=== PATIENT | male | born 1935 | race Caucasian/White ===

== ENCOUNTER → 2016-12-30 | Outpatient (CLI) | payer MEDICARE, BC ==
[2016-12-30 10:49] LABS: ALT 25 U/L (21-72); AST 27 U/L (17-59); Alkaline Phosphatase 59 U/L (38-126); Anion Gap 4 mmol/L; Blood Urea Nitrogen 14 mg/dL (9-20); Calcium 9.1 mg/dL (8.4-10.2); Carbon Dioxide 30 mmol/L (22-30); Chloride 106 mmol/L (98-107); Cholesterol 107 mg/dL (<200); Glucose 152 mg/dL (74-99); HDL Cholesterol 57 mg/dL (40-60); Non-African American GFR(MDRD) >60 (>60 ml/min/1.73 sqM); Sodium 140 mmol/L (137-145); Total Bilirubin 2.3 mg/dL (0.2-1.3); Total Protein 7.4 g/dL (6.3-8.2); Triglycerides 62 mg/dL (<150)
== END | disposition home or self-care (01) ==
LOC: LABWHC1 10:03
PROVIDERS: ATTEND Internal Medicine Interventional Cardiology
DX: E78.2 Mixed hyperlipidemia (principal)
CPT/HCPCS: 36415; 80053; 80061

== ENCOUNTER → 2017-06-15 | Outpatient (CLI) | payer MEDICARE, BC ==
[2017-06-15 10:55] LABS: ALT 35 U/L (21-72); AST 24 U/L (17-59); Cholesterol 112 mg/dL (<200); HDL Cholesterol 55 mg/dL (40-60)
== END | disposition home or self-care (01) ==
LOC: LABWHC1 09:24
PROVIDERS: ATTEND Internal Medicine Interventional Cardiology
DX: E78.2 Mixed hyperlipidemia (principal)
CPT/HCPCS: 36415; 80061; 84450; 84460

== ENCOUNTER 2018-02-12 17:31 | Inpatient (IN) | payer MEDICARE, BC ==
--- NOTE | 2018-02-12 18:09 | ED ---
General Adult HPI - General Chief complaint: Shortness of Breath Stated complaint: RIC, HX OPEN HEART Time Seen by Provider: 02/12/18 18:07 Source: patient, RN notes reviewed, old records reviewed Mode of arrival: ambulatory Limitations: no limitations - History of Present Illness Initial comments: This is a 83-year-old male the ER for evaluation. They presents for evaluation regarding short of breath, severe shortness of breath and weakness. Patient is significant history of heart disease. Patient states he has been was a for about a day and a half secondary difficulty breathing. Since having CABG coronary artery bypass. Difficulty breathing secondary to his lungs feeling with fluid, patient has multiple therapeutic thoracentesis at this time. Patient most recent illness Thursday, significant shortness of breath again starting 2 days ago. No chest pain no fevers no cough or congestion - Related Data Home Medications Medication Instructions Recorded Confirmed Cyanocobalamin [Vitamin B-12] 500 mcg PO HS 03/02/14 02/12/18 Docusate Sodium [Stool Softener] 100 mg PO HS 03/02/14 02/12/18 Metoprolol Tartrate [Lopressor] 50 mg PO BID 03/02/14 02/12/18 Ascorbic Acid [Vitamin C] 500 mg PO HS 02/12/18 02/12/18 Aspirin 81 mg PO HS 02/12/18 02/12/18 Atorvastatin [Lipitor] 20 mg PO HS 02/12/18 02/12/18 Calcium Carbonate/Vitamin D3 1 tab PO BID 02/12/18 02/12/18 [Calcium 500-Vit D3 200 Tablet] Dabigatran [Pradaxa] 150 mg PO BID 02/12/18 02/12/18 Folic Acid 1 mg PO HS 02/12/18 02/12/18 Furosemide [Lasix] 10 mg PO BID@0800,1500 02/12/18 02/12/18 Lisinopril [Zestril] 1.25 mg PO DAILY 02/12/18 02/12/18 Potassium Chloride [K-Tab ER] 5 meq PO DAILY 02/12/18 02/12/18 metFORMIN HCL [Glucophage] 500 mg PO BID 02/12/18 02/12/18 Allergies Allergy/AdvReac Type Severity Reaction Status Date / Time No Known Allergies Allergy Verified 02/12/18 18:12 Review of Systems ROS Statement: Those systems with pertinent positive or pertinent negative responses have been documented in the HPI. ROS Other: All systems not noted in ROS Statement are negative. Past Medical History Past Medical History: Diabetes Mellitus, Hypertension Additional Past Medical History / Comment(s): used to take medication for diabetes, lost 85#, no longer a problem per spouse History of Any Multi-Drug Resistant Organisms: None Reported Past Surgical History: Cholecystectomy, Coronary Bypass/CABG, Heart Catheterization Additional Past Surgical History / Comment(s): CABG (1 vessel) 11/2018 Past Anesthesia/Blood Transfusion Reactions: No Reported Reaction Type of Cardiac Device: Permanent Pacemaker Device Placement Date:: unknown Past Psychological History: No Psychological Hx Reported Smoking Status: Never smoker General Exam Limitations: no limitations General appearance: alert, in no apparent distress Head exam: Present: atraumatic, normocephalic, normal inspection Eye exam: Present: normal appearance, PERRL, EOMI. Absent: scleral icterus, conjunctival injection, periorbital swelling ENT exam: Present: normal exam, mucous membranes moist Neck exam: Present: normal inspection. Absent: tenderness, meningismus, lymphadenopathy Respiratory exam: Present: normal lung sounds bilaterally, decreased breath sounds (Left). Absent: respiratory distress, wheezes, rales, rhonchi, stridor Cardiovascular Exam: Present: regular rate, normal rhythm, normal heart sounds. Absent: systolic murmur, diastolic murmur, rubs, gallop, clicks GI/Abdominal exam: Present: soft, normal bowel sounds. Absent: distended, tenderness, guarding, rebound, rigid Extremities exam: Present: normal inspection, full ROM, normal capillary refill. Absent: tenderness, pedal edema, joint swelling, calf tenderness Back exam: Present: normal inspection Neurological exam: Present: alert, oriented X3, CN II-XII intact Psychiatric exam: Present: normal affect, normal mood Skin exam: Present: warm, dry, intact, normal color. Absent: rash Course Vital Signs 02/12/18 02/12/18 17:56 19:08 Temperature 97.7 F 97.6 F Pulse Rate 60 60 Respiratory 24 22 Rate Blood Pressure 196/90 195/103 O2 Sat by Pulse 96 97 Oximetry - Reevaluation(s) Reevaluation #1: 02/12/18 19:[address] Faustin this paged regarding thoracentesis Reevaluation #2: 02/12/18 19:51 Medical record is reviewed, patient had multiple thoracentesis status post cabg EKG Findings - EKG Comments: EKG Findings:: EKG shows wide rhythm rate of 60, QRS 180, QTC 494 Medical Decision Making - Medical Decision Making 81 female the ER for evaluation shortness of breath, recurrent left-sided significant pleural effusion 50%. Patient be admitted for IV Lasix, therapeutic thoracentesis - Lab Data Result diagrams: 02/12/18 18:10 02/12/18 18:10 Lab Results 02/12/18 02/12/18 02/12/18 Range/Units 18:10 18:10 18:10 WBC 8.7 (3.8-10.6) k/uL RBC 4.29 L (4.30-5.90) m/uL Hgb 12.6 L (13.0-17.5) gm/dL Hct 38.1 L (39.0-53.0) % MCV 88.8 (80.0-100.0) fL MCH 29.3 (25.0-35.0) pg MCHC 33.0 (31.0-37.0) g/dL RDW 14.4 (11.5-15.5) % Plt Count 209 (150-450) k/uL Neutrophils % 64 % Lymphocytes % 19 % Monocytes % 11 % Eosinophils % 3 % Basophils % 0 % Neutrophils # 5.6 (1.3-7.7) k/uL Lymphocytes # 1.6 (1.0-4.8) k/uL Monocytes # 0.9 (0-1.0) k/uL Eosinophils # 0.2 (0-0.7) k/uL Basophils # 0.0 (0-0.2) k/uL PT (9.0-12.0) sec INR (<1.2) APTT (22.0-30.0) sec Sodium 143 (137-145) mmol/L Potassium 4.1 (3.5-5.1) mmol/L Chloride 102 (98-107) mmol/L Carbon Dioxide 29 (22-30) mmol/L Anion Gap 12 mmol/L BUN 20 (9-20) mg/dL Creatinine 0.90 (0.66-1.25) mg/dL Est GFR (CKD-EPI)AfAm >90 (>60 ml/min/1.73 sqM) Est GFR (CKD-EPI)NonAf 79 (>60 ml/min/1.73 sqM) Glucose 234 H (74-99) mg/dL Calcium 9.3 (8.4-10.2) mg/dL Magnesium 1.3 L (1.6-2.3) mg/dL Total Bilirubin 1.1 (0.2-1.3) mg/dL AST 37 (17-59) U/L ALT 23 (21-72) U/L Alkaline Phosphatase 84 (38-126) U/L Total Creatine Kinase 41 L (55-170) U/L CK-MB (CK-2) 1.9 (0.0-2.4) ng/mL CK-MB (CK-2) Rel Index 4.6 Troponin I 0.029 (0.000-0.034) ng/mL NT-Pro-B Natriuret Pep pg/mL Total Protein 6.9 (6.3-8.2) g/dL Albumin 3.7 (3.5-5.0) g/dL 02/12/18 02/12/18 Range/Units 18:10 18:10 WBC (3.8-10.6) k/uL RBC (4.30-5.90) m/uL Hgb (13.0-17.5) gm/dL Hct (39.0-53.0) % MCV (80.0-100.0) fL MCH (25.0-35.0) pg MCHC (31.0-37.0) g/dL RDW (11.5-15.5) % Plt Count (150-450) k/uL Neutrophils % % Lymphocytes % % Monocytes % % Eosinophils % % Basophils % % Neutrophils # (1.3-7.7) k/uL Lymphocytes # (1.0-4.8) k/uL Monocytes # (0-1.0) k/uL Eosinophils # (0-0.7) k/uL Basophils # (0-0.2) k/uL PT 13.8 H (9.0-12.0) sec INR 1.5 H (<1.2) APTT 35.0 H (22.0-30.0) sec Sodium (137-145) mmol/L Potassium (3.5-5.1) mmol/L Chloride (98-107) mmol/L Carbon Dioxide (22-30) mmol/L Anion Gap mmol/L BUN (9-20) mg/dL Creatinine (0.66-1.25) mg/dL Est GFR (CKD-EPI)AfAm (>60 ml/min/1.73 sqM) Est GFR (CKD-EPI)NonAf (>60 ml/min/1.73 sqM) Glucose (74-99) mg/dL Calcium (8.4-10.2) mg/dL Magnesium (1.6-2.3) mg/dL Total Bilirubin (0.2-1.3) mg/dL AST (17-59) U/L ALT (21-72) U/L Alkaline Phosphatase (38-126) U/L Total Creatine Kinase (55-170) U/L CK-MB (CK-2) (0.0-2.4) ng/mL CK-MB (CK-2) Rel Index Troponin I (0.000-0.034) ng/mL NT-Pro-B Natriuret Pep 4950 pg/mL Total Protein (6.3-8.2) g/dL Albumin (3.5-5.0) g/dL - Radiology Data Radiology results: report reviewed (Patient does have significant left-sided pleural effusion), image reviewed Disposition Clinical Impression: Acute pulmonary edema, Recurrent left pleural effusion Disposition: ADMITTED IP TO THIS HOSP Condition: Fair Is patient prescribed a controlled substance at d/c from ED?: No Referrals: Mauro Souza MD [Primary Care Provider] - 1-2 days
[2018-02-12 18:25] LABS: Basophils % (A) 0 %; Eosinophils # (A) 0.2 k/uL (0-0.7); Eosinophils % (A) 3 %; HCT 38.1 % (39.0-53.0); HGB 12.6 gm/dL (13.0-17.5); Lymphocytes # (A) 1.6 k/uL (1.0-4.8); Lymphocytes % (A) 19 %; MCH 29.3 pg (25.0-35.0); MCV 88.8 fL (80.0-100.0); Mean Platelet Volume 6.9; Monocytes # (A) 0.9 k/uL (0-1.0); Monocytes % (A) 11 %; Neutrophils # (A) 5.6 k/uL (1.3-7.7); Neutrophils % (A) 64 %; Platelet Count 209 k/uL (150-450); RBC 4.29 m/uL (4.30-5.90); RDW 14.4 % (11.5-15.5); WBC 8.7 k/uL (3.8-10.6)
[2018-02-12 18:34] LABS: ALT 23 U/L (21-72); AST 37 U/L (17-59); Albumin 3.7 g/dL (3.5-5.0); Alkaline Phosphatase 84 U/L (38-126); Anion Gap 12 mmol/L; Blood Urea Nitrogen 20 mg/dL (9-20); Calcium 9.3 mg/dL (8.4-10.2); Carbon Dioxide 29 mmol/L (22-30); Chloride 102 mmol/L (98-107); Glucose 234 mg/dL (74-99); Magnesium 1.3 mg/dL (1.6-2.3); Potassium 4.1 mmol/L (3.5-5.1); Sodium 143 mmol/L (137-145); Total Bilirubin 1.1 mg/dL (0.2-1.3); Total Protein 6.9 g/dL (6.3-8.2)
[2018-02-12 18:38] LABS: INR 1.5 (<1.2); Prothrombin Time 13.8 sec (9.0-12.0)
[2018-02-12 18:52] LABS: Creatine Kinase MB 1.9 ng/mL (0.0-2.4); Troponin I 0.029 ng/mL (0.000-0.034)
--- NOTE | 2018-02-12 19:04 | XR ---
EXAMINATION TYPE: XR chest 2V DATE OF EXAM: 02/12/2018 COMPARISON: 02/13/2014 HISTORY: Short of breath TECHNIQUE: Frontal and lateral views of the chest are obtained. FINDINGS: Heart is enlarged. There is pulmonary vascular congestion. There is opacification of 50% l eft hemithorax. There is left axillary pacemaker with the lead tip in the right ventricle. There are chest leads. There are sternal wires. IMPRESSION: There is probably mild heart failure. This appears new compared to old exam. There is left pleural effusion and left lower lobe consolidation. This appears new compared to old e xam.
[2018-02-12] MEDS ORDERED: IPRATROPIUM-ALBUTEROL 3 ML NEB INHALATION PRN (20:22)
[2018-02-12] MEDS ORDERED: IPRATROPIUM-ALBUTEROL 3 ML NEB INHALATION STA (20:22)
[2018-02-12] MEDS: MAGNESIUM SULFATE-D5W PMX 1 GM in DEXTROSE/WATER 1 100ML.BAG IVPB SCH ×2 (20:23→21:58)
[2018-02-12] MEDS ORDERED: FUROSEMIDE 10 MG/ML 4 ML VIAL IV STA (20:23)
[2018-02-13 07:23] LABS: Glucose,Whole Blood 223 mg/dL (75-99)
[2018-02-13] MEDS ORDERED: HEPARIN SODIUM,PORCINE 5,000 UNIT/ML 1 ML VIAL IV PRN ×2 (09:43→16:31)
[2018-02-13] MEDS ORDERED: HEPARIN SODIUM,PORCINE 5,000 UNIT/ML 1 ML VIAL IV ONE (10:00)
[2018-02-13 10:21] LABS: Basophils % (A) 1 %; Eosinophils # (A) 0.2 k/uL (0-0.7); Eosinophils % (A) 3 %; HGB 11.5 gm/dL (13.0-17.5); Lymphocytes # (A) 0.9 k/uL (1.0-4.8); Lymphocytes % (A) 16 %; MCH 28.8 pg (25.0-35.0); MCHC 32.9 g/dL (31.0-37.0); MCV 87.6 fL (80.0-100.0); Mean Platelet Volume 7.2; Monocytes # (A) 0.6 k/uL (0-1.0); Monocytes % (A) 9 %; Neutrophils # (A) 4.2 k/uL (1.3-7.7); Neutrophils % (A) 69 %; Platelet Count 167 k/uL (150-450); RBC 3.99 m/uL (4.30-5.90); RDW 14.5 % (11.5-15.5); WBC 6.1 k/uL (3.8-10.6)
[2018-02-13 10:33] LABS: INR 1.4 (<1.2); Partial Thromboplastin Time 29.2 sec (22.0-30.0)
[2018-02-13] MEDS: FUROSEMIDE 10 MG/ML 4 ML VIAL IV SCH (11:04)
[2018-02-13] MEDS: HEPARIN SODIUM,PORCINE/D5W PMX 25,000 UNIT in DEXTROSE/WATER 1 500ML.BAG IV SCH (11:05)
[2018-02-13] MEDS: METOPROLOL TARTRATE 50 MG TAB PO SCH ×2 (11:07→22:48)
[2018-02-13] MEDS: LISINOPRIL 2.5 MG TAB PO SCH (11:07)
[2018-02-13] MEDS: POTASSIUM BICARBONATE/CIT AC 20 MEQ TABLET.EFF PO SCH (11:07)
--- NOTE | 2018-02-13 11:18 | P.GSCN ---
History of Present Illness Consult date: 02/13/18 Reason for Consult: Recurrent left-sided pleural effusion Requesting physician: Cheri Bergman History of present illness: This is an 83-year-old gentleman who follows on an outpatient basis with Dr. Mauro Souza. He has a previous medical history of recent one vessel coronary artery bypass grafting surgery in [place] on 12/11/2017, type 2 diabetes mellitus, hypertension, chronic atrial fibrillation, permanent pacemaker, and thoracentesis 4 since his open heart. Apparently after his open heart surgery he was in the hospital for 2 weeks followed by 3 weeks in subacute rehab. While there he had a left sided thoracentesis for pleural effusion 3 times the last being January 17, all 3 times with a proximally 1 L of fluid removal per the patient's . He was able to recover enough for them to come home. He continued to have shortness of breath, he saw Dr. Pimentel approximately a week ago, had a chest x-ray demonstrating left-sided pleural effusion per the , x-rays not available to us at this time. Again the patient had a thoracentesis which would be his fourth on ThursdayFebruary [address] Pimentel at [facility] with a proximally 500 mL fluid removal per the . He was feeling better until this past Thursday when the noticed he would basically get up, eat and go back to bed. He is experienced continued shortness of breath with any activity and can only walk as far as the bathroom before having to stop to take a break. He does not have shortness of breath as long as he is laying down on his left side. He saw his primary care doctor yesterday, who asked him to report to the emergency room for recurrent left-sided plural effusion. Doctor Francois from cardiothoracic surgery was consulted regarding treatment recommendations. Review of Systems 14 point review of systems was completed was negative except as noted. - Constitutional Reports fatigue, Reports weakness - Cardiovascular Reports decreased exercise tolerance, Reports dyspnea on exertion, Reports leg edema, Reports shortness of breath - Respiratory Reports dyspnea Past Medical History Past Medical History: Atrial Fibrillation, Coronary Artery Disease (CAD), Diabetes Mellitus, Hypertension, Myocardial Infarction ([place]) Additional Past Medical History / Comment(s): used to take medication for diabetes, lost 85#, no longer a problem per spouse, recurrent left-sided pleural effusion Last Myocardial Infarction Date:: History of Any Multi-Drug Resistant Organisms: None Reported Past Surgical History: Cholecystectomy, Coronary Bypass/CABG, Heart Catheterization With Stent, Hernia Repair, Pacemaker, Tonsillectomy Additional Past Surgical History / Comment(s): CABG (1 vessel) 11/2017 in [facility], past colonoscopy,rt inguinal hernia repair, rt knee arthroscopy, cardiac stent-LAD, left-sided thoracentesis 4 Past Anesthesia/Blood Transfusion Reactions: No Reported Reaction Date of Last Stent Placement:: 2013 Type of Cardiac Device: Permanent Pacemaker Device Placement Date:: 02/09/12 Smoking Status: Never smoker Past Alcohol Use History: None Reported Past Drug Use History: None Reported - Past Family History Father Family Medical History: No Reported History Additional Family Medical History / Comment(s): FROM OLD AGE AT 92 Mother Family Medical History: COPD Additional Family Medical History / Comment(s): EMPHYSEMA - AGE 87 Medications and Allergies Home Medications Medication Instructions Recorded Confirmed Type Cyanocobalamin [Vitamin B-12] 500 mcg PO HS 03/02/14 02/12/18 History Docusate Sodium [Stool Softener] 100 mg PO HS 03/02/14 02/12/18 History Metoprolol Tartrate [Lopressor] 50 mg PO BID 03/02/14 02/12/18 History Ascorbic Acid [Vitamin C] 500 mg PO HS 02/12/18 02/12/18 History Aspirin 81 mg PO HS 02/12/18 02/12/18 History Atorvastatin [Lipitor] 20 mg PO HS 02/12/18 02/12/18 History Calcium Carbonate/Vitamin D3 1 tab PO BID 02/12/18 02/12/18 History [Calcium 500-Vit D3 200 Tablet] Dabigatran [Pradaxa] 150 mg PO BID 02/12/18 02/12/18 History Folic Acid 1 mg PO HS 02/12/18 02/12/18 History Furosemide [Lasix] 10 mg PO BID@0800,1500 02/12/18 02/12/18 History Lisinopril [Zestril] 1.25 mg PO DAILY 02/12/18 02/12/18 History Potassium Chloride [K-Tab ER] 5 meq PO DAILY 02/12/18 02/12/18 History metFORMIN HCL [Glucophage] 500 mg PO BID 02/12/18 02/12/18 History Allergies Allergy/AdvReac Type Severity Reaction Status Date / Time No Known Allergies Allergy Verified 02/12/18 18:12 Surgical - Exam Vital Signs Temp Pulse Resp BP Pulse Ox 97.7 F 60 24 196/90 96 02/12/18 17:56 02/12/18 17:56 02/12/18 17:56 02/12/18 17:56 02/12/18 17:56 - General well developed, well nourished, no distress, no pain, obese - Eyes PERRL, normal ocular movement - ENT decreased hearing - Neck no masses, no bruits, trachea midline - Respiratory Lungs sounds clear bilaterally but very diminished on the left side. Respirations even, nonlabored. Currently on room air with oxygen saturation 96% . - Cardiovascular S1, S2 present. Irregular rate and rhythm, atrial fibrillation on EKG. Palpable peripheral pulses bilaterally. No edema present. No calf pain or tenderness noted. - Abdomen Abdomen: soft, non tender, bowel sounds - Genitourinary Deferred - Rectum Deferred - Integumentary Skin is warm and dry with evidence of good perfusion. Well-healed sternal incision present, mediastinal and left pleural chest tube incisions are well- healed. no rash, no growths, no abnormal pigmentation - Neurologic normal coordination, normal sensation - Psychiatric oriented to time, oriented to person, oriented to place, speech is normal, memory intact Results - Labs 02/13/18 10:08 02/12/18 18:10 Abnormal Lab Results - Last 24 Hours (Table) 02/12/18 02/12/18 02/12/18 Range/Units 18:10 18:10 18:10 RBC 4.29 L (4.30-5.90) m/uL Hgb 12.6 L (13.0-17.5) gm/dL Hct 38.1 L (39.0-53.0) % Lymphocytes # (1.0-4.8) k/uL PT (9.0-12.0) sec INR (<1.2) APTT (22.0-30.0) sec Glucose 234 H (74-99) mg/dL POC Glucose (mg/dL) (75-99) mg/dL Magnesium 1.3 L (1.6-2.3) mg/dL Total Creatine Kinase 41 L (55-170) U/L 02/12/18 02/13/18 02/13/18 Range/Units 18:10 07:20 10:08 RBC 3.99 L (4.30-5.90) m/uL Hgb 11.5 L (13.0-17.5) gm/dL Hct 35.0 L (39.0-53.0) % Lymphocytes # 0.9 L (1.0-4.8) k/uL PT 13.8 H (9.0-12.0) sec INR 1.5 H (<1.2) APTT 35.0 H (22.0-30.0) sec Glucose (74-99) mg/dL POC Glucose (mg/dL) 223 H (75-99) mg/dL Magnesium (1.6-2.3) mg/dL Total Creatine Kinase (55-170) U/L 02/13/18 Range/Units 10:08 RBC (4.30-5.90) m/uL Hgb (13.0-17.5) gm/dL Hct (39.0-53.0) % Lymphocytes # (1.0-4.8) k/uL PT 13.0 H (9.0-12.0) sec INR 1.4 H (<1.2) APTT (22.0-30.0) sec Glucose (74-99) mg/dL POC Glucose (mg/dL) (75-99) mg/dL Magnesium (1.6-2.3) mg/dL Total Creatine Kinase (55-170) U/L Diabetes panel 02/12/18 Range/Units 18:10 Sodium 143 (137-145) mmol/L Potassium 4.1 (3.5-5.1) mmol/L Chloride 102 (98-107) mmol/L Carbon Dioxide 29 (22-30) mmol/L BUN 20 (9-20) mg/dL Creatinine 0.90 (0.66-1.25) mg/dL Glucose 234 H (74-99) mg/dL Calcium 9.3 (8.4-10.2) mg/dL AST 37 (17-59) U/L ALT 23 (21-72) U/L Alkaline Phosphatase 84 (38-126) U/L Total Protein 6.9 (6.3-8.2) g/dL Albumin 3.7 (3.5-5.0) g/dL Calcium panel 02/12/18 Range/Units 18:10 Calcium 9.3 (8.4-10.2) mg/dL Albumin 3.7 (3.5-5.0) g/dL Pituitary panel 02/12/18 Range/Units 18:10 Sodium 143 (137-145) mmol/L Potassium 4.1 (3.5-5.1) mmol/L Chloride 102 (98-107) mmol/L Carbon Dioxide 29 (22-30) mmol/L BUN 20 (9-20) mg/dL Creatinine 0.90 (0.66-1.25) mg/dL Glucose 234 H (74-99) mg/dL Calcium 9.3 (8.4-10.2) mg/dL Adrenal panel 02/12/18 Range/Units 18:10 Sodium 143 (137-145) mmol/L Potassium 4.1 (3.5-5.1) mmol/L Chloride 102 (98-107) mmol/L Carbon Dioxide 29 (22-30) mmol/L BUN 20 (9-20) mg/dL Creatinine 0.90 (0.66-1.25) mg/dL Glucose 234 H (74-99) mg/dL Calcium 9.3 (8.4-10.2) mg/dL Total Bilirubin 1.1 (0.2-1.3) mg/dL AST 37 (17-59) U/L ALT 23 (21-72) U/L Alkaline Phosphatase 84 (38-126) U/L Total Protein 6.9 (6.3-8.2) g/dL Albumin 3.7 (3.5-5.0) g/dL - Imaging Chest x-ray: report reviewed, image reviewed EKG: image reviewed Assessment and Plan (1) History of coronary artery bypass graft x 1 Current Visit: Yes Status: Chronic Code(s): Z95.1 - PRESENCE OF AORTOCORONARY BYPASS GRAFT SNOMED Code(s): 058368927 (2) Chronic atrial fibrillation Current Visit: Yes Status: Chronic Code(s): I48.2 - CHRONIC ATRIAL FIBRILLATION SNOMED Code(s): 507320916 (3) Diabetes mellitus type 2 in obese Current Visit: Yes Status: Chronic Code(s): E11.69 - TYPE 2 DIABETES MELLITUS WITH OTHER SPECIFIED COMPLICATION; E66.9 - OBESITY, UNSPECIFIED SNOMED Code(s): 80711177 (4) Hypertension Current Visit: Yes Status: Chronic Code(s): I10 - ESSENTIAL (PRIMARY) HYPERTENSION SNOMED Code(s): 51216763 (5) History of permanent cardiac pacemaker placement Current Visit: Yes Status: Chronic Code(s): Z95.0 - PRESENCE OF CARDIAC PACEMAKER SNOMED Code(s): 765528455 (6) History of thoracentesis Current Visit: Yes Status: Chronic Code(s): Z98.890 - OTHER SPECIFIED POSTPROCEDURAL STATES SNOMED Code(s): 942936168 (7) Recurrent left pleural effusion Current Visit: Yes Status: Acute Code(s): J90 - PLEURAL EFFUSION, NOT ELSEWHERE CLASSIFIED SNOMED Code(s): 59750192 Plan: The patient was seen and examined at the bedside. Chart/diagnostics were reviewed. Patient currently getting echocardiogram. The case was discussed in detail with Dr. Francois. At this time we will hold off making surgical recommendations until we have been able to review his previous x-rays including his post thoracentesis x-ray. The patient is in no significant acute distress. We do recommend continuing IV Lasix as well as his other post open heart medications. Cardiac recommendations per Dr. Fatima. Pulmonology per Dr. Kathi Dominguez. Will order incentive spirometry, recommend use 10 times every hour while awake. More recommendations to follow. Thank you Dr. Bergman for this consult. We look forward to working with you in the care of your patient. Time with Patient: Greater than 30
[2018-02-13 11:31] LABS: Glucose,Whole Blood 295 mg/dL (75-99)
--- NOTE | 2018-02-13 11:39 | P.HPIM ---
History of Present Illness H&P Date: 02/13/18 Chief Complaint: Shortness of breath This is an 83-year-old male patient of Dr. Mauro Souza with past medical history of atrial fibrillation, diabetes mellitus type 2, hypertension, coronary artery disease status post previous stent placement as well as CABG done 12/13/2017 in [place]. Patient gives history of having for thoracentesis done on the left side since his CABG. His last one was done by Dr. Pimentel at [facility]. He states he has had increasing shortness of breath for the past 1-1/2 days as well as generalized weakness. He states the shortness of breath was very significant. He denies having previous diagnosis of heart failure. He states he has occasional chest pain but none during this episode. He denies any fever or chills. He denies any lower extremity edema but he did have significant amount while in [place]. Patient has been started on IV Lasix and consult with pulmonary medicine as well as cardiothoracic surgery. His Pradaxa, aspirin have been placed on hold and patient started on IV heparin due to his underlying atrial fibrillation. Patient may undergo thoracentesis for tomorrow. Echocardiogram has been ordered and repeat chest x- ray for tomorrow. Review of Systems All systems: negative Constitutional: Reports fatigue, Denies chills, Denies fever Eyes: denies blurred vision, denies pain Ears, nose, mouth and throat: Denies headache, Denies sore throat Cardiovascular: Reports decreased exercise tolerance, Reports dyspnea on exertion, Reports shortness of breath, Denies chest pain, Denies edema, Denies leg edema, Denies lightheadedness, Denies syncope Respiratory: Reports dyspnea, Denies cough, Denies cough with sputum, Denies excessive sputum, Denies hemoptysis, Denies home oxygen, Denies wheezing Gastrointestinal: Denies abdominal pain, Denies diarrhea, Denies nausea, Denies vomiting Musculoskeletal: Denies myalgias Integumentary: Denies pruritus, Denies rash Neurological: Denies numbness, Denies weakness Psychiatric: Denies anxiety, Denies depression Endocrine: Denies fatigue, Denies weight change Past Medical History Past Medical History: Atrial Fibrillation, Coronary Artery Disease (CAD), Diabetes Mellitus, Hypertension, Myocardial Infarction ([place]) Additional Past Medical History / Comment(s): used to take medication for diabetes, lost 85#, no longer a problem per spouse Last Myocardial Infarction Date:: History of Any Multi-Drug Resistant Organisms: None Reported Past Surgical History: Cholecystectomy, Coronary Bypass/CABG, Heart Catheterization With Stent, Hernia Repair, Pacemaker, Tonsillectomy Additional Past Surgical History / Comment(s): CABG (1 vessel) 11/2017 in [facility], past colonoscopy,rt inguinal hernia repair, rt knee arthroscopy, cardiac stent-LAD Past Anesthesia/Blood Transfusion Reactions: No Reported Reaction Date of Last Stent Placement:: 2013 Type of Cardiac Device: Permanent Pacemaker Device Placement Date:: 02/09/12 Smoking Status: Never smoker Additional Past Alcohol Use History / Comment(s): Patient is a lifelong nonsmoker. No alcohol abuse or street drug use. - Past Family History Father Family Medical History: No Reported History Additional Family Medical History / Comment(s): FROM OLD AGE AT 92 Mother Family Medical History: COPD Additional Family Medical History / Comment(s): EMPHYSEMA - AGE 87 Sister(s) Additional Family Medical History / Comment(s): Patient has 2 sisters with no major medical problems. Medications and Allergies Home Medications Medication Instructions Recorded Confirmed Type Cyanocobalamin [Vitamin B-12] 500 mcg PO HS 03/02/14 02/12/18 History Docusate Sodium [Stool Softener] 100 mg PO HS 03/02/14 02/12/18 History Metoprolol Tartrate [Lopressor] 50 mg PO BID 03/02/14 02/12/18 History Ascorbic Acid [Vitamin C] 500 mg PO HS 02/12/18 02/12/18 History Aspirin 81 mg PO HS 02/12/18 02/12/18 History Atorvastatin [Lipitor] 20 mg PO HS 02/12/18 02/12/18 History Calcium Carbonate/Vitamin D3 1 tab PO BID 02/12/18 02/12/18 History [Calcium 500-Vit D3 200 Tablet] Dabigatran [Pradaxa] 150 mg PO BID 02/12/18 02/12/18 History Folic Acid 1 mg PO HS 02/12/18 02/12/18 History Furosemide [Lasix] 10 mg PO BID@0800,1500 02/12/18 02/12/18 History Lisinopril [Zestril] 1.25 mg PO DAILY 02/12/18 02/12/18 History Potassium Chloride [K-Tab ER] 5 meq PO DAILY 02/12/18 02/12/18 History metFORMIN HCL [Glucophage] 500 mg PO BID 02/12/18 02/12/18 History Allergies Allergy/AdvReac Type Severity Reaction Status Date / Time No Known Allergies Allergy Verified 02/12/18 18:12 Physical Exam Vitals: Vital Signs Temp Pulse Pulse Resp BP BP Pulse Ox 02/13/18 05:39 97.9 F 64 16 139/63 96 02/13/18 00:00 16 02/12/18 23:00 97.0 F L 61 16 143/78 93 L 02/12/18 20:33 60 16 02/12/18 20:31 60 20 173/87 97 02/12/18 20:25 61 20 178/88 100 02/12/18 19:08 97.6 F 60 22 195/103 97 02/12/18 17:56 97.7 F 60 24 196/90 96 Intake and Output 02/12/18 02/13/18 02/13/18 22:59 06:59 14:59 Intake Total 830 440 Balance 830 440 Intake: Intake, IV Titration 200 Amount Magnesium Sulfate-D5w Pmx 200 1 gm In Dextrose/Water 1 100ml.bag @ 100 mls/hr IVPB Q1H [facility] Rx#: [id number] Oral 830 240 Other: # Voids 2 2 Weight 101.605 kg Gen: This is a 83-year-old male patient he is sitting on the edge of the bed and appears to be comfortable. No acute respiratory distress is noted. HEENT: Head is atraumatic, normocephalic. Pupils equal, round. Sclerae is anicteric. NECK: Supple. No JVD. No lymphadenopathy. No thyromegaly. LUNGS: Clear to auscultation with very diminished on the left side. No intercostal retractions. HEART: Irregular rate and rhythm. No murmur. ABDOMEN: Soft. Bowel sounds are present. No masses. No tenderness. EXTREMITIES: No pedal edema. No calf tenderness. NEUROLOGICAL: Patient is awake, alert and oriented x3. Cranial nerves 2 through 12 are grossly intact. Results CBC & Chem 7: 02/13/18 10:08 02/12/18 18:10 Labs: Abnormal Lab Results - Last 24 Hours (Table) 02/12/18 02/12/18 02/12/18 Range/Units 18:10 18:10 18:10 RBC 4.29 L (4.30-5.90) m/uL Hgb 12.6 L (13.0-17.5) gm/dL Hct 38.1 L (39.0-53.0) % PT (9.0-12.0) sec INR (<1.2) APTT (22.0-30.0) sec Glucose 234 H (74-99) mg/dL POC Glucose (mg/dL) (75-99) mg/dL Magnesium 1.3 L (1.6-2.3) mg/dL Total Creatine Kinase 41 L (55-170) U/L 02/12/18 02/13/18 Range/Units 18:10 07:20 RBC (4.30-5.90) m/uL Hgb (13.0-17.5) gm/dL Hct (39.0-53.0) % PT 13.8 H (9.0-12.0) sec INR 1.5 H (<1.2) APTT 35.0 H (22.0-30.0) sec Glucose (74-99) mg/dL POC Glucose (mg/dL) 223 H (75-99) mg/dL Magnesium (1.6-2.3) mg/dL Total Creatine Kinase (55-170) U/L Thrombosis Risk Factor Assmnt - DVT/VTE Prophylaxis DVT/VTE Prophylaxis: Pharmacologic Prophylaxis ordered - Choose All That Apply Any of the Below Risk Factors Present?: Yes Each Factor Represents 1 point: Obesity (BMI >25) Other Risk Factors: Yes Each Risk Factor Represents 3 Points: Age 75 years or older Thrombosis Risk Factor Assessment Total Risk Factor Score: 4 Thrombosis Risk Factor Assessment Level: Moderate Risk Assessment and Plan Plan: 1. Recurrent left-sided pleural effusion. Depending on results of echocardiogram, patient may have paracentesis tomorrow or may require VATS procedure. Pulmonary medicine and cardiothoracic surgery on consult. Continue Lasix 40 mg IV daily, echocardiogram. Repeat chest x-ray in the morning 2. Ccoronary artery disease status post CABG December 13 in [place], stable. He denies any chest pain. Continue Lipitor, Lopressor. Aspirin is on hold. 3. Chronic atrial fibrillation. Pradaxa on hold and patient started on heparin drip. 4. Diabetes mellitus type 2. Metformin placed on hold. Continue NovoLog scale before meals and at bedtime. 5. Hypertension. Continue lisinopril 1.25 g daily and Lopressor 50 mg twice daily. 6. DVT prophylaxis. Heparin. 7. GI prophylaxis Pepcid. Patient will be admitted to the hospital for a minimum of 3 night stay. Discharge plan: return home Impression and plan of care have been directed as dictated by the signing physician. Abigail Zaman nurse practitioner acting as scribe for signing physician.
[2018-02-13] MEDS: INSULIN ASPART 100 UNIT/ML 1 ML 10 ML VIAL SQ SCH ×3 (12:17→22:48)
--- NOTE | 2018-02-13 12:17 | CONS ---
CONSULTATION Keegan Tobias is an 83-year-old male who presented to the ER with increasing shortness of breath. He had been seen by Dr. Pimentel approximately a week ago. At that time, underwent left-sided thoracentesis for a recurrent pleural effusion. The patient subsequently came into the ED and had recurrence off his left pleural effusion and subsequently was admitted to the hospital for further evaluation. He recently had a coronary artery bypass about 6 weeks ago and apparently has had 4 thoracenteses within the last 6 weeks. He denies any fever, chills or rigors. PAST MEDICAL HISTORY: Positive for diabetes, hypertension, coronary artery disease, status post coronary artery bypass, which was a 1 vessel bypass, history of permanent pacemaker. No clear previous history of COPD or asthma. 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 MEDICATIONS: Prior to admission were metformin, potassium chloride, Lopressor, Zestril, Lasix, folic acid, stool softener, Pradaxa, vitamin B12, calcium carbonate, atorvastatin, aspirin, ascorbic acid. REVIEW OF SYSTEMS: Is noncontributory other than for what is described in history of present illness and past medical history. PHYSICAL EXAMINATION: VITAL SIGNS: Respiratory rate is 16, pulse rate of 64, temperature 97.9, blood pressure 139/63, O2 saturation on 2 L by nasal cannula is 96%. HEENT reveals pupils are equal. No jugular venous distention. CHEST reveals decreased breath sounds in the left bases CARDIOVASCULAR SYSTEM: Reveals an S1, S2. No S3, no S4. Short systolic murmur is heard. ABDOMEN: Soft. EXTREMITIES: There is no pedal edema. Chest x-ray shows left-sided opacification up to about 50% consistent with a pleural effusion, possible paresis of the left hemidiaphragm. LABS: A white count of 6.1, hemoglobin of 11.6. PT/INR 1.4, glucose of 295, NT proBNP of 4950. IMPRESSION: At this time: 1. Recurrent left-sided pleural effusion in part due to congestive heart failure. In summary, has recently had coronary artery bypass surgery. 2. 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 3. Coronary artery disease. 4. Diabetes mellitus. At this point in time, would recommend incentive spirometry. Check a decubitus film. Consider sniff test and would hold Pradaxa at this time. If he does not improve with diuresis, may consider thoracentesis. Depending on how he does, we should make further changes to his care. MMODL / IJN: [id number] /
--- NOTE | 2018-02-13 13:13 | ECHOF ---
Referral Reason:LVF MEASUREMENTS -------- HEIGHT: 182.9 cm WEIGHT: 101.6 kg BP: IVSd: 1.4 cm (0.6 - 1.1) LVIDd: 4.8 cm (3.9 - 5.3) LVPWd: 1.4 cm (0.6 - 1.1) IVSs: 1.5 cm LVIDs: 4.0 cm LVPWs: 1.6 cm LA Diam: 5.3 cm (2.7 - 3.8) RVIDd: 3.3 cm (< 3.3) LAESV Index (A-L): 56.56 ml/m Ao Diam: 3.2 cm (2.0 - 3.7) LA Diam: 5.3 cm (2.7 - 3.8) AV Cusp: 1.6 cm (1.5 - 2.6) EPSS: 1.8 cm MV E Rafi: 0.85 m/s MV DecT: 154 ms MV A Rafi: 0.39 m/s MV E/A Ratio: 2.19 RAP: 5.00 mmHg RVSP: 42.41 mmHg MV EF SLOPE: 77.99 mm/s (70 - 150) MV EXCURSION: 17.57 mm (> 18.000) FINDINGS -------- Paced rhythm. This was a techncally difficult study with suboptimal views, , Lumason utilized for enhancement of im ages. The left ventricular size is normal. There is mild concentric left ventricular hypertrophy. Overa ll left ventricular systolic function is moderate-severely impaired with, an EF between 30 - 35 %. Anterseptal Hypokinesis Inferior Hypokinesis Septal Hypokinesis The right ventricle is normal in size. The left atrium is markedly dilated. LA is severely dilated >40 ml/m2 The right atrial size is normal. 5.0mg OF Lumason UTLIZED: 2 OR MORE WALL SEGMENTS NOT VISUALIZED. The aortic valve is trileaflet, and appears structurally normal. No aortic stenosis or regurgitation. Mild mitral annular calcification present. Mild mitral regurgitation is present. Mild tricuspid regurgitation present. There is mild pulmonary hypertension. The right ventricular systolic pressure, as measured by Doppler, is 42.41mmHg. Trace/mild (physiologic) pulmonic regurgitation. The aortic root size is normal. There is no pericardial effusion. CONCLUSIONS -------- 1. Paced rhythm. 2. This was a techncally difficult study with suboptimal views, , Lumason utilized for enhancement of images. 3. The left ventricular size is normal. 4. There is mild concentric left ventricular hypertrophy. 5. Overall left ventricular systolic function is moderate-severely impaired with, an EF between 30 - 35 %. 6. Anterseptal Hypokinesis 7. Inferior Hypokinesis 8. Septal Hypokinesis 9. The right ventricle is normal in size. 10. The left atrium is markedly dilated. 11. LA is severely dilated >40 ml/m2 12. The right atrial size is normal. 13. 5.0mg OF Lumason UTLIZED: 2 OR MORE WALL SEGMENTS NOT VISUALIZED. 14. The aortic valve is trileaflet, and appears structurally normal. No aortic stenosis or regurgitat ion. 15. Mild mitral annular calcification present. 16. Mild mitral regurgitation is present. 17. Mild tricuspid regurgitation present. 18. There is mild pulmonary hypertension. 19. The right ventricular systolic pressure, as measured by Doppler, is 42.41mmHg. 20. Trace/mild (physiologic) pulmonic regurgitation. 21. The aortic root size is normal. 22. There is no pericardial effusion. CROWNING HAMMER OPERATOR: Mary Ortiz RDCS
[2018-02-13 17:17] LABS: Glucose,Whole Blood 161 mg/dL (75-99)
[2018-02-13 19:18] LABS: Hemoglobin A1C 7.5 % (4.0-6.0)
[2018-02-13 20:16] LABS: Glucose,Whole Blood 238 mg/dL (75-99)
[2018-02-13] MEDS: CALCIUM CARB-VIT D 500MG-200UN 1 EACH TAB PO SCH (22:47)
[2018-02-13] MEDS: CYANOCOBALAMIN 500 MCG TAB PO SCH (22:47)
[2018-02-13] MEDS: FOLIC ACID 1 MG TAB PO SCH (22:48)
[2018-02-13] MEDS: ASCORBIC ACID 500 MG TAB PO SCH (22:48)
[2018-02-13] MEDS: DOCUSATE 100 MG CAP PO SCH (22:48)
[2018-02-13] MEDS: ATORVASTATIN 20 MG TAB PO SCH (22:48)
[2018-02-14 07:04] LABS: Glucose,Whole Blood 239 mg/dL (75-99)
[2018-02-14] MEDS: INSULIN ASPART 100 UNIT/ML 1 ML 10 ML VIAL SQ SCH ×4 (07:29→22:00)
[2018-02-14] MEDS: CALCIUM CARB-VIT D 500MG-200UN 1 EACH TAB PO SCH ×2 (07:30→21:59)
[2018-02-14] MEDS: FAMOTIDINE 20 MG TAB PO SCH (07:31)
[2018-02-14] MEDS: METOPROLOL TARTRATE 50 MG TAB PO SCH ×2 (07:31→21:59)
[2018-02-14] MEDS: LISINOPRIL 2.5 MG TAB PO SCH (07:31)
[2018-02-14] MEDS: FUROSEMIDE 10 MG/ML 4 ML VIAL IV SCH ×2 (07:31→22:00)
[2018-02-14] MEDS: POTASSIUM BICARBONATE/CIT AC 20 MEQ TABLET.EFF PO SCH (07:32)
[2018-02-14 08:11] LABS: Basophils % (A) 1 %; Eosinophils # (A) 0.3 k/uL (0-0.7); Eosinophils % (A) 3 %; HCT 39.3 % (39.0-53.0); HGB 12.9 gm/dL (13.0-17.5); Lymphocytes # (A) 1.9 k/uL (1.0-4.8); Lymphocytes % (A) 24 %; MCH 29.6 pg (25.0-35.0); MCHC 32.9 g/dL (31.0-37.0); MCV 89.9 fL (80.0-100.0); Mean Platelet Volume 6.6; Monocytes # (A) 0.6 k/uL (0-1.0); Monocytes % (A) 8 %; Neutrophils # (A) 4.9 k/uL (1.3-7.7); Neutrophils % (A) 62 %; Platelet Count 196 k/uL (150-450); RBC 4.37 m/uL (4.30-5.90); RDW 14.9 % (11.5-15.5)
--- NOTE | 2018-02-14 09:00 | XR ---
EXAMINATION TYPE: XR chest w decubitus 4 views DATE OF EXAM: 02/14/2018 COMPARISON: 02/12/2018 TECHNIQUE: PA and lateral and bilateral decubitus views are submitted views submitted. HISTORY: Shortness of breath FINDINGS: There is a central interstitial pattern with small right effusion and moderate to large left effusion with basilar consolidation. Cardiomegaly, postoperative change and cardiac device noted. Arthropathy of the shoulders. On the decubitus view appears to be free-flowing pleural effusion. Hypertrophic ch ez of the spine noted. IMPRESSION: 1. Stable x-ray demonstrating mild central venous congestion with bilateral pleural effusions greater on the left which appears free-flowing on decubitus view.
--- NOTE | 2018-02-14 09:56 | P.PN ---
Subjective Progress Note Date: 02/14/18 Principal diagnosis: Recurrent left-sided pleural effusion. Previous medical history of recent one vessel coronary artery bypass grafting surgery on 12/11/2017, type 2 diabetes mellitus, hypertension, chronic atrial fibrillation on Pradaxa, permanent pacemaker, and thoracentesis 4 since his open heart surgery. Patient is currently lying in bed in no acute distress. States his breathing is better since admission. Able to get up and walk to the bathroom with less shortness of breath. Denies chest pain. No new complaints. Objective - Vital Signs Vital signs: Vital Signs Temp 96.5 F L 02/14/18 05:14 Pulse 60 02/14/18 05:14 Resp 18 02/14/18 05:14 BP 128/62 02/14/18 05:14 Pulse Ox 93 L 02/14/18 05:14 Intake & Output 02/13/18 02/14/18 02/14/18 18:59 06:59 18:59 Intake Total 889.667 400 356.117 Balance 889.667 400 356.117 Weight 101.605 kg Intake: Intake, IV Titration 209.667 356.117 Amount Heparin Sodium,Porcine/ 209.667 356.117 D5w Pmx 25,000 unit In Dextrose/Water 1 500ml. bag @ 9.843 UNITS/KG/HR 20 mls/hr IV .Q24H [facility] Rx #:[id number] Oral 680 400 Other: Voiding Method Toilet Toilet Toilet # Voids 6 1 - Constitutional General appearance: Present: cooperative, no acute distress, obese - Respiratory Details: Lungs sounds diminished bilaterally, left greater than right. Respirations even , nonlabored. Currently on room air with oxygen saturation 93%. Able to achieve 500-750 mL on his incentive spirometry. - Cardiovascular Details: S1, S2 present. Irregular rate and rhythm. Sternum stable. Palpable peripheral pulses bilaterally. No edema present. No calf pain or tenderness noted. - Gastrointestinal Gastrointestinal Comment(s): Abdomen soft, nontender, nondistended. Active bowel sounds 4 quadrants. Tolerating diet. - Genitourinary Genitourinary Comment(s): Continues to void clear, yellow urine. Excellent diuresis with Lasix. - Integumentary Integumentary Comment(s): Skin is warm and dry with evidence of good perfusion. Anterior chest sternal incision well healed. - Neurologic Neurologic: Present: CNII-XII intact - Musculoskeletal Musculoskeletal: Present: gait normal, strength equal bilaterally - Psychiatric Psychiatric: Present: A&O x's 3, appropriate affect, intact judgment & insight - Allied health notes Allied health notes reviewed: nursing - Labs CBC & Chem 7: 02/14/18 06:36 18 18:10 Labs: Abnormal Lab Results - Last 24 Hours (Table) 02/13/18 02/13/18 02/13/18 Range/Units 10:08 10:08 10:08 RBC 3.99 L (4.30-5.90) m/uL Hgb 11.5 L (13.0-17.5) gm/dL Hct 35.0 L (39.0-53.0) % Lymphocytes # 0.9 L (1.0-4.8) k/uL PT 13.0 H (9.0-12.0) sec INR 1.4 H (<1.2) APTT (22.0-30.0) sec POC Glucose (mg/dL) (75-99) mg/dL C-Reactive Protein 31.4 H (<10.0) mg/L 02/13/18 02/13/18 02/13/18 Range/Units 11:19 17:15 20:13 RBC (4.30-5.90) m/uL Hgb (13.0-17.5) gm/dL Hct (39.0-53.0) % Lymphocytes # (1.0-4.8) k/uL PT (9.0-12.0) sec INR (<1.2) APTT (22.0-30.0) sec POC Glucose (mg/dL) 295 H 161 H 238 H (75-99) mg/dL C-Reactive Protein (<10.0) mg/L 02/13/18 02/14/18 02/14/18 Range/Units 22:26 06:36 06:36 RBC (4.30-5.90) m/uL Hgb 12.9 L (13.0-17.5) gm/dL Hct (39.0-53.0) % Lymphocytes # (1.0-4.8) k/uL PT (9.0-12.0) sec INR (<1.2) APTT 64.4 H 56.4 H (22.0-30.0) sec POC Glucose (mg/dL) (75-99) mg/dL C-Reactive Protein (<10.0) mg/L 02/14/18 Range/Units 07:02 RBC (4.30-5.90) m/uL Hgb (13.0-17.5) gm/dL Hct (39.0-53.0) % Lymphocytes # (1.0-4.8) k/uL PT (9.0-12.0) sec INR (<1.2) APTT (22.0-30.0) sec POC Glucose (mg/dL) 239 H (75-99) mg/dL C-Reactive Protein (<10.0) mg/L - Imaging and Cardiology Chest x-ray: report reviewed, image reviewed Assessment and Plan (1) History of coronary artery bypass graft x 1 Current Visit: Yes Status: Chronic Code(s): Z95.1 - PRESENCE OF AORTOCORONARY BYPASS GRAFT SNOMED Code(s): 567422673 (2) Chronic atrial fibrillation Current Visit: Yes Status: Chronic Code(s): I48.2 - CHRONIC ATRIAL FIBRILLATION SNOMED Code(s): 288580475 (3) Diabetes mellitus type 2 in obese Current Visit: Yes Status: Chronic Code(s): E11.69 - TYPE 2 DIABETES MELLITUS WITH OTHER SPECIFIED COMPLICATION; E66.9 - OBESITY, UNSPECIFIED SNOMED Code(s): 95125719 (4) Hypertension Current Visit: Yes Status: Chronic Code(s): I10 - ESSENTIAL (PRIMARY) HYPERTENSION SNOMED Code(s): 80568457 (5) History of permanent cardiac pacemaker placement Current Visit: Yes Status: Chronic Code(s): Z95.0 - PRESENCE OF CARDIAC PACEMAKER SNOMED Code(s): 232104949 (6) History of thoracentesis Current Visit: Yes Status: Chronic Code(s): Z98.890 - OTHER SPECIFIED POSTPROCEDURAL STATES SNOMED Code(s): 008577196 (7) Recurrent left pleural effusion Current Visit: Yes Status: Acute Code(s): J90 - PLEURAL EFFUSION, NOT ELSEWHERE CLASSIFIED SNOMED Code(s): 84751310 Plan: 1. Continue Lipitor, Merrill, beta rah, Lasix IV, heparin drip. Will add in baby aspirin. 2. Bronchodilators per pulmonology. 3. Encourage incentive spirometry use 10 times every hour while awake. 4. Increase activity, ambulate as tolerated. 5. Continue to hold Pradaxa at this time for possible pleural effusion intervention, thoracentesis versus surgical. 6. Will send for CD of chest x-rays completed after previous thoracentesis to review and compare with current x-rays. 7. Medical management per primary care service. 8. More recommendations to follow. Time with Patient: Greater than 30
[2018-02-14] MEDS: HEPARIN SODIUM,PORCINE/D5W PMX 25,000 UNIT in DEXTROSE/WATER 1 500ML.BAG IV SCH (10:14)
[2018-02-14 10:43] LABS: Anion Gap 12 mmol/L; Blood Urea Nitrogen 20 mg/dL (9-20); Carbon Dioxide 27 mmol/L (22-30); Chloride 101 mmol/L (98-107); Glucose 233 mg/dL (74-99); Potassium 3.4 mmol/L (3.5-5.1); Sodium 140 mmol/L (137-145)
[2018-02-14 10:50] LABS: INR 1.4 (<1.2); Prothrombin Time 12.8 sec (9.0-12.0)
[2018-02-14 11:29] LABS: Glucose,Whole Blood 198 mg/dL (75-99)
--- NOTE | 2018-02-14 11:53 | P.PN ---
Subjective Progress Note Date: 02/14/18 This is an 83-year-old male patient of Dr. Mauro Souza with past medical history of atrial fibrillation, diabetes mellitus type 2, hypertension, coronary artery disease status post previous stent placement as well as CABG done 12/13/2017 in [place]. Patient gives history of having for thoracentesis done on the left side since his CABG. His last one was done by Dr. Pimentel at [facility]. He states he has had increasing shortness of breath for the past 1-1/2 days as well as generalized weakness. He states the shortness of breath was very significant. He denies having previous diagnosis of heart failure. He states he has occasional chest pain but none during this episode. He denies any fever or chills. He denies any lower extremity edema but he did have significant amount while in [place]. Patient has been started on IV Lasix and consult with pulmonary medicine as well as cardiothoracic surgery. His Pradaxa, aspirin have been placed on hold and patient started on IV heparin due to his underlying atrial fibrillation. Patient may undergo thoracentesis for tomorrow. Echocardiogram has been ordered and repeat chest x- ray for tomorrow. 02/14: Patient is followed by primary medicine and cardiothoracic surgery. Echocardiogram reveals mild concentric left ventricle hypertrophy, EF 30-35%, LA severely dilated greater than 40, mild mitral regurgitation, mild tricuspid regurgitation, mild pulmonary hypertension. Repeat x-ray shows stable x-ray demonstrating mild central venous congestion with bilateral pleural effusions greater on the left which appears free-flowing on the decubitus view. Pulse ox is 93% on 2 L. Patient has been afebrile. Capillary blood glucose running between 161 and 239. Lasix is at 40 mg IV daily and will be increased to twice daily. Discussed patient's condition with his daughter, Valerie Torres ([phone]) and she relates that patient does have a known ejection fraction of 30-35 % and a paralyzed diaphragm on the left side. Patient relates he did not sleep well during the night. Repeat chest x-ray is ordered for the morning. Objective - Vital Signs Vital signs: Vital Signs Temp 96.5 F L 02/14/18 05:14 Pulse 60 02/14/18 05:14 Resp 18 02/14/18 05:14 BP 128/62 02/14/18 05:14 Pulse Ox 93 L 02/14/18 05:14 Intake & Output 02/13/18 02/14/18 02/14/18 18:59 06:59 18:59 Intake Total 889.667 400 356.117 Balance 889.667 400 356.117 Weight 101.605 kg Intake: Intake, IV Titration 209.667 356.117 Amount Heparin Sodium,Porcine/ 209.667 356.117 D5w Pmx 25,000 unit In Dextrose/Water 1 500ml. bag @ 9.843 UNITS/KG/HR 20 mls/hr IV .Q24H [facility] Rx #:[id number] Oral 680 400 Other: Voiding Method Toilet Toilet Toilet # Voids 6 1 - Exam Gen: This is a 83-year-old male patient he is sitting on the edge of the bed and appears to be comfortable. No acute respiratory distress is noted. HEENT: Head is atraumatic, normocephalic. Pupils equal, round. Sclerae is anicteric. NECK: Supple. No JVD. No lymphadenopathy. No thyromegaly. LUNGS: Clear to auscultation with very diminished on the left side. No intercostal retractions. HEART: Irregular rate and rhythm. No murmur. ABDOMEN: Soft. Bowel sounds are present. No masses. No tenderness. EXTREMITIES: No pedal edema. No calf tenderness. NEUROLOGICAL: Patient is awake, alert and oriented x3. Cranial nerves 2 through 12 are grossly intact. - Labs CBC & Chem 7: 02/14/18 06:36 02/14/18 06:36 Labs: Abnormal Lab Results - Last 24 Hours (Table) 02/13/18 02/13/18 02/13/18 Range/Units 10:08 10:08 10:08 RBC 3.99 L (4.30-5.90) m/uL Hgb 11.5 L (13.0-17.5) gm/dL Hct 35.0 L (39.0-53.0) % Lymphocytes # 0.9 L (1.0-4.8) k/uL PT 13.0 H (9.0-12.0) sec INR 1.4 H (<1.2) APTT (22.0-30.0) sec POC Glucose (mg/dL) (75-99) mg/dL C-Reactive Protein 31.4 H (<10.0) mg/L 02/13/18 02/13/18 02/13/18 Range/Units 11:19 17:15 20:13 RBC (4.30-5.90) m/uL Hgb (13.0-17.5) gm/dL Hct (39.0-53.0) % Lymphocytes # (1.0-4.8) k/uL PT (9.0-12.0) sec INR (<1.2) APTT (22.0-30.0) sec POC Glucose (mg/dL) 295 H 161 H 238 H (75-99) mg/dL C-Reactive Protein (<10.0) mg/L 02/13/18 02/14/18 02/14/18 Range/Units 22:26 06:36 06:36 RBC (4.30-5.90) m/uL Hgb 12.9 L (13.0-17.5) gm/dL Hct (39.0-53.0) % Lymphocytes # (1.0-4.8) k/uL PT (9.0-12.0) sec INR (<1.2) APTT 64.4 H 56.4 H (22.0-30.0) sec POC Glucose (mg/dL) (75-99) mg/dL C-Reactive Protein (<10.0) mg/L 02/14/18 Range/Units 07:02 RBC (4.30-5.90) m/uL Hgb (13.0-17.5) gm/dL Hct (39.0-53.0) % Lymphocytes # (1.0-4.8) k/uL PT (9.0-12.0) sec INR (<1.2) APTT (22.0-30.0) sec POC Glucose (mg/dL) 239 H (75-99) mg/dL C-Reactive Protein (<10.0) mg/L Assessment and Plan Plan: 1. Recurrent left-sided pleural effusion with known left diaphragm paralysis with acute on chronic systolic heart failure. Echocardiogram as above, patient may have thoracentesis tomorrow or may require VATS procedure. Pulmonary medicine and cardiothoracic surgery on consult. Continue Lasix 40 mg IV increased frequency to twice daily. Repeat chest x-ray in the morning 2. Ccoronary artery disease status post CABG December 13 in [place], stable. He denies any chest pain. Continue Lipitor, Lopressor. Aspirin is on hold. 3. Chronic atrial fibrillation. Pradaxa on hold and patient started on heparin drip. 4. Diabetes mellitus type 2. Metformin placed on hold. Continue NovoLog scale before meals and at bedtime. 5. Hypertension. Continue lisinopril 1.25 g daily and Lopressor 50 mg twice daily. 6. DVT prophylaxis. Heparin. 7. GI prophylaxis Pepcid. Discharge plan: return home Impression and plan of care have been directed as dictated by the signing physician. Abigail Zaman nurse practitioner acting as scribe for signing physician.
[2018-02-14 15:40] VITALS: RESP 16
[2018-02-14 17:19] LABS: Glucose,Whole Blood 234 mg/dL (75-99)
--- NOTE | 2018-02-14 18:06 | PN ---
PROGRESS NOTE DATE OF SERVICE: 02/14/18 He was seen again on January2017. He has been hemodynamically stable. His echocardiogram was done which showed evidence of ejection fraction of only 30%. Bilateral chest x-ray with decubitus views shows both effusions on the left than the right. The x-rays were personally reviewed, does not show complete aeration off the left lung in the right lower decubitus. The sniff test is pending. On physical examination: Vital signs stable. He is afebrile. His chest reveals decreased breath sounds on the left base. Cardiovascular system is S1, S2. Abdomen is soft. There is no edema. Labs and medications were reviewed. IMPRESSION: At this time is: 1. Congestive heart failure and ischemic cardiomyopathy as the reason for his shortness of breath. 2. Left pleural effusion, more than the right, possible left diaphragmatic paresis. 3. Atrial fibrillation. At this point in time, continue to hold his Pradaxa. Check a sniff test and further decide if he is a candidate for a thoracentesis preferentially treatment of his congestive heart failure may help him more than recurrent thoracentesis. He was counseled regarding his condition and this approach and has a fair understanding of our recommendations. MMODL / IJN: [id number] /
[2018-02-14 19:59] LABS: Glucose,Whole Blood 206 mg/dL (75-99)
[2018-02-14] MEDS: ATORVASTATIN 20 MG TAB PO SCH (21:59)
[2018-02-14] MEDS: CYANOCOBALAMIN 500 MCG TAB PO SCH (21:59)
[2018-02-14] MEDS: ASCORBIC ACID 500 MG TAB PO SCH (21:59)
[2018-02-14] MEDS: FOLIC ACID 1 MG TAB PO SCH (21:59)
[2018-02-14] MEDS: DOCUSATE 100 MG CAP PO SCH (21:59)
[2018-02-14] MEDS: ASPIRIN 81 MG PO SCH (22:00)
[2018-02-15 07:12] LABS: Glucose,Whole Blood 250 mg/dL (75-99)
[2018-02-15] MEDS: INSULIN ASPART 100 UNIT/ML 1 ML 10 ML VIAL SQ SCH ×4 (07:40→22:22)
[2018-02-15] MEDS: CALCIUM CARB-VIT D 500MG-200UN 1 EACH TAB PO SCH ×2 (07:42→20:17)
[2018-02-15] MEDS: METOPROLOL TARTRATE 50 MG TAB PO SCH ×2 (07:43→20:17)
[2018-02-15] MEDS: FUROSEMIDE 10 MG/ML 4 ML VIAL IV SCH ×2 (07:43→20:18)
[2018-02-15] MEDS: FAMOTIDINE 20 MG TAB PO SCH (07:44)
[2018-02-15] MEDS: LISINOPRIL 2.5 MG TAB PO SCH (07:44)
[2018-02-15] MEDS: POTASSIUM BICARBONATE/CIT AC 20 MEQ TABLET.EFF PO SCH (07:45)
[2018-02-15 07:50] LABS: Basophils % (A) 1 %; Eosinophils # (A) 0.3 k/uL (0-0.7); Eosinophils % (A) 5 %; HCT 36.7 % (39.0-53.0); HGB 12.1 gm/dL (13.0-17.5); Lymphocytes # (A) 1.8 k/uL (1.0-4.8); Lymphocytes % (A) 27 %; MCHC 33.1 g/dL (31.0-37.0); MCV 87.7 fL (80.0-100.0); Mean Platelet Volume 7.1; Monocytes # (A) 0.6 k/uL (0-1.0); Monocytes % (A) 9 %; Neutrophils # (A) 3.8 k/uL (1.3-7.7); Neutrophils % (A) 56 %; Platelet Count 204 k/uL (150-450); RBC 4.19 m/uL (4.30-5.90); RDW 14.6 % (11.5-15.5); WBC 6.8 k/uL (3.8-10.6)
[2018-02-15 08:04] LABS: INR 1.3 (<1.2); Partial Thromboplastin Time 52.6 sec (22.0-30.0); Prothrombin Time 12.3 sec (9.0-12.0)
[2018-02-15 08:13] LABS: Anion Gap 10 mmol/L; Blood Urea Nitrogen 18 mg/dL (9-20); Calcium 8.8 mg/dL (8.4-10.2); Carbon Dioxide 32 mmol/L (22-30); Chloride 97 mmol/L (98-107); Glucose 231 mg/dL (74-99); Potassium 3.5 mmol/L (3.5-5.1); Sodium 139 mmol/L (137-145)
--- NOTE | 2018-02-15 08:34 | FL ---
EXAMINATION TYPE: FL sniff test without CXR DATE OF EXAM: 02/15/2018 COMPARISON: Chest x-ray from earlier today and older x-rays back through 2011 HISTORY: Recurrent left-sided effusion. TECHNIQUE: Fluoroscopic assisted sniff test. Approximately 45 seconds of fluoroscopic time was utiliz ed during procedure. 94 spot images are saved. FINDINGS: Fluoroscopic sniff test was performed. Sternal wires and pacemaker as well as cholecystect bethanie clips are noted. During real-time observation there is satisfactory movement of right hemidiaphra gm. Left hemidiaphragm is obscured by effusion but there is absent of movement of stomach bubble sugg esting paralysis during real-time visualization. IMPRESSION: Left hemidiaphragm paralysis is felt present.
--- NOTE | 2018-02-15 08:49 | XR ---
EXAMINATION TYPE: XR chest 2V DATE OF EXAM: 02/15/2018 COMPARISON: 02/14/2018 TECHNIQUE: PA and lateral views submitted. HISTORY: Left pleural effusion FINDINGS: Stable appearing moderate to large sized left pleural effusion. Tiny right effusion suggested. Heart size stable. Postoperative change and cardiac device seen. No sizable pneumothorax. IMPRESSION: 1. Stable left-sided pleural effusion.
[2018-02-15] MEDS: HEPARIN SODIUM,PORCINE/D5W PMX 25,000 UNIT in DEXTROSE/WATER 1 500ML.BAG IV SCH (10:15)
--- NOTE | 2018-02-15 10:16 | P.PN ---
<Radha Kendall E - Last Filed: 02/15/18 15:02> Subjective Progress Note Date: 02/15/18 HPI: This is an 83-year-old male who presented to the ER with increasing shortness of breath. He had been seen by Dr. Pimentel approximately 1 week ago. At that time, he underwent a left-sided thoracentesis for recurrent pleural effusion. The patient subsequently came into the ED and had reoccurrence of his left pleural effusion and subsequently was admitted to the hospital for further evaluation. He recently had a coronary artery bypass about 6 weeks ago and approximately have had 4 thoracentesis procedures within the last 6 weeks. He denies any fevers, chills or rigors. Interval History: 02/14/18- please see DR. CONSTANTINO Moore note 02/15/18- patient is being seen examined and evaluated today on rounds. He did undergo a echocardiogram which did show 30% ejection fraction. Chest x-ray from this morning does show that his left-sided pleural effusion is stable. He did undergo a sniff test which did show left hemidiaphragm paralysis. Patient is also being seen by cardiothoracic surgery. Patient continues on a heparin drip. He is on room air. Pulling volumes of approximately 750 arousals on his incentive spirometer He is afebrile, no further complaints. at bedside and updated on plan of care. Objective - Vital Signs Vital signs: Vital Signs Temp 97.9 F 02/15/18 05:57 Pulse 60 02/15/18 05:57 Resp 16 02/15/18 07:52 BP 113/55 02/15/18 05:57 Pulse Ox 93 L 02/15/18 05:57 Intake & Output 02/14/18 02/15/18 02/15/18 18:59 06:59 18:59 Intake Total 4560.163 6327 Balance 2149.864 5317 Weight 101.605 kg 101.605 kg Intake: Intake, IV Titration 390.333 Amount Heparin Sodium,Porcine/ 390.333 D5w Pmx 25,000 unit In Dextrose/Water 1 500ml. bag @ 9.843 UNITS/KG/HR 20 mls/hr IV .Q24H [facility] Rx #:[id number] Oral 950 1400 Other: Voiding Method Toilet Toilet Toilet Urinal Urinal Urinal # Voids 6 1 - Exam GENERAL EXAM: Alert, active, comfortable in no apparent distress. HEAD: Normocephalic. EYES: Normal reaction of pupils, equal size. NOSE: Clear with pink turbinates. THROAT: No erythema or exudates. NECK: No masses, no JVD. CHEST: No chest wall deformity. LUNGS: Decreased breath sounds on the left-sided base. CVS: S1 and S2 normal with no audible mumurs, irregular rhythm. ABDOMEN: No hepatosplenomegaly, normal bowel sounds, no guarding or rigidity. EXTREMITIES: No edema noted, pedal pulses palpable. CENTRAL NERVOUS SYSTEM: No focal deficits, tone is normal in all 4 extremities. - Labs CBC & Chem 7: 02/15/18 07:26 02/15/18 07:26 Labs: Abnormal Lab Results - Last 24 Hours (Table) 02/13/18 02/14/18 02/14/18 Range/Units 10:08 06:36 06:36 RBC (4.30-5.90) m/uL Hgb (13.0-17.5) gm/dL Hct (39.0-53.0) % PT 12.8 H (9.0-12.0) sec INR 1.4 H (<1.2) APTT (22.0-30.0) sec Potassium 3.4 L (3.5-5.1) mmol/L Chloride (98-107) mmol/L Carbon Dioxide (22-30) mmol/L Glucose 233 H (74-99) mg/dL POC Glucose (mg/dL) (75-99) mg/dL Hemoglobin A1c 7.5 H (4.0-6.0) % 02/14/18 02/14/18 02/14/18 Range/Units 11:28 17:17 19:57 RBC (4.30-5.90) m/uL Hgb (13.0-17.5) gm/dL Hct (39.0-53.0) % PT (9.0-12.0) sec INR (<1.2) APTT (22.0-30.0) sec Potassium (3.5-5.1) mmol/L Chloride (98-107) mmol/L Carbon Dioxide (22-30) mmol/L Glucose (74-99) mg/dL POC Glucose (mg/dL) 198 H 234 H 206 H (75-99) mg/dL Hemoglobin A1c (4.0-6.0) % 02/15/18 02/15/18 02/15/18 Range/Units 07:11 07:26 07:26 RBC 4.19 L (4.30-5.90) m/uL Hgb 12.1 L (13.0-17.5) gm/dL Hct 36.7 L (39.0-53.0) % PT 12.3 H (9.0-12.0) sec INR 1.3 H (<1.2) APTT 52.6 H (22.0-30.0) sec Potassium (3.5-5.1) mmol/L Chloride (98-107) mmol/L Carbon Dioxide (22-30) mmol/L Glucose (74-99) mg/dL POC Glucose (mg/dL) 250 H (75-99) mg/dL Hemoglobin A1c (4.0-6.0) % 02/15/18 Range/Units 07:26 RBC (4.30-5.90) m/uL Hgb (13.0-17.5) gm/dL Hct (39.0-53.0) % PT (9.0-12.0) sec INR (<1.2) APTT (22.0-30.0) sec Potassium (3.5-5.1) mmol/L Chloride 97 L (98-107) mmol/L Carbon Dioxide 32 H (22-30) mmol/L Glucose 231 H (74-99) mg/dL POC Glucose (mg/dL) (75-99) mg/dL Hemoglobin A1c (4.0-6.0) % Assessment and Plan Assessment: Assessment CHF and ischemic cardiomyopathy Recurrent Left-sided pleural effusion Left-sided hemidiaphragm paralysis Recent CABG on 12/11/2017 Chronic Atrial fibrillation CAD Diabetes mellitus type II Hypertension Plan Medications have been reviewed and will be continued as ordered. Cardiothoracic surgery on consult CT of chest today Heparin drip continues, and Pradaxa on hold Continue with pulmonary hygiene, coughing and deep breathing exercises, and supportive care. Supplemental oxygen to maintain oxygen saturations of 92% or better. Continue nebulizer treatments. Encourage incentive spirometer, increase activity as tolerated Possible thoracentesis versus VATS procedure GI and DVT prophylaxis. We will continue to monitor labs/results and adjust treatment as necessary. Further recommendations pending. I performed an examination of the patient and discussed their management with the nurse practitioner. I have reviewed the nurse practitioner's note and agree with the documented findings and plan of care. <Aislinn Pimentel A - Last Filed: 02/15/18 15:31> Objective - Vital Signs Vital signs: Vital Signs Temp 97.9 F 02/15/18 05:57 Pulse 60 02/15/18 05:57 Resp 16 02/15/18 07:52 BP 113/55 02/15/18 05:57 Pulse Ox 93 L 02/15/18 05:57 Intake & Output 02/14/18 02/15/18 02/15/18 18:59 06:59 18:59 Intake Total 9041.005 2077 684 Balance 8744.061 4942 684 Weight 101.605 kg 101.605 kg Intake: IV 184 Heparin Sodium,Porcine/ 184 D5w Pmx 25,000 unit In Dextrose/Water 1 500ml. bag @ 9.843 UNITS/KG/HR 20 mls/hr IV .Q24H [facility] Rx #:[id number] Intake, IV Titration 390.333 500 Amount Heparin Sodium,Porcine/ 390.333 500 D5w Pmx 25,000 unit In Dextrose/Water 1 500ml. bag @ 9.843 UNITS/KG/HR 20 mls/hr IV .Q24H [facility] Rx #:[id number] Oral 950 1400 Other: Voiding Method Toilet Toilet Toilet Urinal Urinal Urinal # Voids 6 1 - Labs CBC & Chem 7: 02/15/18 07:26 02/15/18 07:26 Labs: Abnormal Lab Results - Last 24 Hours (Table) 02/13/18 02/14/18 02/14/18 Range/Units 10:08 17:17 19:57 RBC (4.30-5.90) m/uL Hgb (13.0-17.5) gm/dL Hct (39.0-53.0) % PT (9.0-12.0) sec INR (<1.2) APTT (22.0-30.0) sec Chloride (98-107) mmol/L Carbon Dioxide (22-30) mmol/L Glucose (74-99) mg/dL POC Glucose (mg/dL) 234 H 206 H (75-99) mg/dL Hemoglobin A1c 7.5 H (4.0-6.0) % 02/15/18 02/15/18 02/15/18 Range/Units 07:11 07:26 07:26 RBC 4.19 L (4.30-5.90) m/uL Hgb 12.1 L (13.0-17.5) gm/dL Hct 36.7 L (39.0-53.0) % PT 12.3 H (9.0-12.0) sec INR 1.3 H (<1.2) APTT 52.6 H (22.0-30.0) sec Chloride (98-107) mmol/L Carbon Dioxide (22-30) mmol/L Glucose (74-99) mg/dL POC Glucose (mg/dL) 250 H (75-99) mg/dL Hemoglobin A1c (4.0-6.0) % 02/15/18 02/15/18 Range/Units 07:26 11:36 RBC (4.30-5.90) m/uL Hgb (13.0-17.5) gm/dL Hct (39.0-53.0) % PT (9.0-12.0) sec INR (<1.2) APTT (22.0-30.0) sec Chloride 97 L (98-107) mmol/L Carbon Dioxide 32 H (22-30) mmol/L Glucose 231 H (74-99) mg/dL POC Glucose (mg/dL) 202 H (75-99) mg/dL Hemoglobin A1c (4.0-6.0) % Assessment and Plan Assessment: Patient seen and examined. Patient to undergo CT chest per CVTS, further recommendations pending. Patient has had 4 thoracenteses in the past 2 months. He also has an elevated left hemidiaphragm. He states "I just want to be able to breathe." The patient is currently on RA. Possible VATS procedure pending CT results. ~Aislinn Pimentel DO
[2018-02-15 11:38] LABS: Glucose,Whole Blood 202 mg/dL (75-99)
--- NOTE | 2018-02-15 12:21 | P.PN ---
Subjective Progress Note Date: 02/15/18 This is an 83-year-old male patient of Dr. Mauro Souza with past medical history of atrial fibrillation, diabetes mellitus type 2, hypertension, coronary artery disease status post previous stent placement as well as CABG done 12/13/2017 in [place]. Patient gives history of having for thoracentesis done on the left side since his CABG. His last one was done by Dr. Pimentel at [facility]. He states he has had increasing shortness of breath for the past 1-1/2 days as well as generalized weakness. He states the shortness of breath was very significant. He denies having previous diagnosis of heart failure. He states he has occasional chest pain but none during this episode. He denies any fever or chills. He denies any lower extremity edema but he did have significant amount while in [place]. Patient has been started on IV Lasix and consult with pulmonary medicine as well as cardiothoracic surgery. His Pradaxa, aspirin have been placed on hold and patient started on IV heparin due to his underlying atrial fibrillation. Patient may undergo thoracentesis for tomorrow. Echocardiogram has been ordered and repeat chest x- ray for tomorrow. 02/14: Patient is followed by primary medicine and cardiothoracic surgery. Echocardiogram reveals mild concentric left ventricle hypertrophy, EF 30-35%, LA severely dilated greater than 40, mild mitral regurgitation, mild tricuspid regurgitation, mild pulmonary hypertension. Repeat x-ray shows stable x-ray demonstrating mild central venous congestion with bilateral pleural effusions greater on the left which appears free-flowing on the decubitus view. Pulse ox is 93% on 2 L. Patient has been afebrile. Capillary blood glucose running between 161 and 239. Lasix is at 40 mg IV daily and will be increased to twice daily. 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 Patient relates he did not sleep well during the night. Repeat chest x-ray is ordered for the morning. 02/15: Repeat chest x-ray shows stable left pleural effusion and moderate to large, tiny on the right side. Patient was positive for staph test with a left hemidiaphragm paralysis which was known. Patient is sitting up in a chair at the bedside and his is present. Respiratory status seems to be stable. Pulse ox is 93% on room air. Patient may require thoracentesis versus VATS. Objective - Vital Signs Vital signs: Vital Signs Temp 97.9 F 02/15/18 05:57 Pulse 60 02/15/18 05:57 Resp 16 02/15/18 07:52 BP 113/55 02/15/18 05:57 Pulse Ox 93 L 02/15/18 05:57 Intake & Output 02/14/18 02/15/18 02/15/18 18:59 06:59 18:59 Intake Total 1930.253 4765 Balance 8684.106 4297 Weight 101.605 kg 101.605 kg Intake: Intake, IV Titration 390.333 Amount Heparin Sodium,Porcine/ 390.333 D5w Pmx 25,000 unit In Dextrose/Water 1 500ml. bag @ 9.843 UNITS/KG/HR 20 mls/hr IV .Q24H [facility] Rx #:[id number] Oral 950 1400 Other: Voiding Method Toilet Toilet Toilet Urinal Urinal Urinal # Voids 6 1 - Exam Gen: This is a 83-year-old male patient he is sitting on the edge of the bed and appears to be comfortable. No acute respiratory distress is noted. HEENT: Head is atraumatic, normocephalic. Pupils equal, round. Sclerae is anicteric. NECK: Supple. No JVD. No lymphadenopathy. No thyromegaly. LUNGS: Clear to auscultation with very diminished on the left side. No intercostal retractions. HEART: Irregular rate and rhythm. No murmur. ABDOMEN: Soft. Bowel sounds are present. No masses. No tenderness. EXTREMITIES: No pedal edema. No calf tenderness. NEUROLOGICAL: Patient is awake, alert and oriented x3. Cranial nerves 2 through 12 are grossly intact. - Labs CBC & Chem 7: 02/15/18 07:26 02/15/18 07:26 Labs: Abnormal Lab Results - Last 24 Hours (Table) 02/13/18 02/14/18 02/14/18 Range/Units 10:08 06:36 06:36 RBC (4.30-5.90) m/uL Hgb (13.0-17.5) gm/dL Hct (39.0-53.0) % PT 12.8 H (9.0-12.0) sec INR 1.4 H (<1.2) APTT (22.0-30.0) sec Potassium 3.4 L (3.5-5.1) mmol/L Chloride (98-107) mmol/L Carbon Dioxide (22-30) mmol/L Glucose 233 H (74-99) mg/dL POC Glucose (mg/dL) (75-99) mg/dL Hemoglobin A1c 7.5 H (4.0-6.0) % 02/14/18 02/14/18 02/14/18 Range/Units 11:28 17:17 19:57 RBC (4.30-5.90) m/uL Hgb (13.0-17.5) gm/dL Hct (39.0-53.0) % PT (9.0-12.0) sec INR (<1.2) APTT (22.0-30.0) sec Potassium (3.5-5.1) mmol/L Chloride (98-107) mmol/L Carbon Dioxide (22-30) mmol/L Glucose (74-99) mg/dL POC Glucose (mg/dL) 198 H 234 H 206 H (75-99) mg/dL Hemoglobin A1c (4.0-6.0) % 02/15/18 02/15/18 02/15/18 Range/Units 07:11 07:26 07:26 RBC 4.19 L (4.30-5.90) m/uL Hgb 12.1 L (13.0-17.5) gm/dL Hct 36.7 L (39.0-53.0) % PT 12.3 H (9.0-12.0) sec INR 1.3 H (<1.2) APTT 52.6 H (22.0-30.0) sec Potassium (3.5-5.1) mmol/L Chloride (98-107) mmol/L Carbon Dioxide (22-30) mmol/L Glucose (74-99) mg/dL POC Glucose (mg/dL) 250 H (75-99) mg/dL Hemoglobin A1c (4.0-6.0) % 02/15/18 Range/Units 07:26 RBC (4.30-5.90) m/uL Hgb (13.0-17.5) gm/dL Hct (39.0-53.0) % PT (9.0-12.0) sec INR (<1.2) APTT (22.0-30.0) sec Potassium (3.5-5.1) mmol/L Chloride 97 L (98-107) mmol/L Carbon Dioxide 32 H (22-30) mmol/L Glucose 231 H (74-99) mg/dL POC Glucose (mg/dL) (75-99) mg/dL Hemoglobin A1c (4.0-6.0) % Assessment and Plan Plan: 1. Recurrent left-sided pleural effusion with known left diaphragm paralysis with acute on chronic systolic heart failure. Echocardiogram as above, patient may have thoracentesis or VATS procedure. Pulmonary medicine and cardiothoracic surgery on consult. Continue Lasix 40 mg IV twice daily. Repeat chest x-ray in the morning 2. Ccoronary artery disease status post CABG December 13 in [place], stable. He denies any chest pain. Continue Lipitor, Lopressor. Aspirin is on hold. 3. Chronic atrial fibrillation. Pradaxa on hold and patient started on heparin drip. 4. Diabetes mellitus type 2. Metformin placed on hold. Continue NovoLog scale before meals and at bedtime. 5. Hypertension. Continue lisinopril 1.25 g daily and Lopressor 50 mg twice daily. 6. DVT prophylaxis. Heparin. 7. GI prophylaxis Pepcid. Discharge plan: return home Impression and plan of care have been directed as dictated by the signing physician. Abigail Zaman nurse practitioner acting as scribe for signing physician.
[2018-02-15] MEDS ORDERED: RX INFO: IV CONTRAST WAS GIVEN 1 EACH MISC MISCELLANE PRN (14:10)
--- NOTE | 2018-02-15 14:38 | P.PN ---
<Silvia Scott - Last Filed: 02/15/18 14:37> Subjective Progress Note Date: 02/15/18 Principal diagnosis: Recurrent left-sided pleural effusion. Previous medical history of recent one vessel coronary artery bypass grafting surgery on 12/11/2017, type 2 diabetes mellitus, hypertension, chronic atrial fibrillation on Pradaxa, permanent pacemaker, and thoracentesis 4 since his open heart surgery. Patient is currently sitting up in a chair in no acute distress. States his breathing is better since admission. Able to get up and walk to the bathroom with less shortness of breath. Denies chest pain. No new complaints. Objective - Vital Signs Vital signs: Vital Signs Temp 97.9 F 02/15/18 05:57 Pulse 60 02/15/18 05:57 Resp 16 02/15/18 07:52 BP 113/55 02/15/18 05:57 Pulse Ox 93 L 02/15/18 05:57 Intake & Output 02/14/18 02/15/18 02/15/18 18:59 06:59 18:59 Intake Total 6456.608 1688 Balance 3369.717 3982 Weight 101.605 kg 101.605 kg Intake: Intake, IV Titration 390.333 Amount Heparin Sodium,Porcine/ 390.333 D5w Pmx 25,000 unit In Dextrose/Water 1 500ml. bag @ 9.843 UNITS/KG/HR 20 mls/hr IV .Q24H [facility] Rx #:[id number] Oral 950 1400 Other: Voiding Method Toilet Toilet Toilet Urinal Urinal Urinal # Voids 6 1 - Constitutional General appearance: Present: cooperative, no acute distress, obese - Respiratory Details: Lungs sounds diminished bilaterally, left greater than right. Respirations even , nonlabored. Currently on room air with oxygen saturation 93%. Able to achieve 750 mL on his incentive spirometry. - Cardiovascular Details: S1, S2 present. Irregular rate and rhythm. Sternum stable. Palpable peripheral pulses bilaterally. No edema present. No calf pain or tenderness noted. - Gastrointestinal Gastrointestinal Comment(s): Abdomen soft, nontender, nondistended. Active bowel sounds 4 quadrants. Tolerating diet. - Genitourinary Genitourinary Comment(s): Continues to void clear, yellow urine. Excellent diuresis with Lasix. - Integumentary Integumentary Comment(s): Skin is warm and dry with evidence of good perfusion. Anterior chest sternal incision well healed. - Neurologic Neurologic: Present: CNII-XII intact - Musculoskeletal Musculoskeletal: Present: gait normal, strength equal bilaterally - Psychiatric Psychiatric: Present: A&O x's 3, appropriate affect, intact judgment & insight - Allied health notes Allied health notes reviewed: nursing - Labs CBC & Chem 7: 02/15/18 07:26 02/15/18 07:26 Labs: Abnormal Lab Results - Last 24 Hours (Table) 02/13/18 02/14/18 02/14/18 Range/Units 10:08 06:36 06:36 RBC (4.30-5.90) m/uL Hgb (13.0-17.5) gm/dL Hct (39.0-53.0) % PT 12.8 H (9.0-12.0) sec INR 1.4 H (<1.2) APTT (22.0-30.0) sec Potassium 3.4 L (3.5-5.1) mmol/L Chloride (98-107) mmol/L Carbon Dioxide (22-30) mmol/L Glucose 233 H (74-99) mg/dL POC Glucose (mg/dL) (75-99) mg/dL Hemoglobin A1c 7.5 H (4.0-6.0) % 02/14/18 02/14/18 02/14/18 Range/Units 11:28 17:17 19:57 RBC (4.30-5.90) m/uL Hgb (13.0-17.5) gm/dL Hct (39.0-53.0) % PT (9.0-12.0) sec INR (<1.2) APTT (22.0-30.0) sec Potassium (3.5-5.1) mmol/L Chloride (98-107) mmol/L Carbon Dioxide (22-30) mmol/L Glucose (74-99) mg/dL POC Glucose (mg/dL) 198 H 234 H 206 H (75-99) mg/dL Hemoglobin A1c (4.0-6.0) % 02/15/18 02/15/18 02/15/18 Range/Units 07:11 07:26 07:26 RBC 4.19 L (4.30-5.90) m/uL Hgb 12.1 L (13.0-17.5) gm/dL Hct 36.7 L (39.0-53.0) % PT 12.3 H (9.0-12.0) sec INR 1.3 H (<1.2) APTT 52.6 H (22.0-30.0) sec Potassium (3.5-5.1) mmol/L Chloride (98-107) mmol/L Carbon Dioxide (22-30) mmol/L Glucose (74-99) mg/dL POC Glucose (mg/dL) 250 H (75-99) mg/dL Hemoglobin A1c (4.0-6.0) % 02/15/18 Range/Units 07:26 RBC (4.30-5.90) m/uL Hgb (13.0-17.5) gm/dL Hct (39.0-53.0) % PT (9.0-12.0) sec INR (<1.2) APTT (22.0-30.0) sec Potassium (3.5-5.1) mmol/L Chloride 97 L (98-107) mmol/L Carbon Dioxide 32 H (22-30) mmol/L Glucose 231 H (74-99) mg/dL POC Glucose (mg/dL) (75-99) mg/dL Hemoglobin A1c (4.0-6.0) % - Imaging and Cardiology Chest x-ray: report reviewed, image reviewed CXR from [facility] reviewed and compared to current x ray Assessment and Plan (1) History of coronary artery bypass graft x 1 Current Visit: Yes Status: Chronic Code(s): Z95.1 - PRESENCE OF AORTOCORONARY BYPASS GRAFT SNOMED Code(s): 333390753 (2) Chronic atrial fibrillation Current Visit: Yes Status: Chronic Code(s): I48.2 - CHRONIC ATRIAL FIBRILLATION SNOMED Code(s): 779719639 (3) Diabetes mellitus type 2 in obese Current Visit: Yes Status: Chronic Code(s): E11.69 - TYPE 2 DIABETES MELLITUS WITH OTHER SPECIFIED COMPLICATION; E66.9 - OBESITY, UNSPECIFIED SNOMED Code(s): 25435425 (4) Hypertension Current Visit: Yes Status: Chronic Code(s): I10 - ESSENTIAL (PRIMARY) HYPERTENSION SNOMED Code(s): 05804527 (5) History of permanent cardiac pacemaker placement Current Visit: Yes Status: Chronic Code(s): Z95.0 - PRESENCE OF CARDIAC PACEMAKER SNOMED Code(s): 000429146 (6) History of thoracentesis Current Visit: Yes Status: Chronic Code(s): Z98.890 - OTHER SPECIFIED POSTPROCEDURAL STATES SNOMED Code(s): 510855295 (7) Recurrent left pleural effusion Current Visit: Yes Status: Acute Code(s): J90 - PLEURAL EFFUSION, NOT ELSEWHERE CLASSIFIED SNOMED Code(s): 79231208 Plan: 1. Continue low dose ASA, Lipitor, Merrill, beta rah, Lasix IV, heparin drip. 2. Bronchodilators per pulmonology. 3. Encourage incentive spirometry use 10 times every hour while awake. 4. Increase activity, ambulate as tolerated. 5. Continue to hold Pradaxa at this time. 6. CXR from [facility] reviewed and compared to current xray. Will obtain chest CT to determine level of effusion, if loculation is present. 7. Medical management per primary care service. 8. More recommendations to follow Time with Patient: Greater than 30 <Anastacio Farooq - Last Filed: 02/15/18 14:51> Objective - Vital Signs Vital signs: Vital Signs Temp 97.9 F 02/15/18 05:57 Pulse 60 02/15/18 05:57 Resp 16 02/15/18 07:52 BP 113/55 02/15/18 05:57 Pulse Ox 93 L 02/15/18 05:57 Intake & Output 02/14/18 02/15/18 02/15/18 18:59 06:59 18:59 Intake Total 4709.386 9905 684 Balance 4632.437 2627 684 Weight 101.605 kg 101.605 kg Intake: IV 184 Heparin Sodium,Porcine/ 184 D5w Pmx 25,000 unit In Dextrose/Water 1 500ml. bag @ 9.843 UNITS/KG/HR 20 mls/hr IV .Q24H [facility] Rx #:[id number] Intake, IV Titration 390.333 500 Amount Heparin Sodium,Porcine/ 390.333 500 D5w Pmx 25,000 unit In Dextrose/Water 1 500ml. bag @ 9.843 UNITS/KG/HR 20 mls/hr IV .Q24H [facility] Rx #:[id number] Oral 950 1400 Other: Voiding Method Toilet Toilet Toilet Urinal Urinal Urinal # Voids 6 1 - Labs CBC & Chem 7: 02/15/18 07:26 02/15/18 07:26 Labs: Abnormal Lab Results - Last 24 Hours (Table) 02/13/18 02/14/18 02/14/18 Range/Units 10:08 17:17 19:57 RBC (4.30-5.90) m/uL Hgb (13.0-17.5) gm/dL Hct (39.0-53.0) % PT (9.0-12.0) sec INR (<1.2) APTT (22.0-30.0) sec Chloride (98-107) mmol/L Carbon Dioxide (22-30) mmol/L Glucose (74-99) mg/dL POC Glucose (mg/dL) 234 H 206 H (75-99) mg/dL Hemoglobin A1c 7.5 H (4.0-6.0) % 02/15/18 02/15/18 02/15/18 Range/Units 07:11 07:26 07:26 RBC 4.19 L (4.30-5.90) m/uL Hgb 12.1 L (13.0-17.5) gm/dL Hct 36.7 L (39.0-53.0) % PT 12.3 H (9.0-12.0) sec INR 1.3 H (<1.2) APTT 52.6 H (22.0-30.0) sec Chloride (98-107) mmol/L Carbon Dioxide (22-30) mmol/L Glucose (74-99) mg/dL POC Glucose (mg/dL) 250 H (75-99) mg/dL Hemoglobin A1c (4.0-6.0) % 02/15/18 02/15/18 Range/Units 07:26 11:36 RBC (4.30-5.90) m/uL Hgb (13.0-17.5) gm/dL Hct (39.0-53.0) % PT (9.0-12.0) sec INR (<1.2) APTT (22.0-30.0) sec Chloride 97 L (98-107) mmol/L Carbon Dioxide 32 H (22-30) mmol/L Glucose 231 H (74-99) mg/dL POC Glucose (mg/dL) 202 H (75-99) mg/dL Hemoglobin A1c (4.0-6.0) % Assessment and Plan Plan: The patient was seen and examined. The history and physical findings were verified. I agree with the above assessment and plan. The patient was admitted to the hospital with shortness of breath following coronary artery bypass surgery performed in [place] approximately 2 months ago. He has undergone multiple left-sided thoracenteses and has a known diagnosis of left hemidiaphragm paralysis. When comparing his x-ray following the most recent thoracentesis and today's imaging study, it appears that he has persistent fluid in his left chest. It is hard to tell whether the opacity is from loculated effusion versus paralyzed hemidiaphragm versus disease in the lung parenchyma. For this reason I am recommending a computed tomography scan of the chest to better visualize this area. Further recommendations will follow based on this study. From a clinical standpoint the patient states he is breathing better following diuresis. He is currently on room air.
--- NOTE | 2018-02-15 15:54 | CT ---
EXAMINATION TYPE: CT chest w con DATE OF EXAM: 02/15/2018 COMPARISON: Chest x-ray from earlier today. HISTORY: Difficulty breathing. CT DLP: 593 mGycm Automated exposure control for dose reduction was used. CONTRAST: CT scan of the chest is performed with IV Contrast, patient injected with 100ml mL of Isovue M300. FINDINGS: LUNGS: There is elevated left hemidiaphragm with small to moderate-sized left pleural fluid collectio n that does not completely layer dependently. There is associated compressive atelectasis. There are scattered areas of linear scarring and/or atelectasis throughout the left lung. There is slightly mor e suspicious slightly more hyperdense nodular density centrally left suprahilar region axial image 25 still favor pleural-based location along fissure, , cannot exclude parenchymal mass at this level, m easuring roughly 4.6 x 2.3 cm. There is minimal linear scarring and/or atelectasis in the right lung base otherwise right lung is clear. MEDIASTINUM: There are no greater than 1 cm hilar or mediastinal lymph nodes. There are slightly prom inent but subcentimeter prevascular as well as subcarinal lymph nodes. No pericardial effusion is s een. Cardiomegaly is identified. Post CABG changes with mediastinal clips and sternal wires is seen. There is single lead pacemaker/ICD terminating in right ventricle. OTHER: Cholecystectomy clips are noted. Moderate multilevel spurring in thoracic spine is present. IMPRESSION: 1. Elevated left hemidiaphragm with small to moderate-sized left pleural fluid collection that does n ot completely layer dependently. Cannot exclude central left suprahilar mass or neoplasm. Consider ul trasound-guided thoracentesis for diagnostic purposes. Consider PET/CT follow-up.
[2018-02-15 17:24] LABS: Glucose,Whole Blood 254 mg/dL (75-99)
[2018-02-15 20:13] LABS: Glucose,Whole Blood 245 mg/dL (75-99)
[2018-02-15] MEDS: CYANOCOBALAMIN 500 MCG TAB PO SCH (20:17)
[2018-02-15] MEDS: DOCUSATE 100 MG CAP PO SCH (20:17)
[2018-02-15] MEDS: ASPIRIN 81 MG PO SCH (20:17)
[2018-02-15] MEDS: FOLIC ACID 1 MG TAB PO SCH (20:17)
[2018-02-15] MEDS: ATORVASTATIN 20 MG TAB PO SCH (20:17)
[2018-02-15] MEDS: ASCORBIC ACID 500 MG TAB PO SCH (20:17)
[2018-02-16 06:37] LABS: Glucose,Whole Blood 218 mg/dL (75-99)
[2018-02-16] MEDS: INSULIN ASPART 100 UNIT/ML 1 ML 10 ML VIAL SQ SCH ×4 (08:12→21:19)
[2018-02-16] MEDS: LISINOPRIL 2.5 MG TAB PO SCH (08:14)
[2018-02-16] MEDS: METOPROLOL TARTRATE 50 MG TAB PO SCH ×2 (08:15→21:18)
[2018-02-16] MEDS: FUROSEMIDE 10 MG/ML 4 ML VIAL IV SCH ×2 (08:15→21:19)
[2018-02-16] MEDS: FAMOTIDINE 20 MG TAB PO SCH (08:21)
[2018-02-16] MEDS: CALCIUM CARB-VIT D 500MG-200UN 1 EACH TAB PO SCH ×2 (08:21→21:18)
[2018-02-16] MEDS: POTASSIUM BICARBONATE/CIT AC 20 MEQ TABLET.EFF PO SCH (08:22)
[2018-02-16] MEDS: HEPARIN SODIUM,PORCINE/D5W PMX 25,000 UNIT in DEXTROSE/WATER 1 500ML.BAG IV SCH (08:26)
[2018-02-16 08:31] LABS: Basophils % (A) 1 %; Eosinophils # (A) 0.2 k/uL (0-0.7); Eosinophils % (A) 4 %; HCT 35.1 % (39.0-53.0); HGB 11.7 gm/dL (13.0-17.5); Lymphocytes % (A) 17 %; MCH 29.1 pg (25.0-35.0); MCHC 33.4 g/dL (31.0-37.0); Mean Platelet Volume 6.8; Monocytes # (A) 0.5 k/uL (0-1.0); Monocytes % (A) 8 %; Neutrophils # (A) 3.7 k/uL (1.3-7.7); Neutrophils % (A) 67 %; Platelet Count 178 k/uL (150-450); RBC 4.03 m/uL (4.30-5.90); RDW 14.5 % (11.5-15.5); WBC 5.5 k/uL (3.8-10.6)
[2018-02-16 08:33] LABS: INR 1.3 (<1.2); Partial Thromboplastin Time 49.1 sec (22.0-30.0)
[2018-02-16 10:54] LABS: Glucose,Whole Blood 227 mg/dL (75-99)
--- NOTE | 2018-02-16 11:16 | P.PN ---
Subjective Progress Note Date: 02/16/18 HPI: This is an 83-year-old male who presented to the ER with increasing shortness of breath. He had been seen by Dr. Pimentel approximately 1 week ago. At that time, he underwent a left-sided thoracentesis for recurrent pleural effusion. The patient subsequently came into the ED and had reoccurrence of his left pleural effusion and subsequently was admitted to the hospital for further evaluation. He recently had a coronary artery bypass about 6 weeks ago and approximately have had 4 thoracentesis procedures within the last 6 weeks. He denies any fevers, chills or rigors. Interval History: 02/14/18- please see DR. CONSTANTINO Moore note 02/15/18- patient is being seen examined and evaluated today on rounds. He did undergo a echocardiogram which did show 30% ejection fraction. Chest x-ray from this morning does show that his left-sided pleural effusion is stable. He did undergo a sniff test which did show left hemidiaphragm paralysis. Patient is also being seen by cardiothoracic surgery. Patient continues on a heparin drip. He is on room air. Pulling volumes of approximately 750 arousals on his incentive spirometer He is afebrile, no further complaints. at bedside and updated on plan of care. 02/16/18- patient is being seen examined and evaluated today on rounds. Patient is resting up in bedside chair. He is doing his incentive spirometer pulling volumes of approximately [address] of the chest was personally reviewed with radiology and does show an elevated left hemidiaphragm small-moderate pleural fluid which appears to be loculated. Highly doubtful left suprahilar mass or neoplasm. No plans for thoracentesis at this time. Appreciate recommendations from cardiothoracic surgery. Discussed at length the benefits for pulmonary rehab with the patient, with inspiratory strengthening related to his diaphragm. This will be set up in the outpatient setting. Of note, the patient's last thoracentesis preformed at [facility] was negative on cytology with some reactive lymphocytes, cultures were negative. Objective - Vital Signs Vital signs: Vital Signs Temp 97.7 F 02/16/18 05:00 Pulse 60 02/16/18 05:00 Resp 16 02/16/18 05:00 BP 118/63 02/16/18 05:00 Pulse Ox 95 02/16/18 05:00 Intake & Output 02/15/18 02/16/18 02/16/18 18:59 06:59 18:59 Intake Total 684 1172 531.023 Balance 684 1172 531.023 Weight 101.605 kg Intake: IV 184 92 Heparin Sodium,Porcine/ 184 92 D5w Pmx 25,000 unit In Dextrose/Water 1 500ml. bag @ 9.843 UNITS/KG/HR 20 mls/hr IV .Q24H [facility] Rx #:[id number] Intake, IV Titration 500 531.023 Amount Heparin Sodium,Porcine/ 500 531.023 D5w Pmx 25,000 unit In Dextrose/Water 1 500ml. bag @ 9.843 UNITS/KG/HR 20 mls/hr IV .Q24H [facility] Rx #:[id number] Oral 1080 Other: Voiding Method Toilet Toilet Toilet Urinal Urinal Urinal # Voids 2 - Exam GENERAL EXAM: Alert, active, comfortable in no apparent distress. HEAD: Normocephalic. EYES: Normal reaction of pupils, equal size. NOSE: Clear with pink turbinates. THROAT: No erythema or exudates. NECK: No masses, no JVD. CHEST: No chest wall deformity. LUNGS: Decreased breath sounds on the left-sided base. CVS: S1 and S2 normal with no audible mumurs, irregular rhythm. ABDOMEN: No hepatosplenomegaly, normal bowel sounds, no guarding or rigidity. EXTREMITIES: No edema noted, pedal pulses palpable. CENTRAL NERVOUS SYSTEM: No focal deficits, tone is normal in all 4 extremities. - Labs CBC & Chem 7: 02/16/18 08:07 02/15/18 07:26 Labs: Abnormal Lab Results - Last 24 Hours (Table) 02/15/18 02/15/18 02/15/18 Range/Units 11:36 17:20 20:06 RBC (4.30-5.90) m/uL Hgb (13.0-17.5) gm/dL Hct (39.0-53.0) % INR (<1.2) APTT (22.0-30.0) sec POC Glucose (mg/dL) 202 H 254 H 245 H (75-99) mg/dL 02/16/18 02/16/18 02/16/18 Range/Units 06:35 08:07 08:07 RBC 4.03 L (4.30-5.90) m/uL Hgb 11.7 L (13.0-17.5) gm/dL Hct 35.1 L (39.0-53.0) % INR 1.3 H (<1.2) APTT 49.1 H (22.0-30.0) sec POC Glucose (mg/dL) 218 H (75-99) mg/dL 02/16/18 Range/Units 10:54 RBC (4.30-5.90) m/uL Hgb (13.0-17.5) gm/dL Hct (39.0-53.0) % INR (<1.2) APTT (22.0-30.0) sec POC Glucose (mg/dL) 227 H (75-99) mg/dL Assessment and Plan Assessment: Assessment CHF and ischemic cardiomyopathy Recurrent Left-sided pleural effusion Left-sided hemidiaphragm paralysis Recent CABG on 12/11/2017 Chronic Atrial fibrillation CAD Diabetes mellitus type II Hypertension Plan No plans for repeat of a 5th thoracentesis at this time, discussed with family Thoracentesis that was performed at [facility] was negative for cytology with some reactive lymphocytes, cultures were negative CT of the chest personally reviewed by Dr. CONSTANTINO Dominguez and radiology felt doubtful of suprahilar mass or neoplasm Medications have been reviewed and will be continued as ordered. Cardiothoracic surgery on consult CT of chest today Heparin drip continues, and Pradaxa on hold Continue with pulmonary hygiene, coughing and deep breathing exercises, and supportive care. Supplemental oxygen to maintain oxygen saturations of 92% or better. Continue nebulizer treatments. Encourage incentive spirometer, increase activity as tolerated Possible thoracentesis versus VATS procedure GI and DVT prophylaxis. We will continue to monitor labs/results and adjust treatment as necessary. Further recommendations pending. I performed an examination of the patient and discussed their management with the nurse practitioner. I have reviewed the nurse practitioner's note and agree with the documented findings and plan of care.
--- NOTE | 2018-02-16 12:41 | P.PN ---
Subjective Progress Note Date: 02/16/18 This is an 83-year-old male patient of Dr. Mauro Souza with past medical history of atrial fibrillation, diabetes mellitus type 2, hypertension, coronary artery disease status post previous stent placement as well as CABG done 12/13/2017 in [place]. Patient gives history of having for thoracentesis done on the left side since his CABG. His last one was done by Dr. Pimentel at [facility]. He states he has had increasing shortness of breath for the past 1-1/2 days as well as generalized weakness. He states the shortness of breath was very significant. He denies having previous diagnosis of heart failure. He states he has occasional chest pain but none during this episode. He denies any fever or chills. He denies any lower extremity edema but he did have significant amount while in [place]. Patient has been started on IV Lasix and consult with pulmonary medicine as well as cardiothoracic surgery. His Pradaxa, aspirin have been placed on hold and patient started on IV heparin due to his underlying atrial fibrillation. Patient may undergo thoracentesis for tomorrow. Echocardiogram has been ordered and repeat chest x- ray for tomorrow. 02/14: Patient is followed by primary medicine and cardiothoracic surgery. Echocardiogram reveals mild concentric left ventricle hypertrophy, EF 30-35%, LA severely dilated greater than 40, mild mitral regurgitation, mild tricuspid regurgitation, mild pulmonary hypertension. Repeat x-ray shows stable x-ray demonstrating mild central venous congestion with bilateral pleural effusions greater on the left which appears free-flowing on the decubitus view. Pulse ox is 93% on 2 L. Patient has been afebrile. Capillary blood glucose running between 161 and 239. Lasix is at 40 mg IV daily and will be increased to twice daily. Discussed patient's condition with his daughter, Valerie Torres ) and she relates that patient does have a known ejection fraction of 30-35 % and a paralyzed diaphragm on the left side. Patient relates he did not sleep well during the night. Repeat chest x-ray is ordered for the morning. 02/15: Repeat chest x-ray shows stable left pleural effusion and moderate to large, tiny on the right side. Patient was positive for staph test with a left hemidiaphragm paralysis which was known. Patient is sitting up in a chair at the bedside and his is present. Respiratory status seems to be stable. Pulse ox is 93% on room air. Patient may require thoracentesis versus VATS. 02/16: Patient underwent CT of the chest with contrast revealed elevated left diaphragm was small to moderate-sized left pleural effusion fluid collection that does not completely layered dependently. Cannot exclude central left suprahilar mass or neoplasm. Consider ultrasound-guided thoracentesis for diagnostic purposes. Consider PET scan follow-up. Blood sugars are running in the 200s and on Levemir 8 units will be ordered for nighttime and patient can go back on metformin. Pulse ox is 95% on room air. Shortness of breath is improved. He denies any chest pain. Objective - Vital Signs Vital signs: Vital Signs Temp 97.7 F 02/16/18 05:00 Pulse 60 02/16/18 05:00 Resp 16 02/16/18 05:00 BP 118/63 02/16/18 05:00 Pulse Ox 95 02/16/18 05:00 Intake & Output 02/15/18 02/16/18 02/16/18 18:59 06:59 18:59 Intake Total 684 1172 500 Balance 684 1172 500 Weight 101.605 kg Intake: IV 184 92 Heparin Sodium,Porcine/ 184 92 D5w Pmx 25,000 unit In Dextrose/Water 1 500ml. bag @ 9.843 UNITS/KG/HR 20 mls/hr IV .Q24H [facility] Rx #:[id number] Intake, IV Titration 500 500 Amount Heparin Sodium,Porcine/ 500 500 D5w Pmx 25,000 unit In Dextrose/Water 1 500ml. bag @ 9.843 UNITS/KG/HR 20 mls/hr IV .Q24H [facility] Rx #:[id number] Oral 1080 Other: Voiding Method Toilet Toilet Urinal Urinal # Voids 2 - Exam Gen: This is a 83-year-old male patient he is sitting on the edge of the bed and appears to be comfortable. No acute respiratory distress is noted. HEENT: Head is atraumatic, normocephalic. Pupils equal, round. Sclerae is anicteric. NECK: Supple. No JVD. No lymphadenopathy. No thyromegaly. LUNGS: Clear to auscultation with very diminished on the left side. No intercostal retractions. HEART: Irregular rate and rhythm. No murmur. ABDOMEN: Soft. Bowel sounds are present. No masses. No tenderness. EXTREMITIES: No pedal edema. No calf tenderness. NEUROLOGICAL: Patient is awake, alert and oriented x3. Cranial nerves 2 through 12 are grossly intact. - Labs CBC & Chem 7: 02/16/18 08:07 02/15/18 07:26 Labs: Abnormal Lab Results - Last 24 Hours (Table) 02/15/18 02/15/18 02/15/18 Range/Units 11:36 17:20 20:06 RBC (4.30-5.90) m/uL Hgb (13.0-17.5) gm/dL Hct (39.0-53.0) % INR (<1.2) APTT (22.0-30.0) sec POC Glucose (mg/dL) 202 H 254 H 245 H (75-99) mg/dL 02/16/18 02/16/18 02/16/18 Range/Units 06:35 08:07 08:07 RBC 4.03 L (4.30-5.90) m/uL Hgb 11.7 L (13.0-17.5) gm/dL Hct 35.1 L (39.0-53.0) % INR 1.3 H (<1.2) APTT 49.1 H (22.0-30.0) sec POC Glucose (mg/dL) 218 H (75-99) mg/dL Assessment and Plan Plan: 1. Recurrent left-sided pleural effusion with known left diaphragm paralysis with acute on chronic systolic heart failure. Echocardiogram as above, patient may have thoracentesis or VATS procedure. Pulmonary medicine and cardiothoracic surgery on consult. Continue Lasix 40 mg IV twice daily. CT of the chest with contrast as above. 2. Ccoronary artery disease status post CABG December 13 in [place], stable. He denies any chest pain. Continue Lipitor, Lopressor. Aspirin is on hold. 3. Chronic atrial fibrillation. Pradaxa on hold and patient started on heparin drip. 4. Diabetes mellitus type 2. Metformin placed on hold. Continue NovoLog scale before meals and at bedtime. 5. Hypertension. Continue lisinopril 1.25 g daily and Lopressor 50 mg twice daily. 6. DVT prophylaxis. Heparin. 7. GI prophylaxis Pepcid. Discharge plan: return home Impression and plan of care have been directed as dictated by the signing physician. Abigail Zaman nurse practitioner acting as scribe for signing physician.
--- NOTE | 2018-02-16 13:16 | P.PN ---
Subjective Progress Note Date: 02/16/18 Principal diagnosis: Recurrent left-sided pleural effusion. Previous medical history of recent one vessel coronary artery bypass grafting surgery on 12/11/2017, type 2 diabetes mellitus, hypertension, chronic atrial fibrillation on Pradaxa, permanent pacemaker, and thoracentesis 4 since his open heart surgery. Patient is currently sitting up in a chair in no acute distress. States his breathing is better since admission. Denies chest pain. No new complaints. CT of the thorax done yesterday. Objective - Vital Signs Vital signs: Vital Signs Temp 97.7 F 02/16/18 05:00 Pulse 60 02/16/18 05:00 Resp 16 02/16/18 05:00 BP 118/63 02/16/18 05:00 Pulse Ox 95 02/16/18 05:00 Intake & Output 02/15/18 02/16/18 02/16/18 18:59 06:59 18:59 Intake Total 684 1172 531.023 Balance 684 1172 531.023 Weight 101.605 kg Intake: IV 184 92 Heparin Sodium,Porcine/ 184 92 D5w Pmx 25,000 unit In Dextrose/Water 1 500ml. bag @ 9.843 UNITS/KG/HR 20 mls/hr IV .Q24H [facility] Rx #:[id number] Intake, IV Titration 500 531.023 Amount Heparin Sodium,Porcine/ 500 531.023 D5w Pmx 25,000 unit In Dextrose/Water 1 500ml. bag @ 9.843 UNITS/KG/HR 20 mls/hr IV .Q24H [facility] Rx #:[id number] Oral 1080 Other: Voiding Method Toilet Toilet Urinal Urinal # Voids 2 - Constitutional General appearance: Present: cooperative, no acute distress, obese - Respiratory Details: Lungs sounds diminished bilaterally, left greater than right. Respirations even , nonlabored. Currently on room air with oxygen saturation 95%. Able to achieve 750 mL on his incentive spirometry. - Cardiovascular Details: S1, S2 present. Irregular rate and rhythm. Sternum stable. Palpable peripheral pulses bilaterally. No edema present. No calf pain or tenderness noted. - Gastrointestinal Gastrointestinal Comment(s): Abdomen soft, nontender, nondistended. Active bowel sounds 4 quadrants. Tolerating diet. - Genitourinary Genitourinary Comment(s): Continues to void clear, yellow urine. Excellent diuresis with Lasix. - Integumentary Integumentary Comment(s): Skin is warm and dry with evidence of good perfusion. Anterior chest sternal incision well healed. - Neurologic Neurologic: Present: CNII-XII intact - Musculoskeletal Musculoskeletal: Present: gait normal, strength equal bilaterally - Psychiatric Psychiatric: Present: A&O x's 3, appropriate affect, intact judgment & insight - Allied health notes Allied health notes reviewed: nursing - Labs CBC & Chem 7: 02/16/18 08:07 02/15/18 07:26 Labs: Abnormal Lab Results - Last 24 Hours (Table) 02/15/18 02/15/18 02/15/18 Range/Units 11:36 17:20 20:06 RBC (4.30-5.90) m/uL Hgb (13.0-17.5) gm/dL Hct (39.0-53.0) % INR (<1.2) APTT (22.0-30.0) sec POC Glucose (mg/dL) 202 H 254 H 245 H (75-99) mg/dL 02/16/18 02/16/18 02/16/18 Range/Units 06:35 08:07 08:07 RBC 4.03 L (4.30-5.90) m/uL Hgb 11.7 L (13.0-17.5) gm/dL Hct 35.1 L (39.0-53.0) % INR 1.3 H (<1.2) APTT 49.1 H (22.0-30.0) sec POC Glucose (mg/dL) 218 H (75-99) mg/dL - Imaging and Cardiology CT scan - chest: report reviewed, image reviewed Assessment and Plan (1) History of coronary artery bypass graft x 1 Current Visit: Yes Status: Chronic Code(s): Z95.1 - PRESENCE OF AORTOCORONARY BYPASS GRAFT SNOMED Code(s): 730450760 (2) Chronic atrial fibrillation Current Visit: Yes Status: Chronic Code(s): I48.2 - CHRONIC ATRIAL FIBRILLATION SNOMED Code(s): 900341969 (3) Diabetes mellitus type 2 in obese Current Visit: Yes Status: Chronic Code(s): E11.69 - TYPE 2 DIABETES MELLITUS WITH OTHER SPECIFIED COMPLICATION; E66.9 - OBESITY, UNSPECIFIED SNOMED Code(s): 23535917 (4) Hypertension Current Visit: Yes Status: Chronic Code(s): I10 - ESSENTIAL (PRIMARY) HYPERTENSION SNOMED Code(s): 91738344 (5) History of permanent cardiac pacemaker placement Current Visit: Yes Status: Chronic Code(s): Z95.0 - PRESENCE OF CARDIAC PACEMAKER SNOMED Code(s): 966365033 (6) History of thoracentesis Current Visit: Yes Status: Chronic Code(s): Z98.890 - OTHER SPECIFIED POSTPROCEDURAL STATES SNOMED Code(s): 951431262 (7) Recurrent left pleural effusion Current Visit: Yes Status: Acute Code(s): J90 - PLEURAL EFFUSION, NOT ELSEWHERE CLASSIFIED SNOMED Code(s): 15681786 Plan: 1. Continue low dose ASA, Lipitor, Merrill, beta rah, Lasix IV, heparin drip. 2. Bronchodilators per pulmonology. 3. Encourage incentive spirometry use 10 times every hour while awake. 4. Increase activity, ambulate as tolerated. 5. Continue to hold Pradaxa at this time. 6. CXR from [facility] reviewed and compared to current xray. CT of chest reviewed. Cytology from recent thoracentesis was negative for malignancy, culture was negative per pulmonology. 7. Heart failure management. Recommend cardiology consult. 8. Medical management per primary care service. At this point, patient is certainly not candidate for PleurX catheter. He's also not candidate for potential formal decortication as his diaphragm is dysfunctional which would limit tremendously his benefit from a morbid procedure at this stage. Recommend pulmonary rehab, CHF management and palliative thoracentesis if indicated in the future. RYAN GODWIN MD Time with Patient: Greater than 30
[2018-02-16 17:20] LABS: Glucose,Whole Blood 141 mg/dL (75-99)
[2018-02-16 19:57] LABS: Glucose,Whole Blood 250 mg/dL (75-99)
[2018-02-16] MEDS ORDERED: INSULIN DETEMIR 100 UNIT/ML 10 ML VIAL SQ SCH (21:00)
[2018-02-16] MEDS: CYANOCOBALAMIN 500 MCG TAB PO SCH (21:18)
[2018-02-16] MEDS: ASPIRIN 81 MG PO SCH (21:18)
[2018-02-16] MEDS: FOLIC ACID 1 MG TAB PO SCH (21:18)
[2018-02-16] MEDS: ATORVASTATIN 20 MG TAB PO SCH (21:18)
[2018-02-16] MEDS: DOCUSATE 100 MG CAP PO SCH (21:18)
[2018-02-16] MEDS: ASCORBIC ACID 500 MG TAB PO SCH (22:09)
[2018-02-17 03:40] LABS: Glucose,Whole Blood 234 mg/dL (75-99)
[2018-02-17 05:29] VITALS: BP 137/69; PULSE 62; TEMP 97.4
[2018-02-17 07:08] LABS: Glucose,Whole Blood 224 mg/dL (75-99)
[2018-02-17] MEDS: LISINOPRIL 2.5 MG TAB PO SCH (09:13)
[2018-02-17] MEDS: CALCIUM CARB-VIT D 500MG-200UN 1 EACH TAB PO SCH (09:13)
[2018-02-17] MEDS: INSULIN ASPART 100 UNIT/ML 1 ML 10 ML VIAL SQ SCH ×2 (09:14→12:41)
[2018-02-17] MEDS: METOPROLOL TARTRATE 50 MG TAB PO SCH (09:14)
[2018-02-17] MEDS: FUROSEMIDE 10 MG/ML 4 ML VIAL IV SCH (09:14)
[2018-02-17] MEDS: FAMOTIDINE 20 MG TAB PO SCH (09:14)
[2018-02-17 09:16] LABS: Basophils % (A) 0 %; Eosinophils # (A) 0.3 k/uL (0-0.7); Eosinophils % (A) 3 %; HCT 39.6 % (39.0-53.0); HGB 12.6 gm/dL (13.0-17.5); Hypochromasia Slight; Lymphocytes # (A) 1.8 k/uL (1.0-4.8); Lymphocytes % (A) 25 %; MCH 28.3 pg (25.0-35.0); MCHC 31.8 g/dL (31.0-37.0); MCV 88.9 fL (80.0-100.0); Monocytes # (A) 0.7 k/uL (0-1.0); Monocytes % (A) 10 %; Neutrophils # (A) 4.2 k/uL (1.3-7.7); Neutrophils % (A) 57 %; Platelet Count 220 k/uL (150-450); RBC 4.45 m/uL (4.30-5.90); RDW 14.6 % (11.5-15.5); WBC 7.4 k/uL (3.8-10.6)
[2018-02-17] MEDS: HEPARIN SODIUM,PORCINE/D5W PMX 25,000 UNIT in DEXTROSE/WATER 1 500ML.BAG IV SCH (09:18)
[2018-02-17] MEDS ORDERED: DABIGATRAN 150 MG CAP PO SCH (10:00)
--- NOTE | 2018-02-17 10:33 | P.PN ---
Subjective Progress Note Date: 02/17/18 HPI: This is an 83-year-old male who presented to the ER with increasing shortness of breath. He had been seen by Dr. Pimentel approximately 1 week ago. At that time, he underwent a left-sided thoracentesis for recurrent pleural effusion. The patient subsequently came into the ED and had reoccurrence of his left pleural effusion and subsequently was admitted to the hospital for further evaluation. He recently had a coronary artery bypass about 6 weeks ago and approximately have had 4 thoracentesis procedures within the last 6 weeks. He denies any fevers, chills or rigors. Interval History: 02/14/18- please see DR. CONSTANTNIO Moore note 02/15/18- patient is being seen examined and evaluated today on rounds. He did undergo a echocardiogram which did show 30% ejection fraction. Chest x-ray from this morning does show that his left-sided pleural effusion is stable. He did undergo a sniff test which did show left hemidiaphragm paralysis. Patient is also being seen by cardiothoracic surgery. Patient continues on a heparin drip. He is on room air. Pulling volumes of approximately 750 arousals on his incentive spirometer He is afebrile, no further complaints. at bedside and updated on plan of care. 02/16/18- patient is being seen examined and evaluated today on rounds. Patient is resting up in bedside chair. He is doing his incentive spirometer pulling volumes of approximately [address] of the chest was personally reviewed with radiology and does show an elevated left hemidiaphragm small-moderate pleural fluid which appears to be loculated. Highly doubtful left suprahilar mass or neoplasm. No plans for thoracentesis at this time. Appreciate recommendations from cardiothoracic surgery. Discussed at length the benefits for pulmonary rehab with the patient, with inspiratory strengthening related to his diaphragm. This will be set up in the outpatient setting. Of note, the patient's last thoracentesis preformed at [facility] was negative on cytology with some reactive lymphocytes, cultures were negative. 02/17/18- patient is being seen examined and evaluated today on rounds. He is resting up in bedside chair on room air. Continues to do his incentive spirometer. Feels that shortness of breath is okay today. He states it comes and goes depending on his activity. Cardiothoracic surgery states the patient is not a candidate for decortication or a PleurX catheter. Labs and reports reviewed. He has been cleared for discharge. We will continue to follow this patient in the outpatient setting with serial chest x-rays and do a palliative thoracentesis if needed. Objective - Vital Signs Vital signs: Vital Signs Temp 97.4 F L 02/17/18 05:28 Pulse 62 02/17/18 05:28 Resp 16 02/17/18 05:28 BP 137/69 02/17/18 05:28 Pulse Ox 90 L 02/17/18 05:28 Intake & Output 02/16/18 02/17/18 02/17/18 18:59 06:59 18:59 Intake Total 715.023 468.977 Balance 715.023 468.977 Intake: IV 184 Heparin Sodium,Porcine/ 184 D5w Pmx 25,000 unit In Dextrose/Water 1 500ml. bag @ 9.843 UNITS/KG/HR 20 mls/hr IV .Q24H [facility] Rx #:[id number] Intake, IV Titration 531.023 468.977 Amount Heparin Sodium,Porcine/ 531.023 468.977 D5w Pmx 25,000 unit In Dextrose/Water 1 500ml. bag @ 9.843 UNITS/KG/HR 20 mls/hr IV .Q24H [facility] Rx #:[id number] Other: Voiding Method Toilet Toilet Urinal Urinal # Voids 2 - Exam GENERAL EXAM: Alert, active, comfortable in no apparent distress. HEAD: Normocephalic. EYES: Normal reaction of pupils, equal size. NOSE: Clear with pink turbinates. THROAT: No erythema or exudates. NECK: No masses, no JVD. CHEST: No chest wall deformity. LUNGS: Decreased breath sounds on the left-sided base. CVS: S1 and S2 normal with no audible mumurs, irregular rhythm. ABDOMEN: No hepatosplenomegaly, normal bowel sounds, no guarding or rigidity. EXTREMITIES: No edema noted, pedal pulses palpable. CENTRAL NERVOUS SYSTEM: No focal deficits, tone is normal in all 4 extremities. - Labs CBC & Chem 7: 02/17/18 08:08 02/15/18 07:26 Labs: Abnormal Lab Results - Last 24 Hours (Table) 02/16/18 02/16/18 02/16/18 Range/Units 10:54 17:19 19:55 Hgb (13.0-17.5) gm/dL APTT (22.0-30.0) sec POC Glucose (mg/dL) 227 H 141 H 250 H (75-99) mg/dL 02/17/18 02/17/18 02/17/18 Range/Units 03:38 07:06 08:08 Hgb 12.6 L (13.0-17.5) gm/dL APTT (22.0-30.0) sec POC Glucose (mg/dL) 234 H 224 H (75-99) mg/dL 02/17/18 Range/Units 08:08 Hgb (13.0-17.5) gm/dL APTT 46.2 H (22.0-30.0) sec POC Glucose (mg/dL) (75-99) mg/dL Assessment and Plan Assessment: Assessment CHF and ischemic cardiomyopathy Recurrent Left-sided pleural effusion Left-sided hemidiaphragm paralysis Recent CABG on 12/11/2017 Chronic Atrial fibrillation CAD Diabetes mellitus type II Hypertension Plan Cleared for discharge from pulmonary standpoint We'll continue to follow in the outpatient setting with serial chest xrays. Possible palliative thoracocentesis in the future depending on clinical status Thoracentesis that was performed at [facility] was negative for cytology with some reactive lymphocytes, cultures were negative CT of the chest personally reviewed by Dr. CONSTANTINO Dominguez and radiology felt doubtful of suprahilar mass or neoplasm Medications have been reviewed and will be continued as ordered. Cardiothoracic surgery on consult, no plan for interventions at this time Continue with pulmonary hygiene, coughing and deep breathing exercises, and supportive care. Supplemental oxygen to maintain oxygen saturations of 92% or better. Continue nebulizer treatments. Encourage incentive spirometer, increase activity as tolerated GI and DVT prophylaxis. We will continue to monitor labs/results and adjust treatment as necessary. I performed an examination of the patient and discussed their management with the nurse practitioner. I have reviewed the nurse practitioner's note and agree with the documented findings and plan of care.
[2018-02-17 11:40] LABS: Glucose,Whole Blood 301 mg/dL (75-99)
[2018-02-17] MEDS: POTASSIUM BICARBONATE/CIT AC 20 MEQ TABLET.EFF PO SCH (12:15)
--- NOTE | 2018-02-17 12:17 | P.DS ---
Providers Date of admission: 02/12/18 20:22 Expected date of discharge: 02/17/18 Attending physician: Cheri Bergman Consults: 02/12/18 20:22 Consult Physician Routine Consulting Provider: Edward Dominguez Consult Reason/Comments: known Do you want consulting provider notified?: Yes 02/13/18 09:37 Consult Physician Routine Consulting Provider: Bunny Francois Consult Reason/Comments: recurrent left pleural eff Do you want consulting provider notified?: Yes Primary care physician: Mauro Souza [facility] Course: This is an 83-year-old male patient of Dr. Mauro Souza with past medical history of atrial fibrillation, diabetes mellitus type 2, hypertension, coronary artery disease status post previous stent placement as well as CABG done 12/13/2017 in [place]. Patient gives history of having for thoracentesis done on the left side since his CABG. His last one was done by Dr. Pimentel at [facility]. He states he has had increasing shortness of breath for the past 1-1/2 days as well as generalized weakness. He states the shortness of breath was very significant. He denies having previous diagnosis of heart failure. He states he has occasional chest pain but none during this episode. He denies any fever or chills. He denies any lower extremity edema but he did have significant amount while in [place]. Patient has been started on IV Lasix and consult with pulmonary medicine as well as cardiothoracic surgery. His Pradaxa, aspirin have been placed on hold and patient started on IV heparin due to his underlying atrial fibrillation. Patient may undergo thoracentesis for tomorrow. Echocardiogram has been ordered and repeat chest x- ray for tomorrow. 02/14: Patient is followed by primary medicine and cardiothoracic surgery. Echocardiogram reveals mild concentric left ventricle hypertrophy, EF 30-35%, LA severely dilated greater than 40, mild mitral regurgitation, mild tricuspid regurgitation, mild pulmonary hypertension. Repeat x-ray shows stable x-ray demonstrating mild central venous congestion with bilateral pleural effusions greater on the left which appears free-flowing on the decubitus view. Pulse ox is 93% on 2 L. Patient has been afebrile. Capillary blood glucose running between 161 and 239. Lasix is at 40 mg IV daily and will be increased to twice daily. Discussed patient's condition with his daughter, Valerie Torres ) and she relates that patient does have a known ejection fraction of 30-35 % and a paralyzed diaphragm on the left side. Patient relates he did not sleep well during the night. Repeat chest x-ray is ordered for the morning. 02/15: Repeat chest x-ray shows stable left pleural effusion and moderate to large, tiny on the right side. Patient was positive for staph test with a left hemidiaphragm paralysis which was known. Patient is sitting up in a chair at the bedside and his is present. Respiratory status seems to be stable. Pulse ox is 93% on room air. Patient may require thoracentesis versus VATS. 02/16: Patient underwent CT of the chest with contrast revealed elevated left diaphragm was small to moderate-sized left pleural effusion fluid collection that does not completely layered dependently. Cannot exclude central left suprahilar mass or neoplasm. Consider ultrasound-guided thoracentesis for diagnostic purposes. Consider PET scan follow-up. Blood sugars are running in the 200s and on Levemir 8 units will be ordered for nighttime and patient can go back on metformin. Pulse ox is 95% on room air. Shortness of breath is improved. He denies any chest pain. 02/17: Cardiothoracic surgery team does not plan to do Pleurx nor pleurodesis. No plan for thoracentesis on this admission. Patient has been cleared for discharge will be discharged home today in stable condition with close follow- up with his PCP, Dr. Pimentel and Dr. Fatima. Heparin drip will be discontinued and patient resumed back on Pradaxa prior to discharge. Discharge Diagnoses: 1. Recurrent left-sided pleural effusion with known left diaphragm paralysis with acute on chronic systolic heart failure. 2. Ccoronary artery disease status post CABG December 13 in [place], stable. 3. Chronic atrial fibrillation. 4. Diabetes mellitus type 2. 5. Hypertension. Discharge plan: return home Impression and plan of care have been directed as dictated by the signing physician. Abigail Zaman nurse practitioner acting as scribe for signing physician. Patient Condition at Discharge: Fair Plan - Discharge Summary Discharge Rx Participant: Yes New Discharge Prescriptions: New Furosemide [Lasix] 20 mg PO BID@0800,1500 #60 tab Continue Metoprolol Tartrate [Lopressor] 50 mg PO BID Docusate Sodium [Stool Softener] 100 mg PO HS Cyanocobalamin [Vitamin B-12] 500 mcg PO HS Folic Acid 1 mg PO HS Ascorbic Acid [Vitamin C] 500 mg PO HS Lisinopril [Zestril] 1.25 mg PO DAILY Calcium Carbonate/Vitamin D3 [Calcium 500-Vit D3 200 Tablet] 1 tab PO BID Potassium Chloride [K-Tab ER] 5 meq PO DAILY Dabigatran [Pradaxa] 150 mg PO BID Atorvastatin [Lipitor] 20 mg PO HS Aspirin 81 mg PO HS metFORMIN HCL [Glucophage] 500 mg PO BID #0 Discontinued Furosemide [Lasix] 10 mg PO BID@0800,1500 Discharge Medication List Cyanocobalamin [Vitamin B-12] 500 mcg PO HS 03/02/14 [History] Docusate Sodium [Stool Softener] 100 mg PO HS 03/02/14 [History] Metoprolol Tartrate [Lopressor] 50 mg PO BID 03/02/14 [History] Ascorbic Acid [Vitamin C] 500 mg PO HS 02/12/18 [History] Aspirin 81 mg PO HS 02/12/18 [History] Atorvastatin [Lipitor] 20 mg PO HS 02/12/18 [History] Calcium Carbonate/Vitamin D3 [Calcium 500-Vit D3 200 Tablet] 1 tab PO BID [History] Dabigatran [Pradaxa] 150 mg PO BID 02/12/18 [History] Folic Acid 1 mg PO HS 02/12/18 [History] Lisinopril [Zestril] 1.25 mg PO DAILY 02/12/18 [History] Potassium Chloride [K-Tab ER] 5 meq PO DAILY 02/12/18 [History] Furosemide [Lasix] 20 mg PO BID@0800,1500 #60 tab 02/17/18 [Rx] metFORMIN HCL [Glucophage] 500 mg PO BID #0 02/17/18 [Rx] Follow up Appointment(s)/Referral(s): Sulaiman Fatima MD [STAFF PHYSICIAN] - 02/25/18 1:30 pm (February 25 Stress Test, Dr. Fatima on ThursdayFebruary 24 at 9:45.) Aislinn Pimentel DO [Doctor of Osteopathic Medicine] - 02/25/18 10:30 am Mauro Souza MD [Primary Care Provider] - 1-2 days (Patient to call Dr. Souza's office ThursdayFebruary 20 to schedule follow up appointment. The office is closed at time of discharge. ) Patient Instructions/Handouts: Furosemide (By mouth), A-fib (Atrial Fibrillation) (DC), Pulmonary Edema (DC), Pleural Effusion (DC)
[2018-02-17] MEDS ORDERED: FUROSEMIDE 20 MG TAB PO SCH (15:00)
[2018-02-18] MEDS ORDERED: metFORMIN 500 MG TAB PO SCH (09:00)
== END 2018-02-17 12:55 | disposition home or self-care (01) | DRG 292 ==
LOC: EC 17:31 → 5MS5E 20:22
PROVIDERS: ADMIT Internal Medicine; ATTEND Internal Medicine
DX: I50.23 Acute on chronic systolic (congestive) heart failure (principal); J90 Pleural effusion, not elsewhere classified; E66.9 Obesity, unspecified; E11.69 Type 2 diabetes mellitus with other specified complication; I48.2 Chronic atrial fibrillation; I25.5 Ischemic cardiomyopathy; Z77.090 Contact with and (suspected) exposure to asbestos; J98.6 Disorders of diaphragm; I11.0 Hypertensive heart disease with heart failure; I25.10 Atherosclerotic heart disease of native coronary artery without angina pectoris; Z68.30 Body mass index [BMI] 30.0-30.9, adult; Z95.5 Presence of coronary angioplasty implant and graft; Z95.1 Presence of aortocoronary bypass graft; Z79.01 Long term (current) use of anticoagulants; Z79.4 Long term (current) use of insulin; Z79.82 Long term (current) use of aspirin; Z79.899 Other long term (current) drug therapy; Z82.5 Family history of asthma and other chronic lower respiratory diseases; Z95.0 Presence of cardiac pacemaker; I25.2 Old myocardial infarction
CPT/HCPCS: 36415; 71046; 71048; 71260; 76000; 80048; 80053; 82550; 82553; 83036; 83735; 83880; 84484; 85025; 85610; 85730; 86140; 93005; 93306; 94640; 96365; 96375; 99285

== ENCOUNTER → 2018-03-06 | Outpatient (CLI) | payer MEDICARE, BC | END | disposition home or self-care (01) | LOC: RADPETMAIN 13:28 | PROVIDERS: ATTEND Internal Medicine | DX: Z53.9 Procedure and treatment not carried out, unspecified reason (principal) ==

== ENCOUNTER → 2018-03-13 | Outpatient (CLI) | payer MEDICARE, BC ==
--- NOTE | 2018-03-13 16:57 | PE ---
EXAMINATION TYPE: PET CT fusion skull to thigh DATE OF EXAM: 03/13/2018 COMPARISON: CT chest February 15, 2018 HISTORY: Abnormal CT, pulmonary nodule. TECHNIQUE: Following the intravenous administration of 14.27 mCi of F-18 FDG, whole body images are performed from the skull base to the midthigh. Images are reviewed on the computer in the coronal, a xial, and sagittal planes. Reconstructed rotating images are created on independent workstation and reviewed on the computer. A noncontrast CT is performed in conjunction with the PET scan. SCAN: Initial Scan FINDINGS: SKULL BASE AND NECK: No areas of suspicious hypermetabolic uptake are seen. CHEST, MEDIASTINUM, AND HILAR REGION: There is persistent small to moderate-sized left pleural effusi on or fluid collection with associated compressive atelectasis. There is redemonstration of nondepend ent component anteriorly in the lower lung axial image 97 for reference. Mild diffuse groundglass [place] is felt to reflect mild alveolar edema bilaterally. There is mild increased hypermetabolic uptake along the sternotomy could be related to recent procedu re versus infection, correlate clinically. There is additional areas of abnormal hypermetabolic uptak e involving multiple right anterior lateral ribs and posterior lateral right fifth rib axial image 92 correlating with areas of acute fracture new from recent chest CT. No suspicious areas of hypermetabolic uptake are seen in either lung or hilar region. Suspicious area left suprahilar region of slightly more hyperdense nodularity near axial image 82 does not show susp icious hypermetabolic uptake. ABDOMEN AND PELVIS: No areas of suspicious hypermetabolic uptake are present. No suspicious adrenal m asses are noted. OSSEOUS STRUCTURES: As above. OTHER CT: Visualized brain parenchyma shows age-related atrophy. There is mild calcified plaque carotid bulb level, left greater than right. There is cardiomegaly with single lead pacemaker. There are enlarged pulmonary arteries, CT findings consistent with underlying pulmonary artery hypertension. Cholecystectomy clips are present. There is moderate fat replaced atrophy of pancreas. There is curvilinear density likely reflecting metastases from prior ventral wall hernia repair surge ry on the right midabdomen axial image 163. There is moderate to large sized fat-containing left inguinal hernia. There is moderate calcified plaque of aorta extending into branch vessels. There is facet arthropathy lower lumbar levels. There is cortical thinning in both kidneys with scattered small cysts, findings are consistent with p roduct of chronic medical renal disease. IMPRESSION: No areas of abnormal hypermetabolic uptake are seen to suggest malignancy. Still slightly suspicious due to asymmetric left-sided effusion or fluid collection which does not completely layer dependently and left hemidiaphragm paralysis. Would consider imaging guided thoracentesis for diagno stic purposes. Correlate clinically for recent trauma with new posterior lateral and more numerous an terolateral right-sided rib fractures. Attention to sternotomy assess for infection or acute mediasti nitis advised.
== END | disposition home or self-care (01) ==
LOC: RADPETMAIN 11:18
PROVIDERS: ATTEND Internal Medicine
DX: R91.1 Solitary pulmonary nodule (principal)
CPT/HCPCS: 78815; A9552

== ENCOUNTER 2018-05-28 13:46 | Inpatient (IN) | payer MEDICARE, BC ==
[2018-05-28] MEDS ORDERED: Acetaminophen-Codeine 300-30mg TAB PO STA (14:40)
--- NOTE | 2018-05-28 16:12 | XR ---
EXAMINATION TYPE: XR Hip LT and AP Pelvis DATE OF EXAM: 05/28/2018 COMPARISON: NONE HISTORY: Trauma and pain TECHNIQUE: Frontal view of the pelvis submitted on 2 images, 2 views of the left hip. There is a left femoral neck fracture with impaction. No dislocation. Degenerative disc changes are n oted incidentally within the lumbar spine. Bone mineralization is reduced. There are vascular calcifi cations within the pelvis. IMPRESSION: Impacted left femoral neck fracture
--- NOTE | 2018-05-28 16:14 | XR ---
Left humerus HISTORY: Trauma and pain 2 views of left humerus submitted on 3 images There is an impacted proximal left humerus head fracture. There is slight angulation. No dislocation. Pacemaker generator noted incidentally in the left pectoral region. IMPRESSION: Proximal humerus fracture.
--- NOTE | 2018-05-28 16:15 | XR ---
EXAMINATION TYPE: XR shoulder complete LT DATE OF EXAM: 05/28/2018 CLINICAL HISTORY: pain TECHNIQUE: Frontal and lateral images of the left humerus are obtained. COMPARISON: None. FINDINGS: There is impacted and minimally displaced humeral neck fracture. Displacement of 5 mm. No e vidence for dislocation. AC joint appears to be intact. IMPRESSION: There is impacted and minimally displaced humeral neck fracture. ICD 10 closed FRACTURE, INITIAL EVALUATION
[2018-05-28] MEDS ORDERED: SODIUM CHLORIDE 0.9% 1,000 ML IV STA (16:20)
[2018-05-28] MEDS ORDERED: MORPHINE SULFATE 4 MG/ML SYRINGE IVP STA (16:20)
[2018-05-28] MEDS ORDERED: MORPHINE SULFATE 4 MG/ML SYRINGE IV PRN (17:17)
[2018-05-28] MEDS ORDERED: ACETAMINOPHEN TAB 325 MG TAB PO PRN (17:17)
[2018-05-28] MEDS ORDERED: NALOXONE 0.4 MG/ML 1 ML VIAL IV PRN (17:17)
[2018-05-28] MEDS ORDERED: traMADol 50 MG TAB PO PRN (17:17)
[2018-05-28 17:19] LABS: Basophils % (A) 0 %; Eosinophils # (A) 0.1 k/uL (0-0.7); Eosinophils % (A) 0 %; HCT 40.8 % (39.0-53.0); Hypochromasia Slight; Lymphocytes % (A) 7 %; MCH 29.4 pg (25.0-35.0); MCHC 31.8 g/dL (31.0-37.0); MCV 92.3 fL (80.0-100.0); Mean Platelet Volume 6.7; Monocytes # (A) 0.7 k/uL (0-1.0); Monocytes % (A) 5 %; Neutrophils # (A) 12.5 k/uL (1.3-7.7); Neutrophils % (A) 87 %; Platelet Count 188 k/uL (150-450); RBC 4.42 m/uL (4.30-5.90); RDW 14.2 % (11.5-15.5); WBC 14.3 k/uL (3.8-10.6)
[2018-05-28 17:27] LABS: INR 1.4 (<1.2); Prothrombin Time 13.3 sec (9.0-12.0)
--- NOTE | 2018-05-28 17:29 | ED ---
General Adult HPI <Ted Fontana - Last Filed: 05/28/18 17:31> - General Source: patient, RN notes reviewed Mode of arrival: wheelchair Limitations: no limitations <Scar Fry - Last Filed: 05/28/18 23:59> - General Chief complaint: Fall Stated complaint: Fall, shoulder pain Time Seen by Provider: 05/28/18 14:13 - History of Present Illness Initial comments: 83-year-old male presents to the emergency department for a chief complaint of fall occurring about one hour ago. Patient has a history of A. fib on Pradaxa, diabetes myelitis currently controlled without medication, hypertension, MT. Patient had a CABG in November 2017. Patient currently has a pacemaker. Patient states he stepped up a 3 inch step and reached for the doorknob when he missed the door knob and fell on his left side. Patient denies hitting his head or injuring his neck or back. Patient states he has pain in both his left groin as well as his left shoulder. Patient states it is painful to move the shoulder. Patient states he is not able to ambulate on the left hip. Patient has no other complaints at this time including shortness of breath, chest pain, abdominal pain, nausea or vomiting, headache, or visual changes. (Scar Fry) - Related Data Home Medications Medication Instructions Recorded Confirmed Cyanocobalamin [Vitamin B-12] 500 mcg PO HS 03/02/14 05/28/18 Docusate Sodium [Stool Softener] 100 mg PO HS 03/02/14 05/28/18 Ascorbic Acid [Vitamin C] 500 mg PO HS 02/12/18 05/28/18 Atorvastatin [Lipitor] 20 mg PO HS 02/12/18 05/28/18 Calcium Carbonate/Vitamin D3 1 tab PO BID 02/12/18 05/28/18 [Calcium 500-Vit D3 200 Tablet] Dabigatran [Pradaxa] 150 mg PO BID 02/12/18 05/28/18 Folic Acid 1 mg PO HS 02/12/18 05/28/18 Aspirin EC [Ecotrin Low Dose] 81 mg PO DAILY 05/28/18 05/28/18 Ferrous Sulfate [Feosol] 325 mg PO HS 05/28/18 05/28/18 Furosemide [Lasix] 40 mg PO BID 05/28/18 05/28/18 Glimepiride [Amaryl] 2 mg PO AC-BRKFST 05/28/18 05/28/18 Lisinopril [Zestril] 2.5 mg PO DAILY 05/28/18 05/28/18 Metoprolol Succinate [Toprol Xl] 50 mg PO DAILY 05/28/18 05/28/18 Potassium Chloride [Klor-Con 20] 10 meq PO DAILY 05/28/18 05/28/18 Previous Rx's Medication Instructions Recorded metFORMIN HCL [Glucophage] 500 mg PO BID #0 02/17/18 Allergies Allergy/AdvReac Type Severity Reaction Status Date / Time No Known Allergies Allergy Verified 05/28/18 14:17 Review of Systems ROS Other: All systems not noted in ROS Statement are negative. <Ted Fontana - Last Filed: 05/28/18 17:31> ROS Other: All systems not noted in ROS Statement are negative. <Scar Fry - Last Filed: 05/28/18 23:59> ROS Statement: Those systems with pertinent positive or pertinent negative responses have been documented in the HPI. Past Medical History Past Medical History: Atrial Fibrillation, Coronary Artery Disease (CAD), Diabetes Mellitus, Hypertension, Myocardial Infarction ([place]) Additional Past Medical History / Comment(s): used to take medication for diabetes, lost 85#, no longer a problem per spouse Last Myocardial Infarction Date:: History of Any Multi-Drug Resistant Organisms: None Reported Past Surgical History: Cholecystectomy, Coronary Bypass/CABG, Heart Catheterization With Stent, Hernia Repair, Pacemaker, Tonsillectomy Additional Past Surgical History / Comment(s): CABG (1 vessel) 11/2017 in [facility], past colonoscopy,rt inguinal hernia repair, rt knee arthroscopy, cardiac stent-LAD Past Anesthesia/Blood Transfusion Reactions: No Reported Reaction Date of Last Stent Placement:: 2013 Type of Cardiac Device: Permanent Pacemaker Device Placement Date:: 02/09/12 Past Psychological History: No Psychological Hx Reported Smoking Status: Never smoker Past Alcohol Use History: None Reported Past Drug Use History: None Reported - Past Family History Father Family Medical History: No Reported History Additional Family Medical History / Comment(s): FROM OLD AGE AT 92 Mother Family Medical History: COPD Additional Family Medical History / Comment(s): EMPHYSEMA - AGE 87 Sister(s) Additional Family Medical History / Comment(s): Patient has 2 sisters with no major medical problems. <Scar Fry - Last Filed: 05/28/18 23:59> General Exam <Ted Fontana - Last Filed: 05/28/18 17:31> Limitations: no limitations General appearance: alert, in no apparent distress Head exam: Present: atraumatic (Patient denies hitting his head and denies headache. No signs of trauma or ecchymosis or hematoma noted on the head), normocephalic, normal inspection Eye exam: Present: normal appearance, PERRL, EOMI. Absent: scleral icterus, conjunctival injection, periorbital swelling ENT exam: Present: normal exam, normal oropharynx, mucous membranes moist, normal external ear exam Neck exam: Present: normal inspection, full ROM. Absent: tenderness, meningismus, lymphadenopathy Respiratory exam: Present: normal lung sounds bilaterally. Absent: respiratory distress, wheezes, rales, rhonchi, stridor Cardiovascular Exam: Present: regular rate, normal rhythm, normal heart sounds. Absent: systolic murmur, diastolic murmur, rubs, gallop, clicks GI/Abdominal exam: Present: soft, normal bowel sounds. Absent: distended, tenderness, guarding, rebound, rigid Neurological exam: Present: alert, oriented X3, CN II-XII intact Psychiatric exam: Present: normal affect, normal mood <Scar Fry - Last Filed: 05/28/18 23:59> - General Exam Comments Initial Comments: Left upper extremity: Patient unable to move left shoulder. Patient is able to move the elbow and hand but does have pain in the shoulder when doing so. Radial pulse 2+ and capillary refill less than 2 seconds. Sensation intact. Patient has tenderness to the left shoulder area generalized. Left lower extremity: Capillary refill less than 2 seconds and PD pulse 2+. Patient unable to ambulate on the left lower extremity. Any movement of the left hip causes pain. Patient has tenderness of the left hip. No breaks in the skin. (Scar Fry) Course <Ted Fontana - Last Filed: 05/28/18 17:31> <Scar Fry - Last Filed: 05/28/18 23:59> Vital Signs 05/28/18 05/28/18 05/28/18 14:09 17:05 17:51 Temperature 98.7 F 97.2 F L Pulse Rate 58 L 70 72 Respiratory 18 18 18 Rate Blood Pressure 132/79 144/73 156/72 O2 Sat by Pulse 94 L 96 95 Oximetry - Reevaluation(s) Reevaluation #1: 05/28/18 17:35 Patient was earlier reevaluated by myself, Dr. Fontana. Patient did have some mild left hip tenderness daily increase with movement. Patient also has discomfort left shoulder. Patient denies any head injury or loss of consciousness. Patient did fall while trying to open a door. Patient and family were updated on results and plan. Case was discussed in detail with marline , practitioner with orthopedics who will admit for Dr. Tadeo. He does request medical consult. (Ted Fontana) Reevaluation #2: 05/28/18 23:55 Patient initially refused morphine at first encounter. (Scar Fry) EKG Findings - EKG Comments: EKG Findings:: A. fib, ventricular rate 81, QRS 154, no evidence of ST elevation or depression <Scar Fry - Last Filed: 05/28/18 23:59> Medical Decision Making - Lab Data Result diagrams: 05/28/18 16:41 <Ted Fontana - Last Filed: 05/28/18 17:31> - Lab Data Result diagrams: 05/28/18 16:41 05/28/18 16:41 <Scar Fry - Last Filed: 05/28/18 23:59> - Medical Decision Making 83-year-old male presents to the emergency department for a chief complaint of fall occurring about one hour ago. Patient has a history of A. fib on Pradaxa, diabetes myelitis currently controlled without medication, hypertension, MT. Patient had a CABG in November 2017. Patient currently has a pacemaker. Patient denies hitting his head. He denies any loss of consciousness. Patient denies any neck or back injury. Neurovascular intact in left upper and lower extremities. Any movement of the left hip elicits pain. Any movement of the left shoulder or left arm elicits pain. X-ray of the left shoulder shows impacted and minimally displaced humeral neck fracture. X-ray of the left hip shows impacted left femoral neck fracture. Dr. Fontana spoke with Dr. Tadeo who will admit. Patient will be kept nothing by mouth after midnight tonight. Patient was given 4 mg of morphine and oxygen did desaturate on room air. On reevaluation after this patient is alert and responsive without any confusion or depressed mental status. Therefore Tylenol and 2 mg of morphine every 6 hours was ordered for patient. Pradaxa was held. (Scar Fry) - Lab Data Lab Results 05/28/18 05/28/18 05/28/18 Range/Units 16:41 16:41 16:41 WBC 14.3 H (3.8-10.6) k/uL RBC 4.42 (4.30-5.90) m/uL Hgb 13.0 (13.0-17.5) gm/dL Hct 40.8 (39.0-53.0) % MCV 92.3 (80.0-100.0) fL MCH 29.4 (25.0-35.0) pg MCHC 31.8 (31.0-37.0) g/dL RDW 14.2 (11.5-15.5) % Plt Count 188 (150-450) k/uL Neutrophils % 87 % Lymphocytes % 7 % Monocytes % 5 % Eosinophils % 0 % Basophils % 0 % Neutrophils # 12.5 H (1.3-7.7) k/uL Lymphocytes # 1.0 (1.0-4.8) k/uL Monocytes # 0.7 (0-1.0) k/uL Eosinophils # 0.1 (0-0.7) k/uL Basophils # 0.0 (0-0.2) k/uL Hypochromasia Slight PT 13.3 H (9.0-12.0) sec INR 1.4 H (<1.2) APTT 21.5 L (22.0-30.0) sec Sodium 140 (137-145) mmol/L Potassium 4.1 (3.5-5.1) mmol/L Chloride 103 (98-107) mmol/L Carbon Dioxide 29 (22-30) mmol/L Anion Gap 8 mmol/L BUN 16 (9-20) mg/dL Creatinine 0.81 (0.66-1.25) mg/dL Est GFR (CKD-EPI)AfAm >90 (>60 ml/min/1.73 sqM) Est GFR (CKD-EPI)NonAf 83 (>60 ml/min/1.73 sqM) Glucose 161 H (74-99) mg/dL Calcium 9.4 (8.4-10.2) mg/dL Total Bilirubin 2.1 H (0.2-1.3) mg/dL AST 28 (17-59) U/L ALT 26 (21-72) U/L Alkaline Phosphatase 80 (38-126) U/L Total Protein 7.6 (6.3-8.2) g/dL Albumin 3.9 (3.5-5.0) g/dL Blood Type Blood Type Recheck Antibody Screen Spec Expiration Date 05/28/18 Range/Units 16:41 WBC (3.8-10.6) k/uL RBC (4.30-5.90) m/uL Hgb (13.0-17.5) gm/dL Hct (39.0-53.0) % MCV (80.0-100.0) fL MCH (25.0-35.0) pg MCHC (31.0-37.0) g/dL RDW (11.5-15.5) % Plt Count (150-450) k/uL Neutrophils % % Lymphocytes % % Monocytes % % Eosinophils % % Basophils % % Neutrophils # (1.3-7.7) k/uL Lymphocytes # (1.0-4.8) k/uL Monocytes # (0-1.0) k/uL Eosinophils # (0-0.7) k/uL Basophils # (0-0.2) k/uL Hypochromasia PT (9.0-12.0) sec INR (<1.2) APTT (22.0-30.0) sec Sodium (137-145) mmol/L Potassium (3.5-5.1) mmol/L Chloride (98-107) mmol/L Carbon Dioxide (22-30) mmol/L Anion Gap mmol/L BUN (9-20) mg/dL Creatinine (0.66-1.25) mg/dL Est GFR (CKD-EPI)AfAm (>60 ml/min/1.73 sqM) Est GFR (CKD-EPI)NonAf (>60 ml/min/1.73 sqM) Glucose (74-99) mg/dL Calcium (8.4-10.2) mg/dL Total Bilirubin (0.2-1.3) mg/dL AST (17-59) U/L ALT (21-72) U/L Alkaline Phosphatase (38-126) U/L Total Protein (6.3-8.2) g/dL Albumin (3.5-5.0) g/dL Blood Type A Positive Blood Type Recheck CABO Indicated Antibody Screen NEGATIVE Spec Expiration Date 05/31/2018 - 234 Disposition <Ted Fontana - Last Filed: 05/28/18 17:31> Time of Disposition: 23:57 <Scar Fry - Last Filed: 05/28/18 23:59> Clinical Impression: Fracture of neck of humerus, Fracture neck of femur Disposition: ADMITTED IP TO THIS HOSP Condition: Good
[2018-05-28 17:34] LABS: ALT 26 U/L (21-72); AST 28 U/L (17-59); Albumin 3.9 g/dL (3.5-5.0); Alkaline Phosphatase 80 U/L (38-126); Anion Gap 8 mmol/L; Blood Urea Nitrogen 16 mg/dL (9-20); Calcium 9.4 mg/dL (8.4-10.2); Carbon Dioxide 29 mmol/L (22-30); Chloride 103 mmol/L (98-107); Glucose 161 mg/dL (74-99); Potassium 4.1 mmol/L (3.5-5.1); Sodium 140 mmol/L (137-145); Total Bilirubin 2.1 mg/dL (0.2-1.3); Total Protein 7.6 g/dL (6.3-8.2)
--- NOTE | 2018-05-28 17:35 | XR ---
EXAMINATION TYPE: XR chest 1V portable DATE OF EXAM: 05/28/2018 COMPARISON: 02/15/2018 HISTORY: Fall. Chest pain TECHNIQUE: Single frontal view of the chest is obtained. FINDINGS: Heart is enlarged. There is patchy consolidation and pleural fluid at the left lung base. There is left axillary pacemaker with the lead tip in the right ventricle. There is coarse right-side d lung markings. There is no definite heart failure. There is nondisplaced fracture right lateral fif th rib. This could be an acute fracture compared to old exam. IMPRESSION: There is chronic left side left lower lobe consolidation and pleural fluid that is simil ar to last exam. Right rib fracture could be acute.
[2018-05-28] MEDS ORDERED: OFIRMEV PER PHARMACY MISCELLANE PRN (17:37)
[2018-05-28] MEDS: ONDANSETRON 4 MG/2 ML VIAL IVP SCH (17:37)
[2018-05-28 17:39] LABS: Partial Thromboplastin Time 21.5 sec (22.0-30.0)
[2018-05-28] MEDS ORDERED: ACETAMINOPHEN IV (For NPO) 1,000 MG in EMPTY BAG 1 BAG IVPB PRN (17:50)
[2018-05-28] MEDS ORDERED: HYDROmorphone 1 MG/ML 1 ML SYRINGE IVP PRN (19:04)
--- NOTE | 2018-05-28 19:22 | P.HPOR ---
History of Present Illness H&P Date: 05/28/18 Chief Complaint: Left hip pain left shoulder pain status post fall Patient's 83-year-old gentleman who was admitted to the hospital in regards to have an acute new eft hip fracture and left shoulder fracture due to a fall at home. Patient has multiple medical history including hernia artery disease with recent history of coronary artery bypass grafting done in [place] in December of this year. He also has history of hypertension and diabetes. He has history of atrial fibrillation and is on Peridex. He has history of cardiac pacemaker. He is admitted to orthopedic surgery service We are managing him in regards to his fractures at his left shoulder and left hip. The patient complains of pain in his left shoulder and left hip. He did not have any and prior to his fall. He said he tried to step up about 3 inches and tripped and fell. He denies any loss of consciousness he denies hitting his head. He denies any prior pain in his shoulders or hips. He normally is ambulator without any assistance though he did use a walker for some period after his recent heart surgery a few months ago. He says he has not been driving since his heart surgery in December. He says he lives at home with his . Review of Systems He denies chest pain or shortness breath. He denies any loss conscious. He received some pain medication and feels somewhat confused but is answering questions appropriately. He denies problems with his shoulder and hip in the past. He says prior to his heart surgery he was ambulatory and was able to drive. He has been able to ambulate without assistance but occasionally uses a walker Past Medical History Past Medical History: Atrial Fibrillation, Coronary Artery Disease (CAD), Diabetes Mellitus, Hypertension, Myocardial Infarction ([place]) Additional Past Medical History / Comment(s): used to take medication for diabetes, lost 85#, no longer a problem per spouse,. Is on Peridex for his atrial fibrillation and recent coronary artery bypass grafting done in December 2017 in [place]. Also has history of hypertension Last Myocardial Infarction Date:: History of Any Multi-Drug Resistant Organisms: None Reported Past Surgical History: Cholecystectomy, Coronary Bypass/CABG, Heart Catheterization With Stent, Hernia Repair, Pacemaker, Tonsillectomy Additional Past Surgical History / Comment(s): CABG (1 vessel) 11/2017 in [facility], past colonoscopy,rt inguinal hernia repair, rt knee arthroscopy, cardiac stent-LAD Past Anesthesia/Blood Transfusion Reactions: No Reported Reaction Date of Last Stent Placement:: 2013 Type of Cardiac Device: Permanent Pacemaker Device Placement Date:: 02/09/12 Past Psychological History: No Psychological Hx Reported Smoking Status: Never smoker Past Alcohol Use History: None Reported Past Drug Use History: None Reported - Past Family History Father Family Medical History: No Reported History Additional Family Medical History / Comment(s): FROM OLD AGE AT 92 Mother Family Medical History: COPD Additional Family Medical History / Comment(s): EMPHYSEMA - AGE 87 Sister(s) Additional Family Medical History / Comment(s): Patient has 2 sisters with no major medical problems. Medications and Allergies Home Medications Medication Instructions Recorded Confirmed Type Cyanocobalamin [Vitamin B-12] 500 mcg PO HS 03/02/14 05/28/18 History Docusate Sodium [Stool Softener] 100 mg PO HS 03/02/14 05/28/18 History Ascorbic Acid [Vitamin C] 500 mg PO HS 02/12/18 05/28/18 History Atorvastatin [Lipitor] 20 mg PO HS 02/12/18 05/28/18 History Calcium Carbonate/Vitamin D3 1 tab PO BID 02/12/18 05/28/18 History [Calcium 500-Vit D3 200 Tablet] Dabigatran [Pradaxa] 150 mg PO BID 02/12/18 05/28/18 History Folic Acid 1 mg PO HS 02/12/18 05/28/18 History metFORMIN HCL [Glucophage] 500 mg PO BID #0 02/17/18 05/28/18 Rx Aspirin EC [Ecotrin Low Dose] 81 mg PO DAILY 05/28/18 05/28/18 History Ferrous Sulfate [Feosol] 325 mg PO HS 05/28/18 05/28/18 History Furosemide [Lasix] 40 mg PO BID 05/28/18 05/28/18 History Glimepiride [Amaryl] 2 mg PO AC-BRKFST 05/28/18 05/28/18 History Lisinopril [Zestril] 2.5 mg PO DAILY 05/28/18 05/28/18 History Metoprolol Succinate [Toprol Xl] 50 mg PO DAILY 05/28/18 05/28/18 History Potassium Chloride [Klor-Con 20] 10 meq PO DAILY 05/28/18 05/28/18 History Allergies Allergy/AdvReac Type Severity Reaction Status Date / Time No Known Allergies Allergy Verified 05/28/18 14:17 Physical Examination Osteopathic Statement: *. No significant issues noted on an osteopathic structural exam other than those noted in the History and Physical/Consult. - Fracture left hip Location of fracture: He has a new fracture of his left shoulder and his left hip. Appearance: swelling, other (At his left shoulder he has pain with palpation and range of motion. He has no pain with palpation of his elbow forearm wrist or hand on the left. He has good active passive range motion of the right upper extremity. His neck is nontender to palpation. He is good range motion in his neck. HEENT is normocephalic. His chest has well-healing incision site at his sternum. His different liters palpable. His abdomen soft nontender. His hips at his left hip he has pain with any palpation or range of motion. His thigh and calf soft nontender. His compartments are soft. He has good motion in his ankle foot and toes bilateral. His right lower extremity has no pain with active and passive range of motion. Back nontender. His compartments of his upper extremities are soft and nontender.) Results - Labs Labs: Abnormal Lab Results - Last 24 Hours (Table) 05/28/18 05/28/18 05/28/18 Range/Units 16:41 16:41 16:41 WBC 14.3 H (3.8-10.6) k/uL Neutrophils # 12.5 H (1.3-7.7) k/uL PT 13.3 H (9.0-12.0) sec INR 1.4 H (<1.2) APTT 21.5 L (22.0-30.0) sec Glucose 161 H (74-99) mg/dL Total Bilirubin 2.1 H (0.2-1.3) mg/dL H & H 05/28/18 Range/Units 16:41 Hgb 13.0 (13.0-17.5) gm/dL Hct 40.8 (39.0-53.0) % Coagulation 05/28/18 Range/Units 16:41 INR 1.4 H (<1.2) Result Diagrams: 05/28/18 16:41 05/28/18 16:41 - Diagnostic results Shoulder x-ray: report reviewed, image reviewed (X-rays of his humerus and left shoulder show a 2-3 part proximal humerus fracture at middle displacement there is some impaction. There is no dislocation.) Hip x-ray: report reviewed, image reviewed (At his pelvis and left hip x-rays show a transverse fracture at the femoral neck there is some impaction and some displacement.) Assessment and Plan Assessment: 89-year-old male status post fall at home Acute left hip femoral neck fracture transverse and displaced with some impaction, due to fall with osteoporosis Acute left shoulder proximal humerus fracture with mild displacement, due to fall with osteoporosis Coronary artery disease 4 months status post coronary artery bypass grafting done in [place] Atrial fibrillation on Pradaxa History diabetes Plan: Assessment 89-year-old male status post fall at home Acute left hip femoral neck fracture transverse and displaced with some impaction, due to fall with osteoporosis Acute left shoulder proximal humerus fracture with mild displacement, due to fall with osteoporosis Coronary artery disease 4 months status post coronary artery bypass grafting done in [place] Atrial fibrillation on Pradaxa History diabetes Plan Regards patient's orthopedic issues he'll need further intervention. At his left hip he has a displaced femoral neck fracture with some impaction due to his fall. We discussed different treatment options ranging from conservative to surgical. I think the best treatment option for him would be to pursue left hip hemiarthroplasty. This will allow him to start to mobilize and give him stability so that he can weight-bear on his left lower extremity. This created him the best chance of starting to improve his mobility and work towards or [place]. This will be quite difficult for him as he does have a ipsilateral left shoulder fracture and that will significantly impact his rehabilitation potential as he will not be able to bear weight on his left upper extremity during his rehabilitation process to allow his left shoulder to heal. He will likely need detention or rehab postoperatively in order to improve his mobilization before returning home after surgery. The patient is on blood thinners currently and we will hold them and switch him over to a short-term anticoagulant with heparin. We'll have medicine and cardiology see him for clearance. We would not be able to perform his surgery due to his taking his blood thinners at least until Thursday. It is okay for him to have a regular diet from orthopedic standpoint tomorrow but we will make him nothing by mouth after midnight on Thursday for possible surgery on Thursday In regards to his left shoulder, we'll likely treat this nonoperatively. He is in a left upper extremity sling which is appropriate for him. We will keep him nonweightbearing in terms of his left upper extremity as well. This was significant hamper his rehabilitation potential for his left hip and I discussed that with him. In regards to his currently aren't disease atrophic ablation, diabetes and other medical issues, we will medical service and cardiology service will be seeing him for management of these. He may need further cardiac workup for appropriate clearance for his hip surgery and that has been ordered. We will hold his Pradaxa and start him on short-term heparin twice a day if it is okay with cardiology. We plan to stop the heparin prior to his surgery on Thursday if he is cleared. I discussed the procedure with him answers questions best my ability G understand and he is agreeable to proceed with surgical intervention of left hip hemiarthroplasty when he is able. Time with Patient: Greater than 30
[2018-05-28 20:27] LABS: Glucose,Whole Blood 196 mg/dL (75-99)
[2018-05-28] MEDS ORDERED: HEPARIN SODIUM,PORCINE 5,000 UNIT/ML 1 ML VIAL SQ SCH (21:00)
[2018-05-28] MEDS ORDERED: DABIGATRAN 150 MG CAP PO ONE (21:00)
[2018-05-28] MEDS: MORPHINE SULFATE 4 MG/ML SYRINGE IVP SCH (21:29)
[2018-05-28] MEDS: SODIUM CHLORIDE 0.9% 1,000 ML IV SCH (21:31)
[2018-05-28] MEDS: FERROUS SULFATE 325 MG TAB PO SCH (21:33)
[2018-05-28] MEDS: FOLIC ACID 1 MG TAB PO SCH (21:33)
[2018-05-28] MEDS: ATORVASTATIN 20 MG TAB PO SCH (21:33)
[2018-05-28] MEDS: metFORMIN 500 MG TAB PO SCH (21:33)
[2018-05-28] MEDS: DOCUSATE 100 MG CAP PO SCH (21:33)
[2018-05-28] MEDS: INSULIN ASPART 100 UNIT/ML 1 ML 10 ML VIAL SQ SCH (21:34)
[2018-05-29 00:43] LABS: Appearance,Urine Clear (Clear); Bilirubin,Urine Negative (Negative); Blood,Urine Negative (Negative); Color,Urine Yellow; Glucose,Urine (UA) Negative (Negative); Ketones,Urine 1+ (Negative); Leukocyte Esterase,Urine Negative (Negative); Nitrite,Urine Negative (Negative); PH, Urine 5.5 (5.0-8.0); Protein,Urine Trace (Negative); Specific Gravity,Urine 1.019 (1.001-1.035); Urobilinogen,Urine <2.0 mg/dL (<2.0)
[2018-05-29] MEDS: MORPHINE SULFATE 4 MG/ML SYRINGE IVP SCH ×4 (00:53→17:16)
[2018-05-29] MEDS: ONDANSETRON 4 MG/2 ML VIAL IVP SCH ×3 (02:40→17:16)
[2018-05-29] MEDS: HYDROcodone/APAP 5-325MG 1 EACH TAB PO PRN ×4 (05:17→21:22)
[2018-05-29 06:49] LABS: Glucose,Whole Blood 185 mg/dL (75-99)
[2018-05-29 07:36] LABS: Basophils % (A) 0 %; Eosinophils # (A) 0.3 k/uL (0-0.7); Eosinophils % (A) 3 %; HCT 36.4 % (39.0-53.0); HGB 11.2 gm/dL (13.0-17.5); Hypochromasia Slight; Lymphocytes # (A) 0.9 k/uL (1.0-4.8); Lymphocytes % (A) 7 %; MCH 29.1 pg (25.0-35.0); MCHC 30.8 g/dL (31.0-37.0); MCV 94.4 fL (80.0-100.0); Mean Platelet Volume 6.8; Monocytes # (A) 0.8 k/uL (0-1.0); Monocytes % (A) 7 %; Neutrophils # (A) 9.5 k/uL (1.3-7.7); Neutrophils % (A) 82 %; Platelet Count 173 k/uL (150-450); RBC 3.86 m/uL (4.30-5.90); RDW 14.4 % (11.5-15.5); WBC 11.6 k/uL (3.8-10.6)
[2018-05-29 07:52] LABS: Albumin 3.2 g/dL (3.5-5.0); Calcium 8.8 mg/dL (8.4-10.2); Potassium 4.2 mmol/L (3.5-5.1); Total Bilirubin 2.9 mg/dL (0.2-1.3); Total Protein 6.5 g/dL (6.3-8.2)
[2018-05-29] MEDS: LISINOPRIL 2.5 MG TAB PO SCH (08:18)
[2018-05-29] MEDS: METOPROLOL SUCCINATE (ER) 50 MG TAB.ER.24H PO SCH (08:18)
[2018-05-29] MEDS: FUROSEMIDE 40 MG TAB PO SCH ×2 (08:18→15:16)
[2018-05-29] MEDS: INSULIN ASPART 100 UNIT/ML 1 ML 10 ML VIAL SQ SCH ×4 (08:18→20:15)
[2018-05-29] MEDS: metFORMIN 500 MG TAB PO SCH (08:18)
[2018-05-29] MEDS: POTASSIUM CHLORIDE ER 10 MEQ TAB.ER.PRT PO SCH (08:18)
[2018-05-29] MEDS: SODIUM CHLORIDE 0.9% 1,000 ML IV SCH (08:23)
--- NOTE | 2018-05-29 10:39 | CONS ---
CONSULTATION CHIEF COMPLAINT: Preop cardiac evaluation. Keegan is an 83-year-old gentleman with history of known coronary artery disease, status post single-vessel CABG, diabetes, hypertension, came to hospital having had a fall with left hip fracture. Cardiology had been consulted for preop cardiac evaluation. Postoperatively, patient has had recurrent bouts of left-sided pleural effusion and required thoracentesis. Patient did not have any syncope, he simply fell backward and has hip fracture, also injured his shoulder. Patient has history of atrial fibrillation and is currently on Pradaxa. EKG shows that he is in atrial fibrillation with right bundle branch block. I am going to obtain a 2D echo on him to evaluate the LV function. Last echocardiogram that he had showed moderate to severe LV systolic dysfunction. At the moment, patient is not in heart failure, does not have chest pain, is not short of breath and does not have leg edema. PAST MEDICAL HISTORY: Significant for coronary artery disease, status post CABG, ischemic cardiomyopathy, hypertension, dyslipidemia, [id number] diabetes. There are no known drug allergies. MEDICATIONS: At home include Glucophage 500 b.i.d., K-Dur 10 q. daily, Toprol-XL 50 q. daily, Zestril 2.5 q. daily, Amaryl, Lasix folic acid, iron, Pradaxa, Lipitor, aspirin and ascorbic acid. I am going to stop the Pradaxa at this time. REVIEW OF SYSTEMS: HEENT is unremarkable. Cardiac as described above. Respiratory as described above. GI: Negative. GENITOURINARY: Negative. MUSCULOSKELETAL: Significant for fall and fracture. PSYCHOSOCIAL: Negative. ENDOCRINE: Significant for diabetes. RENAL: Negative. The rest of the system review is not relevant. PHYSICAL EXAM: Comfortable at rest. VITAL SIGNS: Stable. chest exam reveals diminished air entry at the base. Heart exam reveals first and second heart sounds. No gallop. Irregular rhythm, a systolic murmur at the left lower sternal border. Abdomen is soft. Exam of extremities did not reveal edema. Peripheral pulses are felt. LABS: Show that the hemoglobin is 11.2, potassium is 4.2, creatinine is 0.9. ASSESSMENT: 1. Preoperative cardiac evaluation. 2. Coronary artery disease, status post coronary artery bypass grafting. 3. Ischemic cardiomyopathy. PLAN: I will repeat an echo on him today. I am going to hold the Pradaxa. Patient is at increased risk for perioperative cardiac events given the underlying ischemic cardiomyopathy, but there are no contraindications. He is not in heart failure. Does not have angina. He has chronic atrial fibrillation, but heart rate is well controlled. Patient will hold the Pradaxa prior to surgery and resume it perioperatively as it is feasible from surgical standpoint. MMODL / IJN: [id number] /
--- NOTE | 2018-05-29 10:47 | P.CONS ---
History of Present Illness - Reason for Consult Consult date: 05/29/18 - History of Present Illness This is an 83-year-old male patient of Dr. Mauro Souza with past medical history of chronic atrial fibrillation on pradaxa, diabetes mellitus type 2, hypertension, coronary artery disease status post previous stent placement as well as CABG done 12/13/2017 in [place]. Patient gives history of having for thoracentesis done on the left side since his CABG. last echocardiogram suggested mild concentric left ventricular hypertrophy, ejection fraction 30-35%, left atrium severely dilated, mild mitral regurgitation and mild tightness Regurgitation moderate pulmonary hypertension. Patient was admitted for acute on chronic systolic heart failure in January 2018 with concerns for bilateral pleural effusion, left gregg-diaphragm paralysis and moderate sided left pleural effusion with pulmonary nodule was seen in the CAT scan in January for which a follow-up PET scan was done with no active tumor. Patient was found to have multiple rib fracture on the right in the PET scan from the previous fall. Patient follows Dr. Pimentel as outpatient and Dr. Fatima from cardiology. Patient comes in to the ER after a fall yesterday with pain in his left groin and left shoulder. He is not able to ambulate on her left hip. X-ray of the hip suggested transverse fracture of the femoral neck with some impaction and displacement. Shoulder x-ray suggest 2-3 part proximal humerus fracture of the middle displacement with no impaction. Orthopedic computer consultant will be managing the shoulder conservatively with a sling and plan to do hemiarthroplasty for the left hip. Patient examined bedside today. He denies any chest pain, shortness of breath, palpitation, nausea, vomiting, dizziness, B dark stools. He suggested was a mechanical fall when he was trying to step up about 3 inches and tripped and fell. Patient does not use any walker at baseline. Is functionally active and can climb up stairs without getting short of breath. He does have cardiac risk factors including hypertension, and recent coronary artery bypass, CHF, diabetes and age that puts him at significant cardiac risk. EKG done yesterday suggest atrial fibrillation with a broken conduction and nonspecific T-wave changes. Echocardiogram gram ordered by cardiology Review of Systems Constitutional: Denies chills, Denies fever, Denies lethargy, Denies malaise, Denies poor appetite, Denies weakness, Denies weight loss Eyes: denies decreased vision, denies diplopia, denies discharge, denies pain Ears: deny: decreased hearing Ears, nose, mouth and throat: Denies dental pain, Denies headache, Denies nasal discharge, Denies nose pain Cardiovascular: Denies chest pain, Denies decreased exercise tolerance, Denies edema, Denies high blood pressure, Denies irregular heart beat, Denies palpitations, Denies paroxysmal nocturnal dyspnea, Denies rapid heart beat, Denies shortness of breath Respiratory: Denies congestion, Denies cough, Denies cough with sputum, Denies dyspnea, Denies home oxygen, Denies wheezing Gastrointestinal: Denies abdominal pain, Denies change in bowel habits, Denies coffee ground emesis, Denies early satiety, Denies excessive gas, Denies heartburn, Denies hematemesis, Denies hematochezia, Denies loss of appetite, Denies nausea, Denies vomiting Genitourinary: Denies dysuria, Denies flank pain, Denies kidney stones, Denies menorrhagia, Denies urgency, Denies urinary frequency Musculoskeletal: Endorses gait dysfunction, endorses limitation of motion, Denies morning stiffness, Denies muscle cramps Integumentary: Denies rash, Denies wounds, Denies brittle nails, Denies change in hair/nails, Denies darkening of skin Neurological: Denies balance difficulties, Denies change in speech, Denies double vision, Denies gait dysfunction, Denies loss of vision, Denies motor disturbance, Denies numbness, Denies paralysis, Denies paresthesias, Denies seizures Psychiatric: Denies anxiety, Denies depression Endocrine: Denies excessive sweating, Denies excessive thirst, Denies high blood sugars, Denies palpitations Hematologic/Lymphatic: Denies easy bruising, Denies lymphadenopathy Past Medical History Past Medical History: Atrial Fibrillation, Coronary Artery Disease (CAD), Diabetes Mellitus, Hypertension, Myocardial Infarction (AR) Additional Past Medical History / Comment(s): used to take medication for diabetes, lost 85#, no longer a problem per spouse Last Myocardial Infarction Date:: History of Any Multi-Drug Resistant Organisms: None Reported Past Surgical History: Cholecystectomy, Coronary Bypass/CABG, Heart Catheterization With Stent, Hernia Repair, Pacemaker, Tonsillectomy Additional Past Surgical History / Comment(s): CABG (1 vessel) 11/2017 in [place], past colonoscopy,rt inguinal hernia repair, rt knee arthroscopy, cardiac stent-LAD Past Anesthesia/Blood Transfusion Reactions: No Reported Reaction Date of Last Stent Placement:: 2013 Type of Cardiac Device: Permanent Pacemaker Device Placement Date:: 02/09/12 Past Psychological History: No Psychological Hx Reported Smoking Status: Never smoker Past Alcohol Use History: None Reported Past Drug Use History: None Reported - Past Family History Father Family Medical History: No Reported History Additional Family Medical History / Comment(s): FROM OLD AGE AT 92 Mother Family Medical History: COPD Additional Family Medical History / Comment(s): EMPHYSEMA - AGE 87 Sister(s) Additional Family Medical History / Comment(s): Patient has 2 sisters with no major medical problems. Medications and Allergies Home Medications Medication Instructions Recorded Confirmed Type Cyanocobalamin [Vitamin B-12] 500 mcg PO HS 03/02/14 05/28/18 History Docusate Sodium [Stool Softener] 100 mg PO HS 03/02/14 05/28/18 History Ascorbic Acid [Vitamin C] 500 mg PO HS 02/12/18 05/28/18 History Atorvastatin [Lipitor] 20 mg PO HS 02/12/18 05/28/18 History Calcium Carbonate/Vitamin D3 1 tab PO BID 02/12/18 05/28/18 History [Calcium 500-Vit D3 200 Tablet] Dabigatran [Pradaxa] 150 mg PO BID 02/12/18 05/28/18 History Folic Acid 1 mg PO HS 02/12/18 05/28/18 History metFORMIN HCL [Glucophage] 500 mg PO BID #0 02/17/18 05/28/18 Rx Aspirin EC [Ecotrin Low Dose] 81 mg PO DAILY 05/28/18 05/28/18 History Ferrous Sulfate [Feosol] 325 mg PO HS 05/28/18 05/28/18 History Furosemide [Lasix] 40 mg PO BID 05/28/18 05/28/18 History Glimepiride [Amaryl] 2 mg PO AC-BRKFST 05/28/18 05/28/18 History Lisinopril [Zestril] 2.5 mg PO DAILY 05/28/18 05/28/18 History Metoprolol Succinate [Toprol Xl] 50 mg PO DAILY 05/28/18 05/28/18 History Potassium Chloride [Klor-Con 20] 10 meq PO DAILY 05/28/18 05/28/18 History Allergies Allergy/AdvReac Type Severity Reaction Status Date / Time No Known Allergies Allergy Verified 05/28/18 14:17 Physical Exam Vitals: Vital Signs Temp Pulse Pulse Resp BP BP Pulse Ox 05/29/18 08:00 69 16 05/29/18 07:00 97.6 F 69 16 126/76 91 L 05/29/18 03:44 76 18 05/29/18 00:05 76 18 05/28/18 23:00 98.1 F 76 18 120/73 96 05/28/18 20:00 76 18 05/28/18 19:00 99.4 F 76 18 134/63 94 L 05/28/18 18:53 95 05/28/18 18:22 97.5 F L 73 16 144/71 95 05/28/18 17:51 72 18 156/72 95 05/28/18 17:05 97.2 F L 70 18 144/73 96 05/28/18 14:09 98.7 F 58 L 18 132/79 94 L Intake and Output 05/28/18 05/29/18 05/29/18 22:59 06:59 14:59 Intake Total 225 240 Output Total 250 Balance 225 -250 240 Intake: Intake, IV Titration 225 Amount Sodium Chloride 0.9% 1, 225 000 ml @ 75 mls/hr IV . [id number] [facility] Rx#:[id number] Oral 240 Output: Urine 250 Straight 250 Other: Voiding Method Urinal Urinal Urinal - Constitutional General appearance: cooperative, mild acute distress, obese - EENT Eyes: anicteric sclerae, PERRLA, normal appearance ENT: hearing grossly normal - Neck Neck: no lymphadenopathy, normal ROM, no other, no rigidity, no stridor, no thyromegaly - Respiratory Respiratory: bilateral: Decreased air entry on the left, no wheezing no rhonchi - Cardiovascular Rhythm: Irregularly irregular Heart sounds: normal: S1, S2 Abnormal Heart Sounds: no systolic murmur, no diastolic murmur, no rub, no S3 Gallop, no S4 Gallop - Gastrointestinal General gastrointestinal: normal bowel sounds, soft - Integumentary Integumentary: no rash - Neurologic Neurologic: CNII-XII intact - Musculoskeletal Musculoskeletal: gait normal, strength equal bilaterally - Psychiatric Psychiatric: A&O x's 3, appropriate affect Results CBC & Chem 7: 05/29/18 06:30 05/29/18 06:30 Labs: Abnormal Lab Results - Last 24 Hours (Table) 05/28/18 05/28/18 05/28/18 Range/Units 00:30 16:41 16:41 WBC 14.3 H (3.8-10.6) k/uL RBC (4.30-5.90) m/uL Hgb (13.0-17.5) gm/dL Hct (39.0-53.0) % MCHC (31.0-37.0) g/dL Neutrophils # 12.5 H (1.3-7.7) k/uL Lymphocytes # (1.0-4.8) k/uL PT (9.0-12.0) sec INR (<1.2) APTT (22.0-30.0) sec BUN (9-20) mg/dL Glucose 161 H (74-99) mg/dL POC Glucose (mg/dL) (75-99) mg/dL Total Bilirubin 2.1 H (0.2-1.3) mg/dL Albumin (3.5-5.0) g/dL Urine Protein Trace H (Negative) Urine Ketones 1+ H (Negative) 05/28/18 05/28/18 05/29/18 Range/Units 16:41 20:22 06:30 WBC 11.6 H (3.8-10.6) k/uL RBC 3.86 L (4.30-5.90) m/uL Hgb 11.2 L (13.0-17.5) gm/dL Hct 36.4 L (39.0-53.0) % MCHC 30.8 L (31.0-37.0) g/dL Neutrophils # 9.5 H (1.3-7.7) k/uL Lymphocytes # 0.9 L (1.0-4.8) k/uL PT 13.3 H (9.0-12.0) sec INR 1.4 H (<1.2) APTT 21.5 L (22.0-30.0) sec BUN (9-20) mg/dL Glucose (74-99) mg/dL POC Glucose (mg/dL) 196 H (75-99) mg/dL Total Bilirubin (0.2-1.3) mg/dL Albumin (3.5-5.0) g/dL Urine Protein (Negative) Urine Ketones (Negative) 05/29/18 05/29/18 Range/Units 06:30 06:46 WBC (3.8-10.6) k/uL RBC (4.30-5.90) m/uL Hgb (13.0-17.5) gm/dL Hct (39.0-53.0) % MCHC (31.0-37.0) g/dL Neutrophils # (1.3-7.7) k/uL Lymphocytes # (1.0-4.8) k/uL PT (9.0-12.0) sec INR (<1.2) APTT (22.0-30.0) sec BUN 25 H (9-20) mg/dL Glucose 181 H (74-99) mg/dL POC Glucose (mg/dL) 185 H (75-99) mg/dL Total Bilirubin 2.9 H (0.2-1.3) mg/dL Albumin 3.2 L (3.5-5.0) g/dL Urine Protein (Negative) Urine Ketones (Negative) Assessment and Plan Plan: #1 mechanical fall with acute left hip femoral neck fracture transverse and displaced with some impaction likely secondary to underlying osteoporosis. Encourage mobilization. Pain control with IV Tylenol, Dilaudid and [place]'s. Avoid narcotic due to increased mental status changes in elderly. Incentive spirometry for primary prophylaxis. Pepcid 20 mg for GI prophylaxis. Patient does have some abnormal T-wave changes on the EKG and did have coronary artery bypass done 5 months ago. He is functionally active with MET > 4. Patient has multiple independent cardiac risk factors including ischemic heart disease, congestive heart failure with recent admission in January for pulmonary edema and pleural effusions, hypertension and diabetes. Checks x-ray does suggest some chronic left-sided pleural effusion for which a PET scan was done in February with no concern for malignancy. Cardiology consult for clearance patient does have an approximately 5.4% risk of surya-operative complication of cardiac , nonfatal AR or not nonfatal cardiac arrest. Pulmonary clearance for the persistent pulmonary effusion and left gregg-diaphragm paralysis. Once patient is cleared by cardiology and pulmonary, patient would be medically cleared for surgery #2 left humeral fracture -treat conservatively with a sling. PTOT consult #3 chronic left-sided lower lobe consolidation and pleural effusion with left gregg-diaphragm paralysis. Follows Dr. Pimentel as outpatient. Pulmonary consult placed. Repeat chest x-ray 2 view with possible #4 coronary artery disease status post coronary artery bypass 1 vessel in November in [place]. Continue Lipitor and Lopressor. Hold aspirin. Continue Lopressor prior to surgery #5 chronic atrial fibrillation on Peridex L continue heparin subcu twice a day #6 history of pacemaker, stable #7 history of systolic heart failure with last ejection fraction 30-35%. Continue Lipitor, Lopressor, daily I and O's, daily weights, no sign of congestion or acute systolic heart failure on exam. #8 history of hypertension continue Lopressor, goal systolic blood pressure less than 130 #9 type 2 diabetes continue insulin before meals at bedtime. Hold metformin #10 acute blood loss anemia secondary to fracture and dilation present on admission. Monitor CBC #11 acute leukocytosis no source of infection.Induced by stress repeat CBC tomorrow #12 GI prophylaxis with Pepcid 20 mg by mouth daily #13 DVT prophylaxis with heparin subcu every 12 CODE STATUS full code thank you for the consult. I'll be happy to assist in patient's medical needs while she is in the hospital
--- NOTE | 2018-05-29 10:57 | P.PN ---
Subjective Progress Note Date: 05/29/18 Principal diagnosis: Left humerus fracture, Left hip fracture Patient is seen at bedside this morning. He was admitted through the ED yesterday after a fall at home where he suffered a left proximal humerus fracture and left Femoral neck fracture. He was seen by Dr. Jaiden Tadeo yesterday and is scheduled for surgery Thursday. He is pending clearance from IM and Cardiology. He has pain at fracture sites as expected. he has no new complaints. ROS is negative for fever, chills, chest pain, shortnes of breath, numbness, tingling or other. Objective - Vital Signs Vital signs: Vital Signs Temp 97.6 F 05/29/18 07:00 Pulse 69 05/29/18 08:00 Resp 16 05/29/18 08:00 BP 126/76 05/29/18 07:00 Pulse Ox 91 L 05/29/18 07:00 Intake & Output 05/28/18 05/29/18 05/29/18 18:59 06:59 18:59 Intake Total 225 240 Output Total 250 Balance -25 240 Weight 100.698 kg Intake: Intake, IV Titration 225 Amount Sodium Chloride 0.9% 1, 225 000 ml @ 75 mls/hr IV . [id number] [facility] Rx#:[id number] Oral 240 Output: Urine 250 Straight 250 Other: Voiding Method Urinal Urinal - Exam Left upper extremity is in sling. No erythema or echymosis. ROM of shoulder not tested. Neurovascular status is intact with motor and sensation throughout left upper extremity. 2+ radial pulse and less than 2 sec cap refill present. Left Lower extremity: ROM of hip not tested. Neurovascular status is intact with motor and sensation throughout left lower extremity. 2+ DP pulse and less than 2 sec cap refill present. Calf soft and nontender - Constitutional General appearance: Present: no acute distress - Labs CBC & Chem 7: 05/29/18 06:30 05/29/18 06:30 Labs: Abnormal Lab Results - Last 24 Hours (Table) 05/28/18 05/28/18 05/28/18 Range/Units 00:30 16:41 16:41 WBC 14.3 H (3.8-10.6) k/uL RBC (4.30-5.90) m/uL Hgb (13.0-17.5) gm/dL Hct (39.0-53.0) % MCHC (31.0-37.0) g/dL Neutrophils # 12.5 H (1.3-7.7) k/uL Lymphocytes # (1.0-4.8) k/uL PT (9.0-12.0) sec INR (<1.2) APTT (22.0-30.0) sec BUN (9-20) mg/dL Glucose 161 H (74-99) mg/dL POC Glucose (mg/dL) (75-99) mg/dL Total Bilirubin 2.1 H (0.2-1.3) mg/dL Albumin (3.5-5.0) g/dL Urine Protein Trace H (Negative) Urine Ketones 1+ H (Negative) 05/28/18 05/28/18 05/29/18 Range/Units 16:41 20:22 06:30 WBC 11.6 H (3.8-10.6) k/uL RBC 3.86 L (4.30-5.90) m/uL Hgb 11.2 L (13.0-17.5) gm/dL Hct 36.4 L (39.0-53.0) % MCHC 30.8 L (31.0-37.0) g/dL Neutrophils # 9.5 H (1.3-7.7) k/uL Lymphocytes # 0.9 L (1.0-4.8) k/uL PT 13.3 H (9.0-12.0) sec INR 1.4 H (<1.2) APTT 21.5 L (22.0-30.0) sec BUN (9-20) mg/dL Glucose (74-99) mg/dL POC Glucose (mg/dL) 196 H (75-99) mg/dL Total Bilirubin (0.2-1.3) mg/dL Albumin (3.5-5.0) g/dL Urine Protein (Negative) Urine Ketones (Negative) 05/29/18 05/29/18 Range/Units 06:30 06:46 WBC (3.8-10.6) k/uL RBC (4.30-5.90) m/uL Hgb (13.0-17.5) gm/dL Hct (39.0-53.0) % MCHC (31.0-37.0) g/dL Neutrophils # (1.3-7.7) k/uL Lymphocytes # (1.0-4.8) k/uL PT (9.0-12.0) sec INR (<1.2) APTT (22.0-30.0) sec BUN 25 H (9-20) mg/dL Glucose 181 H (74-99) mg/dL POC Glucose (mg/dL) 185 H (75-99) mg/dL Total Bilirubin 2.9 H (0.2-1.3) mg/dL Albumin 3.2 L (3.5-5.0) g/dL Urine Protein (Negative) Urine Ketones (Negative) Assessment and Plan (1) Fracture neck of femur Narrative/Plan: Continue conservative management with left shoulder in sling. Continue pain management, DVT prophylaxis and medical management. He is NPO after midnight. Pending clearance he will proceed with left hip hemiarthroplasty tomorrow morning. He will nee placement post operatively. Current Visit: Yes Status: Acute Priority: Medium Code(s): S72.009A - FRACTURE OF UNSP PART OF NECK OF UNSP FEMUR, INIT SNOMED Code(s): 6822020 (2) Fracture of neck of humerus Current Visit: Yes Status: Acute Priority: Medium Code(s): S42.213A - UNSP DISP FX OF SURGICAL NECK OF UNSP HUMERUS, INIT SNOMED Code(s): 060145603 (3) Acute pulmonary edema Current Visit: No Status: Acute Code(s): J81.0 - ACUTE PULMONARY EDEMA SNOMED Code(s): 44542722 (4) Recurrent left pleural effusion Current Visit: No Status: Acute Code(s): J90 - PLEURAL EFFUSION, NOT ELSEWHERE CLASSIFIED SNOMED Code(s): 16467059 (5) Chronic atrial fibrillation Current Visit: No Status: Chronic Code(s): I48.2 - CHRONIC ATRIAL FIBRILLATION SNOMED Code(s): 152970437 (6) Diabetes mellitus type 2 in obese Current Visit: No Status: Chronic Code(s): E11.69 - TYPE 2 DIABETES MELLITUS WITH OTHER SPECIFIED COMPLICATION; E66.9 - OBESITY, UNSPECIFIED SNOMED Code(s): 88886494 (7) History of coronary artery bypass graft x 1 Current Visit: No Status: Chronic Code(s): Z95.1 - PRESENCE OF AORTOCORONARY BYPASS GRAFT SNOMED Code(s): 273918090 (8) History of permanent cardiac pacemaker placement Current Visit: No Status: Chronic Code(s): Z95.0 - PRESENCE OF CARDIAC PACEMAKER SNOMED Code(s): 382340154
[2018-05-29] MEDS ORDERED: FUROSEMIDE 10 MG/ML 10 ML VIAL IV STA (11:53)
--- NOTE | 2018-05-29 12:05 | XR ---
EXAMINATION TYPE: XR chest 1V portable DATE OF EXAM: 05/29/2018 HISTORY: pre op clearance. REFERENCE: Previous study dated 05/28/2018. FINDINGS: There has been a midline sternotomy. There is a unipolar pacemaker place on the left. The heart is enlarged. There is left basilar airspace disease. There is a left-sided effusion. The ov erall appearance of the chest has not changed significantly. IMPRESSION: NO SIGNIFICANT INTERVAL CHANGE IN THE APPEARANCE OF THE CHEST.
[2018-05-29 12:20] LABS: Glucose,Whole Blood 213 mg/dL (75-99)
[2018-05-29] MEDS: FAMOTIDINE 20 MG TAB PO SCH (12:26)
--- NOTE | 2018-05-29 12:31 | ECHOF ---
Referral Reason:pre op MEASUREMENTS -------- HEIGHT: 182.9 cm WEIGHT: 100.7 kg BP: 126/6 RVIDd: 3.1 cm (< 3.3) IVSd: 1.5 cm (0.6 - 1.1) LVIDd: 4.6 cm (3.9 - 5.3) LVPWd: 1.4 cm (0.6 - 1.1) IVSs: 1.9 cm LVIDs: 3.4 cm LVPWs: 1.9 cm LA Diam: 4.0 cm (2.7 - 3.8) LAESV Index (A-L): 35.26 ml/m Ao Diam: 3.6 cm (2.0 - 3.7) AV Cusp: 2.0 cm (1.5 - 2.6) MV EXCURSION: 17.896 mm (> 18.000) MV EF SLOPE: 83 mm/s (70 - 150) EPSS: 1.5 cm MV E Rafi: 0.93 m/s MV DecT: 209 ms MV A Rafi: 0.31 m/s MV E/A Ratio: 3.01 RAP: 5.00 mmHg RVSP: 47.15 mmHg FINDINGS -------- This was a technically difficult study with suboptimal apical views. The left ventricular size is normal. There is moderate concentric left ventricular hypertrophy. O verall left ventricular systolic function is mild-moderately impaired with, an EF between 40 - 45 %. The right ventricle is normal in size. LA is moderately dilated 34-39 ml/m2 The right atrium is normal in size. 3 ml of Lumason was utilized for enhancement of images. There is mild aortic valve sclerosis. Mild mitral annular calcification present. Mild tricuspid regurgitation present. There is mild to moderate pulmonary hypertension. The right ventricular systolic pressure, as measured by Doppler, is 47.15mmHg. Trace/mild (physiologic) pulmonic regurgitation. The aortic root size is normal. IVC Not well visulized. There is no pericardial effusion. CONCLUSIONS -------- 1. This was a technically difficult study with suboptimal apical views. 2. The left ventricular size is normal. 3. There is moderate concentric left ventricular hypertrophy. 4. Overall left ventricular systolic function is mild-moderately impaired with, an EF between 40 - 45 %. 5. The right ventricle is normal in size. 6. LA is moderately dilated 34-39 ml/m2 7. The right atrium is normal in size. 8. 3 ml of Lumason was utilized for enhancement of images. 9. There is mild aortic valve sclerosis. 10. Mild mitral annular calcification present. 11. Mild tricuspid regurgitation present. 12. There is mild to moderate pulmonary hypertension. 13. The right ventricular systolic pressure, as measured by Doppler, is 47.15mmHg. 14. Trace/mild (physiologic) pulmonic regurgitation. 15. The aortic root size is normal. 16. IVC Not well visulized. 17. There is no pericardial effusion. R[employer] MILL TENDER: Brooklynn Ceron RDCS
--- NOTE | 2018-05-29 13:16 | CONS ---
CONSULTATION Keegan Tobias is an 83-year-old male who presented to the ED at [facility] when he fell down. He had pain in his left hip area and the left side. He did not pass out at the time. He subsequently was seen in the ER and was found to have a left impacted femoral neck fracture and a left humerus fracture. He is scheduled for surgery tomorrow morning for hip fracture, open reduction, internal fixation. He has some mild shortness of breath, especially when he lays down at this time, and recently had initially his Lasix does decreased and subsequently increased as he became more short of breath. He denies any wheezing or cough at this time and had been going through pulmonary rehab. . 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 FAMILY HISTORY: Positive for emphysema in his mother. SOCIAL HISTORY: Patient is a never smoker. Does not drink alcohol excessively. MEDICATIONS PRIOR TO ADMISSION: Metformin, potassium chloride, metoprolol, Zestril, Amaryl, Lasix, Feosol, stool softener, Pradaxa, vitamin B12, calcium carbonate, atorvastatin, aspirin, and ascorbic acid. REVIEW OF SYSTEMS: Noncontributory other than for what is described in his present illness and past medical history. PHYSICAL EXAMINATION: Blood pressure is 126/76, respiratory rate is 16, pulse is 70, temperature 97.6, O2 saturation on 2 L by nasal cannula is 91%. HEENT: Reveals pupils that are equal, mild prominence of the jugular veins. CHEST: Reveals decreased breath sounds in the left base, no clear crackles. CARDIOVASCULAR SYSTEM:: Reveals an S1, S2. No S3, no S4. Short systolic murmur. Abdomen is soft. There is no pedal edema. There is shortening of the left lower extremity. PT/INR is 1.4. White count 11.6, hemoglobin of 11.2. Sodium 138, potassium 4.2, chloride 104, bicarb 26, BUN 25, creatinine 0.98. Albumin is 3.2. Echocardiogram has been done. Chest x-ray shows cardiomegaly with elevation of the left hemidiaphragm with a small left pleural effusion. Echocardiogram with Doppler was done which showed ejection fraction between 40% and 45%. IMPRESSION: 1. Left hip fracture. 2. Left humerus fracture. 3. Congestive heart failure due to systolic dysfunction. 4. Ischemic cardiomyopathy. 5. Left pleural effusion and left hemidiaphragm paralysis. At this point in time from a pulmonary standpoint, would continue him on his current medications which were reviewed. Would give him an extra dose of Lasix 60 mg. He is at high risk from a cardiac as well as a pulmonary standpoint for proposed surgery, but it is not contraindicated and medically he is fairly stable to undergo the surgery. He and his were counseled regarding his condition and this approach. MMODL / IJN: [id number] /
[2018-05-29 16:54] LABS: Glucose,Whole Blood 211 mg/dL (75-99)
[2018-05-29 19:57] LABS: Glucose,Whole Blood 222 mg/dL (75-99)
[2018-05-29] MEDS: FERROUS SULFATE 325 MG TAB PO SCH (20:15)
[2018-05-29] MEDS: FOLIC ACID 1 MG TAB PO SCH (20:16)
[2018-05-29] MEDS: ATORVASTATIN 20 MG TAB PO SCH (20:16)
[2018-05-29] MEDS: DOCUSATE 100 MG CAP PO SCH (20:16)
[2018-05-30] MEDS: MORPHINE SULFATE 4 MG/ML SYRINGE IVP SCH ×4 (01:52→16:36)
[2018-05-30] MEDS: ONDANSETRON 4 MG/2 ML VIAL IVP SCH ×3 (01:52→16:36)
[2018-05-30] MEDS: HYDROcodone/APAP 5-325MG 1 EACH TAB PO PRN ×2 (04:39→15:22)
[2018-05-30 06:55] LABS: Glucose,Whole Blood 167 mg/dL (75-99)
--- NOTE | 2018-05-30 08:31 | P.PN ---
Progress Note - Text Progress Note Date: 05/30/18 Patient is seen and examined today in the preoperative holding area. He is scheduled to have a left hip hemiarthroplasty today. He has been seen by cardiology and is known have significant risk factors in regards to his cardiac status. On further discussion today with anesthesia a number of perioperative issues came to light. After his procedure with his open-heart surgery he was intubated for several days postoperatively as he seems to have some paralysis of the hemidiaphragm. He does have some fluid at his lungs and decrease elevation is hemidiaphragm to indicate this as well. He has been taking Pradaxz and has been off for the past 2 days. However with the L2-L3 recent Pradaxa would like to wait at least 72 hours before having the option for spinal anesthetic. Therefore we're somewhat limited in being able to use a spinal anesthetic for him if we're to proceed today. He has increased risk of being under general anesthesia and intubation with his recent history and with his potential hemidiaphragm paralysis and some fluid in his lungs. He might be at some increased risk of a long intubation postoperatively. We discussed this at length with the family, the patient, the anesthesiologist as well. We feel that we can improve the patient's safety and limited somewhat variable by having the possibility of using spinal anesthetic for him. This would be much more reasonable after waiting a full 72 hours from his last dose of Pradaxa. Though this does push us out to tomorrow, I think this is a good idea in terms of his safety given his history of prolonged intubation postoperatively and the small amount of fluid in his lungs with hemidiaphragm. We will postpone the surgery and will not proceed today. We will plan to proceed with surgery tomorrow afternoon for left hip hemiarthroplasty and hopefully be able to do the procedure with spinal anesthetic. I discussed this at length with the family and the patient and they're agreeable.
[2018-05-30] MEDS: INSULIN ASPART 100 UNIT/ML 1 ML 10 ML VIAL SQ SCH ×4 (08:58→21:28)
[2018-05-30] MEDS ORDERED: HEPARIN SODIUM,PORCINE 5,000 UNIT/ML 1 ML VIAL SQ ONE (09:00)
[2018-05-30] MEDS: FAMOTIDINE 20 MG TAB PO SCH (09:13)
[2018-05-30] MEDS: POTASSIUM CHLORIDE ER 10 MEQ TAB.ER.PRT PO SCH (09:13)
[2018-05-30] MEDS: METOPROLOL SUCCINATE (ER) 50 MG TAB.ER.24H PO SCH (09:13)
[2018-05-30] MEDS: LISINOPRIL 2.5 MG TAB PO SCH (09:13)
[2018-05-30] MEDS: FUROSEMIDE 40 MG TAB PO SCH ×2 (09:13→15:26)
[2018-05-30 11:58] LABS: Glucose,Whole Blood 226 mg/dL (75-99)
--- NOTE | 2018-05-30 12:23 | PN ---
PROGRESS NOTE Keegan is an 83-year-old gentleman with history of coronary artery disease, status post CABG, ischemic cardiomyopathy with mild to moderate LV dysfunction and atrial fibrillation, who was admitted to hospital with a fall and left hip fracture and is to undergo surgery. The patient is stable cardiac-keen not in heart failure and there are no episodes of angina. The patient had an echocardiogram yesterday that revealed an ejection fraction of 40-45 percent. The patient will undergo surgery tomorrow. On exam, heart rate is 87 beats per minute. Blood pressure is 111/53, respirations 17. There is no jugular venous distention. Chest exam reveals good air entry bilaterally. Heart exam reveals first and second heart sounds and a systolic murmur at the apex. Abdomen is soft. Exam of extremities did not reveal any edema. Peripheral pulses are felt. ASSESSMENT: 1. Coronary artery disease, status post coronary artery bypass grafting. 2. Ischemic cardiomyopathy. 3. Paroxysmal atrial fib. 4. Chronic atrial fibrillation. PLAN: Patient is an acceptable risk candidate for surgery for left hip replacement. He will continue with current medications. The Pradaxa will be resumed postoperatively as is feasible from surgical standpoint. MMODL / IJN: [id number] /
--- NOTE | 2018-05-30 13:08 | P.PN ---
Subjective This is an 83-year-old male patient of Dr. Mauro Souza with past medical history of chronic atrial fibrillation on pradaxa, diabetes mellitus type 2, hypertension, coronary artery disease status post previous stent placement as well as CABG done 12/13/2017 in [place]. Patient gives history of having for thoracentesis done on the left side since his CABG. last echocardiogram suggested mild concentric left ventricular hypertrophy, ejection fraction 30-35%, left atrium severely dilated, mild mitral regurgitation and mild tightness Regurgitation moderate pulmonary hypertension. Patient was admitted for acute on chronic systolic heart failure in January 2018 with concerns for bilateral pleural effusion, left gregg-diaphragm paralysis and moderate sided left pleural effusion with pulmonary nodule was seen in the CAT scan in January for which a follow-up PET scan was done with no active tumor. Patient was found to have multiple rib fracture on the right in the PET scan from the previous fall. Patient follows Dr. Pimentel as outpatient and Dr. Fatima from cardiology. Patient comes in to the ER after a fall yesterday with pain in his left groin and left shoulder. He is not able to ambulate on her left hip. X-ray of the hip suggested transverse fracture of the femoral neck with some impaction and displacement. Shoulder x-ray suggest 2-3 part proximal humerus fracture of the middle displacement with no impaction. Orthopedic medical record consultant will be managing the shoulder conservatively with a sling and plan to do hemiarthroplasty for the left hip. Patient examined bedside today. He denies any chest pain, shortness of breath, palpitation, nausea, vomiting, dizziness, B dark stools. He suggested was a mechanical fall when he was trying to step up about 3 inches and tripped and fell. Patient does not use any walker at baseline. Is functionally active and can climb up stairs without getting short of breath. He does have cardiac risk factors including hypertension, and recent coronary artery bypass, CHF, diabetes and age that puts him at significant cardiac risk. EKG done yesterday suggest atrial fibrillation with a broken conduction and nonspecific T-wave changes. Echocardiogram gram ordered by cardiology 05/30: Patient did not have surgery today related to Pradaxa. Anesthesiologist wanted to wait 1 more additional day to allow for a spinal anesthetic over a general anesthetic for procedure. Patient continues to have pain in left shoulder and left leg. Left shoulder is immobilized with a sling. Due to pain patient has limited motion to the affected extremities. Patient denies any chest pain, shortness of breath, palpitations, nausea, vomiting, dizziness, and dark stools. Patient was seen by both cardiology and pulmonology and from their standpoint he is okay for surgery. WBC 11.6, BUN 25, albumin 3.2. Objective - Vital Signs Vital signs: Vital Signs Temp 98.1 F 05/30/18 00:30 Pulse 82 05/30/18 07:09 Resp 18 05/30/18 07:09 BP 111/53 05/30/18 07:00 Pulse Ox 95 05/30/18 07:00 Intake & Output 05/29/18 05/30/18 05/30/18 18:59 06:59 18:59 Intake Total 280 240 Output Total 300 Balance -20 240 Weight 100.698 kg Intake: Intake, IV Titration 40 Amount Sodium Chloride 0.9% 1, 40 000 ml @ 75 mls/hr IV . [id number] [facility] Rx#:[id number] Oral 240 240 Output: Urine 300 Other: Voiding Method Urinal Diaper Urinal # Voids 2 - Constitutional General appearance: Present: cooperative, mild distress, obese - EENT Eyes: Present: anicteric sclerae, PERRLA, normal appearance ENT: Present: hearing grossly normal - Neck Neck: Present: normal ROM. Absent: lymphadenopathy, other, rigidity, stridor, thyromegaly - Respiratory Details: Decreased air entry on left Respiratory: negative: rhonchi, wheezing - Cardiovascular Rhythm: irregularly irregular Heart sounds: normal: S1, S2 Abnormal Heart Sounds: Absent: systolic murmur, diastolic murmur, rub, S3 Gallop , S4 Gallop, click, other - Gastrointestinal General gastrointestinal: Present: normal bowel sounds, soft. Absent: tenderness - Integumentary Integumentary: Absent: rash - Neurologic Neurologic: Present: CNII-XII intact - Musculoskeletal Musculoskeletal Comment(s): Weakness and decreased range of motion until left extremities due to trauma - Psychiatric Psychiatric: Present: A&O x's 3, appropriate affect - Labs CBC & Chem 7: 05/29/18 06:30 05/29/18 06:30 Labs: Abnormal Lab Results - Last 24 Hours (Table) 05/29/18 05/29/18 05/30/18 Range/Units 16:52 19:55 06:53 POC Glucose (mg/dL) 211 H 222 H 167 H (75-99) mg/dL 05/30/18 Range/Units 11:56 POC Glucose (mg/dL) 226 H (75-99) mg/dL Assessment and Plan Plan: #1 mechanical fall with acute left hip femoral neck fracture transverse and displaced with some impaction likely secondary to underlying osteoporosis. Encourage mobilization. Pain control with IV Tylenol, Dilaudid and [place]'s. Avoid narcotic due to increased mental status changes in elderly. Incentive spirometry for primary prophylaxis. Pepcid 20 mg for GI prophylaxis. Patient does have some abnormal T-wave changes on the EKG and did have coronary artery bypass done 5 months ago. He is functionally active with MET > 4. Patient has multiple independent cardiac risk factors including ischemic heart disease, congestive heart failure with recent admission in January for pulmonary edema and pleural effusions, hypertension and diabetes. Checks x-ray does suggest some chronic left-sided pleural effusion for which a PET scan was done in February with no concern for malignancy. Cardiology consult for clearance patient does have an approximately 5.4% risk of surya-operative complication of cardiac , nonfatal MT or not nonfatal cardiac arrest. Pulmonary clearance for the persistent pulmonary effusion and left gregg-diaphragm paralysis. Patient has been cleared by cardiology and pulmonary, patient is medically okay for surgery. #2 left humeral fracture -treat conservatively with a sling. PTOT consult #3 chronic left-sided lower lobe consolidation and pleural effusion with left gregg-diaphragm paralysis. Follows Dr. Pimentel as outpatient. Pulmonary consult completed. Chest x-ray showed no significant interval change in the appearance of the chest. #4 coronary artery disease status post coronary artery bypass 1 vessel in November in [place]. Continue Lipitor and Lopressor. Hold aspirin. Continue Lopressor prior to surgery #5 chronic atrial fibrillation on Pradaxa is on hold at this time, continue heparin subcu twice a day #6 history of pacemaker, stable #7 history of systolic heart failure with last ejection fraction 30-35%. Continue Lipitor, Lopressor, daily I and O's, daily weights, no sign of congestion or acute systolic heart failure on exam. #8 history of hypertension continue Lopressor, goal systolic blood pressure less than 130 #9 type 2 diabetes continue insulin before meals at bedtime. Hold metformin #10 acute blood loss anemia secondary to fracture and dilation present on admission. Monitor CBC #11 acute leukocytosis no source of infection, WBCs 11.6 today, monitor CBC. #12 GI prophylaxis with Pepcid 20 mg by mouth daily #13 DVT prophylaxis with heparin subcu every 12 CODE STATUS full code Impression and plan of care have been directed as dictated by the signing physician. Sudha Torres nurse practitioner acting as scribe for signing physician.
[2018-05-30 16:31] LABS: Glucose,Whole Blood 270 mg/dL (75-99)
[2018-05-30 20:16] LABS: Glucose,Whole Blood 227 mg/dL (75-99)
--- NOTE | 2018-05-30 20:26 | PN ---
PROGRESS NOTE He was seen 05/30/2018. He is less short of breath and is able to lie relatively flat in bed. On physical examination, blood pressure is 120/59, respiratory rate 16, pulse rate of 88, temperature 98.8, O2 saturation on room air is 95 percent. HEENT reveals pupils that are equal. No jugular venous distention. Chest revealed decreased breath sounds in the left base. Cardiovascular system reveals an S1, S2. Abdomen is soft. There is no edema. Labs were reviewed. IMPRESSION: At this time: 1. Left hip and left humerus fracture, which he is being prepped for surgery for tomorrow. 2. Congestive heart failure. 3. Left diaphragmatic paralysis. At this point in time, status seems to be relatively optimal. He continues to remain high risk for surgically, but it is not contraindicated. He was counseled regarding his condition and this approach. MMODL / IJN: [id number] /
[2018-05-30] MEDS: FOLIC ACID 1 MG TAB PO SCH (21:29)
[2018-05-30] MEDS: DOCUSATE 100 MG CAP PO SCH (21:29)
[2018-05-30] MEDS: FERROUS SULFATE 325 MG TAB PO SCH (21:29)
[2018-05-30] MEDS: ATORVASTATIN 20 MG TAB PO SCH (21:29)
[2018-05-31] MEDS: MORPHINE SULFATE 4 MG/ML SYRINGE IVP SCH ×5 (05:03→23:30)
[2018-05-31] MEDS: ONDANSETRON 4 MG/2 ML VIAL IVP SCH ×3 (05:03→12:22)
[2018-05-31 07:02] LABS: Glucose,Whole Blood 219 mg/dL (75-99)
[2018-05-31 07:48] LABS: Basophils % (A) 0 %; Eosinophils # (A) 0.5 k/uL (0-0.7); Eosinophils % (A) 6 %; HGB 11.3 gm/dL (13.0-17.5); Hypochromasia Slight; Lymphocytes # (A) 0.9 k/uL (1.0-4.8); Lymphocytes % (A) 10 %; MCH 30.5 pg (25.0-35.0); MCHC 33.1 g/dL (31.0-37.0); MCV 92.1 fL (80.0-100.0); Monocytes # (A) 0.7 k/uL (0-1.0); Monocytes % (A) 8 %; Neutrophils # (A) 6.4 k/uL (1.3-7.7); Neutrophils % (A) 74 %; Platelet Count 145 k/uL (150-450); RBC 3.69 m/uL (4.30-5.90); RDW 14.4 % (11.5-15.5); WBC 8.7 k/uL (3.8-10.6)
--- NOTE | 2018-05-31 08:34 | PN ---
PROGRESS NOTE Mr. Tobias is an 83-year-old male who presented with a fall and fracture of his hip. He is scheduled to undergo surgical intervention today. He is doing well today. His breathing is stable. He is denying any chest pain. He denies any dizziness. He has a history of coronary artery disease, status post coronary artery bypass grafting as well as a history of atrial fibrillation. He is lying supine without any associated symptoms. He continues to be at this time on Lipitor 20 mg daily, furosemide 40 mg twice a day, lisinopril 2.5 mg daily, metoprolol succinate 50 mg daily. PHYSICAL EXAMINATION: Blood pressure 127/70 with a heart in the 70s. LUNGS: Clear. HEART: Irregular regular, S1, S2. No S3. No rub. ABDOMEN: Soft, nontender. EXTREMITIES: No significant edema. IMPRESSION: 1. Status post fall and fracture of the hip, scheduled for surgical intervention. 2. Atrial fibrillation, has been anticoagulated. 3. History off coronary artery disease, status post coronary artery bypass grafting. RECOMMENDATION: From the cardiac standpoint, will continue present therapy. Patient will need to be re- initiated on anticoagulation as soon as possible. Depending on his progress, further recommendation will be made. MMODL / IJN: [id number] /
[2018-05-31] MEDS: FUROSEMIDE 40 MG TAB PO SCH ×2 (09:06→17:29)
[2018-05-31] MEDS: POTASSIUM CHLORIDE ER 10 MEQ TAB.ER.PRT PO SCH (09:06)
--- NOTE | 2018-05-31 09:08 | P.PN ---
Progress Note - Text Progress Note Date: 05/31/18 Patient is a pleasant 83-year-old male who is seen and examined at bedside for follow-up evaluation for his known acute left hip femoral neck fracture and acute left shoulder proximal humerus fracture. Patient is scheduled to undergo left hip hemiarthroplasty today, 05/31/2018, at approximately 12:30 PM. Patient continues to have pain at the left hip. He is on bed rest and nonweightbearing on the left lower extremity. He does have urinary incontinence and has been awaiting the bed. He does not have a Stark catheter intact. Yesterday he was provided with a sling for his left proximal humerus fracture. Nursing states this sling became saturated with urine throughout the night. Patient states he is ready to proceed for surgical intervention. He is somewhat confused today and states he is in [place]. His surgical intervention was postponed yesterday after further discussion. He is on a Ibrahima which has been held over the past 3 days with a heparin bridge. Heparin is currently being held this morning. Physical exam: Patient is and alert but is somewhat confused; patient is able to state he is in the hospital in his name but thinks he is in [place] Vital signs stable Good chest excursion with deep inspiration and expiration Abdomen soft nontender Left lower extremity is shortened and externally rotated Pain with palpation of the left hip Significant pain with internal and external rotation of the left hip No pain with internal and external rotation of the right hip Neurovascularly intact bilateral lower extremities Dorsiflexion, plantarflexion, and extensor hallucis longus positive sustained bilaterally Calves are soft and supple; No signs or symptoms of DVT; No calf pain Significant pain with palpation over the left proximal humerus Pain with movement of the left elbow Adequate full range of motion of the left wrist and all fingers of left hand without difficulty Assessment: Status post fall at home Acute left hip femoral neck fracture transverse and displaced with some impaction, due to fall with osteoporosis Acute left shoulder proximal humerus fracture with mild displacement, due to fall with osteoporosis Coronary artery disease 4 months status post coronary artery bypass grafting done in [place] Atrial fibrillation on Pradaxa History diabetes Left hip pain Ability to ambulate Left shoulder pain Plan: 1. In regards to the patient's acute left hip femoral neck fracture, we'll plan to proceed for surgical intervention today. The planned surgical intervention is a left hip hemiarthroplasty. Patient is currently nothing by mouth status. Patient is on bedrest. Heparin has been held in anticipation for surgical intervention. 2. We will plan to obtain a new sling for the left upper extremity for his proximal humerus fracture after his sling was saturated with urine. We will continue with conservative treatment for his left shoulder. He should keep the sling intact at all times. He should be nonweightbearing with the left upper extremity. 3. Medicine will continue to follow patient closely; medicine to manage his IV fluids 4. We'll continue to follow patient closely
[2018-05-31] MEDS: INSULIN ASPART 100 UNIT/ML 1 ML 10 ML VIAL SQ SCH ×6 (09:09→17:37)
[2018-05-31] MEDS: FAMOTIDINE 20 MG TAB PO SCH (09:10)
[2018-05-31] MEDS: METOPROLOL SUCCINATE (ER) 50 MG TAB.ER.24H PO SCH (09:10)
[2018-05-31] MEDS: LISINOPRIL 2.5 MG TAB PO SCH (09:10)
[2018-05-31] MEDS: SODIUM CHLORIDE 0.9% 1,000 ML IV SCH (10:28)
--- NOTE | 2018-05-31 11:55 | P.PN ---
Subjective Progress Note Date: 05/31/18 HPI: Keegan Tobias is an 83-year-old male who presented to the ED at [facility] when he fell down. He had pain in his left hip area and the left side. He did not pass out at that time. Subsequently he was seen in the ER and was found to have a left impacted femoral neck fracture and a left humerus fracture. He is scheduled for surgery for his hip fracture, open reduction, internal fixation. He has had some mild shortness of breath, especially when he lays down at this time. And most recently had initially had Lasix dose decreased and subsequently he became more short of breath. He denies any wheezing or cough at this time and had been going through pulmonary rehab which she states is helping him quite a bit. Interval history: 05/30/[address] CONSTANTINO Moore notes 05/31/18- patient is being seen examined and evaluated today on rounds. He is being prepared for surgery this afternoon. He is resting up in bed on 2 L of supplemental oxygen via nasal cannula. Patient states he was not on home oxygen prior to coming in. The patient states he's been going to pulmonary rehab basically approximately 2 times per week and states that this has been helping his breathing tremendously. His echocardiogram was reviewed and did show an EF of 40-45%, and RVSP of 47.15 mmHg. His and son are at bedside and updated on plan of care. Objective - Vital Signs Vital signs: Vital Signs Temp 98.2 F 05/31/18 10:33 Pulse 76 05/31/18 10:33 Resp 20 05/31/18 10:33 BP 159/81 05/31/18 10:33 Pulse Ox 98 05/31/18 10:33 Intake & Output 05/30/18 05/31/18 05/31/18 18:59 06:59 18:59 Other: Voiding Method Urinal Diaper Diaper # Voids 3 1 - Exam GENERAL EXAM: Alert, active, comfortable in no apparent distress. HEAD: Normocephalic. EYES: Normal reaction of pupils, equal size. NOSE: Clear with pink turbinates. THROAT: No erythema or exudates. NECK: No masses, no JVD. CHEST: No chest wall deformity. LUNGS: Equal air entry with no crackles, wheeze, rhonchi or dullness. Bases diminished CVS: S1 and S2 normal with no audible mumurs, regular rhythm. ABDOMEN: No hepatosplenomegaly, normal bowel sounds, no guarding or rigidity. EXTREMITIES: No edema noted, pedal pulses palpable. Decreased range of motion to left upper and lower extremities due to trauma CENTRAL NERVOUS SYSTEM: No focal deficits, tone is normal in all 4 extremities. - Labs CBC & Chem 7: 05/31/18 07:15 05/29/18 06:30 Labs: Abnormal Lab Results - Last 24 Hours (Table) 05/30/18 05/30/18 05/30/18 Range/Units 11:56 16:29 20:14 RBC (4.30-5.90) m/uL Hgb (13.0-17.5) gm/dL Hct (39.0-53.0) % Plt Count (150-450) k/uL Lymphocytes # (1.0-4.8) k/uL POC Glucose (mg/dL) 226 H 270 H 227 H (75-99) mg/dL 05/31/18 05/31/18 Range/Units 07:00 07:15 RBC 3.69 L (4.30-5.90) m/uL Hgb 11.3 L (13.0-17.5) gm/dL Hct 34.0 L (39.0-53.0) % Plt Count 145 L (150-450) k/uL Lymphocytes # 0.9 L (1.0-4.8) k/uL POC Glucose (mg/dL) 219 H (75-99) mg/dL Assessment and Plan Assessment: Assessment Left hip femoral neck fracture transverse and displaced with some impaction Left humeral fracture Acute hypoxic respiratory failure requiring supplemental oxygen Osteoporosis Chronic A. fib Hypertension Congestive heart failure, systolic dysfunction Ischemic cardiomyopathy Chronic Left pleural effusion and left hemidiaphragm paralysis Plan Patient is considered high risk from a cardiac and pulmonary standpoint for surgery however is not completely contraindicated and currently he is medically fairly stable to undergo this procedure Medications have been reviewed and will be continued as ordered. Continue with pulmonary hygiene, coughing and deep breathing exercises, and supportive care. Supplemental oxygen to maintain oxygen saturations of 92% or better. Continue nebulizer treatments as needed . Activity as tolerated weightbearing per ortho recommendations GI and DVT prophylaxis. We will continue to monitor labs/results and adjust treatment as necessary. Further recommendations pending. I performed an examination of the patient and discussed their management with the nurse practitioner. I have reviewed the nurse practitioner's note and agree with the documented findings and plan of care.
[2018-05-31] MEDS ORDERED: IV FLUID CONTINUATION 1,000 ML IV ONE (12:06)
[2018-05-31 12:31] LABS: Glucose,Whole Blood 200 mg/dL (75-99)
[2018-05-31] MEDS ORDERED: ceFAZolin 1,000 MG/50 ML BAG (PMX) IVPB ONE (13:20)
[2018-05-31] MEDS ORDERED: ceFAZolin 3,000 MG in SODIUM CHLORIDE 0.9% IRRIGATIO 3,000 ML IRRIGATION ONE (13:51)
[2018-05-31] MEDS ORDERED: AMIODARONE 150 MG Bolus IV ONE ×2 (14:00)
[2018-05-31] MEDS ORDERED: MAGNESIUM HYDROXIDE 2,400 MG/10 ML CUP PO PRN (14:47)
[2018-05-31] MEDS ORDERED: NALOXONE 0.4 MG/ML 1 ML VIAL IV PRN (14:47)
--- NOTE | 2018-05-31 14:58 | P.OP ---
Date of Procedure: 05/31/18 Preoperative Diagnosis: Left hip femoral neck fracture, acute displaced due to fall Left proximal humerus fracture Coronary artery disease status post coronary artery bypass grafting Dementia Postoperative Diagnosis: Same Anesthesia: spinal Pathology: other (Femoral head to pathology) Condition: stable Disposition: PACU Description of Procedure: Preoperative diagnosis: Femoral neck fracture, acute displaced due to fall Left proximal humerus fracture acute, due to fall Coronary artery disease with history of coronary artery bypass grafting Dementia Postoperative diagnosis: Same Procedure: Hip hemiarthroplasty Surgeon: Dr. Tadeo Asst.: Guzman Bang who is present that the entire the case persistence during positioning dissection exposure placement of hardware and closure Anesthesia: Spinal per Dr. Estevez Estimated blood loss: Approximately 200 mL Components implanted: [employer] unipolar hip fracture stem with +4 neck and size 6 stem and 48 head Disposition: To recovery room in good stable condition Operative indications The patient sustained a injury and suffered a femoral neck fracture which was displaced and angulated. This is acute due to his fall. He also sustained a left proximal humerus fracture at the same time. We felt that its best to treat the proximal femur fracture conservatively while treating the femoral neck fracture operatively. We were involved in the case in regard to his hip fracture and proximal humerus fracture. After evaluation it was determined that they would be a candidate for hip hemiarthroplasty via surgical intervention. This would give them the best chance of mobilization and ambulation. We discussed with him and his family the fact that he would have increased difficulty with his rehabilitation due to the fact that he has a proximal humerus fracture on the left side which would significantly limit his ability to use his left upper extremity and he will have to remain nonweightbearing on his left upper extremity during his rehabilitation and healing of left arm while at the same time rehabilitating his left hip. We discussed the range of treatment options from conservative to surgical. They elected proceed with surgical intervention. We answered their questions to the best of our ability healing which they can understand. They signed an informed consent. Operative summary After obtaining informed consent evaluation by anesthesia, preoperative evaluation and clearance for medical service, the patient was identified and prepped [place] area and the surgical site was marked. There brought to the operating room where the given appropriate anesthesia by the anesthesia department in standard fashion without any complications. Once the anesthesia was established we were able to position the patient. There placed in a lateral decubitus position with the operative side up being careful to pad any bony prominences and pressure points and place a excellent roll appropriately. The airway and C-spine was monitored continuously. Once patient was well positioned lower extremity was prepped and draped in normal standard sterile fashion. An appropriate keystone protocol and timeout was completed and were able to proceed with surgery. A curvilinear incision was established over the greater trochanter on the left. Dissection was taken down to the tensor fascia maryse which was split in line with its fibers and extended proximally into the gluteal fibers. A Charnley retractor was established. The trochanteric bursa was inflamed and removed. I was able to then dissect down off the posterior aspect of the greater trochanter taking the piriformis tendon and the posterior capsule in one full-thickness flap and tacking it with suture. This expose the fracture at the femoral neck which was easily identified. A guide was used to establish the appropriate femoral neck cut and a bone- cutting saw was used to establish the femoral neck cut and good alignment and good position. All the bony fragments were removed. I was then able to use a corkscrew device to remove the femoral head from the acetabulum. Any loose fragments in the acetabulum were removed. The femoral head was measured for the appropriate size implant and then passed off for pathology. Appropriate retractors were placed and I established a lateral box cut chisel. I then used a starting reamer to establish the femoral canal area I then sequentially reamed with sequential reamers until we had good bony chatter distally. With this we then started to broach with sequential broaches to the appropriate sized to we had good fit and fill. There is no evidence any fracture in the possible femur. With the appropriate size broach well seated and stable I placed the trial neck and head. A gentle reduction was performed to get good reduction. The hip was taken through a good range of motion and found to be stable in the position of sleep and through a range of motion. It had a good shuck test. We were able to then dislocate the trial prosthesis. The broach was found to remain stable. It was then removed. The wound was copiously irrigated and suctioned dry with pulsatile lavage. The appropriate size with a size 6 stem and a +4 neck and a 48 mm head femoral stem was chosen and positioned and placed in good alignment and good position with excellent fit and fill seated appropriately over the calcar. It was checked and found to be stable. The trunnion was cleaned and dried the femoral head was then positioned over the femoral neck malleted in position checked and found to be stable. The hip prosthesis was then gently reduced back into the acetabulum and found to have excellent position and excellent stability and excellent range of motion with stability. There is no evidence of dislocation or fracture. The wound was copiously irrigated and suctioned dry. We are able to proceed with closure. The piriformis and posterior capsule were reapproximated to the posterior aspect of the greater trochanter with transosseous stitches. The wound was irrigated and suctioned dry. The fascia was closed with #2 Quill for watertight closure. Subcutaneous tissue was irrigated and suctioned dry. Subcu tissues closed with 2-0 Vicryl subcuticular tissue was closed with 30 Quill. Wound is clean and dried and dressed with Dermabond Adaptic 4 x 4's ABDs and tape. Drapes were broken down, the hip was held in stable position, and an abduction pillow was placed. The patient was then transferred back to their hospital bed being careful to maintain the hip and C-spine alignment and airway. Once stable to patient was transferred back to the postanesthesia care unit to be readmitted for pain control and DVT prophylaxis medical management and monitoring and mobilization we will continue follow patient closely throughout their postoperative course.
[2018-05-31] MEDS ORDERED: METOPROLOL SUCCINATE (ER) 50 MG TAB.ER.24H PO STA (15:07)
--- NOTE | 2018-05-31 15:15 | XR ---
EXAMINATION TYPE: XR Hip Limited LT DATE OF EXAM: 05/31/2018 COMPARISON: NONE HISTORY: Postop TECHNIQUE: One view submitted. FINDINGS: There is a prosthetic hip in near anatomic alignment. There is soft tissue edema and emphysema. IMPRESSION: 1. Postoperative change. Appears in near-anatomic alignment.
[2018-05-31 15:34] LABS: Glucose,Whole Blood 212 mg/dL (75-99)
[2018-05-31 16:18] LABS: Basophils % (A) 0 %; Eosinophils # (A) 0.4 k/uL (0-0.7); Eosinophils % (A) 5 %; HCT 33.6 % (39.0-53.0); HGB 10.5 gm/dL (13.0-17.5); Hypochromasia Slight; Lymphocytes # (A) 0.7 k/uL (1.0-4.8); Lymphocytes % (A) 8 %; MCH 29.5 pg (25.0-35.0); MCHC 31.3 g/dL (31.0-37.0); MCV 94.3 fL (80.0-100.0); Mean Platelet Volume 7.1; Monocytes # (A) 0.7 k/uL (0-1.0); Monocytes % (A) 8 %; Neutrophils # (A) 7.1 k/uL (1.3-7.7); Neutrophils % (A) 78 %; Platelet Count 161 k/uL (150-450); RBC 3.56 m/uL (4.30-5.90); RDW 14.4 % (11.5-15.5); WBC 9.2 k/uL (3.8-10.6)
[2018-05-31 16:23] LABS: Magnesium 1.7 mg/dL (1.6-2.3); Potassium 4.2 mmol/L (3.5-5.1)
--- NOTE | 2018-05-31 16:45 | P.PN ---
Subjective Progress Note Date: 05/31/18 This is an 83-year-old male patient of Dr. Mauro Souza with past medical history of chronic atrial fibrillation on pradaxa, diabetes mellitus type 2, hypertension, coronary artery disease status post previous stent placement as well as CABG done 12/13/2017 in [place]. Patient gives history of having for thoracentesis done on the left side since his CABG. last echocardiogram suggested mild concentric left ventricular hypertrophy, ejection fraction 30-35%, left atrium severely dilated, mild mitral regurgitation and mild tightness Regurgitation moderate pulmonary hypertension. Patient was admitted for acute on chronic systolic heart failure in January 2018 with concerns for bilateral pleural effusion, left gregg-diaphragm paralysis and moderate sided left pleural effusion with pulmonary nodule was seen in the CAT scan in January for which a follow-up PET scan was done with no active tumor. Patient was found to have multiple rib fracture on the right in the PET scan from the previous fall. Patient follows Dr. Pimentel as outpatient and Dr. Fatima from cardiology. Patient comes in to the ER after a fall yesterday with pain in his left groin and left shoulder. He is not able to ambulate on her left hip. X-ray of the hip suggested transverse fracture of the femoral neck with some impaction and displacement. Shoulder x-ray suggest 2-3 part proximal humerus fracture of the middle displacement with no impaction. Orthopedic managed security sales consultant will be managing the shoulder conservatively with a sling and plan to do hemiarthroplasty for the left hip. Patient examined bedside today. He denies any chest pain, shortness of breath, palpitation, nausea, vomiting, dizziness, B dark stools. He suggested was a mechanical fall when he was trying to step up about 3 inches and tripped and fell. Patient does not use any walker at baseline. Is functionally active and can climb up stairs without getting short of breath. He does have cardiac risk factors including hypertension, and recent coronary artery bypass, CHF, diabetes and age that puts him at significant cardiac risk. EKG done yesterday suggest atrial fibrillation with a broken conduction and nonspecific T-wave changes. Echocardiogram gram ordered by cardiology 05/30: Patient did not have surgery today related to Pradaxa. Anesthesiologist wanted to wait 1 more additional day to allow for a spinal anesthetic over a general anesthetic for procedure. Patient continues to have pain in left shoulder and left leg. Left shoulder is immobilized with a sling. Due to pain patient has limited motion to the affected extremities. Patient denies any chest pain, shortness of breath, palpitations, nausea, vomiting, dizziness, and dark stools. Patient was seen by both cardiology and pulmonology and from their standpoint he is okay for surgery. WBC 11.6, BUN 25, albumin 3.2. 05/31: Patient seen prior to going to surgery. He has had some confusion during the night and possibly related to sundowner's. Patient is oriented to person and he knows he is in the hospital. He has OR scheduled at 10:[address] Tadeo. Pradaxa has been on hold which can be resumed following surgery. Patient is followed by pulmonary medicine and cardiology. Hemoglobin is stable at 11.3. Objective - Vital Signs Vital signs: Vital Signs Temp 97.8 F 05/31/18 07:40 Pulse 87 05/31/18 07:40 Resp 16 05/31/18 07:40 BP 160/82 05/31/18 07:40 Pulse Ox 95 05/31/18 07:40 Intake & Output 05/30/18 05/31/18 05/31/18 18:59 06:59 18:59 Other: Voiding Method Urinal Diaper Diaper # Voids 3 1 - Exam General appearance: Present: cooperative, mild distress, obese - EENT Eyes: Present: anicteric sclerae, PERRLA, normal appearance ENT: Present: hearing grossly normal - Neck Neck: Present: normal ROM. Absent: lymphadenopathy, other, rigidity, stridor, thyromegaly - Respiratory Details: Decreased air entry on left Respiratory: negative: rhonchi, wheezing - Cardiovascular Rhythm: irregularly irregular Heart sounds: normal: S1, S2 Abnormal Heart Sounds: Absent: systolic murmur, diastolic murmur, rub, S3 Gallop , S4 Gallop, click, other - Gastrointestinal General gastrointestinal: Present: normal bowel sounds, soft. Absent: tenderness - Integumentary Integumentary: Absent: rash - Neurologic Neurologic: Present: CNII-XII intact - Musculoskeletal Musculoskeletal Comment(s): Weakness and decreased range of motion until left extremities due to trauma - Psychiatric Psychiatric: Present: A&O x's 1-2, appropriate affect - Labs CBC & Chem 7: 05/31/18 15:40 05/31/18 15:40 Labs: Abnormal Lab Results - Last 24 Hours (Table) 05/30/18 05/30/18 05/30/18 Range/Units 11:56 16:29 20:14 RBC (4.30-5.90) m/uL Hgb (13.0-17.5) gm/dL Hct (39.0-53.0) % Plt Count (150-450) k/uL Lymphocytes # (1.0-4.8) k/uL POC Glucose (mg/dL) 226 H 270 H 227 H (75-99) mg/dL 05/31/18 05/31/18 Range/Units 07:00 07:15 RBC 3.69 L (4.30-5.90) m/uL Hgb 11.3 L (13.0-17.5) gm/dL Hct 34.0 L (39.0-53.0) % Plt Count 145 L (150-450) k/uL Lymphocytes # 0.9 L (1.0-4.8) k/uL POC Glucose (mg/dL) 219 H (75-99) mg/dL Assessment and Plan Plan: #1 mechanical fall with acute left hip femoral neck fracture transverse and displaced with some impaction likely secondary to underlying osteoporosis. Encourage mobilization. Pain control with IV Tylenol, Dilaudid and [place]'s. Avoid narcotic due to increased mental status changes in elderly. Incentive spirometry for primary prophylaxis. Pepcid 20 mg for GI prophylaxis. Patient does have some abnormal T-wave changes on the EKG and did have coronary artery bypass done 5 months ago. He is functionally active with MET > 4. Patient has multiple independent cardiac risk factors including ischemic heart disease, congestive heart failure with recent admission in January for pulmonary edema and pleural effusions, hypertension and diabetes. Checks x-ray does suggest some chronic left-sided pleural effusion for which a PET scan was done in February with no concern for malignancy. Cardiology consult for clearance patient does have an approximately 5.4% risk of surya-operative complication of cardiac , nonfatal MS or not nonfatal cardiac arrest. Pulmonary clearance for the persistent pulmonary effusion and left gregg-diaphragm paralysis. Patient has been cleared by cardiology and pulmonary, patient is medically okay for surgery. #2 left humeral fracture -treat conservatively with a sling. PTOT consult #3 chronic left-sided lower lobe consolidation and pleural effusion with left gregg-diaphragm paralysis. Follows Dr. Pimentel as outpatient. Pulmonary consult completed. Chest x-ray showed no significant interval change in the appearance of the chest. #4 coronary artery disease status post coronary artery bypass 1 vessel in November in [place]. Continue Lipitor and Lopressor. Hold aspirin. Continue Lopressor prior to surgery #5 chronic atrial fibrillation on Pradaxa is on hold at this time, continue heparin subcu twice a day #6 history of pacemaker, stable #7 history of systolic heart failure with last ejection fraction 30-35%. Continue Lipitor, Lopressor, daily I and O's, daily weights, no sign of congestion or acute systolic heart failure on exam. #8 history of hypertension continue Lopressor, goal systolic blood pressure less than 130 #9 type 2 diabetes continue insulin before meals at bedtime. Hold metformin #10 acute blood loss anemia secondary to fracture and dilation present on admission. Monitor CBC #11 acute leukocytosis no source of infection, WBCs 11.6 today, monitor CBC. #12 GI prophylaxis with Pepcid 20 mg by mouth daily #13 DVT prophylaxis with heparin subcu every 12 CODE STATUS full code Discharge plan: [facility] or [facility] Impression and plan of care have been directed as dictated by the signing physician. Abigail Zaman nurse practitioner acting as scribe for signing physician.
[2018-05-31 17:00] LABS: Glucose,Whole Blood 215 mg/dL (75-99)
[2018-05-31] MEDS: CALCIUM CARB-VIT D 500MG-200UN 1 EACH TAB PO SCH (20:35)
[2018-05-31] MEDS: CYANOCOBALAMIN 500 MCG TAB PO SCH (20:35)
[2018-05-31] MEDS: ATORVASTATIN 20 MG TAB PO SCH (20:35)
[2018-05-31] MEDS: SENNOSIDES-DOCUSATE SODIUM 1 EACH TAB PO SCH (20:35)
[2018-05-31] MEDS: ceFAZolin IN SWFI 2 GM/20 ML SYRINGE IVP SCH (20:35)
[2018-05-31] MEDS: DOCUSATE 100 MG CAP PO SCH (20:35)
[2018-05-31] MEDS: FERROUS SULFATE 325 MG TAB PO SCH (20:35)
[2018-05-31] MEDS: ASCORBIC ACID 500 MG TAB PO SCH (20:35)
[2018-05-31] MEDS: FOLIC ACID 1 MG TAB PO SCH (20:35)
[2018-05-31 21:34] LABS: Glucose,Whole Blood 275 mg/dL (75-99)
[2018-06-01] MEDS: ONDANSETRON 4 MG/2 ML VIAL IVP SCH ×4 (01:54→23:09)
[2018-06-01] MEDS: ceFAZolin IN SWFI 2 GM/20 ML SYRINGE IVP SCH (05:07)
[2018-06-01] MEDS: MORPHINE SULFATE 4 MG/ML SYRINGE IVP SCH (05:07)
[2018-06-01] MEDS: SODIUM CHLORIDE 0.9% 1,000 ML IV SCH ×2 (06:17→23:09)
[2018-06-01 06:19] LABS: Glucose,Whole Blood 291 mg/dL (75-99)
[2018-06-01] MEDS: INSULIN ASPART 100 UNIT/ML 1 ML 10 ML VIAL SQ SCH ×7 (07:00→21:45)
[2018-06-01] MEDS ORDERED: GLIMEPIRIDE 2 MG TAB PO SCH (07:30)
[2018-06-01] MEDS: MAGNESIUM SULFATE-D5W PMX 1 GM in DEXTROSE/WATER 1 100ML.BAG IVPB SCH ×2 (09:04→12:15)
[2018-06-01] MEDS ORDERED: METOPROLOL SUCCINATE (ER) 25 MG TAB.ER.24H PO STA (10:05)
[2018-06-01] MEDS ORDERED: INSULIN DETEMIR 100 UNIT/ML 10 ML VIAL SQ SCH (10:15)
[2018-06-01] MEDS: CALCIUM CARB-VIT D 500MG-200UN 1 EACH TAB PO SCH ×2 (10:33→21:45)
[2018-06-01] MEDS: FAMOTIDINE 20 MG TAB PO SCH (10:39)
[2018-06-01] MEDS ORDERED: HYDROcodone/APAP 5-325MG 1 EACH TAB PO PRN (11:08)
--- NOTE | 2018-06-01 11:09 | P.PN ---
Subjective Progress Note Date: 06/01/18 Keegan Tobias is an 83-year-old male who presented to the ED at [facility] when he fell down. He had pain in his left hip area and the left side. He did not pass out at that time. Subsequently he was seen in the ER and was found to have a left impacted femoral neck fracture and a left humerus fracture. He is scheduled for surgery for his hip fracture, open reduction, internal fixation. He has had some mild shortness of breath, especially when he lays down at this time. And most recently had initially had Lasix dose decreased and subsequently he became more short of breath. He denies any wheezing or cough at this time and had been going through pulmonary rehab which she states is helping him quite a bit. Interval history: 05/30/[address] CONSTANTINO Moore notes 05/31/18- patient is being seen examined and evaluated today on rounds. He is being prepared for surgery this afternoon. He is resting up in bed on 2 L of supplemental oxygen via nasal cannula. Patient states he was not on home oxygen prior to coming in. The patient states he's been going to pulmonary rehab basically approximately 2 times per week and states that this has been helping his breathing tremendously. His echocardiogram was reviewed and did show an EF of 40-45%, and RVSP of 47.15 mmHg. His and son are at bedside and updated on plan of care. 06/01/2018: Patient seen and examined with family at bedside. The patient underwent surgery yesterday for left femoral neck fracture and left humeral fracture. The patient is currently sleeping. He is somewhat somnolent and difficult to arouse. The family is concerned that he has gotten too much pain medication. After his heart surgery he did have issues with pain medication and being very sensitive to them. The patient is currently 93% on 2 L nasal cannula. Objective - Vital Signs Vital signs: Vital Signs Temp 97.6 F 06/01/18 08:00 Pulse 95 06/01/18 08:00 Resp 18 06/01/18 08:00 BP 146/77 06/01/18 08:00 Pulse Ox 93 L 06/01/18 08:00 Intake & Output 05/31/18 06/01/18 06/01/18 18:59 06:59 18:59 Intake Total 651 120 Output Total 400 600 Balance 251 -600 120 Weight 106.5 kg Intake: IV 651 Oral 120 Output: Urine 200 600 Estimated Blood Loss 200 Other: Voiding Method Diaper Diaper Diaper Indwelling Catheter Indwelling Catheter - Exam GENERAL EXAM: Somnolent HEAD: Normocephalic. EYES: Normal reaction of pupils, equal size. NOSE: Clear with pink turbinates. THROAT: No erythema or exudates. NECK: No masses, no JVD. CHEST: No chest wall deformity. LUNGS: Equal air entry with no crackles, wheeze, rhonchi or dullness. Bases diminished CVS: S1 and S2 normal with no audible mumurs, regular rhythm. ABDOMEN: No hepatosplenomegaly, normal bowel sounds, no guarding or rigidity. EXTREMITIES: No edema noted, pedal pulses palpable. Decreased range of motion to left upper and lower extremities due to trauma CENTRAL NERVOUS SYSTEM: No focal deficits, tone is normal in all 4 extremities. - Labs CBC & Chem 7: 05/31/18 15:40 05/31/18 15:40 Labs: Abnormal Lab Results - Last 24 Hours (Table) 05/31/18 05/31/18 05/31/18 Range/Units 12:18 15:31 15:40 RBC 3.56 L (4.30-5.90) m/uL Hgb 10.5 L (13.0-17.5) gm/dL Hct 33.6 L (39.0-53.0) % Lymphocytes # 0.7 L (1.0-4.8) k/uL POC Glucose (mg/dL) 200 H 212 H (75-99) mg/dL 05/31/18 05/31/18 06/01/18 Range/Units 16:52 21:26 06:08 RBC (4.30-5.90) m/uL Hgb (13.0-17.5) gm/dL Hct (39.0-53.0) % Lymphocytes # (1.0-4.8) k/uL POC Glucose (mg/dL) 215 H 275 H 291 H (75-99) mg/dL Assessment and Plan Assessment: Left hip femoral neck fracture transverse and displaced with some impaction Left humeral fracture Acute hypoxic respiratory failure requiring supplemental oxygen Osteoporosis Chronic A. 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 Continue with pulmonary hygiene, coughing and deep breathing exercises, and supportive care. Supplemental oxygen to maintain oxygen saturations of 92% or better. Continue nebulizer treatments as needed . Activity as tolerated weightbearing per ortho recommendations GI and DVT prophylaxis. We will continue to monitor labs/results and adjust treatment as necessary. Further recommendations pending. Discontinue Dilaudid, Decrease morphine dose and change to PRN to be used for breakthrough pain, [place] Q6 hours
[2018-06-01] MEDS ORDERED: MORPHINE SULFATE 4 MG/ML SYRINGE IVP PRN (11:10)
[2018-06-01 11:19] LABS: Glucose,Whole Blood 272 mg/dL (75-99)
[2018-06-01] MEDS ORDERED: KETOROLAC 30 MG/ML 1 ML VIAL IVP PRN (11:45)
[2018-06-01 12:01] LABS: ALT 18 U/L (21-72); AST 25 U/L (17-59); Albumin 2.8 g/dL (3.5-5.0); Alkaline Phosphatase 60 U/L (38-126); Anion Gap 6 mmol/L; Blood Urea Nitrogen 26 mg/dL (9-20); Calcium 8.8 mg/dL (8.4-10.2); Carbon Dioxide 27 mmol/L (22-30); Chloride 106 mmol/L (98-107); Glucose 245 mg/dL (74-99); Magnesium 2.1 mg/dL (1.6-2.3); Potassium 4.2 mmol/L (3.5-5.1); Sodium 139 mmol/L (137-145); Total Bilirubin 2.2 mg/dL (0.2-1.3)
[2018-06-01] MEDS: FUROSEMIDE 40 MG TAB PO SCH ×2 (12:32→17:15)
[2018-06-01] MEDS: LISINOPRIL 2.5 MG TAB PO SCH (12:32)
[2018-06-01] MEDS: ASPIRIN 81 MG PO SCH (12:32)
[2018-06-01] MEDS: POTASSIUM CHLORIDE ER 10 MEQ TAB.ER.PRT PO SCH (12:32)
[2018-06-01] MEDS: DABIGATRAN 150 MG CAP PO SCH ×2 (12:33→21:45)
--- NOTE | 2018-06-01 12:46 | P.PN ---
Subjective Progress Note Date: 06/01/18 This is an 83-year-old male patient of Dr. Mauro Souza with past medical history of chronic atrial fibrillation on pradaxa, diabetes mellitus type 2, hypertension, coronary artery disease status post previous stent placement as well as CABG done 12/13/2017 in [place]. Patient gives history of having for thoracentesis done on the left side since his CABG. last echocardiogram suggested mild concentric left ventricular hypertrophy, ejection fraction 30-35%, left atrium severely dilated, mild mitral regurgitation and mild tightness Regurgitation moderate pulmonary hypertension. Patient was admitted for acute on chronic systolic heart failure in January 2018 with concerns for bilateral pleural effusion, left gregg-diaphragm paralysis and moderate sided left pleural effusion with pulmonary nodule was seen in the CAT scan in January for which a follow-up PET scan was done with no active tumor. Patient was found to have multiple rib fracture on the right in the PET scan from the previous fall. Patient follows Dr. Pimentel as outpatient and Dr. Fatima from cardiology. Patient comes in to the ER after a fall yesterday with pain in his left groin and left shoulder. He is not able to ambulate on her left hip. X-ray of the hip suggested transverse fracture of the femoral neck with some impaction and displacement. Shoulder x-ray suggest 2-3 part proximal humerus fracture of the middle displacement with no impaction. Orthopedic webmethods consultant will be managing the shoulder conservatively with a sling and plan to do hemiarthroplasty for the left hip. Patient examined bedside today. He denies any chest pain, shortness of breath, palpitation, nausea, vomiting, dizziness, B dark stools. He suggested was a mechanical fall when he was trying to step up about 3 inches and tripped and fell. Patient does not use any walker at baseline. Is functionally active and can climb up stairs without getting short of breath. He does have cardiac risk factors including hypertension, and recent coronary artery bypass, CHF, diabetes and age that puts him at significant cardiac risk. EKG done yesterday suggest atrial fibrillation with a broken conduction and nonspecific T-wave changes. Echocardiogram gram ordered by cardiology 05/30: Patient did not have surgery today related to Pradaxa. Anesthesiologist wanted to wait 1 more additional day to allow for a spinal anesthetic over a general anesthetic for procedure. Patient continues to have pain in left shoulder and left leg. Left shoulder is immobilized with a sling. Due to pain patient has limited motion to the affected extremities. Patient denies any chest pain, shortness of breath, palpitations, nausea, vomiting, dizziness, and dark stools. Patient was seen by both cardiology and pulmonology and from their standpoint he is okay for surgery. WBC 11.6, BUN 25, albumin 3.2. 05/31: Patient seen prior to going to surgery. He has had some confusion during the night and possibly related to owner's. Patient is oriented to person and he knows he is in the hospital. He has OR scheduled at 10:[address] Tadeo. Pradaxa has been on hold which can be resumed following surgery. Patient is followed by pulmonary medicine and cardiology. Hemoglobin is stable at 11.3. 06/01: Yesterday, patient underwent left hip hemiarthroplasty with Dr. Tadeo. In [facility] patient had SVT and was then transferred to the selective care unit. He apparently did not have any further episodes during the night. Patient is somewhat lethargic and sleepy this morning. Morphine will be discontinued and patient started on Tylenol 1000 mg scheduled every 6 hours along with tramadol and Toradol as needed. Blood sugars are elevated for which Levemir 5 units daily will be added and scheduled NovoLog increased to 6 units with meals. Anticipate discharge to rehab in the next 24-48 hours depending on patient's progress. Objective - Vital Signs Vital signs: Vital Signs Temp 97.6 F 06/01/18 08:00 Pulse 95 06/01/18 08:00 Resp 18 06/01/18 08:00 BP 146/77 06/01/18 08:00 Pulse Ox 93 L 06/01/18 08:00 Intake & Output 05/31/18 06/01/18 06/01/18 18:59 06:59 18:59 Intake Total 651 120 Output Total 400 600 Balance 251 -600 120 Weight 106.5 kg Intake: IV 651 Oral 120 Output: Urine 200 600 Estimated Blood Loss 200 Other: Voiding Method Diaper Diaper Indwelling Catheter - Exam General appearance: Present: cooperative, mild distress, obese - EENT Eyes: Present: anicteric sclerae, PERRLA, normal appearance ENT: Present: hearing grossly normal - Neck Neck: Present: normal ROM. Absent: lymphadenopathy, other, rigidity, stridor, thyromegaly - Respiratory Details: Decreased air entry on left Respiratory: negative: rhonchi, wheezing - Cardiovascular Rhythm: irregularly irregular Heart sounds: normal: S1, S2 Abnormal Heart Sounds: Absent: systolic murmur, diastolic murmur, rub, S3 Gallop , S4 Gallop, click, other - Gastrointestinal General gastrointestinal: Present: normal bowel sounds, soft. Absent: tenderness - Integumentary Integumentary: Absent: rash - Neurologic Neurologic: Present: CNII-XII intact - Musculoskeletal Musculoskeletal Comment(s): Weakness and decreased range of motion until left extremities due to trauma - Psychiatric Psychiatric: Present: A&O x's 1-2, no focal neural deficits. - Labs CBC & Chem 7: 05/31/18 15:40 06/01/18 11:12 Labs: Abnormal Lab Results - Last 24 Hours (Table) 05/31/18 05/31/18 05/31/18 Range/Units 12:18 15:31 15:40 RBC 3.56 L (4.30-5.90) m/uL Hgb 10.5 L (13.0-17.5) gm/dL Hct 33.6 L (39.0-53.0) % Lymphocytes # 0.7 L (1.0-4.8) k/uL POC Glucose (mg/dL) 200 H 212 H (75-99) mg/dL 05/31/18 05/31/18 06/01/18 Range/Units 16:52 21:26 06:08 RBC (4.30-5.90) m/uL Hgb (13.0-17.5) gm/dL Hct (39.0-53.0) % Lymphocytes # (1.0-4.8) k/uL POC Glucose (mg/dL) 215 H 275 H 291 H (75-99) mg/dL Assessment and Plan Plan: #1 mechanical fall with acute left hip femoral neck fracture transverse and displaced with some impaction likely secondary to underlying osteoporosis status post hemiarthroplasty. Avoid narcotic due to increased mental status changes in elderly. Incentive spirometry for pulmonary prophylaxis. Pepcid 20 mg for GI prophylaxis. #2 left humeral fracture -treat conservatively with a sling. PTOT consult #3 chronic left-sided lower lobe consolidation and pleural effusion with left gregg-diaphragm paralysis. Follows Dr. Pimentel as outpatient. Pulmonary consult completed. Chest x-ray showed no significant interval change in the appearance of the chest. #4 coronary artery disease status post coronary artery bypass 1 vessel in November in [place]. Continue Lipitor and Lopressor. Hold aspirin. Continue Lopressor prior to surgery #5 chronic atrial fibrillation on Pradaxa which has been resumed. Continue Toprol-XL. #6 history of pacemaker, stable #7 chronic systolic heart failure. Continue Lipitor, Lopressor, daily I and O's , daily weights, no sign of congestion or acute systolic heart failure on exam. #8 history of hypertension continue Lopressor, goal systolic blood pressure less than 130 #9 type 2 diabetes, uncontrolled secondary to hyperglycemia. Levemir 5 units added daily and NovoLog increased to 6 units with meals and continue NovoLog scale. Glimepiride discontinued. continue insulin before meals at bedtime. Hold metformin #10 acute blood loss anemia secondary to fracture and dilation present on admission. Monitor CBC #11 acute leukocytosis no source of infection, WBCs 11.6 today, monitor CBC. #12 GI prophylaxis with Pepcid 20 mg by mouth daily #13 DVT prophylaxis Pradaxa CODE STATUS full code Discharge plan: [facility] or [facility] Impression and plan of care have been directed as dictated by the signing physician. Abigail Zaman nurse practitioner acting as scribe for signing physician.
--- NOTE | 2018-06-01 12:53 | P.PN ---
Progress Note - Text Progress Note Date: 06/01/18 Patient is a very pleasant 83-year-old male who is seen and examined at bedside with his family present. Patient not currently complaining of any pain at his left hip. He is status post left hip hemiarthroplasty postop day #1. Patient is also known to have a left proximal humerus fracture with sling intact. Patient is significantly lethargic. He is arousable with conversation but does not answer questions and falls asleep quickly. Nursing states patient has been lethargic with morphine. Medicine has discontinue morphine and added oral [place] for pain control. His abductor pillow continues to be intact. Nursing states he has had no difficulty from a cardiac standpoint postoperatively. He may be planned to be transferred out of [facility] care today. Physical Exam Hip Hemiarthroplasty: Status post surgical day number 1 Patient is examined in bed Patient is significantly lethargic and difficult to arouse Vital signs stable Good chest excursion with deep inspiration and expiration No signs or symptoms of DVT; no calf pain Lower extremity cuffs in place bilaterally Abductor pillow intact Dressing of the left hip is clean, dry, and intact; no erythema, purulence, or signs of infection Capillary refill less than 2 seconds bilateral lower extremities Assessment: Status post fall at home Postoperative day #1 for left hip hemiarthroplasty for acute left hip femoral neck fracture transverse and displaced with some impaction, due to fall with osteoporosis Acute left shoulder proximal humerus fracture with mild displacement, due to fall with osteoporosis Coronary artery disease 4 months status post coronary artery bypass grafting done in [place] Atrial fibrillation on Pradaxa History diabetes Left hip pain Ability to ambulate Left shoulder pain Plan: 1. Patient may continue to weight-bear as tolerated on the lower extremity; patient may work with physical therapy to increase mobility and ambulation 2. Continue pain control; this and has discontinue morphine and has added oral [place] to try to help control the patient's pain while making him more alert and reducing his lethargic state 3. Abductor pillow to remain in place at all times except while working with therapy 4. Medicine to continue following the patient for their other medical issues 5. Continue with with anticoagulation therapy to be managed by medicine or cardiology 5. We'll continue to follow the patient 6. Patient will most likely remain in the hospital over the next day or 2 with plans to discharge to a rehabilitation facility once cleared by medicine and cardiology 7. Patient can follow-up with Guzman Dean PA-C or Dr. Jaiden Tadeo at [facility] in 2-3 weeks following discharge
[2018-06-01] MEDS: ACETAMINOPHEN TAB 500 MG TAB PO PRN ×2 (12:55→23:49)
[2018-06-01] MEDS: METOPROLOL SUCCINATE (ER) 50 MG TAB.ER.24H PO SCH (12:59)
--- NOTE | 2018-06-01 13:39 | P.PN ---
Subjective Progress Note Date: 06/01/18 This is an 83-year-old gentleman who has history of chronic atrial fibrillation , diabetes, hypertension, coronary artery disease with prior PCI and bypass surgery, prior known cardiomyopathy with documented ejection fraction of 30-35% . He presented to the hospital on this occasion after experiencing a fall with pain in his left groin and left shoulder. X-ray of the hip suggested transverse fracture of the femoral neck with some impaction and displacement. Shoulder x-ray suggested proximal humerus fracture. Patient underwent surgery, yesterday while in the recovery room it was noted on the monitor that he had a run of nonsustained ventricular tachycardia, and for this reason cardiology was asked to see him again down in the recovery room. He was quite groggy at that time, hemodynamically stable. Potassium 4.2, magnesium 1.7. Objective - Vital Signs Vital signs: Vital Signs Temp 97.6 F 06/01/18 08:00 Pulse 95 06/01/18 08:00 Resp 18 06/01/18 08:00 BP 146/77 06/01/18 08:00 Pulse Ox 93 L 06/01/18 08:00 Intake & Output 05/31/18 06/01/18 06/01/18 18:59 06:59 18:59 Intake Total 651 120 Output Total 400 600 Balance 251 -600 120 Weight 106.5 kg Intake: IV 651 Oral 120 Output: Urine 200 600 Estimated Blood Loss 200 Other: Voiding Method Diaper Diaper Diaper Indwelling Catheter Indwelling Catheter # Voids 0 - Exam PHYSICAL EXAMINATION: GENERAL: 83-year-old gentleman in no acute distress at the time of my examination HEENT: Head is atraumatic, normocephalic. Pupils equal, round. Sclera anicteric. Conjunctiva are clear. Mucous membranes of the mouth are moist. Neck is supple. There is no elevated jugular venous pressure. No carotid bruit is heard. HEART EXAMINATION: Heart S1 and S2 irregularly irregular CHEST EXAMINATION: Lungs are clear to auscultation and precussion. No chest wall tenderness is noted on palpation or with deep breathing. ABDOMEN: Soft, nontender. Bowel sounds are heard. No organomegaly noted. EXTREMITIES: 2+ peripheral pulses with no evidence of peripheral edema and no calf tenderness noted. NEUROLOGIC [patient is awake, groggy - Labs CBC & Chem 7: 05/31/18 15:40 06/01/18 11:12 Labs: Abnormal Lab Results - Last 24 Hours (Table) 05/31/18 05/31/18 05/31/18 Range/Units 15:31 15:40 16:52 RBC 3.56 L (4.30-5.90) m/uL Hgb 10.5 L (13.0-17.5) gm/dL Hct 33.6 L (39.0-53.0) % Lymphocytes # 0.7 L (1.0-4.8) k/uL BUN (9-20) mg/dL Glucose (74-99) mg/dL POC Glucose (mg/dL) 212 H 215 H (75-99) mg/dL Total Bilirubin (0.2-1.3) mg/dL ALT (21-72) U/L Total Protein (6.3-8.2) g/dL Albumin (3.5-5.0) g/dL 05/31/18 06/01/18 06/01/18 Range/Units 21:26 06:08 11:12 RBC (4.30-5.90) m/uL Hgb (13.0-17.5) gm/dL Hct (39.0-53.0) % Lymphocytes # (1.0-4.8) k/uL BUN 26 H (9-20) mg/dL Glucose 245 H (74-99) mg/dL POC Glucose (mg/dL) 275 H 291 H (75-99) mg/dL Total Bilirubin 2.2 H (0.2-1.3) mg/dL ALT 18 L (21-72) U/L Total Protein 6.0 L (6.3-8.2) g/dL Albumin 2.8 L (3.5-5.0) g/dL 06/01/18 Range/Units 11:18 RBC (4.30-5.90) m/uL Hgb (13.0-17.5) gm/dL Hct (39.0-53.0) % Lymphocytes # (1.0-4.8) k/uL BUN (9-20) mg/dL Glucose (74-99) mg/dL POC Glucose (mg/dL) 272 H (75-99) mg/dL Total Bilirubin (0.2-1.3) mg/dL ALT (21-72) U/L Total Protein (6.3-8.2) g/dL Albumin (3.5-5.0) g/dL Assessment and Plan Plan: #1 mechanical fall with acute left hip femoral neck fracture transverse and displaced with some impaction likely secondary to underlying osteoporosis. Status post hip hemiarthroplasty #2 left humeral fracture -treat conservatively with a sling. PTOT consult #3 chronic left-sided lower lobe consolidation and pleural effusion with left gregg-diaphragm paralysis. #4 coronary artery disease status post coronary artery bypass 1 vessel in November in [place]. History of prior PCI #5 chronic atrial fibrillation #6 history of pacemaker #7 history of systolic heart failure with last ejection fraction 30-35%. #8 history of hypertension #9 type 2 diabetes #10 acute blood loss anemia secondary to fracture #11 nonsustained ventricular tachycardia Plan Patient was observed on the telemetry unit overnight, magnesium was replaced, dose of beta rah increased to 75 mg daily. From cardiology's perspective, patient may be transferred back to the orthopedic unit today. DNP note has been reviewed, I agree with a documented findings and plan of care. Patient was seen and examined.
[2018-06-01] MEDS: IPRATROPIUM-ALBUTEROL 3 ML NEB INHALATION PRN (16:34)
--- NOTE | 2018-06-01 16:37 | XR ---
Left shoulder HISTORY: Proximal humerus fracture 3 views of the left shoulder Correlation to left shoulder dated 05/28/2018 The proximal left humeral fracture is again noted and shows a stable appearance, angulation. No dislo cation. There may be left lower lobe atelectasis and associated effusion. Generator is in the left pe ctoral region. IMPRESSION: Stable impacted proximal humeral fracture
[2018-06-01 16:57] LABS: Glucose,Whole Blood 252 mg/dL (75-99)
[2018-06-01 20:09] LABS: Glucose,Whole Blood 268 mg/dL (75-99)
[2018-06-01] MEDS: ATORVASTATIN 20 MG TAB PO SCH (21:45)
[2018-06-01] MEDS: CYANOCOBALAMIN 500 MCG TAB PO SCH (21:45)
[2018-06-01] MEDS: MIRTAZAPINE 15 MG TAB PO SCH (21:45)
[2018-06-01] MEDS: FOLIC ACID 1 MG TAB PO SCH (21:45)
[2018-06-01] MEDS: DOCUSATE 100 MG CAP PO SCH (21:45)
[2018-06-01] MEDS: FERROUS SULFATE 325 MG TAB PO SCH (21:45)
[2018-06-01] MEDS: ASCORBIC ACID 500 MG TAB PO SCH (21:45)
[2018-06-01] MEDS: SENNOSIDES-DOCUSATE SODIUM 1 EACH TAB PO SCH (22:03)
[2018-06-01] MEDS: INSULIN DETEMIR 100 UNIT/ML 10 ML VIAL SQ SCH (23:08)
[2018-06-02 05:18] VITALS: RESP 18
[2018-06-02 06:49] LABS: Glucose,Whole Blood 228 mg/dL (75-99)
[2018-06-02] MEDS: INSULIN ASPART 100 UNIT/ML 1 ML 10 ML VIAL SQ SCH ×7 (08:02→21:00)
[2018-06-02] MEDS: CALCIUM CARB-VIT D 500MG-200UN 1 EACH TAB PO SCH ×2 (08:04→20:53)
[2018-06-02] MEDS: FUROSEMIDE 40 MG TAB PO SCH ×2 (08:04→17:20)
[2018-06-02] MEDS: POTASSIUM CHLORIDE ER 10 MEQ TAB.ER.PRT PO SCH (08:04)
[2018-06-02] MEDS: LISINOPRIL 2.5 MG TAB PO SCH (08:04)
[2018-06-02] MEDS: METOPROLOL SUCCINATE (ER) 25 MG TAB.ER.24H PO SCH (08:05)
[2018-06-02] MEDS: DABIGATRAN 150 MG CAP PO SCH ×2 (08:05→20:53)
[2018-06-02] MEDS: FAMOTIDINE 20 MG TAB PO SCH (08:05)
[2018-06-02] MEDS: ASPIRIN 81 MG PO SCH (08:11)
[2018-06-02] MEDS: ONDANSETRON 4 MG/2 ML VIAL IVP SCH ×2 (08:38→17:31)
--- NOTE | 2018-06-02 10:19 | P.PN ---
Subjective Progress Note Date: 06/02/18 Keegan Tobias is an 83-year-old male who presented to the ED at [facility] when he fell down. He had pain in his left hip area and the left side. He did not pass out at that time. Subsequently he was seen in the ER and was found to have a left impacted femoral neck fracture and a left humerus fracture. He is scheduled for surgery for his hip fracture, open reduction, internal fixation. He has had some mild shortness of breath, especially when he lays down at this time. And most recently had initially had Lasix dose decreased and subsequently he became more short of breath. He denies any wheezing or cough at this time and had been going through pulmonary rehab which she states is helping him quite a bit. Interval history: 05/30/[address] CONSTANTINO Moore notes 05/31/18- patient is being seen examined and evaluated today on rounds. He is being prepared for surgery this afternoon. He is resting up in bed on 2 L of supplemental oxygen via nasal cannula. Patient states he was not on home oxygen prior to coming in. The patient states he's been going to pulmonary rehab basically approximately 2 times per week and states that this has been helping his breathing tremendously. His echocardiogram was reviewed and did show an EF of 40-45%, and RVSP of 47.15 mmHg. His and son are at bedside and updated on plan of care. 06/01/2018: Patient seen and examined with family at bedside. The patient underwent surgery yesterday for left femoral neck fracture and left humeral fracture. The patient is currently sleeping. He is somewhat somnolent and difficult to arouse. The family is concerned that he has gotten too much pain medication. After his heart surgery he did have issues with pain medication and being very sensitive to them. The patient is currently 93% on 2 L nasal cannula. 06/02/2018: Patient seen and examined with family at bedside. Patient is much more alert today. His mentation is back to baseline. He is on 2L NC. He states his pain is controlled except when he is being rolled. He is working with physical therapy. He feels his breathing is at baseline. Objective - Vital Signs Vital signs: Vital Signs Temp 97.9 F 06/02/18 05:17 Pulse 85 06/02/18 08:25 Resp 18 06/02/18 08:25 BP 127/79 06/02/18 05:17 Pulse Ox 97 06/02/18 05:17 Intake & Output 06/01/18 06/02/18 06/02/18 18:59 06:59 18:59 Intake Total 240 240 Output Total 300 Balance 240 -60 Weight 106.5 kg Intake: Oral 240 240 Output: Urine 300 Straight 300 Other: Voiding Method Urinal Indwelling Catheter Indwelling Catheter Diaper Indwelling Catheter # Voids 0 - Exam GENERAL EXAM: Somnolent HEAD: Normocephalic. EYES: Normal reaction of pupils, equal size. NOSE: Clear with pink turbinates. THROAT: No erythema or exudates. NECK: No masses, no JVD. CHEST: No chest wall deformity. LUNGS: Equal air entry with no crackles, wheeze, rhonchi or dullness. Bases diminished CVS: S1 and S2 normal with no audible mumurs, regular rhythm. ABDOMEN: No hepatosplenomegaly, normal bowel sounds, no guarding or rigidity. EXTREMITIES: No edema noted, pedal pulses palpable. Decreased range of motion to left upper and lower extremities due to trauma CENTRAL NERVOUS SYSTEM: No focal deficits, tone is normal in all 4 extremities. - Labs CBC & Chem 7: 05/31/18 15:40 06/01/18 11:12 Labs: Abnormal Lab Results - Last 24 Hours (Table) 06/01/18 06/01/18 06/01/18 Range/Units 11:12 11:18 16:56 BUN 26 H (9-20) mg/dL Glucose 245 H (74-99) mg/dL POC Glucose (mg/dL) 272 H 252 H (75-99) mg/dL Total Bilirubin 2.2 H (0.2-1.3) mg/dL ALT 18 L (21-72) U/L Total Protein 6.0 L (6.3-8.2) g/dL Albumin 2.8 L (3.5-5.0) g/dL 06/01/18 06/02/18 Range/Units 20:08 06:48 BUN (9-20) mg/dL Glucose (74-99) mg/dL POC Glucose (mg/dL) 268 H 228 H (75-99) mg/dL Total Bilirubin (0.2-1.3) mg/dL ALT (21-72) U/L Total Protein (6.3-8.2) g/dL Albumin (3.5-5.0) g/dL Assessment and Plan Assessment: Left hip femoral neck fracture transverse and displaced with some impaction Left humeral fracture Acute hypoxic respiratory failure requiring supplemental oxygen Osteoporosis Chronic A. 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 Continue with pulmonary hygiene, coughing and deep breathing exercises, and supportive care. Supplemental oxygen to maintain oxygen saturations of 92% or better. Continue nebulizer treatments as needed . Activity as tolerated weightbearing per ortho recommendations GI and DVT prophylaxis. We will continue to monitor labs/results and adjust treatment as necessary. Further recommendations pending. PT and OT. Chronic changes on CXR Respiratory status is at baseline Discharge planning for rehab
[2018-06-02 11:29] LABS: Glucose,Whole Blood 287 mg/dL (75-99)
--- NOTE | 2018-06-02 11:31 | P.PN ---
Subjective Mr. Tobias is seen and examined on the med-surgical unit. 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 He underwent left hip arthroplasty with Dr. Tadeo 05/31 s/p fall. Post-operatively in recovery he had a run of non- sustained VT and was transferred to [facility] for overnight observation. His metroprolol was in increased to 75 mg daily. He has a stable impacted proximal humeral fracture as well. He denies symptoms of chest pain, shortness of breath, dizziness or palpitations. Currently maintained on aspirin 81 mg daily, atorvastatin 20 mg daily, pradaxa 150 mg BID, lasix 40 mg BID, lisinopril 2.5 mg daily and toprol 75 mg daily. Objective - Vital Signs Vital signs: Vital Signs Temp 97.9 F 06/02/18 05:17 Pulse 85 06/02/18 08:25 Resp 18 06/02/18 08:25 BP 127/79 06/02/18 05:17 Pulse Ox 97 06/02/18 05:17 Intake & Output 06/01/18 06/02/18 06/02/18 18:59 06:59 18:59 Intake Total 240 240 Output Total 300 Balance 240 -60 Weight 106.5 kg Intake: Oral 240 240 Output: Urine 300 Straight 300 Other: Voiding Method Urinal Indwelling Catheter Indwelling Catheter Diaper Indwelling Catheter # Voids 0 - Exam GENERAL: Well-appearing, well-nourished and in no acute distress. NECK: Supple without JVD or thyromegaly. LUNGS: Breath sounds clear to auscultation bilaterally. Respiration equal and unlabored. No wheezes, rales or rhonchi. HEART: Irregular rate and rhythm without murmurs, rubs or gallops. S1 and S2 heard. EXTREMITIES: No lower extremity edema. Sling in place to left arm in place. No clubbing or cyanosis. Peripheral pulses intact. - Labs CBC & Chem 7: 05/31/18 15:40 06/01/18 11:12 Labs: Abnormal Lab Results - Last 24 Hours (Table) 06/01/18 06/01/18 06/01/18 Range/Units 11:12 11:18 16:56 BUN 26 H (9-20) mg/dL Glucose 245 H (74-99) mg/dL POC Glucose (mg/dL) 272 H 252 H (75-99) mg/dL Total Bilirubin 2.2 H (0.2-1.3) mg/dL ALT 18 L (21-72) U/L Total Protein 6.0 L (6.3-8.2) g/dL Albumin 2.8 L (3.5-5.0) g/dL 06/01/18 06/02/18 Range/Units 20:08 06:48 BUN (9-20) mg/dL Glucose (74-99) mg/dL POC Glucose (mg/dL) 268 H 228 H (75-99) mg/dL Total Bilirubin (0.2-1.3) mg/dL ALT (21-72) U/L Total Protein (6.3-8.2) g/dL Albumin (3.5-5.0) g/dL Assessment and Plan Assessment: ASSESSMENT Mechanical fall with left hip and left humerus fracture. 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 Stable from a cardiac perspective. Follow up with Dr. Fatima upon discharge. Nurse Practitioner note has been reviewed, I agree with a documented findings and plan of care. Patient was seen and examined.
[2018-06-02] MEDS: metFORMIN 500 MG TAB PO SCH ×2 (12:40→17:20)
--- NOTE | 2018-06-02 15:17 | P.PN ---
Subjective Progress Note Date: 06/02/18 This is an 83-year-old male patient of Dr. Mauro Souza with past medical history of chronic atrial fibrillation on pradaxa, diabetes mellitus type 2, hypertension, coronary artery disease status post previous stent placement as well as CABG done 12/13/2017 in [place]. Patient gives history of having for thoracentesis done on the left side since his CABG. last echocardiogram suggested mild concentric left ventricular hypertrophy, ejection fraction 30-35%, left atrium severely dilated, mild mitral regurgitation and mild tightness Regurgitation moderate pulmonary hypertension. Patient was admitted for acute on chronic systolic heart failure in January 2018 with concerns for bilateral pleural effusion, left gregg-diaphragm paralysis and moderate sided left pleural effusion with pulmonary nodule was seen in the CAT scan in January for which a follow-up PET scan was done with no active tumor. Patient was found to have multiple rib fracture on the right in the PET scan from the previous fall. Patient follows Dr. Pimentel as outpatient and Dr. Fatima from cardiology. Patient comes in to the ER after a fall yesterday with pain in his left groin and left shoulder. He is not able to ambulate on her left hip. X-ray of the hip suggested transverse fracture of the femoral neck with some impaction and displacement. Shoulder x-ray suggest 2-3 part proximal humerus fracture of the middle displacement with no impaction. Orthopedic data integrity consultant will be managing the shoulder conservatively with a sling and plan to do hemiarthroplasty for the left hip. Patient examined bedside today. He denies any chest pain, shortness of breath, palpitation, nausea, vomiting, dizziness, B dark stools. He suggested was a mechanical fall when he was trying to step up about 3 inches and tripped and fell. Patient does not use any walker at baseline. Is functionally active and can climb up stairs without getting short of breath. He does have cardiac risk factors including hypertension, and recent coronary artery bypass, CHF, diabetes and age that puts him at significant cardiac risk. EKG done yesterday suggest atrial fibrillation with a broken conduction and nonspecific T-wave changes. Echocardiogram gram ordered by cardiology 05/30: Patient did not have surgery today related to Pradaxa. Anesthesiologist wanted to wait 1 more additional day to allow for a spinal anesthetic over a general anesthetic for procedure. Patient continues to have pain in left shoulder and left leg. Left shoulder is immobilized with a sling. Due to pain patient has limited motion to the affected extremities. Patient denies any chest pain, shortness of breath, palpitations, nausea, vomiting, dizziness, and dark stools. Patient was seen by both cardiology and pulmonology and from their standpoint he is okay for surgery. WBC 11.6, BUN 25, albumin 3.2. 05/31: Patient seen prior to going to surgery. He has had some confusion during the night and possibly related to owner's. Patient is oriented to person and he knows he is in the hospital. He has OR scheduled at 10:[address] Tadeo. Pradaxa has been on hold which can be resumed following surgery. Patient is followed by pulmonary medicine and cardiology. Hemoglobin is stable at 11.3. 06/01: Yesterday, patient underwent left hip hemiarthroplasty with Dr. Tadeo. In OMR patient had SVT and was then transferred to the selective care unit. He apparently did not have any further episodes during the night. Patient is somewhat lethargic and sleepy this morning. Morphine will be discontinued and patient started on Tylenol 1000 mg scheduled every 6 hours along with tramadol and Toradol as needed. Blood sugars are elevated for which Levemir 5 units daily will be added and scheduled NovoLog increased to 6 units with meals. Anticipate discharge to rehab in the next 24-48 hours depending on patient's progress. 06/02: She was seen this morning. Patient is awake and mental status is much improved. We will resume the patient on metformin at higher dose. Patient has plan for subacute rehab. Patient is cleared for discharge from medicine. Medication reconciliation has been done. Recommend continuing Tylenol scheduled and tramadol as needed. Objective - Vital Signs Vital signs: Vital Signs Temp 98.0 F 06/02/18 14:12 Pulse 91 06/02/18 14:12 Resp 18 06/02/18 14:12 BP 122/66 06/02/18 14:12 Pulse Ox 93 L 06/02/18 14:12 Intake & Output 06/01/18 06/02/18 06/02/18 18:59 06:59 18:59 Intake Total 240 240 60 Output Total 300 Balance 240 -60 60 Weight 106.5 kg Intake: Oral 240 240 60 Output: Urine 300 Straight 300 Other: Voiding Method Urinal Indwelling Catheter Indwelling Catheter Diaper Indwelling Catheter # Voids 0 - Exam General appearance: Present: cooperative, mild distress, obese - EENT Eyes: Present: anicteric sclerae, PERRLA, normal appearance ENT: Present: hearing grossly normal - Neck Neck: Present: normal ROM. Absent: lymphadenopathy, other, rigidity, stridor, thyromegaly - Respiratory Details: Decreased air entry on left Respiratory: negative: rhonchi, wheezing - Cardiovascular Rhythm: irregularly irregular Heart sounds: normal: S1, S2 Abnormal Heart Sounds: Absent: systolic murmur, diastolic murmur, rub, S3 Gallop , S4 Gallop, click, other - Gastrointestinal General gastrointestinal: Present: normal bowel sounds, soft. Absent: tenderness - Integumentary Integumentary: Absent: rash - Neurologic Neurologic: Present: CNII-XII intact - Musculoskeletal Musculoskeletal Comment(s): Weakness and decreased range of motion until left extremities due to trauma - Psychiatric Psychiatric: Present: A&O x's 2, no focal neural deficits. - Labs CBC & Chem 7: 05/31/18 15:40 06/01/18 11:12 Labs: Abnormal Lab Results - Last 24 Hours (Table) 06/01/18 06/01/18 06/02/18 Range/Units 16:56 20:08 06:48 POC Glucose (mg/dL) 252 H 268 H 228 H (75-99) mg/dL 06/02/18 Range/Units 11:28 POC Glucose (mg/dL) 287 H (75-99) mg/dL Assessment and Plan Plan: #1 mechanical fall with acute left hip femoral neck fracture transverse and displaced with some impaction likely secondary to underlying osteoporosis status post hemiarthroplasty. Avoid narcotic due to increased mental status changes in elderly. Incentive spirometry for pulmonary prophylaxis. Pepcid 20 mg for GI prophylaxis. #2 left humeral fracture -treat conservatively with a sling. PTOT consult #3 chronic left-sided lower lobe consolidation and pleural effusion with left gregg-diaphragm paralysis. Follows Dr. Pimentel as outpatient. Pulmonary consult completed. Chest x-ray showed no significant interval change in the appearance of the chest. #4 coronary artery disease status post coronary artery bypass 1 vessel in November in [place]. Continue Lipitor and Lopressor. Hold aspirin. Continue Lopressor prior to surgery #5 chronic atrial fibrillation on Pradaxa which has been resumed. Continue Toprol-XL. #6 history of pacemaker, stable #7 chronic systolic heart failure. Continue Lipitor, Lopressor, daily I and O's , daily weights, no sign of congestion or acute systolic heart failure on exam. #8 history of hypertension continue Lopressor, goal systolic blood pressure less than 130 #9 type 2 diabetes, uncontrolled secondary to hyperglycemia. Levemir 5 units added daily and NovoLog increased to 6 units with meals and continue NovoLog scale. Glimepiride discontinued. continue insulin before meals at bedtime. Hold metformin #10 acute blood loss anemia secondary to fracture and dilation present on admission. Monitor CBC #11 acute leukocytosis no source of infection, WBCs 11.6 today, monitor CBC. #12 GI prophylaxis with Pepcid 20 mg by mouth daily #13 DVT prophylaxis Pradaxa CODE STATUS full code Discharge plan: [facility] or [facility] Impression and plan of care have been directed as dictated by the signing physician. Abigail Zaman nurse practitioner acting as scribe for signing physician.
[2018-06-02 15:45] LABS: Basophils % (A) 0 %; Eosinophils # (A) 0.1 k/uL (0-0.7); Eosinophils % (A) 1 %; HGB 10.4 gm/dL (13.0-17.5); Hypochromasia Slight; Lymphocytes % (A) 9 %; MCH 29.4 pg (25.0-35.0); MCHC 31.5 g/dL (31.0-37.0); MCV 93.2 fL (80.0-100.0); Mean Platelet Volume 7.4; Monocytes % (A) 8 %; Neutrophils # (A) 9.6 k/uL (1.3-7.7); Neutrophils % (A) 81 %; Platelet Count 218 k/uL (150-450); RBC 3.54 m/uL (4.30-5.90); RDW 14.4 % (11.5-15.5)
[2018-06-02 16:04] LABS: Polychromasia Present
[2018-06-02] MEDS: traMADol 50 MG TAB PO PRN (16:26)
--- NOTE | 2018-06-02 16:27 | P.PN ---
Progress Note - Text Progress Note Date: 06/02/18 Patient is a very pleasant 83-year-old male who is seen and examined at bedside with his family present. Patient not currently complaining of any pain at his left hip. He is status post left hip hemiarthroplasty postop day #2. Patient is also known to have a left proximal humerus fracture with sling intact. His left shoulder pain is adequately controlled with his left shoulder remains immobile. He is much more awake, alert, and oriented today but still does continue to have some confusion. He does not appear lethargic. Physical therapy attempted to work with him today but was unable to get him to stand at the bedside. They plan to work with him again tomorrow. Patient is also known to have a pacemaker placed earlier in the year. He was scheduled for further evaluation in the outpatient setting for the pacemaker. Cardiology is on consult and will plan to evaluate his pacemaker tomorrow. Nursing states he has also been approved for discharge to [facility] for rehabilitation at the time of discharge. Medicine has also planned to help control his pain with tramadol. A prescription for tramadol has also been written and placed in his chart by medicine. Morphine was previously discontinued. His abductor pillow continues to be intact. Nursing states he has had no difficulty from a cardiac standpoint postoperatively. He was transferred to [facility] yesterday. X-rays the left shoulder ordered yesterday have been reviewed. Physical Exam Hip Hemiarthroplasty: Status post surgical day number 2 Patient is examined in bed Patient is much more awake, alert, and oriented but continues to have some confusion Vital signs stable Good chest excursion with deep inspiration and expiration No signs or symptoms of DVT; no calf pain Lower extremity cuffs in place bilaterally Abductor pillow intact Dressing of the left hip is clean, dry, and intact; no erythema, purulence, or signs of infection No significant pain with palpation over the incision site of the left hip Patient is able to wiggle all toes of bilateral feet and perform dorsiflexion and plantar flexion bilaterally without significant difficulty Capillary refill less than 2 seconds bilateral lower extremities Sling for the left upper extremity remains intact No significant pain with palpation over the the left shoulder Patient is able to wiggle all fingers of the left upper extremity and recycling tech with the left hand without significant difficulty Neurovascularly intact left upper extremity Stark catheter remains intact Pertinent studies: X-rays the left shoulder: Stable impacted proximal humerus fracture; O evidence of dislocation; evidence of defibrillator placement over the left chest Assessment: Status post fall at home Postoperative day #2 for left hip hemiarthroplasty for acute left hip femoral neck fracture transverse and displaced with some impaction, due to fall with osteoporosis Acute left shoulder proximal humerus fracture with mild displacement, due to fall with osteoporosis Coronary artery disease 4 months status post coronary artery bypass grafting done in [place] Atrial fibrillation on Pradaxa History diabetes Left hip pain Ability to ambulate Left shoulder pain History of pacemaker placement Plan: 1. Patient may continue to weight-bear as tolerated on the lower extremity; patient may work with physical therapy to increase mobility and ambulation; she was unable to stand at the bedside with physical therapy today. Physical therapy we'll plan ORIF him again tomorrow. 2. Continue pain control; morphine has previously been discontinued. Tramadol has been admitted by medicine. 3. Abductor pillow to remain in place at all times except while working with therapy 4. Medicine to continue following the patient for their other medical issues 5. Continue with with anticoagulation therapy to be managed by medicine or cardiology 6. Medicine will plan to further evaluate his pacemaker tomorrow 7. We'll continue to follow the patient; patient is able to improve, we may plan for his discharge to [facility] as early as tomorrow, 2017, or possibly 06/04/2080 8. Patient will most likely remain in the hospital over the next day or 2 with plans to discharge to a rehabilitation facility once cleared by medicine and cardiology 9. Patient can follow-up with Guzman Dean PA-C or Dr. Jaiden Tadeo at [facility] in 2-3 weeks following discharge
[2018-06-02 16:43] LABS: Glucose,Whole Blood 244 mg/dL (75-99)
[2018-06-02 18:31] LABS: Glucose,Whole Blood 246 mg/dL (75-99)
[2018-06-02 20:11] LABS: Glucose,Whole Blood 228 mg/dL (75-99)
[2018-06-02] MEDS: CYANOCOBALAMIN 500 MCG TAB PO SCH (20:53)
[2018-06-02] MEDS: ASCORBIC ACID 500 MG TAB PO SCH (20:53)
[2018-06-02] MEDS: FOLIC ACID 1 MG TAB PO SCH (20:53)
[2018-06-02] MEDS: ATORVASTATIN 20 MG TAB PO SCH (20:53)
[2018-06-02] MEDS: FERROUS SULFATE 325 MG TAB PO SCH (20:53)
[2018-06-02] MEDS: DOCUSATE 100 MG CAP PO SCH (20:53)
[2018-06-02] MEDS: ACETAMINOPHEN TAB 500 MG TAB PO PRN (20:56)
[2018-06-02] MEDS: INSULIN DETEMIR 100 UNIT/ML 10 ML VIAL SQ SCH (20:59)
[2018-06-02] MEDS: MIRTAZAPINE 15 MG TAB PO SCH (21:17)
[2018-06-02] MEDS: SENNOSIDES-DOCUSATE SODIUM 1 EACH TAB PO SCH (21:19)
[2018-06-02] MEDS: SODIUM CHLORIDE 0.9% 1,000 ML IV SCH (23:16)
[2018-06-03] MEDS: ONDANSETRON 4 MG/2 ML VIAL IVP SCH ×3 (00:10→18:23)
[2018-06-03] MEDS: IPRATROPIUM-ALBUTEROL 3 ML NEB INHALATION PRN (07:11)
[2018-06-03 07:29] LABS: Glucose,Whole Blood 244 mg/dL (75-99)
[2018-06-03] MEDS: INSULIN ASPART 100 UNIT/ML 1 ML 10 ML VIAL SQ SCH ×6 (08:29→18:06)
[2018-06-03] MEDS: ASPIRIN 81 MG PO SCH (08:30)
[2018-06-03] MEDS: metFORMIN 500 MG TAB PO SCH ×2 (08:30→18:24)
[2018-06-03] MEDS: CALCIUM CARB-VIT D 500MG-200UN 1 EACH TAB PO SCH (08:30)
[2018-06-03] MEDS: FUROSEMIDE 40 MG TAB PO SCH ×2 (08:31→15:48)
[2018-06-03] MEDS: LISINOPRIL 2.5 MG TAB PO SCH (08:31)
[2018-06-03] MEDS: POTASSIUM CHLORIDE ER 10 MEQ TAB.ER.PRT PO SCH (08:31)
[2018-06-03] MEDS: DABIGATRAN 150 MG CAP PO SCH (08:31)
[2018-06-03] MEDS: METOPROLOL SUCCINATE (ER) 25 MG TAB.ER.24H PO SCH (08:31)
[2018-06-03] MEDS: FAMOTIDINE 20 MG TAB PO SCH (08:31)
[2018-06-03] MEDS: traMADol 50 MG TAB PO PRN (08:54)
--- NOTE | 2018-06-03 09:17 | P.DS ---
Providers Date of admission: 05/28/18 17:36 Attending physician: Cheryl Tadeo Consults: 05/28/18 17:17 Consult Physician Stat Consulting Provider: Candy Pastrana Consult Reason/Comments: left humeral neck and femoral neck fracture, h/o afib Do you want consulting provider notified?: Yes 05/28/18 19:04 Consult Physician Urgent Consulting Provider: Sulaiman Fatima Consult Reason/Comments: Cardiac evaluation and clearance for surgery, recent history of CABG Do you want consulting provider notified?: Yes 05/29/18 09:31 Consult Physician Routine Consulting Provider: Aislinn Pimentel Consult Reason/Comments: chronic pleural effusion, surgical clearance Do you want consulting provider notified?: Yes Primary care physician: [facility] Course: The patient presented on the day of admission as per his operative note. He had sustained a fall and Acute fracture of his left proximal humerus as well as his left hip femoral neck. He underwent surgical intervention 3 days ago for his left hip fracture with a left hip hemiarthroplasty. Postoperatively he was making progress but was having increased confusion and significant lethargy. His pain medications and morphine were held and he seems to be recovering well and is much more alert. He still somewhat confused but is able to follow commands and answer questions. He seems to be at baseline as per his family Physical Exam The incision site is clean dry and intact. There is no erythema no drainage. There is no purulence no evidence of infection. His thigh and calf are soft and nontender. There is no drainage. His left shoulder he has a sling intact he has tenderness to motion at his left shoulder. There is some swelling. He is motion intact at his elbow wrist and hand. His left hip has some tightness but he is able to do motion at his left hip. Abdomen soft and nontender. Chest has good excursion with deep inspiration and expiration. The patient has active and passive range of motion intact at the upper and lower extremities. There is no acute change in neurologic status. He has sustained dorsal to plantar flexion and EHL intact Hospital Course Postoperative day #3 status post left hip hemiarthroplasty for an acute left hip femoral neck fracture Left proximal humerus fracture acute status post fall Dementia Coronary artery disease with recent history of coronary artery bypass grafting Lethargy due to pain medication which is improving and stabilized The patient has been making slow progress postoperatively. They have completed the prophylactic antibiotics without any signs or symptoms of infection. The patient has been able to advance their diet, and is tolerating diet adequately. The pain was initially controlled with IV medications and is now controlled appropriately with oral medications. The patient has been able to increase their mobilization to a small degree thus far but we will need to increase his activity further. He is going to have a difficult time with increasing his mobility with his left shoulder fracture as well as the hip fracture. He will not be able put weight on his left upper extremity. Therapy should in coverage motion in his left elbow wrist and hands but limited motion at his left shoulder The patient has progressed slowly. I think they are in good stable condition for discharge to [facility]dc from an orthopedic standpoint once he is stable from a medicine standpoint. Patient Condition at Discharge: Good Plan - Discharge Summary Discharge Rx Participant: No New Discharge Prescriptions: New Acetaminophen Tab [Tylenol] 1,000 mg PO Q6HR PRN tab PRN Reason: Fever and/ or Mild Pain Ipratropium-Albuterol Nebulize [Duoneb 0.5 mg-3 mg/3 ml Soln] 3 ml INHALATION RT-QID PRN ampul.neb PRN Reason: Shortness Of Breath metFORMIN HCL [Glucophage] 1,000 mg PO BID-W/MEALS tab Metoprolol Succinate (ER) [Toprol XL] 75 mg PO DAILY tab.er.24h Mirtazapine [Remeron] 7.5 mg PO HS tab Sennosides-Docusate Sodium [Senokot-S] 2 each PO HS tab traMADol HCl [Ultram] 50 mg PO TID PRN #9 tab PRN Reason: Severe Pain Continue Docusate Sodium [Stool Softener] 100 mg PO HS Cyanocobalamin [Vitamin B-12] 500 mcg PO HS Folic Acid 1 mg PO HS Ascorbic Acid [Vitamin C] 500 mg PO HS Calcium Carbonate/Vitamin D3 [Calcium 500-Vit D3 200 Tablet] 1 tab PO BID Dabigatran [Pradaxa] 150 mg PO BID Atorvastatin [Lipitor] 20 mg PO HS Potassium Chloride [Klor-Con 20] 10 meq PO DAILY Glimepiride [Amaryl] 2 mg PO AC-BRKFST Ferrous Sulfate [Iron (65 MG Elemental)] 325 mg PO HS Lisinopril [Zestril] 2.5 mg PO DAILY Furosemide [Lasix] 40 mg PO BID Aspirin EC [Ecotrin Low Dose] 81 mg PO DAILY Discontinued metFORMIN HCL [Glucophage] 500 mg PO BID #0 Metoprolol Succinate [Toprol Xl] 50 mg PO DAILY Discharge Medication List Cyanocobalamin [Vitamin B-12] 500 mcg PO HS 03/02/14 [History] Docusate Sodium [Stool Softener] 100 mg PO HS 03/02/14 [History] Ascorbic Acid [Vitamin C] 500 mg PO HS 02/12/18 [History] Atorvastatin [Lipitor] 20 mg PO HS 02/12/18 [History] Calcium Carbonate/Vitamin D3 [Calcium 500-Vit D3 200 Tablet] 1 tab PO BID [History] Dabigatran [Pradaxa] 150 mg PO BID 02/12/18 [History] Folic Acid 1 mg PO HS 02/12/18 [History] Aspirin EC [Ecotrin Low Dose] 81 mg PO DAILY 05/28/18 [History] Ferrous Sulfate [Iron (65 MG Elemental)] 325 mg PO HS 05/28/18 [History] Furosemide [Lasix] 40 mg PO BID 05/28/18 [History] Glimepiride [Amaryl] 2 mg PO AC-BRKFST 05/28/18 [History] Lisinopril [Zestril] 2.5 mg PO DAILY 05/28/18 [History] Potassium Chloride [Klor-Con 20] 10 meq PO DAILY 05/28/18 [History] Acetaminophen Tab [Tylenol] 1,000 mg PO Q6HR PRN tab 06/02/18 [Rx] Ipratropium-Albuterol Nebulize [Duoneb 0.5 mg-3 mg/3 ml Soln] 3 ml INHALATION RT -QID PRN ampul.neb 06/02/18 [Rx] Metoprolol Succinate (ER) [Toprol XL] 75 mg PO DAILY tab.er.24h 06/02/18 [Rx] Mirtazapine [Remeron] 7.5 mg PO HS tab 06/02/18 [Rx] Sennosides-Docusate Sodium [Senokot-S] 2 each PO HS tab 06/02/18 [Rx] metFORMIN HCL [Glucophage] 1,000 mg PO BID-W/MEALS tab 06/02/18 [Rx] traMADol HCl [Ultram] 50 mg PO TID PRN #9 tab 06/02/18 [Rx] Follow up Appointment(s)/Referral(s): Sulaiman Fatima MD [STAFF PHYSICIAN] - 2 Weeks Guzman Dean PAC [PHYSICIAN MARKETING CONTENT COORDINATOR] - 2 Weeks (Patient may follow-up with Guzman Dean PA-C or Dr. Jaiden Tadeo at [facility] in 2 weeks following discharge. ) Edward Dominguez MD [STAFF PHYSICIAN] - 1 Week Mauro Souza MD [Primary Care Provider] - 1 Week (after discharge from rehab ) Activity/Diet/Wound Care/Special Instructions: If patient is hypoglycemic, discontinue amaryl. 1. Keep dressing over the left hip clean, dry, and intact 2. Patient may shower without dressing intact if incision remained dry for 72 hours 3. Keep abductor pillow intact while lying in bed over the next 6 weeks 4. Weightbearing as tolerated left lower extremity 5. Patient does not have to use abductor pillow while sitting in a bedside chair or working with physical therapy 6. Patient may apply ice over the incision site for comfort as needed over the left hip 7. Take medications as prescribed Discharge Disposition: TRANSFER TO SNF/ECF
[2018-06-03] MEDS ORDERED: BACLOFEN 10 MG TAB PO PRN (10:48)
[2018-06-03 11:26] LABS: Glucose,Whole Blood 235 mg/dL (75-99)
[2018-06-03 12:45] VITALS: BP 107/77; PULSE 93; TEMP 97.5
--- NOTE | 2018-06-03 14:11 | P.PN ---
Subjective Mr. Tobias is seen and examined on the med-surgical unit. Past medical history significant for coronary artery disease s/p 1-vessel bypass grafting 2017 in [place], ischemic cardiomyopathy with EF 40-45%, pulmonary hypertension , chronic persistent atrial fibrillation on long term care social worker anti-coagulation with Pradaxa, diabetes mellitus and hypertension. He underwent left hip arthroplasty with Dr. Tadeo 05/31 s/p fall. Post-operatively in recovery he had a run of non- sustained VT and was transferred to [facility] for overnight observation. His metroprolol was in increased to 75 mg daily. He has a stable impacted proximal humeral fracture as well. He denies symptoms of chest pain, shortness of breath, dizziness or palpitations. Currently maintained on aspirin 81 mg daily, atorvastatin 20 mg daily, pradaxa 150 mg BID, lasix 40 mg BID, lisinopril 2.5 mg daily and toprol 75 mg daily. Family is at the bedside and states he is going to rehab facility today. Follow up appointment will be made in the office for 2 weeks. Blood pressure 107/77 heart rate 93 afebrile and maintaining oxygen saturation on room air. Objective - Vital Signs Vital signs: Vital Signs Temp 97.5 F L 06/03/18 12:16 Pulse 93 06/03/18 12:16 Resp 18 06/03/18 12:16 BP 107/77 06/03/18 12:16 Pulse Ox 90 L 06/03/18 12:16 Intake & Output 06/02/18 06/03/18 06/03/18 18:59 06:59 18:59 Intake Total 300 580 Output Total 600 150 Balance -300 580 -150 Weight 107 kg Intake: Oral 300 580 Output: Urine 600 150 Straight 300 150 Other: Voiding Method Indwelling Catheter Indwelling Catheter Indwelling Catheter - Exam GENERAL: Well-appearing, well-nourished and in no acute distress. NECK: Supple without JVD or thyromegaly. LUNGS: Breath sounds clear to auscultation bilaterally. Respiration equal and unlabored. No wheezes, rales or rhonchi. HEART: Irregular rate and rhythm without murmurs, rubs or gallops. S1 and S2 heard. EXTREMITIES: No lower extremity edema. Sling in place to left arm in place. No clubbing or cyanosis. Peripheral pulses intact. - Labs CBC & Chem 7: 06/02/18 15:01 06/01/18 11:12 Labs: Abnormal Lab Results - Last 24 Hours (Table) 06/02/18 06/02/18 06/02/18 Range/Units 15:01 16:42 18:27 WBC 12.0 H (3.8-10.6) k/uL RBC 3.54 L (4.30-5.90) m/uL Hgb 10.4 L (13.0-17.5) gm/dL Hct 33.0 L (39.0-53.0) % Neutrophils # 9.6 H (1.3-7.7) k/uL POC Glucose (mg/dL) 244 H 246 H (75-99) mg/dL 06/02/18 06/03/18 06/03/18 Range/Units 20:10 07:24 11:21 WBC (3.8-10.6) k/uL RBC (4.30-5.90) m/uL Hgb (13.0-17.5) gm/dL Hct (39.0-53.0) % Neutrophils # (1.3-7.7) k/uL POC Glucose (mg/dL) 228 H 244 H 235 H (75-99) mg/dL Assessment and Plan Assessment: ASSESSMENT Mechanical fall with left hip and left humerus fracture. POD #2 for left hip arthroplasty Chronic persistent atrial fibrillation on fpc anticoagulation with controlled ventricular response History of coronary artery disease s/p single vessel bypass DURON-LAD after unsuccessful stent advancement performed in [place] 11/2017 Ischemic cardiomyopathy, recent EF 40-45% Hypertension Diabetes mellitus s/p permanent pacemaker implantation 2011 PLAN Continue current medical regimen. Stable from a cardiac perspective. Follow up with Dr. Fatima upon discharge. Nurse Practitioner note has been reviewed, I agree with a documented findings and plan of care. Patient was seen and examined.
[2018-06-03] MEDS ORDERED: TAMSULOSIN 0.4 MG CAP.ER.24H PO STA (14:14)
--- NOTE | 2018-06-03 14:31 | P.PN ---
Subjective Progress Note Date: 06/03/18 This is an 83-year-old male patient of Dr. Mauro Souza with past medical history of chronic atrial fibrillation on pradaxa, diabetes mellitus type 2, hypertension, coronary artery disease status post previous stent placement as well as CABG done 12/13/2017 in [place]. Patient gives history of having for thoracentesis done on the left side since his CABG. last echocardiogram suggested mild concentric left ventricular hypertrophy, ejection fraction 30-35%, left atrium severely dilated, mild mitral regurgitation and mild tightness Regurgitation moderate pulmonary hypertension. Patient was admitted for acute on chronic systolic heart failure in January 2018 with concerns for bilateral pleural effusion, left gregg-diaphragm paralysis and moderate sided left pleural effusion with pulmonary nodule was seen in the CAT scan in January for which a follow-up PET scan was done with no active tumor. Patient was found to have multiple rib fracture on the right in the PET scan from the previous fall. Patient follows Dr. Pimentel as outpatient and Dr. Fatima from cardiology. Patient comes in to the ER after a fall yesterday with pain in his left groin and left shoulder. He is not able to ambulate on her left hip. X-ray of the hip suggested transverse fracture of the femoral neck with some impaction and displacement. Shoulder x-ray suggest 2-3 part proximal humerus fracture of the middle displacement with no impaction. Orthopedic obiee consultant will be managing the shoulder conservatively with a sling and plan to do hemiarthroplasty for the left hip. Patient examined bedside today. He denies any chest pain, shortness of breath, palpitation, nausea, vomiting, dizziness, B dark stools. He suggested was a mechanical fall when he was trying to step up about 3 inches and tripped and fell. Patient does not use any walker at baseline. Is functionally active and can climb up stairs without getting short of breath. He does have cardiac risk factors including hypertension, and recent coronary artery bypass, CHF, diabetes and age that puts him at significant cardiac risk. EKG done yesterday suggest atrial fibrillation with a broken conduction and nonspecific T-wave changes. Echocardiogram gram ordered by cardiology 05/30: Patient did not have surgery today related to Pradaxa. Anesthesiologist wanted to wait 1 more additional day to allow for a spinal anesthetic over a general anesthetic for procedure. Patient continues to have pain in left shoulder and left leg. Left shoulder is immobilized with a sling. Due to pain patient has limited motion to the affected extremities. Patient denies any chest pain, shortness of breath, palpitations, nausea, vomiting, dizziness, and dark stools. Patient was seen by both cardiology and pulmonology and from their standpoint he is okay for surgery. WBC 11.6, BUN 25, albumin 3.2. 05/31: Patient seen prior to going to surgery. He has had some confusion during the night and possibly related to owner's. Patient is oriented to person and he knows he is in the hospital. He has OR scheduled at 10:[address] Tadeo. Pradaxa has been on hold which can be resumed following surgery. Patient is followed by pulmonary medicine and cardiology. Hemoglobin is stable at 11.3. 06/01: Yesterday, patient underwent left hip hemiarthroplasty with Dr. Tadeo. In [facility] patient had SVT and was then transferred to the selective care unit. He apparently did not have any further episodes during the night. Patient is somewhat lethargic and sleepy this morning. Morphine will be discontinued and patient started on Tylenol 1000 mg scheduled every 6 hours along with tramadol and Toradol as needed. Blood sugars are elevated for which Levemir 5 units daily will be added and scheduled NovoLog increased to 6 units with meals. Anticipate discharge to rehab in the next 24-48 hours depending on patient's progress. 06/02: She was seen this morning. Patient is awake and mental status is much improved. We will resume the patient on metformin at higher dose. Patient has plan for subacute rehab. Patient is cleared for discharge from medicine. Medication reconciliation has been done. Recommend continuing Tylenol scheduled and tramadol as needed. 06/03: Stark catheter was removed this morning and patient did not have output by 2:30 in the afternoon. Flomax added. Patient is noted to have upper and lower extremity tremors today that are intermittent. Patient can move all extremities. Remeron and tramadol discontinued and patient to continue on Tylenol and baclofen for pain. Toradol also added to medication reconciliation for the [facility]. Objective - Vital Signs Vital signs: Vital Signs Temp 98.2 F 06/03/18 05:00 Pulse 80 06/03/18 07:27 Resp 18 06/03/18 05:00 BP 146/77 06/03/18 05:00 Pulse Ox 92 L 06/03/18 05:00 Intake & Output 06/02/18 06/03/18 06/03/18 18:59 06:59 18:59 Intake Total 300 580 Output Total 600 Balance -300 580 Weight 107 kg Intake: Oral 300 580 Output: Urine 600 Straight 300 Other: Voiding Method Indwelling Catheter Indwelling Catheter - Exam General appearance: Present: cooperative, mild distress, obese - EENT Eyes: Present: anicteric sclerae, PERRLA, normal appearance ENT: Present: hearing grossly normal - Neck Neck: Present: normal ROM. Absent: lymphadenopathy, other, rigidity, stridor, thyromegaly - Respiratory Details: Decreased air entry on left Respiratory: negative: rhonchi, wheezing - Cardiovascular Rhythm: irregularly irregular Heart sounds: normal: S1, S2 Abnormal Heart Sounds: Absent: systolic murmur, diastolic murmur, rub, S3 Gallop , S4 Gallop, click, other - Gastrointestinal General gastrointestinal: Present: normal bowel sounds, soft. Absent: tenderness - Integumentary Integumentary: Absent: rash - Neurologic Neurologic: Present: CNII-XII intact - Musculoskeletal Musculoskeletal Comment(s): Weakness and decreased range of motion until left extremities due to trauma - Psychiatric Psychiatric: Present: A&O x's 2, no focal neural deficits. - Labs CBC & Chem 7: 06/02/18 15:01 06/01/18 11:12 Labs: Abnormal Lab Results - Last 24 Hours (Table) 06/02/18 06/02/18 06/02/18 Range/Units 11:28 15:01 16:42 WBC 12.0 H (3.8-10.6) k/uL RBC 3.54 L (4.30-5.90) m/uL Hgb 10.4 L (13.0-17.5) gm/dL Hct 33.0 L (39.0-53.0) % Neutrophils # 9.6 H (1.3-7.7) k/uL POC Glucose (mg/dL) 287 H 244 H (75-99) mg/dL 06/02/18 06/02/18 06/03/18 Range/Units 18:27 20:10 07:24 WBC (3.8-10.6) k/uL RBC (4.30-5.90) m/uL Hgb (13.0-17.5) gm/dL Hct (39.0-53.0) % Neutrophils # (1.3-7.7) k/uL POC Glucose (mg/dL) 246 H 228 H 244 H (75-99) mg/dL Assessment and Plan Plan: #1 mechanical fall with acute left hip femoral neck fracture transverse and displaced with some impaction likely secondary to underlying osteoporosis status post hemiarthroplasty. Incentive spirometry for pulmonary prophylaxis. Pepcid 20 mg for GI prophylaxis. Pain control with scheduled Tylenol, Toradol, baclofen. #2 left humeral fracture -treat conservatively with a sling. PTOT consult #3 chronic left-sided lower lobe consolidation and pleural effusion with left gregg-diaphragm paralysis. Follows Dr. Pimentel as outpatient. Pulmonary consult completed. Chest x-ray showed no significant interval change in the appearance of the chest. #4 coronary artery disease status post coronary artery bypass 1 vessel in November in [place]. Continue Lipitor and Lopressor. Hold aspirin. Continue Lopressor prior to surgery #5 chronic atrial fibrillation on Pradaxa which has been resumed. Continue Toprol-XL. #6 history of pacemaker, stable #7 chronic systolic heart failure. Continue Lipitor, Lopressor, daily I and O's , daily weights, no sign of congestion or acute systolic heart failure on exam. #8 history of hypertension continue Lopressor, goal systolic blood pressure less than 130 #9 type 2 diabetes, uncontrolled secondary to hyperglycemia. Levemir 5 units added daily and NovoLog increased to 6 units with meals and continue NovoLog scale. Glimepiride discontinued. continue insulin before meals at bedtime. Hold metformin #10 acute blood loss anemia secondary to fracture and dilation present on admission. Monitor CBC #11 acute leukocytosis no source of infection, WBCs 11.6 today, monitor CBC. #12 GI prophylaxis with Pepcid 20 mg by mouth daily #13 DVT prophylaxis Pradaxa 14. New onset of tremors. Remeron and tramadol discontinued. Tremors are intermittent of unclear etiology. No seizure activity. 15. Urinary retention. Flomax started. CODE STATUS full code Discharge plan: [facility] Impression and plan of care have been directed as dictated by the signing physician. Abigail Zaman nurse practitioner acting as scribe for signing physician.
[2018-06-03 17:45] LABS: Glucose,Whole Blood 251 mg/dL (75-99)
[2018-06-03] MEDS: SODIUM CHLORIDE 0.9% 1,000 ML IV SCH (18:24)
[2018-06-04] MEDS ORDERED: TAMSULOSIN 0.4 MG CAP.ER.24H PO SCH (08:30)
== END 2018-06-03 18:50 | DRG 469 ==
LOC: EC 13:46 → 3SUR 17:36 → 6SEL 05-31 16:38 → 5MS5E 06-01 15:30
PROVIDERS: ADMIT Orthopaedic Surgery Orthopaedic Surgery of the Spine; ATTEND Orthopaedic Surgery Orthopaedic Surgery of the Spine
PROC: 0SRS0JA Replacement of Left Hip Joint, Femoral Surface with Synthetic Substitute, Uncemented, Open Approach (ICD-10-PCS; principal; 2018-05-31 07:30)
DX: M80.852A Other osteoporosis with current pathological fracture, left femur, initial encounter for fracture (principal); J96.01 Acute respiratory failure with hypoxia; S22.41XA Multiple fractures of ribs, right side, initial encounter for closed fracture; I42.0 Dilated cardiomyopathy; I47.1 Supraventricular tachycardia; I47.2 Ventricular tachycardia; I50.22 Chronic systolic (congestive) heart failure; D62 Acute posthemorrhagic anemia; W01.0XXA Fall on same level from slipping, tripping and stumbling without subsequent striking against object, initial encounter; Y92.009 Unspecified place in unspecified non-institutional (private) residence as the place of occurrence of the external cause; E66.9 Obesity, unspecified; Z68.32 Body mass index [BMI] 32.0-32.9, adult; E78.5 Hyperlipidemia, unspecified; F03.90 Unspecified dementia, unspecified severity, without behavioral disturbance, psychotic disturbance, mood disturbance, and anxiety; I11.0 Hypertensive heart disease with heart failure; I25.10 Atherosclerotic heart disease of native coronary artery without angina pectoris; I25.2 Old myocardial infarction; I25.5 Ischemic cardiomyopathy; I27.20 Pulmonary hypertension, unspecified; I45.10 Unspecified right bundle-branch block; I48.2 Chronic atrial fibrillation; J98.6 Disorders of diaphragm; M80.822A Other osteoporosis with current pathological fracture, left humerus, initial encounter for fracture; R32 Unspecified urinary incontinence; Z79.01 Long term (current) use of anticoagulants; Z79.02 Long term (current) use of antithrombotics/antiplatelets; Z79.4 Long term (current) use of insulin; Z79.82 Long term (current) use of aspirin; Z79.899 Other long term (current) drug therapy; Z82.5 Family history of asthma and other chronic lower respiratory diseases; Z95.0 Presence of cardiac pacemaker; Z95.1 Presence of aortocoronary bypass graft; Z95.5 Presence of coronary angioplasty implant and graft; Z96.642 Presence of left artificial hip joint; Z79.84 Long term (current) use of oral hypoglycemic drugs; E11.65 Type 2 diabetes mellitus with hyperglycemia; R33.9 Retention of urine, unspecified; R25.1 Tremor, unspecified
CPT/HCPCS: 36415; 71045; 73501; 73502; 80053; 81003; 83036; 83735; 84132; 85025; 85610; 85730; 86850; 86900; 86901; 88305; 88311; 93005; 93306; 94640; 96361; 96374; 96375; 99284

== ENCOUNTER → 2020-05-02 | Outpatient (CLI) | payer MEDICARE, BC ==
--- NOTE | 2020-05-02 15:02 | CT ---
EXAMINATION TYPE: CT lumbar spine wo con DATE OF EXAM: 05/02/2020 COMPARISON: No plain film supplied for correlation HISTORY: Low back pain, no recent injury. Fall x2 years ago. CT DLP: 1038 mGycm Automated exposure control for dose reduction was used. An unenhanced CT of the lumbar spine was performed. Bone and soft tissue window settings are submitt ed as well as coronal and sagittal reconstructions. FINDINGS: Loss of disc height signal is present at intervertebral levels, vacuum phenomenon at L2-3, L3-4, L4-5 and L5-S1. Is multilevel spondylosis. Lumbar vertebral bodies show preserved height and near-anatomi c alignment. Lumbar vertebral bodies are intact. There is no significant spinal stenosis evident. L1-L2: Posterior broad-based disc bulge causes mild anterior mass effect on the thecal sac. There is facet arthropathy change. L2-L3: Posterior broad-based disc bulge causes anterior mass effect on the thecal sac, there is an ec centric component left paracentral location extending towards the neural foramen, chronic possible le ft L3 radiculopathy, there may be extension into the left neural foramen, L2 radiculopathy. L3-L4: Posterior extension endplate disc complex causes anterior mass effect on the thecal sac. Circu mferential extension endplate disc complex encroaches upon the foramina. L4-L5: Posterior broad-based disc bulge causes only minimal anterior mass effect on the thecal sac. N o significant foraminal encroachment on the left, circumferential extension endplate disc complex on the right causes some foraminal encroachment. L5-S1: Posterior extension of endplate disc complex is noted, spurring causes some anterolateral mass effect on the thecal sac, likely contact with the proximal left S1 nerve root and left L4 nerve root with circumferential extension causing foraminal encroachment left greater than right. Only mild ant erior mass effect on the thecal sac IMPRESSION: No acute fracture or subluxation. Degenerative disc disease. Left paracentral disc herniation L2-3. H eart disc L5-S1 both in the left paracentral posterior locations. Correlate for radiculopathy..
== END | disposition home or self-care (01) ==
LOC: RADCTMAIN 12:34
PROVIDERS: ATTEND Physical Medicine & Rehabilitation
DX: M51.27 Other intervertebral disc displacement, lumbosacral region (principal); M51.36 Other intervertebral disc degeneration, lumbar region; M51.26 Other intervertebral disc displacement, lumbar region; E11.9 Type 2 diabetes mellitus without complications; M16.11 Unilateral primary osteoarthritis, right hip
CPT/HCPCS: 72131

== ENCOUNTER 2020-12-07 09:00 | Emergency (ER) | payer MEDICARE, BC ==
[2020-12-07 09:12] VITALS: RESP 16
[2020-12-07] MEDS ORDERED: KETOROLAC 15 MG/ML 1 ML VIAL IM STA (10:33)
--- NOTE | 2020-12-07 11:25 | XR ---
EXAM TYPE: LUMBAR SPINE X RAY SERIES COMPARISON: NONE HISTORY: Pain TECHNIQUE: 4 views are submitted. FINDINGS: Alignment is anatomic. The pedicles are intact. The transverse processes are intact. There is diff use osteopenia with curvature of the spine. Surgical clips are seen in the abdomen. There is multilev el hypertrophic and degenerative disc disease with severe changes at L2-S1. There is a compression de formity or fracture T12 of indeterminate age. This was not present on the CT scan of 05/02/2020 IMPRESSION: 1. Moderate compression fracture T12 not seen on the prior CT scan of 05/02/2020. Fracture could be rec ent. 2. Multilevel severe degenerative disc disease.
--- NOTE | 2020-12-07 11:43 | ED ---
General Adult HPI - General Chief complaint: Back Pain/Injury Stated complaint: Back pain Time Seen by Provider: 12/07/20 09:10 Source: patient, RN notes reviewed, old records reviewed Mode of arrival: EMS Limitations: no limitations - History of Present Illness Initial comments: This is an 85-year-old male who presents emergency department stating that he fell on Thursday night and ever since she's had some lower back pain. Patient states he is fine laying down but anytime he goes to stand up he needs his to help him. Patient states he is unable to help her. Patient denies any numbness or weakness. Patient denies any recent fever chills. Patient denies any other complaints at this time. - Related Data Home Medications Medication Instructions Recorded Confirmed Cyanocobalamin [Vitamin B-12] 500 mcg PO DAILY 03/02/14 12/07/20 Docusate Sodium [Stool Softener] 100 mg PO HS 03/02/14 12/07/20 Ascorbic Acid [Vitamin C] 500 mg PO DAILY 02/12/18 12/07/20 Atorvastatin [Lipitor] 20 mg PO HS 02/12/18 12/07/20 Dabigatran [Pradaxa] 150 mg PO BID 02/12/18 12/07/20 Folic Acid 1 mg PO HS 02/12/18 12/07/20 Aspirin EC [Ecotrin Low Dose] 81 mg PO DAILY 05/28/18 12/07/20 Ferrous Sulfate [Iron (65 MG 325 mg PO HS 05/28/18 12/07/20 Elemental)] Furosemide [Lasix] 40 mg PO BID 05/28/18 12/07/20 Glimepiride [Amaryl] 2 mg PO AC-BRKFST 05/28/18 12/07/20 Potassium Chloride [Klor-Con 20] 10 meq PO DAILY 05/28/18 12/07/20 lisinopriL [Zestril] 2.5 mg PO DAILY 05/28/18 12/07/20 Calcium Carbonate [Calcium] 1,200 mg PO DAILY 12/07/20 12/07/20 Metoprolol Succinate [Toprol XL] 100 mg PO BID 12/07/20 12/07/20 Sennosides-Docusate Sodium 2 tab PO HS 12/07/20 12/07/20 [Senokot-S] metFORMIN HCL 1,000 mg PO BID 12/07/20 12/07/20 Previous Rx's Medication Instructions Recorded Tamsulosin [Flomax] 0.4 mg PO DAILY #30 cap 06/03/18 Docusate [Colace] 100 mg PO BID #10 capsule 12/07/20 traMADol HCL [Ultram] 50 mg PO Q6HR PRN 5 Days #20 tab 12/07/20 Allergies Allergy/AdvReac Type Severity Reaction Status Date / Time morphine AdvReac Confusion Verified 12/07/20 11:50 Review of Systems ROS Statement: Those systems with pertinent positive or pertinent negative responses have been documented in the HPI. ROS Other: All systems not noted in ROS Statement are negative. Past Medical History Past Medical History: Atrial Fibrillation, Coronary Artery Disease (CAD), Diabetes Mellitus, Hypertension, Myocardial Infarction ([place]) Additional Past Medical History / Comment(s): used to take medication for diabetes, lost 85#, no longer a problem per spouse Last Myocardial Infarction Date:: History of Any Multi-Drug Resistant Organisms: None Reported Past Surgical History: Cholecystectomy, Coronary Bypass/CABG, Heart Catheterization With Stent, Hernia Repair, Pacemaker, Tonsillectomy Additional Past Surgical History / Comment(s): CABG (1 vessel) 11/2017 in [facility], past colonoscopy,rt inguinal hernia repair, rt knee arthroscopy, cardiac stent-LAD Past Anesthesia/Blood Transfusion Reactions: No Reported Reaction Date of Last Stent Placement:: 2013 Type of Cardiac Device: Permanent Pacemaker Device Placement Date:: 02/09/12 Past Psychological History: No Psychological Hx Reported Smoking Status: Never smoker Past Alcohol Use History: None Reported Past Drug Use History: None Reported - Past Family History Father Family Medical History: No Reported History Additional Family Medical History / Comment(s): FROM OLD AGE AT 92 Mother Family Medical History: COPD Additional Family Medical History / Comment(s): EMPHYSEMA - AGE 87 Sister(s) Additional Family Medical History / Comment(s): Patient has 2 sisters with no major medical problems. General Exam - General Exam Comments Initial Comments: GENERAL: Patient is well-developed and well-nourished. Patient is nontoxic and well- hydrated and is in mild distress. ENT: Neck is soft and supple. No significant lymphadenopathy is noted. Oropharynx is clear. Moist mucous membranes. Neck has full range of motion without eliciting any pain. EYES: The sclera were anicteric and conjunctiva were pink and moist. Extraocular movements were intact and pupils were equal round and reactive to light. Eyelids were unremarkable. PULMONARY: Unlabored respirations. Good breath sounds bilaterally. No audible rales rhonchi or wheezing was noted. CARDIOVASCULAR: There is a regular rate and rhythm without any murmurs gallops or rubs. ABDOMEN: Soft and nontender with normal bowel sounds. SKIN: Skin is clear with no lesions or rashes and otherwise unremarkable. NEUROLOGIC: Patient is alert and oriented x3. Cranial nerves II through XII are grossly intact. Motor and sensory are also intact. Normal speech, volume and content. Symmetrical smile. MUSCULOSKELETAL: Normal extremities with adequate strength and full range of motion. Patient has a little tenderness around the L1 spine. LYMPHATICS: No significant lymphadenopathy is noted PSYCHIATRIC: Normal psychiatric exam Limitations: no limitations Course Vital Signs 12/07/20 09:06 Temperature 96.9 F L Pulse Rate 58 L Respiratory 16 Rate Blood Pressure 166/84 O2 Sat by Pulse 95 Oximetry Medical Decision Making - Medical Decision Making X-ray shows a T12 compression fracture CT of the thoracic spine shows a T12 compression fracture without any retropulsion of the bone. Disposition Clinical Impression: T12 compression fracture Disposition: HOME SELF-CARE Instructions (If sedation given, give patient instructions): Vertebral Compression Fracture (ED) Additional Instructions: Follow-up with Dr. Tadeo for possible brace Prescriptions: Docusate [Colace] 100 mg PO BID #10 capsule traMADol HCL [Ultram] 50 mg PO Q6HR PRN 5 Days #20 tab PRN Reason: Moderate Pain Is patient prescribed a controlled substance at d/c from ED?: No Referrals: Cheryl Tadeo DO [Doctor of Osteopathic Medicine] - 1-2 days Time of Disposition: 13:03
--- NOTE | 2020-12-07 12:43 | CT ---
EXAMINATION TYPE: CT thoracic spine wo con DATE OF EXAM: 12/07/2020 COMPARISON: None HISTORY: Complete acute compression fracture T12 CT DLP: 1400.1 mGycm Automated exposure control for dose reduction was used. Contrast: None Technique: Axial images 3 mm thick sections. Reconstructed images coronal and sagittal planes. FINDINGS: T12: There is a compression deformity through this level with approximately 25% loss of vertebral bod y height greater from the inferior endplate. No posterior wall displacement is evident. No spinal can al stenosis is present. Findings can be compatible with an acute compression deformity. Some mild sof t tissue swelling is adjacent to the vertebral body to the right. Remaining vertebral body heights are preserved. Disc heights appear preserved. No posterior wall disp lacement is evident. No spinal canal stenosis is evident. IMPRESSION: 1. ACUTE COMPRESSION DEFORMITY T12 WITHOUT POSTERIOR WALL DISPLACEMENT
[2020-12-07 13:48] VITALS: BP 176/96; PULSE 60; TEMP 98.2
== END 2020-12-07 13:45 | disposition home or self-care (01) ==
LOC: EC 09:00
DX: S22.088A Other fracture of T11-T12 vertebra, initial encounter for closed fracture (principal); I48.91 Unspecified atrial fibrillation; E11.9 Type 2 diabetes mellitus without complications; I10 Essential (primary) hypertension; I25.2 Old myocardial infarction; I25.10 Atherosclerotic heart disease of native coronary artery without angina pectoris; Z79.82 Long term (current) use of aspirin; Z79.84 Long term (current) use of oral hypoglycemic drugs; Z88.5 Allergy status to narcotic agent; Z79.899 Other long term (current) drug therapy; Z90.49 Acquired absence of other specified parts of digestive tract; Z95.5 Presence of coronary angioplasty implant and graft; Z95.1 Presence of aortocoronary bypass graft; Z95.0 Presence of cardiac pacemaker; Z90.89 Acquired absence of other organs; W01.0XXA Fall on same level from slipping, tripping and stumbling without subsequent striking against object, initial encounter; Y92.009 Unspecified place in unspecified non-institutional (private) residence as the place of occurrence of the external cause
CPT/HCPCS: 72110; 72128; 99284; 96372; J1885

== ENCOUNTER 2020-12-24 07:09 | Day surgery (SDC) | payer MEDICARE, BC ==
[2020-12-19 16:08] VITALS: BMI 29.7
[~2020-12-24 07:09] MED LIST: SODIUM CHLORIDE 0.9% 1,000 ML IV SCH; ceFAZolin 1 GM in SODIUM CHLORIDE 0.9% 250 ML IRRIGATION PRN
[2020-12-24 08:01] LABS: Glucose,Whole Blood 149 mg/dL (75-99)
[2020-12-24 08:04] VITALS: RESP 18; TEMP 97
[2020-12-24 08:05] LABS: Basophils % (A) 1 %; Eosinophils # (A) 0.2 k/uL (0-0.7); Eosinophils % (A) 2 %; HCT 39.3 % (39.0-53.0); HGB 12.9 gm/dL (13.0-17.5); Hypochromasia Slight; Lymphocytes # (A) 1.4 k/uL (1.0-4.8); Lymphocytes % (A) 19 %; MCH 28.9 pg (25.0-35.0); MCHC 32.7 g/dL (31.0-37.0); MCV 88.3 fL (80.0-100.0); Mean Platelet Volume 6.8; Monocytes # (A) 0.6 k/uL (0-1.0); Monocytes % (A) 8 %; Neutrophils % (A) 68 %; Platelet Count 256 k/uL (150-450); RBC 4.45 m/uL (4.30-5.90); RDW 15.5 % (11.5-15.5); WBC 7.3 k/uL (3.8-10.6)
[2020-12-24 08:27] LABS: Calcium 9.4 mg/dL (8.4-10.2); Potassium 3.8 mmol/L (3.5-5.1)
[2020-12-24] MEDS ORDERED: fentaNYL (PF) 50 MCG/ML 2 ML AMP IV ONE (09:30)
[2020-12-24] MEDS ORDERED: LIDOCAINE 1% INJ 10MG/ML (20 ML MDV) SQ ONE ×2 (09:32→09:36)
[2020-12-24] MEDS ORDERED: ACETAMINOPHEN TAB 325 MG TAB PO PRN (09:54)
--- NOTE | 2020-12-24 10:02 | P.PCN ---
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 Recent evaluation showed the patient has reached EL[facility]. Patient is advised to have elective battery replacement. CONSENT: I have discussed the risks and benefits as related to the above mentioned procedure and both sedation/analgesia as well as necessary blood product administration. The patient has indicated understanding and acceptance of the risks of the procedure discussed. PROCEDURE: Patient was brought to the lab in a fasting state. Patient was given iv fentanyl for sedation. The skin over the existing pulse generator was infiltrated with lidocaine. An incision was made in the skin and was deepened until the pectoral fascia was exposed. Hemostasis was obtained. The existing pulse generator was pulled out of the pocket. The leads were disconnected and were checked for thresholds. Conscious Sedation: Versed 0mg Fentanyl 12.5 g Duration 19minutes THRESHOLDS: VENTRICULAR: The minimum patient threshold was 1.125 V at pulse width of 0.4 with impedance of 437 R-wave: 19.8 THE LEADS: VENTRICULAR: This is manufactured by [employer]. Model number is 5092-58. The serial number is [id number]. THE EXPLANTED DEVICE: This is manufactured by [employer]. The serial number is [id number] THE NEW DEVICE: This is manufactured by [employer]. The model number is [id number] and the serial number is [id number] The leads were then connected to a new pulse generator. Pacemaker seems to function normally. The pocket was irrigated with antibiotics. The pocket was closed in the usual fashion. Pectoral fascia was closed with 2-0 Prolene, the subcutaneous tissue was closed with 3-0 Prolene and the skin was closed with 4-0 Prolene. Patient tolerated the procedure well . Patient will be monitored on the telemetry unit for 2-3 hours. If stable patient be discharged home later today. PLAN: Patient will be monitored for the next few hours. If stable patient be discharged home. He will continue home medications except holding anticoagulation and to tomorrow. Prophylactic antibiotic be continued. FALLOW UP: With Dr. Mckeon in 1 week
[2020-12-24 12:26] VITALS: BP 155/73; PULSE 69
[2020-12-24] MEDS ORDERED: CEPHALEXIN 500 MG CAP PO SCH (16:00)
== END 2020-12-24 13:25 | disposition home or self-care (01) ==
LOC: CATHEP 07:09
PROVIDERS: ATTEND Internal Medicine Cardiovascular Disease
DX: Z45.010 Encounter for checking and testing of cardiac pacemaker pulse generator [battery] (principal); I49.5 Sick sinus syndrome; I48.19 Other persistent atrial fibrillation; I25.5 Ischemic cardiomyopathy; I25.10 Atherosclerotic heart disease of native coronary artery without angina pectoris; R06.09 Other forms of dyspnea; Z86.16 Personal history of COVID-19; E78.2 Mixed hyperlipidemia; I10 Essential (primary) hypertension; E11.9 Type 2 diabetes mellitus without complications; Z95.5 Presence of coronary angioplasty implant and graft; Z95.1 Presence of aortocoronary bypass graft; Z79.02 Long term (current) use of antithrombotics/antiplatelets; Z79.82 Long term (current) use of aspirin; Z79.899 Other long term (current) drug therapy; Z79.84 Long term (current) use of oral hypoglycemic drugs
CPT/HCPCS: 33227; 80048; 85025; 87635; C1786; J0690; J2001; J3010

== ENCOUNTER 2021-10-26 13:45 | Inpatient (IN) | payer MEDICARE, BC ==
--- NOTE | 2021-10-26 14:17 | ED ---
General Adult HPI <Terry Villeda - Last Filed: 10/26/21 17:32> - General Source: patient, EMS Mode of arrival: EMS Limitations: altered mental status, physical limitation <Cam Galindo - Last Filed: 10/27/21 07:08> - General Chief complaint: Fall Stated complaint: Fall Time Seen by Provider: 10/26/21 14:09 - History of Present Illness Initial comments: Dictation was produced using [email or web address] software. please excuse any grammatical, word or spelling errors. Chief Complaint: 86-year-old male presents after fall History of Present Illness: 86-year-old male presents via EMS. He fell. Patient is a poor historian. States that he was walking sideways when he tripped over his own feet causing him to fall. Patient states that he fell to the ground. Denies hitting his head. Denies any loss of consciousness. Patient is unable to tell me if there were other individuals witnessed the fall. Patient complaining of right hip pain. Denies any other pain complaints. The ROS documented in this emergency department record has been reviewed and confirmed by me. Those systems with pertinent positive or negative responses have been documented in the HPI. All other systems are other negative and/or noncontributory. PHYSICAL EXAM: General Impression: Alert and oriented x3, not in acute distress HEENT: Normocephalic atraumatic, extra-ocular movements intact, pupils equal and reactive to light bilaterally, mucous membranes moist. Cardiovascular: Heart regular rate and rhythm Chest: Able to complete full sentences, no retractions, no tachypnea Abdomen: abdomen soft, non-tender, non-distended, no organomegaly Musculoskeletal: Pulses present and equal in all extremities, no peripheral edema, shortened and externally rotated right lower extremity. He has pain with movement at the right hip Motor: no focal deficits noted Neurological: CN II-XII grossly intact, no focal motor or sensory deficits noted Skin: Intact with no visualized rashes Psych: Normal affect and mood ED course: 86-year-old male presents to the emergency department after fall. Vital signs upon arrival shows 84% on room air, rest of vital signs within acceptable limits. Patient placed on 4 L nasal cannula with O2 saturation of 95. Patient is afebrile. no signs respiratory distress. Patient care senna to Dr. Villeda. (Cam Galindo) - Related Data Home Medications Medication Instructions Recorded Confirmed Docusate Sodium [Stool Softener] 100 mg PO HS 03/02/14 10/26/21 Ascorbic Acid [Vitamin C] 500 mg PO HS 02/12/18 10/26/21 Atorvastatin [Lipitor] 20 mg PO HS 02/12/18 10/26/21 Furosemide [Lasix] 40 mg PO BID@0800,1200 05/28/18 10/26/21 Potassium Chloride [Klor-Con 20] 10 meq PO DAILY 05/28/18 10/26/21 lisinopriL [Zestril] 5 mg PO DAILY 05/28/18 10/26/21 Calcium Carbonate [Calcium] 1,200 mg PO DAILY 12/07/20 10/26/21 Metoprolol Succinate [Toprol XL] 100 mg PO DAILY 12/07/20 10/26/21 metFORMIN HCL [Glucophage] 1,000 mg PO BID 12/07/20 10/26/21 Glimepiride [Amaryl] 4 mg PO AC-BRKFST 12/19/20 10/26/21 Tamsulosin [Flomax] 0.4 mg PO HS 12/19/20 10/26/21 Dabigatran [Pradaxa] 150 mg PO BID 10/26/21 10/26/21 Allergies Allergy/AdvReac Type Severity Reaction Status Date / Time tramadol AdvReac Unknown confusion, Verified 10/26/21 17:17 "mean" docusate [From Colace] AdvReac Unknown Verified 10/26/21 17:17 morphine AdvReac Confusion, Verified 10/26/21 17:17 "mean" COVID MODERNA VACCINE AdvReac Severe Numbness, Uncoded 12/24/20 07:43 unable to move. Review of Systems ROS Other: All systems not noted in ROS Statement are negative. <Terry Villeda - Last Filed: 10/26/21 17:32> ROS Other: All systems not noted in ROS Statement are negative. <Cam Galindo - Last Filed: 10/27/21 07:08> ROS Statement: Those systems with pertinent positive or pertinent negative responses have been documented in the HPI. Past Medical History Past Medical History: Atrial Fibrillation, Coronary Artery Disease (CAD), Diabetes Mellitus, Hypertension, Myocardial Infarction ([place]) Additional Past Medical History / Comment(s): used to take medication for diabetes, lost 85#, no longer a problem per spouse Last Myocardial Infarction Date:: History of Any Multi-Drug Resistant Organisms: None Reported Past Surgical History: Cholecystectomy, Coronary Bypass/CABG, Heart Catheterization With Stent, Hernia Repair, Pacemaker, Tonsillectomy Additional Past Surgical History / Comment(s): CABG (1 vessel) 11/2017 in [facility], past colonoscopy,rt inguinal hernia repair, rt knee arthroscopy, cardiac stent-LAD Past Anesthesia/Blood Transfusion Reactions: No Reported Reaction Date of Last Stent Placement:: 2013 Type of Cardiac Device: Permanent Pacemaker Device Placement Date:: 02/09/12 Past Psychological History: No Psychological Hx Reported Smoking Status: Never smoker Past Alcohol Use History: None Reported Past Drug Use History: None Reported - Past Family History Father Family Medical History: No Reported History Additional Family Medical History / Comment(s): FROM OLD AGE AT 92 Mother Family Medical History: COPD Additional Family Medical History / Comment(s): EMPHYSEMA - AGE 87 Sister(s) Family Medical History: No Reported History Additional Family Medical History / Comment(s): . <Cam Galindo - Last Filed: 10/27/21 07:08> General Exam Limitations: altered mental status, physical limitation <Cam Galindo - Last Filed: 10/27/21 07:08> Course <Terry Villeda - Last Filed: 10/26/21 17:32> Vital Signs 10/26/21 10/26/21 10/26/21 13:56 14:00 14:05 Temperature 97.7 F Pulse Rate 75 82 74 Respiratory 24 24 24 Rate Blood Pressure 133/72 133/72 149/99 O2 Sat by Pulse 84 L 94 L 95 Oximetry 10/26/21 10/26/21 10/26/21 15:00 16:00 17:00 Temperature Pulse Rate 88 69 75 Respiratory 24 24 24 Rate Blood Pressure 149/72 147/82 118/62 O2 Sat by Pulse 95 96 95 Oximetry 10/26/21 18:00 Temperature Pulse Rate 75 Respiratory 24 Rate Blood Pressure 156/81 O2 Sat by Pulse 96 Oximetry - Reevaluation(s) Reevaluation #1: 10/26/21 17:09 I did discuss the findings with Dr. Lopez as well as with Dr. Pastrana and Dr. Dominguez. All been notified. I did discuss findings with patient and family H will require medical cardiac clearance prior to surgery. Additionally I did evaluate the patient he did demonstrate decreased breath sounds he did have crac kles upon arrival in emergency department. He does have elevated BNP evidence of increased evidence of infiltrates on his x-ray. No fever reported. No other symptoms. He does have evidence clinically scalp contusion no neck pain on palpation motion artifact seen on CAT scan not ruled out. The patient has no midline tenderness no neck tenderness palpation on my exam. (Terry Villeda) Medical Decision Making - Lab Data Result diagrams: 10/26/21 14:32 10/26/21 14:32 - Radiology Data Radiology results: report reviewed (I did review the imaging and report there is a surgical neck fracture either imaging that show evidence of increased pulmonary vascular markings bilaterally.), image reviewed <Terry Villeda - Last Filed: 10/26/21 17:32> - Lab Data Result diagrams: 10/26/21 14:32 10/26/21 14:32 <Cam Galindo - Last Filed: 10/27/21 07:08> - Medical Decision Making Patient was endorsed me by Dr. FIGUEROA at our shift change pending CAT scans and imaging reports. Imaging and show evidence of a right surgical neck fracture of the hip x-ray show evidence of increased pulmonary vascular markings. Patient did have an elevated BNP. Some evidence of congestive changes I did discuss the case with Dr. Lopez as well as Dr. Pastrana and Dr. Dominguez. Patient was tentatively boarded for surgery tomorrow pending cardiology and medicine clearance. Additionally the patient is on pradaxa but did not take any of his meds today. (Terry Villeda) - Lab Data Lab Results 10/26/21 10/26/21 10/26/21 Range/Units 14:32 14:32 14:32 WBC 14.2 H (3.8-10.6) k/uL RBC 4.26 L (4.30-5.90) m/uL Hgb 12.8 L (13.0-17.5) gm/dL Hct 39.6 (39.0-53.0) % MCV 92.9 (80.0-100.0) fL MCH 30.1 (25.0-35.0) pg MCHC 32.4 (31.0-37.0) g/dL RDW 14.4 (11.5-15.5) % Plt Count 191 (150-450) k/uL MPV 7.3 Neutrophils % 90 % Lymphocytes % 5 % Monocytes % 5 % Eosinophils % 0 % Basophils % 0 % Neutrophils # 12.8 H (1.3-7.7) k/uL Lymphocytes # 0.7 L (1.0-4.8) k/uL Monocytes # 0.7 (0-1.0) k/uL Eosinophils # 0.0 (0-0.7) k/uL Basophils # 0.0 (0-0.2) k/uL Hypochromasia Slight PT 21.8 H (9.0-12.0) sec INR 2.2 H (<1.2) APTT 46.1 H (22.0-30.0) sec Sodium 139 (137-145) mmol/L Potassium 4.4 (3.5-5.1) mmol/L Chloride 104 (98-107) mmol/L Carbon Dioxide 24 (22-30) mmol/L Anion Gap 11 mmol/L BUN 18 (9-20) mg/dL Creatinine 0.91 (0.66-1.25) mg/dL Est GFR (CKD-EPI)AfAm 89 (>60 ml/min/1.73 sqM) Est GFR (CKD-EPI)NonAf 77 (>60 ml/min/1.73 sqM) Glucose 178 H (74-99) mg/dL Calcium 8.9 (8.4-10.2) mg/dL NT-Pro-B Natriuret Pep pg/mL Lipase 117 (23-300) U/L Urine Color Urine Appearance (Clear) Urine pH (5.0-8.0) Ur Specific Ay[place] (1.001-1.035) Urine Protein (Negative) Urine Glucose (UA) (Negative) Urine Ketones (Negative) Urine Blood (Negative) Urine Nitrite (Negative) Urine Bilirubin (Negative) Urine Urobilinogen (<2.0) mg/dL Ur Leukocyte Esterase (Negative) Urine RBC (0-5) /hpf Urine WBC (0-5) /hpf Hyaline Casts (0-2) /lpf Urine Mucus (None) /hpf Influenza Type A (PCR) (Not Detectd) Influenza Type B (PCR) (Not Detectd) RSV (PCR) (Not Detectd) SARS-CoV-2 (PCR) (Not Detectd) Blood Type Blood Type Recheck Bld Type Recheck Status Antibody Screen Spec Expiration Date 10/26/21 10/26/21 10/26/21 Range/Units 14:32 14:32 14:32 WBC (3.8-10.6) k/uL RBC (4.30-5.90) m/uL Hgb (13.0-17.5) gm/dL Hct (39.0-53.0) % MCV (80.0-100.0) fL MCH (25.0-35.0) pg MCHC (31.0-37.0) g/dL RDW (11.5-15.5) % Plt Count (150-450) k/uL MPV Neutrophils % % Lymphocytes % % Monocytes % % Eosinophils % % Basophils % % Neutrophils # (1.3-7.7) k/uL Lymphocytes # (1.0-4.8) k/uL Monocytes # (0-1.0) k/uL Eosinophils # (0-0.7) k/uL Basophils # (0-0.2) k/uL Hypochromasia PT (9.0-12.0) sec INR (<1.2) APTT (22.0-30.0) sec Sodium (137-145) mmol/L Potassium (3.5-5.1) mmol/L Chloride (98-107) mmol/L Carbon Dioxide (22-30) mmol/L Anion Gap mmol/L BUN (9-20) mg/dL Creatinine (0.66-1.25) mg/dL Est GFR (CKD-EPI)AfAm (>60 ml/min/1.73 sqM) Est GFR (CKD-EPI)NonAf (>60 ml/min/1.73 sqM) Glucose (74-99) mg/dL Calcium (8.4-10.2) mg/dL NT-Pro-B Natriuret Pep 3770 pg/mL Lipase (23-300) U/L Urine Color Urine Appearance (Clear) Urine pH (5.0-8.0) Ur Specific [place] (1.001-1.035) Urine Protein (Negative) Urine Glucose (UA) (Negative) Urine Ketones (Negative) Urine Blood (Negative) Urine Nitrite (Negative) Urine Bilirubin (Negative) Urine Urobilinogen (<2.0) mg/dL Ur Leukocyte Esterase (Negative) Urine RBC (0-5) /hpf Urine WBC (0-5) /hpf Hyaline Casts (0-2) /lpf Urine Mucus (None) /hpf Influenza Type A (PCR) Not Detected (Not Detectd) Influenza Type B (PCR) Not Detected (Not Detectd) RSV (PCR) Not Detected (Not Detectd) SARS-CoV-2 (PCR) Not Detected (Not Detectd) Blood Type A Positive Blood Type Recheck A Pos Bld Type Recheck Status No Antibody Screen NEGATIVE Spec Expiration Date 10/29/2021 - 233110/26/21 Range/Units 17:17 WBC (3.8-10.6) k/uL RBC (4.30-5.90) m/uL Hgb (13.0-17.5) gm/dL Hct (39.0-53.0) % MCV (80.0-100.0) fL MCH (25.0-35.0) pg MCHC (31.0-37.0) g/dL RDW (11.5-15.5) % Plt Count (150-450) k/uL MPV Neutrophils % % Lymphocytes % % Monocytes % % Eosinophils % % Basophils % % Neutrophils # (1.3-7.7) k/uL Lymphocytes # (1.0-4.8) k/uL Monocytes # (0-1.0) k/uL Eosinophils # (0-0.7) k/uL Basophils # (0-0.2) k/uL Hypochromasia PT (9.0-12.0) sec INR (<1.2) APTT (22.0-30.0) sec Sodium (137-145) mmol/L Potassium (3.5-5.1) mmol/L Chloride (98-107) mmol/L Carbon Dioxide (22-30) mmol/L Anion Gap mmol/L BUN (9-20) mg/dL Creatinine (0.66-1.25) mg/dL Est GFR (CKD-EPI)AfAm (>60 ml/min/1.73 sqM) Est GFR (CKD-EPI)NonAf (>60 ml/min/1.73 sqM) Glucose (74-99) mg/dL Calcium (8.4-10.2) mg/dL NT-Pro-B Natriuret Pep pg/mL Lipase (23-300) U/L Urine Color Yellow Urine Appearance Clear (Clear) Urine pH 5.0 (5.0-8.0) Ur Specific Aylett 1.016 (1.001-1.035) Urine Protein 1+ H (Negative) Urine Glucose (UA) Negative (Negative) Urine Ketones Trace H (Negative) Urine Blood Negative (Negative) Urine Nitrite Negative (Negative) Urine Bilirubin Negative (Negative) Urine Urobilinogen 2.0 (<2.0) mg/dL Ur Leukocyte Esterase Negative (Negative) Urine RBC 2 (0-5) /hpf Urine WBC 1 (0-5) /hpf Hyaline Casts 11 H (0-2) /lpf Urine Mucus Rare H (None) /hpf Influenza Type A (PCR) (Not Detectd) Influenza Type B (PCR) (Not Detectd) RSV (PCR) (Not Detectd) SARS-CoV-2 (PCR) (Not Detectd) Blood Type Blood Type Recheck Bld Type Recheck Status Antibody Screen Spec Expiration Date Disposition <Terry Villeda - Last Filed: 10/26/21 17:32> <Cam Galindo - Last Filed: 10/27/21 07:08> Clinical Impression: Fall, Closed right hip fracture, Scalp contusion, CHF (congestive heart failure) Disposition: ADMITTED IP TO THIS HOSP Condition: Stable
[2021-10-26 14:51] LABS: Calcium 8.9 mg/dL (8.4-10.2); Potassium 4.4 mmol/L (3.5-5.1)
[2021-10-26 14:53] LABS: INR 2.2 (<1.2); Partial Thromboplastin Time 46.1 sec (22.0-30.0); Prothrombin Time 21.8 sec (9.0-12.0)
[2021-10-26 15:00] LABS: Basophils % (A) 0 %; Eosinophils % (A) 0 %; HCT 39.6 % (39.0-53.0); HGB 12.8 gm/dL (13.0-17.5); Hypochromasia Slight; Lymphocytes # (A) 0.7 k/uL (1.0-4.8); Lymphocytes % (A) 5 %; MCH 30.1 pg (25.0-35.0); MCHC 32.4 g/dL (31.0-37.0); MCV 92.9 fL (80.0-100.0); Mean Platelet Volume 7.3; Monocytes # (A) 0.7 k/uL (0-1.0); Monocytes % (A) 5 %; Neutrophils # (A) 12.8 k/uL (1.3-7.7); Neutrophils % (A) 90 %; Platelet Count 191 k/uL (150-450); RBC 4.26 m/uL (4.30-5.90); RDW 14.4 % (11.5-15.5); WBC 14.2 k/uL (3.8-10.6)
[2021-10-26 15:18] LABS: Influenza A Not Detected (Not Detectd); Influenza B Not Detected (Not Detectd)
--- NOTE | 2021-10-26 16:06 | CT ---
EXAMINATION TYPE: CT brain cspine wo con DATE OF EXAM: 10/26/2021 COMPARISON: 12/07/2020 and prior studies. HISTORY: Fall. TECHNIQUE: CT scan of the head and cervical spine without contrast CT DLP: 1470.3 mGycm Automated exposure control for dose reduction was used. FINDINGS: Brain volume loss. Patchy low-attenuation the deep white matter periventricular region likely on the basis of chronic microvascular ischemic changes. Scattered tiny bilateral basal ganglia infarcts. Abs ent meadows-white matter differentiation focal low-attenuation the right superior frontal lobe seen on i mage 40 of the axial soft tissue reformat. This was not seen on the study performed in 2013. Generalized osteopenia. Mild mucosal thickening in the right maxillary sinus. Temporomandibular joint osteoarthrosis. No air-fluid levels seen in the paranasal sinuses or mastoid air cells. No acute int raorbital abnormalities. Mild soft tissue swelling over the right superior scalp. Atherosclerotic calcifications in the bilateral intracranial ICA and bilateral vertebral arteries. Evaluation of the cervical spine is limited by streak artifact and motion. The cranial cervical junction alignment is maintained. Grossly, the vertebral body heights are normal . No facet joint displacement seen. Well-corticated osseous fragments are seen posterior to the spinous processes of C5-C7. Favored to be related to remote avulsion injuries. Moderate severe degenerative changes are seen at the craniocervical junction and in the thoracic spin e. Airways are grossly patent. Partially visualized pleural effusion in the left hemithorax. Atheroscler otic calcifications seen in the intrathoracic partially included aorta. Thyroid gland is not enlarged . IMPRESSION: 1. NO ACUTE INTRACRANIAL HEMORRHAGE, MIDLINE SHIFT OR MASS EFFECT. 2. LOW-ATTENUATION IN THE RIGHT FRONTAL LOBE WITH ABSENT MEADOWS-WHITE MATTER DIFFERENTIATION, THE DIFFE RENTIAL WOULD INCLUDE REMOTE INFARCT, WHITE-MEADOWS MATTER JUNCTION LESIONS WITH METASTASIS IN THE DIFFE RENTIAL. CORRELATION WITH MRI OF THE BRAIN WITH AND WITHOUT CONTRAST RECOMMENDED. 4. SOFT TISSUE SWELLING OVER THE SUPERIOR SCALP. 5. NO DISPLACED CERVICAL SPINE FRACTURE, CANNOT EXCLUDE NONDISPLACED FRACTURES GIVEN THE ARTIFACTS. F INDINGS DESCRIBED IN BODY OF REPORT SUGGESTIVE OF REMOTE SPINOUS PROCESS AVULSION, CORRELATION WITH P OINT TENDERNESS RECOMMENDED. 6. LEFT PLEURAL EFFUSION. PLEURAL EFFUSION WAS SEEN ON CT OF THE THORACIC SPINE DATED 12/07/2020.
--- NOTE | 2021-10-26 16:31 | XR ---
EXAMINATION TYPE: XR Hip RT and AP Pelvis DATE OF EXAM: 10/26/2021 COMPARISON: 05/28/2018 HISTORY: 86 years Male. STUDY INDICATION GIVEN: fall . TECHNIQUE: AP pelvis. AP and crosstable right hip. IMPRESSION: Right femoral neck fracture. Generalized osteopenia. Intact left hip arthroplasty. Lower lumbar spine DJD. 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
--- NOTE | 2021-10-26 16:33 | XR ---
EXAMINATION TYPE: XR chest 1V portable DATE OF EXAM: 10/26/2021 COMPARISON: 05/29/2018 HISTORY: 86 years Male. STUDY INDICATION GIVEN: fall . TECHNIQUE: AP chest IMPRESSION: Bilateral patchy left greater than right opacities, decreased in the interval, may be reflective of m ultifocal pneumonia. Small left pleural effusion decreased in size. No significant effusion on the ri ght. No pneumothorax seen. Moderate cardiomegaly. Mild pulmonary edema. Aortic arch calcifications. No significant change. Cardiac device stable in position. Median sternotomy wires seen again.
[2021-10-26 17:26] LABS: Appearance,Urine Clear (Clear); Bilirubin,Urine Negative (Negative); Blood,Urine Negative (Negative); Color,Urine Yellow; Glucose,Urine (UA) Negative (Negative); Hyaline Casts,Urine 11 /lpf (0-2); Ketones,Urine Trace (Negative); Leukocyte Esterase,Urine Negative (Negative); Mucus,Urine Rare /hpf; Nitrite,Urine Negative (Negative); Protein,Urine 1+ (Negative); RBC,Urine 2 /hpf (0-5); Specific Gravity,Urine 1.016 (1.001-1.035); WBC,Urine 1 /hpf (0-5)
[2021-10-26] MEDS ORDERED: FUROSEMIDE 10 MG/ML 4 ML VIAL IV STA (17:32)
[2021-10-26] MEDS ORDERED: NALOXONE 0.4 MG/ML 1 ML VIAL IV PRN (17:34)
[2021-10-26] MEDS ORDERED: ONDANSETRON 4 MG/2 ML VIAL IVP PRN (17:34)
[2021-10-26] MEDS ORDERED: HYDROmorphone 0.5 MG/0.5 ML SYRINGE IVP PRN (17:34)
[2021-10-26 20:32] LABS: Glucose,Whole Blood 185 mg/dL (75-99)
[2021-10-26] MEDS: TAMSULOSIN 0.4 MG CAP.ER.24H PO SCH (20:55)
[2021-10-26] MEDS: INSULIN ASPART (NovoLOG) 100 UNIT/ML VIAL SQ SCH (20:55)
[2021-10-26] MEDS: lisinopriL 5 MG TAB PO SCH (20:55)
[2021-10-26] MEDS: metFORMIN 500 MG TAB PO SCH (20:58)
[2021-10-26] MEDS: METOPROLOL SUCCINATE (ER) 100 MG TAB.ER.24H PO SCH (20:58)
[2021-10-27] MEDS ORDERED: HYDROmorphone 1 MG/ML 1 ML SYRINGE IVP PRN (00:53)
[2021-10-27 06:51] LABS: Glucose,Whole Blood 220 mg/dL (75-99)
[2021-10-27] MEDS: lisinopriL 5 MG TAB PO SCH (07:36)
[2021-10-27] MEDS: FUROSEMIDE 40 MG TAB PO SCH ×2 (07:36→12:16)
[2021-10-27] MEDS: metFORMIN 500 MG TAB PO SCH ×2 (07:36→22:39)
[2021-10-27] MEDS: POTASSIUM CHLORIDE ER 10 MEQ TAB.ER.PRT PO SCH (07:37)
[2021-10-27] MEDS: TAMSULOSIN 0.4 MG CAP.ER.24H PO SCH (07:37)
[2021-10-27] MEDS: INSULIN ASPART (NovoLOG) 100 UNIT/ML VIAL SQ SCH ×4 (08:05→22:37)
[2021-10-27] MEDS: PANTOPRAZOLE 40 MG/10 ML VIAL IV SCH (08:05)
[2021-10-27] MEDS: METOPROLOL SUCCINATE (ER) 100 MG TAB.ER.24H PO SCH (08:06)
[2021-10-27 08:44] LABS: INR 1.9 (<1.2); Prothrombin Time 19.3 sec (9.0-12.0)
--- NOTE | 2021-10-27 09:52 | P.HPOR ---
History of Present Illness H&P Date: 10/27/21 This patient is an 86-year-old male past medical history of coronary artery disease, [place], diabetes that presented to [facility] emergency department on 10/26/21 with complaints of right hip pain following a fall at home. The patient is confused at baseline and most of the history is obtained from nursing in the emergency department. Patient states he fell out of bed and landed onto the hip a couple days ago, although per the emergency department note, the patient was walking and tripped and fell onto the right hip. He presented to the emergency room via EMS. X-rays of the right hip and pelvis revealed a right femoral neck fracture. Patient is admitted under the care of Dr. Lopez for surgical intervention with consult placed to internal medicine for pre-operative medical clearance. Patient is seen and examined bedside this morning. He is complaining of isolated right hip pain. He has additional complaints or concerns. Vital signs stable. Past Medical History Past Medical History: Atrial Fibrillation, Coronary Artery Disease (CAD), Diabetes Mellitus, Hypertension, Myocardial Infarction ([place]) Additional Past Medical History / Comment(s): used to take medication for diabetes, lost 85#, no longer a problem per spouse Last Myocardial Infarction Date:: History of Any Multi-Drug Resistant Organisms: None Reported Past Surgical History: Cholecystectomy, Coronary Bypass/CABG, Heart Catheterization With Stent, Hernia Repair, Pacemaker, Tonsillectomy Additional Past Surgical History / Comment(s): CABG (1 vessel) 11/2017 in [facility], past colonoscopy,rt inguinal hernia repair, rt knee arthroscopy, cardiac stent-LAD Past Anesthesia/Blood Transfusion Reactions: No Reported Reaction Date of Last Stent Placement:: 2013 Type of Cardiac Device: Permanent Pacemaker Device Placement Date:: 02/09/12 Past Psychological History: No Psychological Hx Reported Smoking Status: Never smoker Past Alcohol Use History: None Reported Past Drug Use History: None Reported - Past Family History Father Family Medical History: No Reported History Additional Family Medical History / Comment(s): FROM OLD AGE AT 92 Mother Family Medical History: COPD Additional Family Medical History / Comment(s): EMPHYSEMA - AGE 87 Sister(s) Family Medical History: No Reported History Additional Family Medical History / Comment(s): . Medications and Allergies Home Medications Medication Instructions Recorded Confirmed Type Docusate Sodium [Stool Softener] 100 mg PO HS 03/02/14 10/26/21 History Ascorbic Acid [Vitamin C] 500 mg PO HS 02/12/18 10/26/21 History Atorvastatin [Lipitor] 20 mg PO HS 02/12/18 10/26/21 History Furosemide [Lasix] 40 mg PO BID@0800,1200 05/28/18 10/26/21 History Potassium Chloride [Klor-Con 20] 10 meq PO DAILY 05/28/18 10/26/21 History lisinopriL [Zestril] 5 mg PO DAILY 05/28/18 10/26/21 History Calcium Carbonate [Calcium] 1,200 mg PO DAILY 12/07/20 10/26/21 History Metoprolol Succinate [Toprol XL] 100 mg PO DAILY 12/07/20 10/26/21 History metFORMIN HCL [Glucophage] 1,000 mg PO BID 12/07/20 10/26/21 History Glimepiride [Amaryl] 4 mg PO AC-BRKFST 12/19/20 10/26/21 History Tamsulosin [Flomax] 0.4 mg PO HS 12/19/20 10/26/21 History Dabigatran [Pradaxa] 150 mg PO BID 10/26/21 10/26/21 History Allergies Allergy/AdvReac Type Severity Reaction Status Date / Time tramadol AdvReac Unknown confusion, Verified 10/26/21 17:17 "mean" docusate [From Colace] AdvReac Unknown Verified 10/26/21 17:17 morphine AdvReac Confusion, Verified 10/26/21 17:17 "mean" COVID MODERNA VACCINE AdvReac Severe Numbness, Uncoded 12/24/20 07:43 unable to move. Physical Examination On examination, patient is sitting up in bed in no apparent distress. He is alert and oriented 1. his head appears normocephalic and atraumatic. His lillian thing appears nonlabored. On inspection of the bilateral upper extremities, there are no obvious deformities or signs of trauma. On inspection of the left lower extremity, no obvious deformities or signs of trauma. There is no pain with passive range of motion of the left hip. On inspection of the right hip, there are no lacerations, abrasions, open wounds. There is diffuse pain in palpation of the right hip. Severe pain with any attempted passive range of motion of the right hip. No pain with palpation of the right knee, lower leg, ankle, foot. Patient has good strength and ez of motion of the right ankle. Motor and sensory function is intact of the right lower extremity. Dorsalis pedis pulses easily palpable, right lower extremity is warm and well-perfused with brisk capillary refill distally. Calves are soft and nontender to palpation bilaterally. Stark catheter in place. Results Right hip and pelvis x-ray 10/26/21: Displaced right femoral neck fracture - Labs Labs: Abnormal Lab Results - Last 24 Hours (Table) 10/26/21 10/26/21 10/26/21 Range/Units 14:32 14:32 14:32 WBC 14.2 H (3.8-10.6) k/uL RBC 4.26 L (4.30-5.90) m/uL Hgb 12.8 L (13.0-17.5) gm/dL Neutrophils # 12.8 H (1.3-7.7) k/uL Lymphocytes # 0.7 L (1.0-4.8) k/uL PT 21.8 H (9.0-12.0) sec INR 2.2 H (<1.2) APTT 46.1 H (22.0-30.0) sec Glucose 178 H (74-99) mg/dL POC Glucose (mg/dL) (75-99) mg/dL Urine Protein (Negative) Urine Ketones (Negative) Hyaline Casts (0-2) /lpf Urine Mucus (None) /hpf 10/26/21 10/26/21 10/27/21 Range/Units 17:17 20:31 06:49 WBC (3.8-10.6) k/uL RBC (4.30-5.90) m/uL Hgb (13.0-17.5) gm/dL Neutrophils # (1.3-7.7) k/uL Lymphocytes # (1.0-4.8) k/uL PT (9.0-12.0) sec INR (<1.2) APTT (22.0-30.0) sec Glucose (74-99) mg/dL POC Glucose (mg/dL) 185 H 220 H (75-99) mg/dL Urine Protein 1+ H (Negative) Urine Ketones Trace H (Negative) Hyaline Casts 11 H (0-2) /lpf Urine Mucus Rare H (None) /hpf H & H 10/26/21 Range/Units 14:32 Hgb 12.8 L (13.0-17.5) gm/dL Hct 39.6 (39.0-53.0) % Coagulation 10/26/21 Range/Units 14:32 INR 2.2 H (<1.2) Result Diagrams: 10/26/21 14:32 10/26/21 14:32 Assessment and Plan Assessment: Displaced right femoral neck fracture Plan: - Clinical and imaging findings were discussed with the patient. Patient was discussed with Dr. Lopez. Recommend right hip hemiarthroplasty for patient's right hip fracture. We will plan for OR tomorrow, as patient's INR is elevated at 2.2. Internal medicine and cardiology have been consulted for pre-operative medical clearance. - Non-weight bearing right lower extremity. Bed rest. - Pain management as needed. - NPO diet at midnight.
[2021-10-27 12:02] LABS: Glucose,Whole Blood 167 mg/dL (75-99)
[2021-10-27] MEDS: HYDROcodone/APAP 5-325MG 1 EACH TAB PO PRN ×2 (12:16→22:54)
--- NOTE | 2021-10-27 12:47 | P.CRDCN ---
History of Present Illness History of present illness: HISTORY OF PRESENTING ILLNESS This is a pleasant 86-year-old male past medical history significant for coronary artery disease, persistent atrial fibrillation on pradaxa, permanent pacemaker implantation, diabetes mellitus, hypertension and memory impairment. He follows in the office with Dr. Fatima. We have been asked to see in consultation for pre-operative evaluation. He fell at home and had a right femoral neck fracture. He denies syncope or dizziness. He states he just lost his balance. However there is some memory impairment and he is a poor historian. Family is here with him and the fall was not witnessed. They heard him fall and then came out of the room and he was on the floor. He denies chest pain, shortness of breath, dizziness or palpitations. DIAGNOSTICS EKG reveals underlying afib and paced. Chest xray patchy opacities. Laboratory reviewed, WBC 14.2, hemoglobin 12.8, platelets 191, INR 1.9, sodium 139, potassium 4.4, creatinine 0.91 and NT proBNP 3770. Current cardiac medications include pradaxa 150 mg BID, lisinopril 5 mg daily, Toprol 100 mg daily, Lasix 40 mg twice a day and atorvastatin 20 mg at bedtime. most recent echocardiogram performed November 2019 revealed ejection fraction 35%. REVIEW OF SYSTEMS At the time of my exam: CONSTITUTIONAL: Denies fever or chills. CARDIOVASCULAR: Denies chest pain, shortness of breath, orthopnea, PND or palpitations. RESPIRATORY: Denies cough. GASTROINTESTINAL: Denies abdominal pain, diarrhea, constipation, nausea or vomiting. MUSCULOSKELETAL: Denies myalgias. NEUROLOGIC: Denies numbness, tingling, headache or weakness. ENDOCRINE: Denies fatigue, weight change, polydipsia or polyurina. GENITOURINARY: Denies burning, hematuria or urgency with micturation. HEMATOLOGIC: Denies history of anemia or bleeding. PHYSICAL EXAMINATION Blood pressure 149/87 heart rate 61 afebrile and maintaining oxygen saturation on oxygen. CONSTITUTIONAL: No apparent distress. HEENT: Head is normocephalic. Pupils are equal, round. Sclerae anicteric. Mucous membranes of the mouth are moist. No JVD. No carotid bruit. CHEST EXAMINATION: Lungs are clear to auscultation. No chest wall tenderness is noted on palpation or with deep breathing. HEART EXAMINATION: Irregular rate and rhythm. S1, S2 heard. Systolic ejection murmur at the base, no gallops or rub. ABDOMEN: Soft, nontender. EXTREMITIES: 2+ peripheral pulses, no lower extremity edema and no calf tenderness. NEUROLOGIC EXAMINATION: Patient is awake and alert. ASSESSMENT Fall Right femoral neck fracture Persistent atrial fibrillation on pradaxa CAD s/p bypass grafting and PCI to the LAD Ischemic cardiomyopathy Hypertension Dyslipidemia Diabetes mellitus PLAN Last dose of pradaxa was yesterday AM. He is moderate to high risk to undergo surgery, however there are no acute contraindications. Recommend cautious fluid administration and optimal blood pressure intra- operatively. We will continue to follow and make recommendations accordingly. Thank you kindly for this consultation. Nurse Practitioner note has been reviewed, I agree with a documented findings and plan of care. Patient was seen and examined. Past Medical History Past Medical History: Atrial Fibrillation, Coronary Artery Disease (CAD), Diabetes Mellitus, Hypertension, Myocardial Infarction ([place]) Additional Past Medical History / Comment(s): used to take medication for diabetes, lost 85#, no longer a problem per spouse Last Myocardial Infarction Date:: History of Any Multi-Drug Resistant Organisms: None Reported Past Surgical History: Cholecystectomy, Coronary Bypass/CABG, Heart Catheterization With Stent, Hernia Repair, Pacemaker, Tonsillectomy Additional Past Surgical History / Comment(s): CABG (1 vessel) 11/2017 in [facility], past colonoscopy,rt inguinal hernia repair, rt knee arthroscopy, cardiac stent-LAD Past Anesthesia/Blood Transfusion Reactions: No Reported Reaction Date of Last Stent Placement:: 2013 Type of Cardiac Device: Permanent Pacemaker Device Placement Date:: 02/09/12 Past Psychological History: No Psychological Hx Reported Smoking Status: Never smoker Past Alcohol Use History: None Reported Past Drug Use History: None Reported - Past Family History Father Family Medical History: No Reported History Additional Family Medical History / Comment(s): FROM OLD AGE AT 92 Mother Family Medical History: COPD Additional Family Medical History / Comment(s): EMPHYSEMA - AGE 87 Sister(s) Family Medical History: No Reported History Additional Family Medical History / Comment(s): . Medications and Allergies Home Medications Medication Instructions Recorded Confirmed Type Docusate Sodium [Stool Softener] 100 mg PO HS 03/02/14 10/26/21 History Ascorbic Acid [Vitamin C] 500 mg PO HS 02/12/18 10/26/21 History Atorvastatin [Lipitor] 20 mg PO HS 02/12/18 10/26/21 History Furosemide [Lasix] 40 mg PO BID@0800,1200 05/28/18 10/26/21 History Potassium Chloride [Klor-Con 20] 10 meq PO DAILY 05/28/18 10/26/21 History lisinopriL [Zestril] 5 mg PO DAILY 05/28/18 10/26/21 History Calcium Carbonate [Calcium] 1,200 mg PO DAILY 12/07/20 10/26/21 History Metoprolol Succinate [Toprol XL] 100 mg PO DAILY 12/07/20 10/26/21 History metFORMIN HCL [Glucophage] 1,000 mg PO BID 12/07/20 10/26/21 History Glimepiride [Amaryl] 4 mg PO AC-BRKFST 12/19/20 10/26/21 History Tamsulosin [Flomax] 0.4 mg PO HS 12/19/20 10/26/21 History Dabigatran [Pradaxa] 150 mg PO BID 10/26/21 10/26/21 History Allergies Allergy/AdvReac Type Severity Reaction Status Date / Time tramadol AdvReac Unknown confusion, Verified 10/26/21 17:17 "mean" docusate [From Colace] AdvReac Unknown Verified 10/26/21 17:17 morphine AdvReac Confusion, Verified 10/26/21 17:17 "mean" COVID MODERNA VACCINE AdvReac Severe Numbness, Uncoded 12/24/20 07:43 unable to move. Physical Exam Vitals: Vital Signs Temp Pulse Pulse Resp BP BP Pulse Ox 10/27/21 07:21 98.2 F 61 17 149/87 96 10/27/21 02:10 98.4 F 50 L 19 146/67 96 10/26/21 19:35 98.3 F 48 L 17 145/58 93 L 10/26/21 18:00 75 24 156/81 96 10/26/21 17:00 75 24 118/62 95 10/26/21 16:00 69 24 147/82 96 10/26/21 15:00 88 24 149/72 95 10/26/21 14:05 74 24 149/99 95 10/26/21 14:00 82 24 133/72 94 L 02/26/22 13:56 97.7 F 75 24 133/72 84 L Intake and Output 10/26/21 10/27/21 10/27/21 22:59 06:59 14:59 Output Total 350 Balance -350 Output: Urine 350 Other: Voiding Method Indwelling Catheter Indwelling Catheter Weight 90.718 kg Results 10/26/21 14:32 10/26/21 14:32 Coagulation 10/26/21 10/27/21 Range/Units 14:32 08:07 PT 21.8 H 19.3 H (9.0-12.0) sec APTT 46.1 H (22.0-30.0) sec CBC 10/26/21 Range/Units 14:32 WBC 14.2 H (3.8-10.6) k/uL RBC 4.26 L (4.30-5.90) m/uL Hgb 12.8 L (13.0-17.5) gm/dL Hct 39.6 (39.0-53.0) % Plt Count 191 (150-450) k/uL Comprehensive Metabolic Panel 10/26/21 Range/Units 14:32 Sodium 139 (137-145) mmol/L Potassium 4.4 (3.5-5.1) mmol/L Chloride 104 (98-107) mmol/L Carbon Dioxide 24 (22-30) mmol/L BUN 18 (9-20) mg/dL Creatinine 0.91 (0.66-1.25) mg/dL Glucose 178 H (74-99) mg/dL Calcium 8.9 (8.4-10.2) mg/dL Current Medications Generic Name Dose Route Start Last Admin Trade Name Freq PRN Reason Stop Dose Admin Hydrocodone Bitart/Acetaminophen 1 each 10/27/21 09:51 10/27/21 12:16 Hydrocodone/Apap 5-325mg 1 Each Tab PO 1 each Q6HR PRN Administration Pain Furosemide 40 mg 10/27/21 08:00 10/27/21 12:16 Furosemide 40 Mg Tab PO 40 mg BID@0800,1200 MAIA Administration Hydromorphone HCl 0.5 mg 10/27/21 00:53 10/27/21 01:01 Hydromorphone 1 Mg/Ml 1 Ml Syringe IVP 0.5 mg Q3HR PRN Administration Moderate Pain Insulin Aspart 0 unit 10/26/21 21:00 10/27/21 12:16 Insulin Aspart (Novolog) 100 Unit/Ml Vial SQ 2 unit ACHS MAIA Administration Protocol Lisinopril 5 mg 10/26/21 19:15 10/27/21 07:36 Lisinopril 5 Mg Tab PO Not Given DAILY MAIA Metformin HCl 1,000 mg 10/26/21 21:00 10/27/21 07:36 Metformin 500 Mg Tab PO Not Given BID MAIA Metoprolol Succinate 100 mg 10/26/21 19:15 10/27/21 08:06 Metoprolol Succinate (Er) 100 Mg Tab.Er.24h PO 100 mg DAILY MAIA Administration Naloxone HCl 0.2 mg 10/26/21 17:34 Naloxone 0.4 Mg/Ml 1 Ml Vial IV Q2M PRN Opioid Reversal Ondansetron HCl 4 mg 10/26/21 17:34 10/26/21 17:55 Ondansetron 4 Mg/2 Ml Vial IVP 4 mg Q8HR PRN Administration Nausea And Vomiting Pantoprazole Sodium 40 mg 10/27/21 09:00 10/27/21 08:05 Pantoprazole 40 Mg/10 Ml Vial IV 40 mg DAILY MAIA Administration Potassium Chloride 10 meq 10/27/21 09:00 10/27/21 07:37 Potassium Chloride Er 10 Meq Tab.Er.Prt PO Not Given DAILY MAIA Tamsulosin HCl 0.4 mg 10/26/21 21:00 10/27/21 07:37 Tamsulosin 0.4 Mg Cap.Er.24h PO Not Given HS MAIA Intake and Output 10/26/21 10/27/21 10/27/21 22:59 06:59 14:59 Output Total 350 Balance -350 Output: Urine 350 Other: Voiding Method Indwelling Catheter Indwelling Catheter Weight 90.718 kg 10/26/21 14:32 10/26/21 14:32
--- NOTE | 2021-10-27 13:59 | P.CONS ---
History of Present Illness - Reason for Consult Consult date: 10/27/21 - Chief Complaint Medical management, cardiology for preoperative clearance - History of Present Illness This is an 86-year-old pleasant gentleman, patient of Dr. Stanley Souza. He has underlying history of atrial fibrillation, CAD, permanent pacemaker, diabetes mellitus type 2, CHF, previous VT, hypertension, spinal stenosis, admitted through the emergency room secondary to right hip pain after a fall at home. Patient was in the bathroom, it was not witnessed fall, when the family members he heard at [place], became brushing over and patient subsequently is now down, on the floor patient has short-term memory loss, however she denies any syncope, he has fallen 2 times within 1 week, the first time he tripped, however there is no injury, and previous to this, his toe got stuck, and the carpet, and subsequently fell. Patient has lost approximately weight, over the past one month, and follows with Dr. diane hatfield. Patient denies any chest pain, no PND, no palpitations, patient has shortness of breath on exertion, and is not having any lower extremity edema. No melena and hematochezia no fever no chills, no dysuria. Patient is impulsive, he was supposed to use the walker or a cane for assistive devices at home, however he is not complying to this. Emergency room, his right hip x-ray shows a femoral neck fracture, requiring hemiarthroplasty. Patient is on Pradaxa, which was held during this admission, INR is 2.2, chest x-ray shows patchy left greater than right opacities, decreased in the interval, may be reflective of multifocal pneumonia, small left pleural effusion, decrease in size, mild pulmonary edema, moderate cardiomegaly no pneumothorax EKG, paced rhythm 71 urinalysis shows 1 WBC, moderate hyaline casts, sugars are between 167-185 WBC count of 14.2, hemoglobin 12.8, creatinine of 0.9 Consult for preop clearance, and cardiology to cardiology clearance, patient is to undergo right gregg-up for plasty, on 10/28/2021. INR of 1.9, most likely related to Pradaxa, and will not be reversed. We'll going to hold off Pradaxa for the next 48 hours, ASA risk classification would be a class 3, with a revised cardiac risk index of 2, with history of CHF history of ischemic heart disease with prior VT no prior history of CVA, and normal troponin, diabetes mellitus controlled with oral agents, risk index is approximately 10.1% based on a 30 day mortality for and cardio vascular events. Patient will need to be monitored, with telemetry, monitor for BMP, intraoperatively and postoperatively. Cardiology to follow closely, ASSESSMENT AND PLAN 1. Acute right femoral neck fracture, patient's to undergo right hemiarthr oplasty on 10/28/2021, patient would get a separate cardiac recommendation, based on CHF, and a pacemaker implantation, by cardiology. Patient will be monitored, with telemetry intraoperatively and postoperatively, with monitored BNP levels, and troponin. Patient currently is asymptomatic for CHF, revised cardiac risk index of 2, carrying a 10.1% mortality within 30 days postoperatively, including cardiac events. PT OT, discharge planning to follow the patient. 2. History of diabetes mellitus type 2 on oral agents the glimepiride 4 mg daily which will be held morning of surgery. Continue metformin Check for A1c continue on PellianoLog scale 3. CHF with reduced ejection fraction, mixed type, last EF was 36%, approximately one year ago. Mild pulmonary edema noted chest x-ray, patient's on Lasix 40 mg twice a day no overt failure at this time 4. Permanent pacemaker, currently electronically paced 4. CAD with prior VT, prior CABG 2013, in [place] currently asymptomatic on metoprolol 100 mg daily 5. History of spinal stenosis, was seen by neuro spine in the past no spinal surgery as of date 6. Atrial fibrillation, on Pradaxa and metoprolol no changes made, Pradaxa held preoperatively, for surgery last dose was 10/26/2021 7. Dementia, unknown type, possibly related to Alzheimer's, no history of CVA check for B12 8. Recurrent falls, preceding the current injury, patient will require PT OT, and compliance assistive device for ambulation 9. DVT prophylaxis, patient's Pradaxa which would resume after surgery GI prophylaxis Discharge planning PT OT, possible subacute rehab, or inpatient rehab Review of Systems Constitutional: Reports as per HPI, Reports chronic pain, Reports weight loss Eyes: denies as per HPI, denies blurred vision, denies photophobia Ears, nose, mouth and throat: Reports as per HPI, Denies headache, Denies nasal congestion, Denies odynophagia, Denies sore throat, Denies voice changes Cardiovascular: Reports decreased exercise tolerance, Reports dyspnea on exertion, Reports irregular heart beat, Reports paroxysmal nocturnal dyspnea, Denies chest pain, Denies edema, Denies palpitations, Denies shortness of breath Respiratory: Reports as per HPI, Denies cough, Denies home oxygen, Denies pain o n inspiration, Denies sleep apnea, Denies wheezing Gastrointestinal: Reports as per HPI Genitourinary: Reports as per HPI Musculoskeletal: Reports as per HPI, Reports leg numbness/tingling, Reports limitation of motion Integumentary: Reports as per HPI, Denies acne, Denies boils, Denies brittle nails, Denies change in hair/nails, Denies color changes, Denies darkening of skin, Denies depigmentation, Denies dryness, Denies foot/leg ulcers, Denies growths, Denies hirsutism, Denies lesions, Denies onychomycosis, Denies pruritus, Denies rash, Denies sores, Denies striae, Denies unusual bruising, D enies wounds Neurological: Reports as per HPI, Reports balance difficulties, Reports gait dysfunction, Denies headaches, Denies motor disturbance, Denies vertigo Psychiatric: Reports as per HPI Endocrine: Reports as per HPI, Denies cold intolerance, Denies deepening of the voice, Denies excessive sweating, Denies excessive thirst, Denies fatigue, Denies flushing, Denies heat intolerance, Denies high blood sugars, Denies i ncrease in ring/shoe/hat size, Denies low blood sugars, Denies nocturia, Denies palpitations, Denies polydipsia, Denies polyphagia, Denies polyuria, Denies proptosis, Denies recent glucocorticoid use, Denies thyroid mass, Denies weight change Hematologic/Lymphatic: Reports as per HPI Allergic/Immunologic: Reports as per HPI Past Medical History Past Medical History: Atrial Fibrillation, Coronary Artery Disease (CAD), Diabetes Mellitus, Hypertension, Myocardial Infarction ([place]) Additional Past Medical History / Comment(s): used to take medication for diabetes, lost 85#, no longer a problem per spouse Last Myocardial Infarction Date:: History of Any Multi-Drug Resistant Organisms: None Reported Past Surgical History: Cholecystectomy, Coronary Bypass/CABG, Heart Catheterization With Stent, Hernia Repair, Pacemaker, Tonsillectomy Additional Past Surgical History / Comment(s): CABG (1 vessel) 11/2017 in [facility], past colonoscopy,rt inguinal hernia repair, rt knee arthroscopy, cardiac stent-LAD Past Anesthesia/Blood Transfusion Reactions: No Reported Reaction Date of Last Stent Placement:: 2013 Type of Cardiac Device: Permanent Pacemaker Device Placement Date:: 02/09/12 Past Psychological History: No Psychological Hx Reported Smoking Status: Never smoker Past Alcohol Use History: None Reported Past Drug Use History: None Reported - Past Family History Father Family Medical History: No Reported History Additional Family Medical History / Comment(s): FROM OLD AGE AT 92 Mother Family Medical History: COPD Additional Family Medical History / Comment(s): EMPHYSEMA - AGE 87 Sister(s) Family Medical History: No Reported History Additional Family Medical History / Comment(s): . Daughter(s) Family Medical History: Cancer (Breast), Hypertension Brother(s) Family Medical History: Coronary Artery Disease (CAD) Medications and Allergies Home Medications Medication Instructions Recorded Confirmed Type Docusate Sodium [Stool Softener] 100 mg PO HS 03/02/14 10/26/21 History Ascorbic Acid [Vitamin C] 500 mg PO HS 02/12/18 10/26/21 History Atorvastatin [Lipitor] 20 mg PO HS 02/12/18 10/26/21 History Furosemide [Lasix] 40 mg PO BID@0800,1200 05/28/18 10/26/21 History Potassium Chloride [Klor-Con 20] 10 meq PO DAILY 05/28/18 10/26/21 History lisinopriL [Zestril] 5 mg PO DAILY 05/28/18 10/26/21 History Calcium Carbonate [Calcium] 1,200 mg PO DAILY 12/07/20 10/26/21 History Metoprolol Succinate [Toprol XL] 100 mg PO DAILY 12/07/20 10/26/21 History metFORMIN HCL [Glucophage] 1,000 mg PO BID 12/07/20 10/26/21 History Glimepiride [Amaryl] 4 mg PO AC-BRKFST 12/19/20 10/26/21 History Tamsulosin [Flomax] 0.4 mg PO HS 12/19/20 10/26/21 History Dabigatran [Pradaxa] 150 mg PO BID 10/26/21 10/26/21 History Allergies Allergy/AdvReac Type Severity Reaction Status Date / Time tramadol AdvReac Unknown confusion, Verified 10/26/21 17:17 "mean" docusate [From Colace] AdvReac Unknown Verified 10/26/21 17:17 morphine AdvReac Confusion, Verified 10/26/21 17:17 "mean" COVID MODERNA VACCINE AdvReac Severe Numbness, Uncoded 12/24/20 07:43 unable to move. Physical Exam Vitals: Vital Signs Temp Pulse Pulse Resp BP BP Pulse Ox 10/27/21 07:21 98.2 F 61 17 149/87 96 10/27/21 02:10 98.4 F 50 L 19 146/67 96 10/26/21 19:35 98.3 F 48 L 17 145/58 93 L 10/26/21 18:00 75 24 156/81 96 10/26/21 17:00 75 24 118/62 95 10/26/21 16:00 69 24 147/82 96 10/26/21 15:00 88 24 149/72 95 10/26/21 14:05 74 24 149/99 95 10/26/21 14:00 82 24 133/72 94 L 10/26/21 13:56 97.7 F 75 24 133/72 84 L Intake and Output 10/26/21 10/27/21 10/27/21 22:59 06:59 14:59 Output Total 350 Balance -350 Output: Urine 350 Other: Voiding Method Indwelling Catheter Indwelling Catheter Weight 90.718 kg - Constitutional General appearance: average body habitus, cooperative - EENT Eyes: EOMI, PERRLA, dentition normal, normal appearance ENT: NA/AT, normal oropharynx - Neck Neck: normal ROM - Respiratory Respiratory: bilateral: CTA, negative: diminished, dullness, rales, rhonchi - Cardiovascular Rhythm: regularly irregular Abnormal Heart Sounds: systolic murmur - Gastrointestinal General gastrointestinal: normal bowel sounds, soft - Integumentary Integumentary: normal, normal turgor - Neurologic Short-term memory problems Neurologic: CNII-XII intact - Musculoskeletal Musculoskeletal: strength equal bilaterally - Psychiatric Psychiatric: A&O x's 3, appropriate affect Results CBC & Chem 7: 10/26/21 14:32 10/26/21 14:32 Labs: Abnormal Lab Results - Last 24 Hours (Table) 10/26/21 10/26/21 10/26/21 Range/Units 14:32 14:32 14:32 WBC 14.2 H (3.8-10.6) k/uL RBC 4.26 L (4.30-5.90) m/uL Hgb 12.8 L (13.0-17.5) gm/dL Neutrophils # 12.8 H (1.3-7.7) k/uL Lymphocytes # 0.7 L (1.0-4.8) k/uL PT 21.8 H (9.0-12.0) sec INR 2.2 H (<1.2) APTT 46.1 H (22.0-30.0) sec Glucose 178 H (74-99) mg/dL POC Glucose (mg/dL) (75-99) mg/dL Urine Protein (Negative) Urine Ketones (Negative) Hyaline Casts (0-2) /lpf Urine Mucus (None) /hpf 10/26/21 10/26/21 10/27/21 Range/Units 17:17 20:31 06:49 WBC (3.8-10.6) k/uL RBC (4.30-5.90) m/uL Hgb (13.0-17.5) gm/dL Neutrophils # (1.3-7.7) k/uL Lymphocytes # (1.0-4.8) k/uL PT (9.0-12.0) sec INR (<1.2) APTT (22.0-30.0) sec Glucose (74-99) mg/dL POC Glucose (mg/dL) 185 H 220 H (75-99) mg/dL Urine Protein 1+ H (Negative) Urine Ketones Trace H (Negative) Hyaline Casts 11 H (0-2) /lpf Urine Mucus Rare H (None) /hpf 10/27/21 Range/Units 08:07 WBC (3.8-10.6) k/uL RBC (4.30-5.90) m/uL Hgb (13.0-17.5) gm/dL Neutrophils # (1.3-7.7) k/uL Lymphocytes # (1.0-4.8) k/uL PT 19.3 H (9.0-12.0) sec INR 1.9 H (<1.2) APTT (22.0-30.0) sec Glucose (74-99) mg/dL POC Glucose (mg/dL) (75-99) mg/dL Urine Protein (Negative) Urine Ketones (Negative) Hyaline Casts (0-2) /lpf Urine Mucus (None) /hpf
[2021-10-27 16:57] LABS: Glucose,Whole Blood 232 mg/dL (75-99)
[2021-10-27 21:00] LABS: Glucose,Whole Blood 201 mg/dL (75-99)
[2021-10-28 05:31] LABS: INR 1.6 (<1.2); Prothrombin Time 16.2 sec (9.0-12.0)
[2021-10-28 06:53] LABS: Glucose,Whole Blood 141 mg/dL (75-99)
[2021-10-28] MEDS: INSULIN ASPART (NovoLOG) 100 UNIT/ML VIAL SQ SCH ×4 (07:20→23:36)
[2021-10-28] MEDS: metFORMIN 500 MG TAB PO SCH (07:21)
[2021-10-28] MEDS: FUROSEMIDE 40 MG TAB PO SCH (07:27)
[2021-10-28] MEDS: lisinopriL 5 MG TAB PO SCH (07:27)
[2021-10-28] MEDS: METOPROLOL SUCCINATE (ER) 100 MG TAB.ER.24H PO SCH (07:27)
[2021-10-28] MEDS: PANTOPRAZOLE 40 MG/10 ML VIAL IV SCH (07:27)
[2021-10-28] MEDS: POTASSIUM CHLORIDE ER 10 MEQ TAB.ER.PRT PO SCH (07:27)
[2021-10-28] MEDS ORDERED: ROPIVACAINE/EPI/CLONIDINE/KET 50 ML SYRINGE MISCELLANE PRN (08:33)
[2021-10-28] MEDS ORDERED: TRANEXAMIC ACID 1,000 MG in SODIUM CHLORIDE 0.9% 100 ML IVPB ONE ×2 (08:33→08:34)
--- NOTE | 2021-10-28 08:40 | P.PN ---
Subjective Progress Note Date: 10/28/21 No issues overnight. Objective - Vital Signs Vital signs: Vital Signs Temp 97.0 F L 10/28/21 02:44 Pulse 61 10/28/21 02:44 Resp 53 H 10/28/21 02:44 BP 125/65 10/28/21 02:44 Pulse Ox 93 L 10/28/21 02:44 Intake & Output 10/27/21 10/28/21 10/28/21 18:59 06:59 18:59 Output Total 650 Balance -650 Output: Urine 650 Other: Voiding Method Indwelling Catheter Indwelling Catheter - Exam NAD Right LE: shortened, externally rotated. Thigh/calf soft. Moves ankle/toes up/down. - Labs CBC & Chem 7: 10/26/21 14:32 10/26/21 14:32 Labs: Abnormal Lab Results - Last 24 Hours (Table) 10/27/21 10/27/21 10/27/21 Range/Units 08:07 12:00 16:56 PT 19.3 H (9.0-12.0) sec INR 1.9 H (<1.2) POC Glucose (mg/dL) 167 H 232 H (75-99) mg/dL 10/27/21 10/28/21 10/28/21 Range/Units 20:58 04:11 06:50 PT 16.2 H (9.0-12.0) sec INR 1.6 H (<1.2) POC Glucose (mg/dL) 201 H 141 H (75-99) mg/dL Assessment and Plan Assessment: Displaced right femoral neck fracture Plan: 1. NPO and bedrest 2. Hold anticoagulation 3. IM/cardiology for med management 4. To OR today for hip hemiarthroplasty
--- NOTE | 2021-10-28 10:31 | P.PN ---
Subjective This is a pleasant 86-year-old male past medical history significant for coronary artery disease, persistent atrial fibrillation on pradaxa, permanent pacemaker implantation, diabetes mellitus, hypertension and memory impairment. He follows in the office with Dr. Fatima. We have been asked to see in consultation for pre-operative evaluation. Patient presents to the hospital after a fall at home, unwitnessed, and had a Right femoral neck fracture. He denies syncope or dizziness. He states he just lost his balance. However there is some memory impairment and he is a poor historian. Patient seen and examined at bedside, he is doing well. No complaints. He denies chest pain, shortness of breath, dizziness or palpitations. Today plan for Right direct anterior hip hemiarthroplasty with Dr. Lopez. PHYSICAL EXAMINATION Blood pressure 142/65, heart rate 64, afebrile, saturations 97% on 4 L nasal cannula CONSTITUTIONAL: No apparent distress. HEENT: Neck Supple. No JVD. No carotid bruit. CHEST EXAMINATION: Lungs are clear to auscultation. No chest wall tenderness is noted on palpation or with deep breathing. HEART EXAMINATION: Irregular rate and rhythm. S1, S2 heard. Systolic ejection murmur at the base, no gallops or rub. ABDOMEN: Soft, nontender. EXTREMITIES: 2+ peripheral pulses, no lower extremity edema and no calf tenderness. NEUROLOGIC EXAMINATION: Patient is awake and alert. ASSESSMENT Fall, no evidence of syncope at this time. Right femoral neck fracture Persistent atrial fibrillation on pradaxa CAD s/p bypass grafting and PCI to the LAD Ischemic cardiomyopathy Hypertension Dyslipidemia Diabetes mellitus PLAN Last dose of pradaxa was 10/26/2021 AM He is moderate to high risk to undergo surgery, however there are no acute contraindications. Recommend cautious fluid administration and optimal blood pressure intra- operatively. We will continue to follow and make recommendations accordingly. Nurse Practitioner note has been reviewed, I agree with a documented findings and plan of care. Patient was seen and examined. Objective - Vital Signs Vital signs: Vital Signs Temp 97.0 F L 10/28/21 02:44 Pulse 61 10/28/21 02:44 Resp 53 H 10/28/21 02:44 BP 125/65 10/28/21 02:44 Pulse Ox 93 L 10/28/21 02:44 Intake & Output 10/27/21 10/28/21 10/28/21 18:59 06:59 18:59 Output Total 650 Balance -650 Output: Urine 650 Other: Voiding Method Indwelling Catheter Indwelling Catheter - Labs CBC & Chem 7: 10/26/21 14:32 10/26/21 14:32 Labs: Abnormal Lab Results - Last 24 Hours (Table) 10/27/21 10/27/21 10/27/21 Range/Units 12:00 16:56 20:58 PT (9.0-12.0) sec INR (<1.2) POC Glucose (mg/dL) 167 H 232 H 201 H (75-99) mg/dL 10/28/21 10/28/21 Range/Units 04:11 06:50 PT 16.2 H (9.0-12.0) sec INR 1.6 H (<1.2) POC Glucose (mg/dL) 141 H (75-99) mg/dL
[2021-10-28 11:36] LABS: Glucose,Whole Blood 150 mg/dL (75-99)
[2021-10-28] MEDS: FUROSEMIDE 10 MG/ML 4 ML VIAL IV SCH ×2 (11:57→23:36)
[2021-10-28] MEDS ORDERED: LACTATED RINGERS 1,000 ML IV ONE (12:27)
[2021-10-28] MEDS ORDERED: DEXAMETHASONE SOD PHOSPHATE 4 MG/ML 1 ML VIAL IVP ONE (12:27)
[2021-10-28] MEDS ORDERED: ONDANSETRON 4 MG/2 ML VIAL IVP ONE (12:28)
[2021-10-28] MEDS ORDERED: LABETALOL 5 MG/ML VIAL MDV ONE (12:48)
[2021-10-28] MEDS ORDERED: SODIUM CHLORIDE 0.9% 100 ML BAG ONE (12:48)
[2021-10-28] MEDS ORDERED: fentaNYL (PF) 50 MCG/ML 2 ML AMP ONE (12:48)
[2021-10-28] MEDS ORDERED: LIDOCAINE 1% INJ 10MG/ML (20 ML MDV) ONE (12:48)
[2021-10-28] MEDS ORDERED: PROPOFOL 10 MG/ML 20 ML VIAL IV ONE (12:48)
[2021-10-28] MEDS ORDERED: GLYCOPYRROLATE 0.2 MG/ML 2 ML VIAL ONE (12:48)
[2021-10-28] MEDS ORDERED: ROCURONIUM 10 MG/ML (5 ML VIAL) IV ONE (12:48)
[2021-10-28] MEDS ORDERED: NEOSTIGMINE 1 MG/ML 10 ML VIAL ONE (12:48)
[2021-10-28] MEDS ORDERED: TRANEXAMIC ACID 1,000 MG/10 ML VIAL ONE (12:48)
[2021-10-28] MEDS ORDERED: NALOXONE 0.4 MG/ML 1 ML VIAL IV PRN (15:03)
[2021-10-28] MEDS ORDERED: MORPHINE SULFATE 2 MG/ML SYRINGE IV PRN (15:03)
--- NOTE | 2021-10-28 15:03 | P.OP ---
Date of Procedure: 10/28/21 Preoperative Diagnosis: 1. Displaced right femoral neck fracture 2. Congestive heart failure 3. Type 2 diabetes 4. Dementia 5. Prior fragility fractures 6. Atrial fibrillation Postoperative Diagnosis: Same Procedure(s) Performed: Right direct anterior hip hemiarthroplasty Implants: 1. Soy Accolade C size #5 standard offset 2. 52 OD/28 ID +4 bipolar femoral head Anesthesia: GETA Surgeon: Marco Lopez Classifications Officer Cc/Cm #1: Carol Shah Estimated Blood Loss (ml): 200 IV fluids (ml): 600 Urine output (ml): 100 Pathology: none sent Condition: stable Disposition: PACU Indications for Procedure: I met with the patient and their family to discuss treatment options. The patient has a displaced femoral neck fracture and based on their age, activity level, and medical comorbidities I recommended a hip hemiarthroplasty to facilitate early mobilization. My recommendation was to perform the hemiarthroplasty through a direct anterior approach to help lower the risk of dislocation and improve postoperative recovery and use cemented fixation of the femoral component to reduce the risk of fracture and postoperative thigh pain. We discussed the potential risks and complications of a hemiarthroplasty for displaced femoral neck fracture at length. Risks discussed include are certainly not limited to risks from anesthesia, superficial infection requiring local wound care and possibly surgical debridement, deep periprosthetic joint infection and the treatment for this, damage to local blood vessels or nerves particularly the lateral femoral cutaneous nerve, intraoperative fracture, postoperative periprosthetic fracture, leg length discrepancy, hip dislocation, aseptic loosening, groin pain, thigh pain, progression of arthritis requiring conversion to total hip arthroplasty, complications related to cementing the component, an inability to regain preinjury level of function, DVT, PE, acute coronary event, stroke, pneumonia, urinary tract infection, failure to thrive, and possibly . The patient and their family understand that while these are the most common complications other less common complications are possible. They provided their verbal and written consent to go forward with surgery. Description of Procedure: The patient was identified in the preoperative holding area and the correct hip was marked with my initials. I reviewed the procedure and consent with the patient. All of their questions were answered. The patient was then brought back into the operating room by anesthesia. While on the [facility] anesthesia was administered by the anesthesia team. Preoperative antibiotics and tranexamic acid were also given. After the patient was under anesthesia I examined their ankles to determine their preoperative leg length discrepancy. The skin over the anterior aspect of the hip was shaved to remove hair over the site of planned incision. Both feet and ankles were padded with webril and boots for the [place] were applied. The patient was then carefully transferred onto the [place] table. A perineal post was immediately placed. The arms were placed on arm holders and were well-padded. Both boots were secured to the spars on the [place] table. The patient was positioned so that the pelvis was centered over the post. Nonsterile drapes were applied. A timeout was performed identifying the correct patient, operative extremity, and procedure. At this point fluoroscopy was brought in to take preoperative images of the pelvis and operative hip. Using the standing AP pelvis from the office as a template, a comparable image was obtained with fluoroscopy. A metallic bar was used to create a bi-ischial line for use as a reference to leg length adjustments during the procedure. Global offset was also measured on both the operative and nonoperative leg. Fluoroscopy was then brought out and a pre-scrub using a chlorhexidine scrub brush was performed. The operative limb was then prepped and draped in the standard sterile fashion. An anterior longitudinal incision was made lateral and distal to the ASIS. The skin and subcutaneous tissues were incised sharply. The underlying tensor fascia was identified and incised in its midportion. The fascia was dissected free from the underlying muscle and the muscle belly was retracted. A blunt tipped cobra retractor was placed over the superior neck under the muscle fibers of the gluteus minimus. The deep enveloping fascia of the tensor was incised. The anterior leash of vessels were then identified and cauterized. The fascia between the rectus and the capsule was then incised and the pre-capsular fat was excised. A second Cobra was placed inferior to the neck. The interval between the rectus and iliocapsularis and the hip capsule was developed and a retractor was placed carefully over the anterior rim of the acetabulum. A T-shaped anterior capsulotomy was performed. A hemarthrosis consistent with a femoral neck fracture was identified. The superior capsular leaflet was left in place in the inferior capsular flap was excised. The Cobra retractors were placed intracapsularly. A displaced femoral neck fracture was then identified. We then made a femoral neck osteotomy according to preoperative and intraoperative templating and confirmed the level of the osteotomy using fluoroscopic imaging. The femoral head was removed, passed off to the back table, and sized. The superior capsular flap was excised. On inspection of the acetabulum there were minimal degenerative changes with intact cartilage. Attention was then turned to the femur. The remnant dorsal lateral capsule was excised. The short external rotators were visible and protected. A bone hook was used to confirm appropriate translation of the trochanter away from the acetabulum. The leg was then extended and adducted and the bone hook was used to elevate the femur for broaching. A box osteotome and blunt tipped canal sound was then utilized to gain access to the femoral canal. We then sequentially broached the femur in appropriate anteversion until torsional stability was achieved and the implant was felt to have reached the appropriate size to allow trialing. The neck cut was brought flush to the trial broach with a calcar planar. A trial neck and head were then placed onto the broach and the hip was atraumatically reduced under direct visualization. External rotation to 90 was performed to assess stability. Fluoroscopy was brought in. An AP and lateral fluoroscopic image of the proximal femur was obtained to assess position and fill of the trial broach. An AP of the pelvis was then obtained and matched to the preoperative image taken. A bi-ischial bar was then placed and measurements were taken to assess changes in length and offset. The hip was then carefully dislocated, the proximal femur was exposed, and the trial implants were removed. The proximal femur was then prepared for cementing. The canal was thoroughly irrigated with pulsatile lavage to remove blood and marrow contents. A cement restrictor was placed to a depth just distal to the tip of the final implant. Epinephrine-soaked gauze was then packed into the proximal femur. 2 bags of cement with antibiotics were then mixed using a centrifuge and placed into a cement gun. Anesthesia was notified that cementing was about to commence to make sure the patient was appropriately ventilated and hydrated. Once the cement had reached appropriate consistency, the cement gun was used to fill the canal in a retrograde fashion starting at the restrictor. Cement was then pressurized into the canal with a blue tipped mental health advanced practice nurse. The stem was then carefully introduced into the cement taking care to guide the implant into appropriate version. The stem was held in position until the cement had fully set. All extra cement was removed while the cement was hardening. The trunnion was cleansed and the final head was tapped into place to engage the Chester taper. The acetabulum was irrigated and visualized to be free of debris. The hip was carefully reduced. Stability was checked clinically with external rotation to 90 and there was no evidence of instability. Final fluoroscopic images were taken. The wound was then thoroughly irrigated and soaked with a dilute Betadine rinse for 3 minutes. 3 L of sterile saline was irrigated through the wound using pulsatile lavage. Local anesthetic cocktail was injected into the soft tissues around the surgical field. A deep drain was placed. The wound was then closed in layers. A sterile dressing was placed over the surgical incision and drain site. The drapes were taken down and the patient was carefully transferred off of the [place] table. Following removal of the boots the leg lengths felt acceptable. The patient was then taken to recovery room having tolerated the procedure well. Carol Shah PA-C was required as a skilled library clerical assistant for patient positioning, surgical exposure, retraction, placement of implants, and closure of the surgical wound. PLAN: The patient can weight-bear as tolerated on the operative extremity. 2 doses of postoperative antibiotics. DVT prophylaxis can resume at home anti- coagulation tomorrow. Physical therapy for gait training. Discontinue drain postoperative day #1 if output is less than 100 mL per shift.
--- NOTE | 2021-10-28 16:31 | FL ---
Fluoroscopy HISTORY: Right hip arthroplasty 17 seconds fluoroscopy time supplied to the referring clinician. 5 intraoperative C-arm images docum ent the procedure. See dictated report from orthopedic surgery.
[2021-10-28 17:17] LABS: Glucose,Whole Blood 219 mg/dL (75-99)
--- NOTE | 2021-10-28 20:00 | P.GSCN ---
History of Present Illness Consult date: 10/28/21 Reason for Consult: Bleeding around Stark catheter. Requesting physician: Marco Lopez History of present illness: The patient is an 86-year-old white male admitted with a right femoral neck fracture. He underwent a right direct anterior hip hemiarthroplasty earlier today. He was noted to have urethral bleeding around the Stark catheter postoperatively. I'm consulted for this reason. The patient is drowsy and somewhat confused and unable to provide any relevant history. Review of Systems ROS unobtainable: due to mental status Past Medical History Past Medical History: Atrial Fibrillation, Coronary Artery Disease (CAD), D iabetes Mellitus, Hypertension, Myocardial Infarction (NE) Additional Past Medical History / Comment(s): used to take medication for diabetes, lost 85#, no longer a problem per spouse Last Myocardial Infarction Date:: History of Any Multi-Drug Resistant Organisms: None Reported Past Surgical History: Cholecystectomy, Coronary Bypass/CABG, Heart Catheterization With Stent, Hernia Repair, Pacemaker, Tonsillectomy Additional Past Surgical History / Comment(s): CABG (1 vessel) 11/2017 in [facility], past colonoscopy,rt inguinal hernia repair, rt knee arthroscopy, cardiac stent-LAD Past Anesthesia/Blood Transfusion Reactions: No Reported Reaction Date of Last Stent Placement:: 2013 Type of Cardiac Device: Permanent Pacemaker Device Placement Date:: 02/09/12 Past Psychological History: No Psychological Hx Reported Smoking Status: Never smoker Past Alcohol Use History: None Reported Past Drug Use History: None Reported - Past Family History Father Family Medical History: No Reported History Additional Family Medical History / Comment(s): FROM OLD AGE AT 92 Mother Family Medical History: COPD Additional Family Medical History / Comment(s): EMPHYSEMA - AGE 87 Sister(s) Family Medical History: No Reported History Additional Family Medical History / Comment(s): . Daughter(s) Family Medical History: Cancer (Breast), Hypertension Brother(s) Family Medical History: Coronary Artery Disease (CAD) Medications and Allergies Home Medications Medication Instructions Recorded Confirmed Type Docusate Sodium [Stool Softener] 100 mg PO HS 03/02/14 10/26/21 History Ascorbic Acid [Vitamin C] 500 mg PO HS 02/12/18 10/26/21 History Atorvastatin [Lipitor] 20 mg PO HS 02/12/18 10/26/21 History Furosemide [Lasix] 40 mg PO BID@0800,1200 05/28/18 10/26/21 History Potassium Chloride [Klor-Con 20] 10 meq PO DAILY 05/28/18 10/26/21 History lisinopriL [Zestril] 5 mg PO DAILY 05/28/18 10/26/21 History Calcium Carbonate [Calcium] 1,200 mg PO DAILY 12/07/20 10/26/21 History Metoprolol Succinate [Toprol XL] 100 mg PO DAILY 12/07/20 10/26/21 History metFORMIN HCL [Glucophage] 1,000 mg PO BID 12/07/20 10/26/21 History Glimepiride [Amaryl] 4 mg PO [id number] 12/19/20 10/26/21 History Tamsulosin [Flomax] 0.4 mg PO HS 12/19/20 10/26/21 History Dabigatran [Pradaxa] 150 mg PO BID 10/26/21 10/26/21 History Allergies Allergy/AdvReac Type Severity Reaction Status Date / Time tramadol AdvReac Unknown confusion, Verified 10/28/21 12:04 "mean" docusate [From Colace] AdvReac Unknown Verified 10/28/21 12:04 morphine AdvReac Confusion, Verified 10/28/21 12:04 "mean" COVID MODERNA VACCINE AdvReac Severe Numbness, Uncoded 10/28/21 12:04 unable to move. Surgical - Exam Vital Signs Temp Pulse Resp BP Pulse Ox 97.7 F 75 24 133/72 84 L 10/26/21 13:56 10/26/21 13:56 10/26/21 13:56 10/26/21 13:56 10/26/21 13:56 - General well developed, well nourished, no distress - Respiratory normal respiratory effort - Abdomen Abdomen: soft, non tender, no guarding, no rigid, no rebound - Genitourinary normal penis with no external lesions, testicles non-tender, other (Stark catheter in place, no active bleeding.) - Psychiatric oriented to time, oriented to person, oriented to place, speech is normal, memory intact Results - Labs 10/26/21 14:32 10/26/21 14:32 Abnormal Lab Results - Last 24 Hours (Table) 10/27/21 10/28/21 10/28/21 Range/Units 20:58 04:11 06:50 PT 16.2 H (9.0-12.0) sec INR 1.6 H (<1.2) POC Glucose (mg/dL) 201 H 141 H (75-99) mg/dL 10/28/21 10/28/21 Range/Units 11:34 16:57 PT (9.0-12.0) sec INR (<1.2) POC Glucose (mg/dL) 150 H 219 H (75-99) mg/dL Assessment and Plan (1) Urethral false passage Current Visit: Yes Status: Acute Code(s): N36.5 - URETHRAL FALSE PASSAGE SNOMED Code(s): 61385779 Plan: Upon examining the patient, the majority of the Stark catheter is visible. Therefore, it is obvious that the catheter tip is located within the urethra rather than the bladder. There is no active bleeding, and no evidence of suprapubic distention. The Stark catheter will be removed. I have advised the patient's nurse to expect urethral bleeding upon catheter removal, which may appear significant but is typically self-limited.
[2021-10-28 20:25] LABS: Glucose,Whole Blood 245 mg/dL (75-99)
[2021-10-28] MEDS: HYDROcodone/APAP 5-325MG 1 EACH TAB PO PRN (23:34)
[2021-10-28] MEDS: TAMSULOSIN 0.4 MG CAP.ER.24H PO SCH (23:36)
[2021-10-29 02:38] LABS: Basophils # (A) 0.04 X 10*3/uL (0.00-0.10); Basophils % (A) 0.4 %; Eosinophils # (A) 0.06 X 10*3/uL (0.04-0.35); Eosinophils % (A) 0.6 %; HCT 36.7 % (39.6-50.0); HGB 10.9 g/dL (13.0-17.0); Immature Grans, Automated 0.8 %; Lymphocytes # (A) 0.42 X 10*3/uL (0.90-5.00); Lymphocytes % (A) 3.9 %; MCH 28.2 pg (27.0-32.0); MCHC 29.7 g/dL (32.0-37.0); MCV 94.8 fL (80.0-97.0); Mean Platelet Volume 10.5 fL (9.5-12.2); Monocytes # (A) 0.47 X 10*3/uL (0.20-1.00); Monocytes % (A) 4.4 %; NRBC Per 100 WBC 0 /100 WBCS (0.0-0.0); Neutrophils # (A) 9.59 X 10*3/uL (1.80-7.70); Neutrophils % (A) 89.9 %; Platelet Count 167 X 10*3/uL (140-440); RBC 3.87 X 10*6/uL (4.40-5.60); RDW 14.5 % (11.5-14.5); WBC 10.67 X 10*3/uL (4.50-10.00)
[2021-10-29 07:44] LABS: Glucose,Whole Blood 188 mg/dL (75-99)
[2021-10-29] MEDS: POTASSIUM CHLORIDE ER 10 MEQ TAB.ER.PRT PO SCH (07:50)
[2021-10-29] MEDS: lisinopriL 5 MG TAB PO SCH (07:50)
[2021-10-29] MEDS: PANTOPRAZOLE 40 MG/10 ML VIAL IV SCH (07:50)
[2021-10-29] MEDS: INSULIN ASPART (NovoLOG) 100 UNIT/ML VIAL SQ SCH ×4 (07:50→22:49)
[2021-10-29] MEDS: METOPROLOL SUCCINATE (ER) 100 MG TAB.ER.24H PO SCH (07:50)
[2021-10-29] MEDS: FUROSEMIDE 10 MG/ML 4 ML VIAL IV SCH (07:50)
--- NOTE | 2021-10-29 08:04 | P.PN ---
Subjective Progress Note Date: 10/28/21 This is an 86-year-old pleasant gentleman, patient of Dr. Stanley Souza. He has underlying history of atrial fibrillation, CAD, permanent pacemaker, diabetes mellitus type 2, CHF, previous CO, hypertension, spinal stenosis, admitted through the emergency room secondary to right hip pain after a fall at home. Patient was in the bathroom, it was not witnessed fall, when the family members he heard at [place], became brushing over and patient subsequently is now down, on the floor patient has short-term memory loss, however she denies any syncope, he has fallen 2 times within 1 week, the first time he tripped, however there is no injury, and previous to this, his toe got stuck, and the carpet, and subs equently fell. Patient has lost approximately weight, over the past one month, and follows with Dr. diane hatfield. Patient denies any chest pain, no PND, no palpitations, patient has shortness of breath on exertion, and is not having any lower extremity edema. No melena and hematochezia no fever no chills, no dysuria. Patient is impulsive, he was supposed to use the walker or a cane for assistive devices at home, however he is not complying to this. Emergency room, his right hip x-ray shows a femoral neck fracture, requiring hemiarthroplasty. Patient is on Pradaxa, which was held during this admission, INR is 2.2, chest x-ray shows patchy left greater than right opacities, decreas ed in the interval, may be reflective of multifocal pneumonia, small left pleural effusion, decrease in size, mild pulmonary edema, moderate cardiomegaly no pneumothorax EKG, paced rhythm 71 urinalysis shows 1 WBC, moderate hyaline casts, sugars are between 167-185 WBC count of 14.2, hemoglobin 12.8, creatinine of 0.9 Consult for preop clearance, and cardiology to cardiology clearance, patient is to undergo right gregg-arthroplasty, on 10/28/2021. INR of 1.9, most likely related to Pradaxa, and will not be reversed. We'll going to hold off Pradaxa for the next 48 hours, ASA risk classification would be a class 3, with a revised cardiac risk index of 2, with history of CHF history of ischemic heart disease with prior CO no prior history of CVA, and normal troponin, diabetes mellitus controlled with oral agents, risk index is approximately 10.1% based on a 30 day mortality for and cardio vascular events. Patient will need to be monitored, with telemetry, monitor for BMP, intraoperatively and postoperatively. Cardiology to follow closely, 10/28: Patient was seen yesterday by cardiology, follows with Dr. Fatima in the office. He is scheduled for anterior right hip hemiarthroplasty today with Dr. Lopez. Patient is on 4 L nasal cannula and does not have home oxygen. One dose of IV Lasix ordered for now, pro-calcitonin and chest x-ray in the morning along with lab work. He has been afebrile, heart rate in the 50s and 60s, blood pressure 149/87. INR is 1.6. REVIEW OF SYSTEMS Constitutional: No fever, no chills, no night sweats. No weight change. No weakness, fatigue or lethargy. No daytime sleepiness. EENT: No headache. No blurred vision or double vision, no loss of vision. No loss of Hearing, no ringing in the ears, no dizziness. No nasal drainage or congestion. No epistaxis. No sore throat. Lungs: Mild shortness of breath, cough, no sputum production. No wheezing. Cardiovascular: No chest pain, no lower extremity edema. No palpitations. No paroxysmal nocturnal dyspnea. No orthopnea. No lightheadedness or dizziness. No syncopal episodes. Abdominal: No abdominal pain. No nausea, vomiting. No diarrhea. No const ipation. No bloody or tarry stools.. No loss of appetite. Genitourinary: No dysuria, increased frequency, urgency. No urinary retention. Musculoskeletal: No myalgias. Reports muscle weakness, reported gait dysfunction, reported frequent falls. No back pain. No neck pain. Integumentary: No wounds, no lesions. No rash or pruritus. No unusual bruising. No change in hair or nails. Neurologic: No aphasia. No facial droop. Chronic long-term change in mentation. No head injury. No headache. No paralysis. No paresthesia. Psychiatric: No depression. No anxiety. No mood swings. Endocrine: No abnormal blood sugars. No weight change. No excessive sweating or thirst. No cold intolerance. PHYSICAL EXAMINATION Gen: This is an 86-year-old male. He is resting in bed and appears to be comfortable. Family members are at bedside HEENT: Head is atraumatic, normocephalic. Pupils equal, round. Sclerae is anicteric. NECK: Supple. No JVD. No lymphadenopathy. No thyromegaly. LUNGS: Diminished in the bases. No wheezes or rhonchi. No intercostal retract ions. HEART: Irregular rate and rhythm. No murmur. ABDOMEN: Soft. Bowel sounds are present. No masses. No tenderness. Stark catheter in place. EXTREMITIES: No pedal edema. No calf tenderness. NEUROLOGICAL: Patient is awake, oriented to person. Cranial nerves 2 through 12 are grossly intact. ASSESSMENT AND PLAN 1. Acute right femoral neck fracture, patient's to undergo right hemiarthroplasty on 10/28/2021, patient would get a separate cardiac recommendation, based on CHF, and a pacemaker implantation, by cardiology. Patient will be monitored, with telemetry intraoperatively and postoperatively, with monitored BNP levels, and troponin. Patient currently is asymptomatic for CHF, revised cardiac risk index of 2, carrying a 10.1% mortality within 30 days postoperatively, including cardiac events. PT OT, discharge planning to follow the patient. 2. History of diabetes mellitus type 2 on oral agents the glimepiride 4 mg daily which will be held morning of surgery. Continue metformin Check for A1c continue on NovoLog scale 3. Chronic systolic heart failure, last EF was 36%, approximately one year ago. Mild pulmonary edema noted chest x-ray, patient's on Lasix 40 mg twice a day no overt failure at this time. One dose of IV Lasix ordered. 4. Permanent pacemaker, currently electronically paced 4. CAD with prior CO, prior CABG 2013, in [place] currently asymptomatic on metoprolol 100 mg daily 5. History of spinal stenosis, was seen by neuro spine in the past no spinal surgery as of date 6. Atrial fibrillation, on Pradaxa and metoprolol no changes made, Pradaxa held preoperatively, for surgery last dose was 10/26/2021 7. Dementia, unknown type, possibly related to Alzheimer's, no history of CVA check for B12 8. Recurrent falls, preceding the current injury, patient will require PT OT, and compliance assistive device for ambulation 9. DVT prophylaxis, patient's Pradaxa which would resume after surgery GI prophylaxis DISCHARGE PLAN Subacute rehab Impression and plan of care have been directed as dictated by the signing physician. Abigail Zaman nurse practitioner acting as scribe for signing physician. Objective - Vital Signs Vital signs: Vital Signs Temp 97.1 F L 10/28/21 08:00 Pulse 64 10/28/21 08:00 Resp 18 10/28/21 08:00 BP 142/65 10/28/21 08:00 Pulse Ox 97 10/28/21 08:00 Intake & Output 10/27/21 10/28/21 10/28/21 18:59 06:59 18:59 Output Total 650 Balance -650 Output: Urine 650 Other: Voiding Method Indwelling Catheter Indwelling Catheter - Labs CBC & Chem 7: 10/28/21 16:51 10/26/21 14:32 Labs: Abnormal Lab Results - Last 24 Hours (Table) 10/27/21 10/27/21 10/27/21 Range/Units 12:00 16:56 20:58 PT (9.0-12.0) sec INR (<1.2) POC Glucose (mg/dL) 167 H 232 H 201 H (75-99) mg/dL 10/28/21 10/28/21 Range/Units 04:11 06:50 PT 16.2 H (9.0-12.0) sec INR 1.6 H (<1.2) POC Glucose (mg/dL) 141 H (75-99) mg/dL
--- NOTE | 2021-10-29 08:39 | XR ---
EXAMINATION TYPE: XR chest 1V portable DATE OF EXAM: 10/29/2021 COMPARISON: Chest x-ray 10/26/2021 HISTORY: Congestive heart failure follow-up TECHNIQUE: Single frontal view of the chest is obtained. FINDINGS: Patient is rotated and post median sternotomy. Generator is present in the left pectoral r egion, there is a lead in the right ventricle. The heart remains enlarged. Aorta is dense. No evident pneumothorax. Bilateral basilar density persists, there is scarring in the left midlung laterally. B lunting of the left costophrenic angle may be due to chronic pleural reaction. Prominence of intersti tium is noted, central vascularity appears prominently IMPRESSION: There may be a component of interstitial edema..
--- NOTE | 2021-10-29 08:53 | P.PN ---
Progress Note - Text Progress Note Date: 10/29/21 Patient remains confused. The Stark catheter was removed yesterday evening. He is unsure whether or not he has voided. I examined his brief, which contains blood-tinged urine. Suprapubic palpation causes some urine to be expressed per urethra, and I suspect he is in urinary retention. Bladder scan will be obtained for confirmation. If this is the case, the Stark catheter will need to be replaced.
[2021-10-29 09:23] LABS: HCT 32.7 % (39.6-50.0); HGB 9.9 g/dL (13.0-17.0); MCH 28.1 pg (27.0-32.0); MCHC 30.3 g/dL (32.0-37.0); MCV 92.9 fL (80.0-97.0); Mean Platelet Volume 10.5 fL (9.5-12.2); NRBC Per 100 WBC 0 /100 WBCS (0.0-0.0); Platelet Count 163 X 10*3/uL (140-440); RBC 3.52 X 10*6/uL (4.40-5.60); RDW 14.4 % (11.5-14.5); WBC 11.29 X 10*3/uL (4.50-10.00)
[2021-10-29 09:24] LABS: African American GFR (CKD) 48.5 (60.0-200.0); Albumin 3.3 g/dL (3.8-4.9); Albumin/Globulin Ratio 1.38 (1.60-3.17); Anion Gap 10.8 mmol/L (10.00-18.00); BUN/Creat Ratio 28.33 Ratio (12.00-20.00); Blood Urea Nitrogen 42.5 mg/dL (9.0-27.0); Calcium 8.6 mg/dL (8.7-10.3); Carbon Dioxide 24.2 mmol/L (20.0-27.5); Globulin 2.4 g/dL (1.6-3.3); Non-African American GFR(CKD) 41.8 (60.0-200.0); Potassium 4.8 mmol/L (3.5-5.5); Total Protein 5.7 g/dL (6.2-8.2)
--- NOTE | 2021-10-29 10:21 | P.PN ---
Subjective Progress Note Date: 10/29/21 This patient is an 86-year-old male who is status-post right direct anterior hip hemiarthroplasty on 10/28/21. Today is postoperative day #1. The patient is seen and examined at bedside. Per nursing, the patient pulled out his drain last evening. He also pulled off his dressings. Patient states he is not in pain at this time and has no complaints. He is confused at baseline. he denies chest pain, shortness breath, pain in the right hip. Vital signs stable. Objective - Vital Signs Vital signs: Vital Signs Temp 99.4 F 10/29/21 08:00 Pulse 63 10/29/21 08:00 Resp 18 10/29/21 08:00 BP 165/69 10/29/21 08:00 Pulse Ox 98 10/29/21 08:00 Intake & Output 10/28/21 10/29/21 10/29/21 18:59 06:59 18:59 Intake Total 1340 Output Total 700 150 Balance 640 -150 Intake: IV 1100 Oral 240 Output: Urine 500 150 Estimated Blood Loss 200 Other: Voiding Method Indwelling Catheter Indwelling Catheter # Voids 4 - Exam On examination, patient is sitting up in bed in no apparent distress. He is alert and oriented 1. He is alert and answers questions appropriate. On inspection of the right hip, the drain has been pulled and there is no dressing in place. The incision is benign and well approximated. No active drainage. No surrounding erythema. No drainage. There is mild swelling of the thigh, the thigh soft and compressible. He has good strength and [id number] of the right lower extremity. Motor and sensory function is intact of the right lower extremity. Right lower extremity warm and well perfused with brisk capillary refill distally. Calves are soft, nontender to palpation bilaterally. - Labs CBC & Chem 7: 10/29/21 04:29 10/29/21 04:29 Labs: Abnormal Lab Results - Last 24 Hours (Table) 10/28/21 10/28/21 10/28/21 Range/Units 04:11 11:34 16:51 WBC 10.67 H (4.50-10.00) X 10*3/uL RBC 3.87 L (4.40-5.60) X 10*6/uL Hgb 10.9 L (13.0-17.0) g/dL Hct 36.7 L (39.6-50.0) % MCHC 29.7 L (32.0-37.0) g/dL Immature Gran # 0.09 H (0.00-0.04) X 10*3/uL Neutrophils # 9.59 H (1.80-7.70) X 10*3/uL Lymphocytes # 0.42 L (0.90-5.00) X 10*3/uL BUN (9.0-27.0) mg/dL Est GFR (CKD-EPI)AfAm (60.0-200.0) Est GFR (CKD-EPI)NonAf (60.0-200.0) BUN/Creatinine Ratio (12.00-20.00) Ratio Glucose (70-110) mg/dL POC Glucose (mg/dL) 150 H (75-99) mg/dL Calcium (8.7-10.3) mg/dL Total Protein (6.2-8.2) g/dL Albumin (3.8-4.9) g/dL Albumin/Globulin Ratio (1.60-3.17) g/dL Procalcitonin 1.20 H (0.02-0.09) ng/mL 10/28/21 10/28/21 10/29/21 Range/Units 16:57 20:24 04:29 WBC 11.29 H (4.50-10.00) X 10*3/uL RBC 3.52 L (4.40-5.60) X 10*6/uL Hgb 9.9 L (13.0-17.0) g/dL Hct 32.7 L (39.6-50.0) % MCHC 30.3 L (32.0-37.0) g/dL Immature Gran # (0.00-0.04) X 10*3/uL Neutrophils # (1.80-7.70) X 10*3/uL Lymphocytes # (0.90-5.00) X 10*3/uL BUN (9.0-27.0) mg/dL Est GFR (CKD-EPI)AfAm (60.0-200.0) Est GFR (CKD-EPI)NonAf (60.0-200.0) BUN/Creatinine Ratio (12.00-20.00) Ratio Glucose (70-110) mg/dL POC Glucose (mg/dL) 219 H 245 H (75-99) mg/dL Calcium (8.7-10.3) mg/dL Total Protein (6.2-8.2) g/dL Albumin (3.8-4.9) g/dL Albumin/Globulin Ratio (1.60-3.17) g/dL Procalcitonin (0.02-0.09) ng/mL 10/29/21 10/29/21 Range/Units 04:29 07:35 WBC (4.50-10.00) X 10*3/uL RBC (4.40-5.60) X 10*6/uL Hgb (13.0-17.0) g/dL Hct (39.6-50.0) % MCHC (32.0-37.0) g/dL Immature Gran # (0.00-0.04) X 10*3/uL Neutrophils # (1.80-7.70) X 10*3/uL Lymphocytes # (0.90-5.00) X 10*3/uL BUN 42.5 H (9.0-27.0) mg/dL Est GFR (CKD-EPI)AfAm 48.5 L (60.0-200.0) Est GFR (CKD-EPI)NonAf 41.8 L (60.0-200.0) BUN/Creatinine Ratio 28.33 H (12.00-20.00) Ratio Glucose 211 H (70-110) mg/dL POC Glucose (mg/dL) 188 H (75-99) mg/dL Calcium 8.6 L (8.7-10.3) mg/dL Total Protein 5.7 L (6.2-8.2) g/dL Albumin 3.3 L (3.8-4.9) g/dL Albumin/Globulin Ratio 1.38 L (1.60-3.17) g/dL Procalcitonin (0.02-0.09) ng/mL Assessment and Plan Assessment: Status-post right direct anterior hip hemiarthroplasty on 10/28/21. Post- operative day #1. Plan: - Weight-bear as tolerated on the operative leg with a walker. - Physical therapy for gait and balance training. - New Opsite dressings were placed to the right hip today. Keep these dressings intact. - Pain management as needed. - Resume Pradaxa for DVT prophylaxis. - 2 doses of postoperative IV antibiotics complete. - Internal medicine for surya-operative medical management. Dr. Monaco following for urethral bleeding. - Case management has been consulted for discharge planning.
--- NOTE | 2021-10-29 10:25 | P.PN ---
Subjective This is a pleasant 86-year-old male past medical history significant for coronary artery disease, persistent atrial fibrillation on pradaxa, permanent pacemaker implantation, diabetes mellitus, hypertension and memory impairment. He follows in the office with Dr. Fatima. We have been asked to see in consultation for pre-operative evaluation. Patient presents to the hospital after a fall at home, unwitnessed, and had a Right femoral neck fracture. He denies syncope or dizziness. He states he just lost his balance. However there is some memory impairment and he is a poor historian. 10/29/2021 Patient seen and examined at bedside, he is doing well. He is POD #1 Right direct anterior hip hemiarthroplasty with Dr. Lopez. He is alert, oriented to person and is aware he had surgery. He states he is "at a neighbors house". No complaints. He denies chest pain, shortness of breath, dizziness or palpitations. Urology was consulted for bleeding around anderson catheter Patient given 2 doses of IV Lasix post surgery, one overnight and this AM. He is also maintained on IV Lasix 40mg BID and Lisinopril 5 mg daily, metoprolol succinate 100 mg daily Labs: Hemoglobin 9.9, WBC 11.2, platelets 163, sodium 141, potassium 4.8, BUN 42, serum, and 1.5 PHYSICAL EXAMINATION Blood pressure 165/69, heart 63, afebrile, oxygen saturation is 98% on 3 L nasal cannula CONSTITUTIONAL: No apparent distress. HEENT: Neck Supple. No JVD. No carotid bruit. CHEST EXAMINATION: Lungs are clear to auscultation. No chest wall tenderness is noted on palpation or with deep breathing. HEART EXAMINATION: Irregular rate and rhythm. S1, S2 heard. Systolic ejection murmur at the base, no gallops or rub. ABDOMEN: Soft, nontender. EXTREMITIES: 2+ peripheral pulses, no lower extremity edema and no calf tenderness. NEUROLOGIC EXAMINATION: Patient is awake and alert, oriented to person ASSESSMENT Fall, no evidence of syncope at this time. Right femoral neck fracture Persistent atrial fibrillation on pradaxa CAD s/p bypass grafting and PCI to the LAD Ischemic cardiomyopathy Chronic systolic heart failure Hypertension Dyslipidemia Diabetes mellitus PLAN Last dose of pradaxa was 10/26/2021 AM, continues to be on hold. Recommend restarting when ok per orthopedic surgery. From a cardiology perspective, no further workup indicated at this time and patient appears stable. Patient does not appear to be in acute heart failure at this time. Recommend follow up outpatient with Dr. Fatima Nurse Practitioner note has been reviewed, I agree with a documented findings and plan of care. Patient was seen and examined. Objective - Vital Signs Vital signs: Vital Signs Temp 99.4 F 10/29/21 08:00 Pulse 63 10/29/21 08:00 Resp 18 10/29/21 08:00 BP 165/69 10/29/21 08:00 Pulse Ox 98 10/29/21 08:00 Intake & Output 10/28/21 10/29/21 10/29/21 18:59 06:59 18:59 Intake Total 1340 Output Total 700 150 Balance 640 -150 Intake: IV 1100 Oral 240 Output: Urine 500 150 Estimated Blood Loss 200 Other: Voiding Method Indwelling Catheter Indwelling Catheter # Voids 4 - Labs CBC & Chem 7: 10/29/21 04:29 10/29/21 04:29 Labs: Abnormal Lab Results - Last 24 Hours (Table) 10/28/21 10/28/21 10/28/21 Range/Units 04:11 11:34 16:51 WBC 10.67 H (4.50-10.00) X 10*3/uL RBC 3.87 L (4.40-5.60) X 10*6/uL Hgb 10.9 L (13.0-17.0) g/dL Hct 36.7 L (39.6-50.0) % MCHC 29.7 L (32.0-37.0) g/dL Immature Gran # 0.09 H (0.00-0.04) X 10*3/uL Neutrophils # 9.59 H (1.80-7.70) X 10*3/uL Lymphocytes # 0.42 L (0.90-5.00) X 10*3/uL BUN (9.0-27.0) mg/dL Est GFR (CKD-EPI)AfAm (60.0-200.0) Est GFR (CKD-EPI)NonAf (60.0-200.0) BUN/Creatinine Ratio (12.00-20.00) Ratio Glucose (70-110) mg/dL POC Glucose (mg/dL) 150 H (75-99) mg/dL Calcium (8.7-10.3) mg/dL Total Protein (6.2-8.2) g/dL Albumin (3.8-4.9) g/dL Albumin/Globulin Ratio (1.60-3.17) g/dL Procalcitonin 1.20 H (0.02-0.09) ng/mL 10/28/21 10/28/21 10/29/21 Range/Units 16:57 20:24 04:29 WBC 11.29 H (4.50-10.00) X 10*3/uL RBC 3.52 L (4.40-5.60) X 10*6/uL Hgb 9.9 L (13.0-17.0) g/dL Hct 32.7 L (39.6-50.0) % MCHC 30.3 L (32.0-37.0) g/dL Immature Gran # (0.00-0.04) X 10*3/uL Neutrophils # (1.80-7.70) X 10*3/uL Lymphocytes # (0.90-5.00) X 10*3/uL BUN (9.0-27.0) mg/dL Est GFR (CKD-EPI)AfAm (60.0-200.0) Est GFR (CKD-EPI)NonAf (60.0-200.0) BUN/Creatinine Ratio (12.00-20.00) Ratio Glucose (70-110) mg/dL POC Glucose (mg/dL) 219 H 245 H (75-99) mg/dL Calcium (8.7-10.3) mg/dL Total Protein (6.2-8.2) g/dL Albumin (3.8-4.9) g/dL Albumin/Globulin Ratio (1.60-3.17) g/dL Procalcitonin (0.02-0.09) ng/mL 10/29/21 10/29/21 Range/Units 04:29 07:35 WBC (4.50-10.00) X 10*3/uL RBC (4.40-5.60) X 10*6/uL Hgb (13.0-17.0) g/dL Hct (39.6-50.0) % MCHC (32.0-37.0) g/dL Immature Gran # (0.00-0.04) X 10*3/uL Neutrophils # (1.80-7.70) X 10*3/uL Lymphocytes # (0.90-5.00) X 10*3/uL BUN 42.5 H (9.0-27.0) mg/dL Est GFR (CKD-EPI)AfAm 48.5 L (60.0-200.0) Est GFR (CKD-EPI)NonAf 41.8 L (60.0-200.0) BUN/Creatinine Ratio 28.33 H (12.00-20.00) Ratio Glucose 211 H (70-110) mg/dL POC Glucose (mg/dL) 188 H (75-99) mg/dL Calcium 8.6 L (8.7-10.3) mg/dL Total Protein 5.7 L (6.2-8.2) g/dL Albumin 3.3 L (3.8-4.9) g/dL Albumin/Globulin Ratio 1.38 L (1.60-3.17) g/dL Procalcitonin (0.02-0.09) ng/mL
[2021-10-29 11:38] LABS: Glucose,Whole Blood 204 mg/dL (75-99)
[2021-10-29] MEDS ORDERED: LIDOCAINE URO-JET JELLY 2% 5 ML KIT URETHRAL ONE (13:49)
[2021-10-29] MEDS: AZITHROMYCIN 500 MG in SODIUM CHLORIDE 0.9% 250 ML IVPB SCH (15:36)
[2021-10-29] MEDS: FUROSEMIDE 40 MG TAB PO SCH (15:37)
--- NOTE | 2021-10-29 16:17 | P.PN ---
Subjective Progress Note Date: 10/29/21 This is an 86-year-old pleasant gentleman, patient of Dr. Stanley Souza. He has underlying history of atrial fibrillation, CAD, permanent pacemaker, diabetes mellitus type 2, CHF, previous [place], hypertension, spinal stenosis, admitted through the emergency room secondary to right hip pain after a fall at home. Patient was in the bathroom, it was not witnessed fall, when the family members he heard at [place], became brushing over and patient subsequently is now down, on the floor patient has short-term memory loss, however she denies any syncope, he has fallen 2 times within 1 week, the first time he tripped, however there is no injury, and previous to this, his toe got stuck, and the carpet, and subs equently fell. Patient has lost approximately weight, over the past one month, and follows with Dr. diane hatfield. Patient denies any chest pain, no PND, no palpitations, patient has shortness of breath on exertion, and is not having any lower extremity edema. No melena and hematochezia no fever no chills, no dysuria. Patient is impulsive, he was supposed to use the walker or a cane for assistive devices at home, however he is not complying to this. Emergency room, his right hip x-ray shows a femoral neck fracture, requiring hemiarthroplasty. Patient is on Pradaxa, which was held during this admission, INR is 2.2, chest x-ray shows patchy left greater than right opacities, decreas ed in the interval, may be reflective of multifocal pneumonia, small left pleural effusion, decrease in size, mild pulmonary edema, moderate cardiomegaly no pneumothorax EKG, paced rhythm 71 urinalysis shows 1 WBC, moderate hyaline casts, sugars are between 167-185 WBC count of 14.2, hemoglobin 12.8, creatinine of 0.9 Consult for preop clearance, and cardiology to cardiology clearance, patient is to undergo right gregg-arthroplasty, on 10/28/2021. INR of 1.9, most likely related to Pradaxa, and will not be reversed. We'll going to hold off Pradaxa for the next 48 hours, ASA risk classification would be a class 3, with a revised cardiac risk index of 2, with history of CHF history of ischemic heart disease with prior [place] no prior history of CVA, and normal troponin, diabetes mellitus controlled with oral agents, risk index is approximately 10.1% based on a 30 day mortality for and cardio vascular events. Patient will need to be monitored, with telemetry, monitor for BMP, intraoperatively and postoperatively. Cardiology to follow closely, 10/28: Patient was seen yesterday by cardiology, follows with Dr. Fatima in the office. He is scheduled for anterior right hip hemiarthroplasty today with Dr. Lopez. Patient is on 4 L nasal cannula and does not have home oxygen. One dose of IV Lasix ordered for now, pro-calcitonin and chest x-ray in the morning along with lab work. He has been afebrile, heart rate in the 50s and 60s, blood pressure 149/87. INR is 1.6. 10/29: Yesterday, patient underwent right anterior hip gregg-arthroplasty. Patient is afebrile, heart rate in the 60s, blood pressure 165/69, pulse ox 90% on 3 L nasal cannula. Repeat blood work reveals WBC 11.2, hemoglobin 9.9. Electrolytes are normal. BUN 42 creatinine 1.5. Capillary blood glucose runn ing between 188 and 245. Liver function tests were normal. Chest x-ray this morning reveals component of interstitial edema. IV Lasix will be changed to oral. Speech therapy consult added for concern for aspiration pneumonia and patient started on antibiotics. Patient is able to reach 1000 on incentive spirometry. REVIEW OF SYSTEMS Constitutional: No fever, no chills, no night sweats. No weight change. No weakness, fatigue or lethargy. No daytime sleepiness. EENT: No headache. No blurred vision or double vision, no loss of vision. No loss of Hearing, no ringing in the ears, no dizziness. No nasal drainage or congestion. No epistaxis. No sore throat. Lungs: Mild shortness of breath, cough, no sputum production. No wheezing. Cardiovascular: No chest pain, no lower extremity edema. No palpitations. No paroxysmal nocturnal dyspnea. No orthopnea. No lightheadedness or dizziness. No syncopal episodes. Abdominal: No abdominal pain. No nausea, vomiting. No diarrhea. No constipation. No bloody or tarry stools.. No loss of appetite. Genitourinary: No dysuria, increased frequency, urgency. No urinary retention. Musculoskeletal: No myalgias. Reports muscle weakness, reported gait dysfunction, reported frequent falls. No back pain. No neck pain. Integumentary: No wounds, no lesions. No rash or pruritus. No unusual bruising. No change in hair or nails. Neurologic: No aphasia. No facial droop. Chronic long-term change in mentation. No head injury. No headache. No paralysis. No paresthesia. Psychiatric: No depression. No anxiety. No mood swings. Endocrine: No abnormal blood sugars. PHYSICAL EXAMINATION Gen: This is an 86-year-old male. He is resting in bed and appears to be comfortable. Family members are at bedside HEENT: Head is atraumatic, normocephalic. Pupils equal, round. Sclerae is anicteric. NECK: Supple. No JVD. No lymphadenopathy. No thyromegaly. LUNGS: Diminished in the bases. No wheezes or rhonchi. No intercostal retractions. HEART: Irregular rate and rhythm. No murmur. ABDOMEN: Soft. Bowel sounds are present. No masses. No tenderness. Stark catheter in place. EXTREMITIES: No pedal edema. No calf tenderness. NEUROLOGICAL: Patient is awake, oriented to person. Cranial nerves 2 through 12 are grossly intact. ASSESSMENT AND PLAN 1. Acute right femoral neck fracture status post right anterior hip hemiarthroplasty 10/28. Continue current pain management, PT and OT, discharge planning, encourage incentive spirometry to reduce incidence of atelectasis and hospital-acquired pneumonia. DVT CT prophylaxis per orthopedics. 2. History of diabetes mellitus type 2 on oral agents the glimepiride 4 mg daily which will be held morning of surgery. Continue metformin Check for A1c continue on NovoLog scale 3. Acute on Chronic systolic heart failure, last EF was 36%, approximately one year ago. Mild pulmonary edema noted chest x-ray, patient's on Lasix 40 mg twice a day no overt failure at this time. IV Lasix transitioned to oral. 4. Permanent pacemaker, currently electronically paced 4. CAD with prior [place], prior CABG 2013, in [place] currently asymptomatic on metoprolol 100 mg daily 5. History of spinal stenosis, was seen by neuro spine in the past no spinal surgery as of date 6. Atrial fibrillation, on Pradaxa and metoprolol no changes made, Pradaxa held preoperatively, for surgery last dose was 10/26/2021 7. Dementia, unknown type, possibly related to Alzheimer's, no history of CVA check for B12 8. Recurrent falls, preceding the current injury, patient will require PT OT, and compliance assistive device for ambulation 9. DVT prophylaxis, patient's Pradaxa which would resume after surgery GI prophylaxis DISCHARGE PLAN Subacute rehab at [facility] Impression and plan of care have been directed as dictated by the signing physician. Abigail Zaman nurse practitioner acting as scribe for signing physician. Objective - Vital Signs Vital signs: Vital Signs Temp 99.4 F 10/29/21 08:00 Pulse 63 10/29/21 08:00 Resp 18 10/29/21 08:00 BP 165/69 10/29/21 08:00 Pulse Ox 98 10/29/21 08:00 Intake & Output 10/28/21 10/29/21 10/29/21 18:59 06:59 18:59 Intake Total 1340 Output Total 700 150 Balance 640 -150 Intake: IV 1100 Oral 240 Output: Urine 500 150 Estimated Blood Loss 200 Other: Voiding Method Indwelling Catheter Indwelling Catheter # Voids 4 - Labs CBC & Chem 7: 10/29/21 04:29 10/29/21 04:29 Labs: Abnormal Lab Results - Last 24 Hours (Table) 10/28/21 10/28/21 10/28/21 Range/Units 04:11 11:34 16:51 WBC 10.67 H (4.50-10.00) X 10*3/uL RBC 3.87 L (4.40-5.60) X 10*6/uL Hgb 10.9 L (13.0-17.0) g/dL Hct 36.7 L (39.6-50.0) % MCHC 29.7 L (32.0-37.0) g/dL Immature Gran # 0.09 H (0.00-0.04) X 10*3/uL Neutrophils # 9.59 H (1.80-7.70) X 10*3/uL Lymphocytes # 0.42 L (0.90-5.00) X 10*3/uL BUN (9.0-27.0) mg/dL Est GFR (CKD-EPI)AfAm (60.0-200.0) Est GFR (CKD-EPI)NonAf (60.0-200.0) BUN/Creatinine Ratio (12.00-20.00) Ratio Glucose (70-110) mg/dL POC Glucose (mg/dL) 150 H (75-99) mg/dL Calcium (8.7-10.3) mg/dL Total Protein (6.2-8.2) g/dL Albumin (3.8-4.9) g/dL Albumin/Globulin Ratio (1.60-3.17) g/dL Procalcitonin 1.20 H (0.02-0.09) ng/mL 10/28/21 10/28/21 10/29/21 Range/Units 16:57 20:24 04:29 WBC 11.29 H (4.50-10.00) X 10*3/uL RBC 3.52 L (4.40-5.60) X 10*6/uL Hgb 9.9 L (13.0-17.0) g/dL Hct 32.7 L (39.6-50.0) % MCHC 30.3 L (32.0-37.0) g/dL Immature Gran # (0.00-0.04) X 10*3/uL Neutrophils # (1.80-7.70) X 10*3/uL Lymphocytes # (0.90-5.00) X 10*3/uL BUN (9.0-27.0) mg/dL Est GFR (CKD-EPI)AfAm (60.0-200.0) Est GFR (CKD-EPI)NonAf (60.0-200.0) BUN/Creatinine Ratio (12.00-20.00) Ratio Glucose (70-110) mg/dL POC Glucose (mg/dL) 219 H 245 H (75-99) mg/dL Calcium (8.7-10.3) mg/dL Total Protein (6.2-8.2) g/dL Albumin (3.8-4.9) g/dL Albumin/Globulin Ratio (1.60-3.17) g/dL Procalcitonin (0.02-0.09) ng/mL 10/29/21 10/29/21 Range/Units 04:29 07:35 WBC (4.50-10.00) X 10*3/uL RBC (4.40-5.60) X 10*6/uL Hgb (13.0-17.0) g/dL Hct (39.6-50.0) % MCHC (32.0-37.0) g/dL Immature Gran # (0.00-0.04) X 10*3/uL Neutrophils # (1.80-7.70) X 10*3/uL Lymphocytes # (0.90-5.00) X 10*3/uL BUN 42.5 H (9.0-27.0) mg/dL Est GFR (CKD-EPI)AfAm 48.5 L (60.0-200.0) Est GFR (CKD-EPI)NonAf 41.8 L (60.0-200.0) BUN/Creatinine Ratio 28.33 H (12.00-20.00) Ratio Glucose 211 H (70-110) mg/dL POC Glucose (mg/dL) 188 H (75-99) mg/dL Calcium 8.6 L (8.7-10.3) mg/dL Total Protein 5.7 L (6.2-8.2) g/dL Albumin 3.3 L (3.8-4.9) g/dL Albumin/Globulin Ratio 1.38 L (1.60-3.17) g/dL Procalcitonin (0.02-0.09) ng/mL
[2021-10-29 16:26] LABS: Glucose,Whole Blood 308 mg/dL (75-99)
[2021-10-29 20:46] LABS: Glucose,Whole Blood 209 mg/dL (75-99)
[2021-10-29] MEDS: DABIGATRAN 150 MG CAP PO SCH (22:48)
[2021-10-29] MEDS: HYDROcodone/APAP 5-325MG 1 EACH TAB PO PRN (22:48)
[2021-10-29] MEDS: TAMSULOSIN 0.4 MG CAP.ER.24H PO SCH (22:49)
[2021-10-30 06:46] LABS: Glucose,Whole Blood 179 mg/dL (75-99)
[2021-10-30] MEDS: FUROSEMIDE 40 MG TAB PO SCH (07:53)
[2021-10-30] MEDS: INSULIN ASPART (NovoLOG) 100 UNIT/ML VIAL SQ SCH ×2 (07:53→12:47)
[2021-10-30] MEDS: lisinopriL 5 MG TAB PO SCH (07:53)
[2021-10-30] MEDS: POTASSIUM CHLORIDE ER 10 MEQ TAB.ER.PRT PO SCH (07:53)
[2021-10-30] MEDS: DABIGATRAN 150 MG CAP PO SCH (07:54)
[2021-10-30] MEDS: METOPROLOL SUCCINATE (ER) 100 MG TAB.ER.24H PO SCH (07:54)
[2021-10-30] MEDS: PANTOPRAZOLE 40 MG/10 ML VIAL IV SCH (07:55)
[2021-10-30] MEDS: AZITHROMYCIN 500 MG in SODIUM CHLORIDE 0.9% 250 ML IVPB SCH (08:51)
--- NOTE | 2021-10-30 10:08 | P.DS ---
Providers Date of admission: 10/26/21 17:34 Expected date of discharge: 10/30/21 Attending physician: Marco Lopez Consults: 10/26/21 17:35 Consult Physician Urgent Consulting Provider: Candy Pastrana Consult Reason/Comments: Medical clearance for surgery Do you want consulting provider notified?: Already Contacted 10/26/21 17:36 Consult Physician Urgent Consulting Provider: Tati Dominguez Consult Reason/Comments: Cardiac clearance for surgery Do you want consulting provider notified?: Already Contacted 10/28/21 15:31 Consult Physician Urgent Consulting Provider: Mauro Castro Consult Reason/Comments: evelyn bleeding from anderson catheter Do you want consulting provider notified?: Yes Primary care physician: [facility] Hospital Course: This is an 86-year-old male who is admitted to [facility] on 10/26/21 after a ground-level fall and sustaining injury to the right hip. X-rays in the emergency department revealed a right femoral neck fracture. He is admitted to our service for surgical intervention and care. Patient was taken to surgery for direct anterior right hip hemiarthroplasty on 10/28/[address] Lopez. The procedure was performed without complication or sequelae. The patient is doing fairly well postoperatively. Vital signs and labs are stable on post- operative day #2. Patient was examined bedside today. Patient states he is doing well and has no specific complaints. Patient is confused at baseline. He denies pain in the right hip when asked. He denies chest pain, shortness of breath, nausea, vomiting. Vital signs stable. On examination, the patient is sitting up in bed eating breakfast. He is alert and oriented 1. On inspection of the right hip, there are Opsite surgical dressings in place. Distal dressing is saturated with serosanguineous drainage. There is mild swelling of the thigh, thigh is soft and compressible. Patient has good strength and ROM of the right ankle and toes. Motor and sensory function is intact of the right lower extremity. Right lower extremity is warm and well perfused with brisk capillary refill distally. Calf is soft and non-tender. Opsite dressing changed bedside this morning. Patient is discharged to rehab today in good condition, pending medical clearance. Patient will follow-up with Dr. Lopez in the office in two weeks. Please see med rec for accurate list of discharge medication. Patient Condition at Discharge: Stable Plan - Discharge Summary Discharge Rx Participant: Yes New Discharge Prescriptions: New HYDROcodone/APAP 5-325MG [Showell 5-325] 1 tab PO Q8HR PRN 7 Days #20 tab PRN Reason: Pain No Action Docusate Sodium [Stool Softener] 100 mg PO HS Ascorbic Acid [Vitamin C] 500 mg PO HS Atorvastatin [Lipitor] 20 mg PO HS Potassium Chloride [Klor-Con 20] 10 meq PO DAILY lisinopriL [Zestril] 5 mg PO DAILY Furosemide [Lasix] 40 mg PO BID@0800,1200 metFORMIN HCL [Glucophage] 1,000 mg PO BID Calcium Carbonate [Calcium] 1,200 mg PO DAILY Dabigatran [Pradaxa] 150 mg PO BID Metoprolol Succinate [Toprol XL] 100 mg PO DAILY Tamsulosin [Flomax] 0.4 mg PO HS Glimepiride [Amaryl] 4 mg PO -[facility] Discharge Medication List Docusate Sodium [Stool Softener] 100 mg PO HS 03/02/14 [History] Ascorbic Acid [Vitamin C] 500 mg PO HS 02/12/18 [History] Atorvastatin [Lipitor] 20 mg PO HS 02/12/18 [History] Furosemide [Lasix] 40 mg PO BID@0800,1200 05/28/18 [History] Potassium Chloride [Klor-Con 20] 10 meq PO DAILY 05/28/18 [History] lisinopriL [Zestril] 5 mg PO DAILY 05/28/18 [History] Calcium Carbonate [Calcium] 1,200 mg PO DAILY 12/07/20 [History] Metoprolol Succinate [Toprol XL] 100 mg PO DAILY 12/07/20 [History] metFORMIN HCL [Glucophage] 1,000 mg PO BID 12/07/20 [History] Glimepiride [Amaryl] 4 mg PO [id number]-[id number] 12/19/20 [History] Tamsulosin [Flomax] 0.4 mg PO HS 12/19/20 [History] Dabigatran [Pradaxa] 150 mg PO BID 10/26/21 [History] HYDROcodone/APAP 5-325MG [Showell 5-325] 1 tab PO Q8HR PRN 7 Days #20 tab 10/30/21 [Rx] Follow up Appointment(s)/Referral(s): Sulaiman Fatima MD [STAFF PHYSICIAN] - 2 Weeks Mauro Souza MD [Primary Care Provider] - 11/11/21 10:00 am Marco Lopez MD [Medical Doctor] - 2 Weeks Activity/Diet/Wound Care/Special Instructions: Weight bearing as tolerated on operative leg with a walker and assistance. Physical therapy for gait and balance training. Take pain medications as prescribed. Resume Pradaxa for DVT prophylaxis. Keep operative dressings intact until follow-up appointment in the office. Follow-up in the office in [address] Lopez. Call the office with any questions or concerns,
[2021-10-30 11:29] LABS: Glucose,Whole Blood 386 mg/dL (75-99)
[2021-10-30 11:36] LABS: Basophils % (A) 0 %; Eosinophils # (A) 0.6 k/uL (0-0.7); Eosinophils % (A) 6 %; HCT 35.5 % (39.0-53.0); Hypochromasia Marked; Lymphocytes # (A) 0.7 k/uL (1.0-4.8); Lymphocytes % (A) 7 %; MCH 29.6 pg (25.0-35.0); MCHC 30.9 g/dL (31.0-37.0); MCV 95.9 fL (80.0-100.0); Mean Platelet Volume 8.2; Monocytes # (A) 0.7 k/uL (0-1.0); Monocytes % (A) 7 %; Neutrophils # (A) 8.1 k/uL (1.3-7.7); Neutrophils % (A) 78 %; Platelet Count 184 k/uL (150-450); RBC 3.71 m/uL (4.30-5.90); WBC 10.4 k/uL (3.8-10.6)
[2021-10-30] MEDS: HYDROcodone/APAP 5-325MG 1 EACH TAB PO PRN (12:48)
[2021-10-30 14:31] VITALS: BP 143/70; PULSE 62; RESP 17; TEMP 98.9
--- NOTE | 2021-10-30 15:00 | P.PN ---
Subjective Progress Note Date: 10/30/21 This is an 86-year-old pleasant gentleman, patient of Dr. Stanley Souza. He has underlying history of atrial fibrillation, CAD, permanent pacemaker, diabetes mellitus type 2, CHF, previous [place], hypertension, spinal stenosis, admitted through the emergency room secondary to right hip pain after a fall at home. Patient was in the bathroom, it was not witnessed fall, when the family members he heard at [place], became brushing over and patient subsequently is now down, on the floor patient has short-term memory loss, however she denies any syncope, he has fallen 2 times within 1 week, the first time he tripped, however there is no injury, and previous to this, his toe got stuck, and the carpet, and subs equently fell. Patient has lost approximately weight, over the past one month, and follows with Dr. diane hatfield. Patient denies any chest pain, no PND, no palpitations, patient has shortness of breath on exertion, and is not having any lower extremity edema. No melena and hematochezia no fever no chills, no dysuria. Patient is impulsive, he was supposed to use the walker or a cane for assistive devices at home, however he is not complying to this. Emergency room, his right hip x-ray shows a femoral neck fracture, requiring hemiarthroplasty. Patient is on Pradaxa, which was held during this admission, INR is 2.2, chest x-ray shows patchy left greater than right opacities, decreas ed in the interval, may be reflective of multifocal pneumonia, small left pleural effusion, decrease in size, mild pulmonary edema, moderate cardiomegaly no pneumothorax EKG, paced rhythm 71 urinalysis shows 1 WBC, moderate hyaline casts, sugars are between 167-185 WBC count of 14.2, hemoglobin 12.8, creatinine of 0.9 Consult for preop clearance, and cardiology to cardiology clearance, patient is to undergo right gregg-arthroplasty, on 10/28/2021. INR of 1.9, most likely related to Pradaxa, and will not be reversed. We'll going to hold off Pradaxa for the next 48 hours, ASA risk classification would be a class 3, with a revised cardiac risk index of 2, with history of CHF history of ischemic heart disease with prior [place] no prior history of CVA, and normal troponin, diabetes mellitus controlled with oral agents, risk index is approximately 10.1% based on a 30 day mortality for and cardio vascular events. Patient will need to be monitored, with telemetry, monitor for BMP, intraoperatively and postoperatively. Cardiology to follow closely, 10/28: Patient was seen yesterday by cardiology, follows with Dr. Fatima in the office. He is scheduled for anterior right hip hemiarthroplasty today with Dr. Lopez. Patient is on 4 L nasal cannula and does not have home oxygen. One dose of IV Lasix ordered for now, pro-calcitonin and chest x-ray in the morning along with lab work. He has been afebrile, heart rate in the 50s and 60s, blood pressure 149/87. INR is 1.6. 10/29: Yesterday, patient underwent right anterior hip gregg-arthroplasty. Patient is afebrile, heart rate in the 60s, blood pressure 165/69, pulse ox 90% on 3 L nasal cannula. Repeat blood work reveals WBC 11.2, hemoglobin 9.9. Electrolytes are normal. BUN 42 creatinine 1.5. Capillary blood glucose runn ing between 188 and 245. Liver function tests were normal. Chest x-ray this morning reveals component of interstitial edema. IV Lasix will be changed to oral. Speech therapy consult added for concern for aspiration pneumonia and patient started on antibiotics. Patient is able to reach 1000 on incentive spirometry. 10/30: Patient was seen by Dr. Monaco after Stark catheter was removed yesterday patient was retaining urine, Dr. Monaco placed Stark catheter with return of 900 ML's with recommendations to maintain catheter. Patient is confused slightly more than his baseline and there is concern that patient will remove or pull out Stark. We have added and Remeron to help him with sleeping. He'll be continued on oral antibiotics. Glimepiride adjusted and metformin continued at discharge. Medication reconciliation is been completed for medicine. Patient is scheduled for discharge to subacute rehab today at [facility]. REVIEW OF SYSTEMS Constitutional: No fever, no chills, no night sweats. No weight change. No weakness, fatigue or lethargy. No daytime sleepiness. EENT: No headache. No blurred vision or double vision, no loss of vision. No loss of Hearing, no ringing in the ears, no dizziness. No nasal drainage or congestion. No epistaxis. No sore throat. Lungs: Mild shortness of breath, cough, no sputum production. No wheezing. Cardiovascular: No chest pain, no lower extremity edema. No palpitations. No paroxysmal nocturnal dyspnea. No orthopnea. No lightheadedness or dizziness. No syncopal episodes. Abdominal: No abdominal pain. No nausea, vomiting. No diarrhea. No constipation. No bloody or tarry stools.. No loss of appetite. Genitourinary: No dysuria, increased frequency, urgency. Noted urinary retention. Musculoskeletal: No myalgias. Reports muscle weakness, reported gait dysfunction, reported frequent falls. No back pain. No neck pain. Integumentary: No wounds, no lesions. No rash or pruritus. No unusual bruising. No change in hair or nails. Neurologic: No aphasia. No facial droop. Chronic long-term change in mentation. No head injury. No headache. No paralysis. No paresthesia. Psychiatric: No depression. No anxiety. No mood swings. Endocrine: No abnormal blood sugars. PHYSICAL EXAMINATION Gen: This is an 86-year-old male. He is resting in bed and appears to be comfortable. Family members are at bedside HEENT: Head is atraumatic, normocephalic. Pupils equal, round. Sclerae is anicteric. NECK: Supple. No JVD. No lymphadenopathy. No thyromegaly. LUNGS: Diminished in the bases. No wheezes or rhonchi. No intercostal retractions. HEART: Irregular rate and rhythm. No murmur. ABDOMEN: Soft. Bowel sounds are present. No masses. No tenderness. Stark catheter in place. EXTREMITIES: No pedal edema. No calf tenderness. NEUROLOGICAL: Patient is awake, oriented to person. Cranial nerves 2 through 12 are grossly intact. ASSESSMENT AND PLAN 1. Acute right femoral neck fracture status post right anterior hip hemiarth roplasty 10/28. Continue current pain management, PT and OT, discharge planning, encourage incentive spirometry to reduce incidence of atelectasis and hospital- acquired pneumonia. DVT prophylaxis per orthopedics. 2. History of diabetes mellitus type 2 on oral agents the glimepiride decreased to 2 mg daily continue metformin 3. Acute on Chronic systolic heart failure, last EF was 36%, approximately one year ago. Mild pulmonary edema noted chest x-ray, patient's on Lasix 40 mg twice a day. 4. Permanent pacemaker, currently electronically paced 4. CAD with prior [place], prior CABG 2013, in [place] currently asymptomatic on metoprolol 100 mg daily 5. History of spinal stenosis, was seen by neuro spine in the past no spinal surgery as of date 6. Atrial fibrillation, persistent 7. Dementia, unknown type, possibly related to Alzheimer's, no history of CVA check for B12 8. Recurrent falls, preceding the current injury, patient will require PT OT, and compliance assistive device for ambulation 9. DVT prophylaxis, patient's Pradaxa which would resume after surgery GI prophylaxis DISCHARGE PLAN Subacute rehab at [facility] Impression and plan of care have been directed as dictated by the signing physician. Abigail Zaman nurse practitioner acting as scribe for signing physician. Objective - Vital Signs Vital signs: Vital Signs Temp 97.5 F L 10/30/21 07:27 Pulse 59 L 10/30/21 07:27 Resp 18 10/30/21 07:27 BP 143/74 10/30/21 07:27 Pulse Ox 94 L 10/30/21 08:31 Intake & Output 10/29/21 10/30/21 10/30/21 18:59 06:59 18:59 Intake Total 300 Output Total 905 2300 Balance -905 -2300 300 Intake: Intake, IV Titration 300 Amount Azithromycin 500 mg In 250 Sodium Chloride 0.9% 250 ml @ 250 mls/hr IVPB DAILY [facility] Rx#:[id number] cefTRIAXone 1 gm In 50 Sodium Chloride 0.9% 50 ml @ 100 mls/hr IVPB Q24HR [facility] Rx#:[id number] Output: Urine 150 2300 Post Void Residual 755 Other: Voiding Method Indwelling Catheter # Voids 1 - Labs CBC & Chem 7: 10/30/21 11:26 10/29/21 04:29 Labs: Abnormal Lab Results - Last 24 Hours (Table) 10/29/21 10/29/21 10/29/21 Range/Units 11:36 16:25 20:42 POC Glucose (mg/dL) 204 H 308 H 209 H (75-99) mg/dL 10/30/21 Range/Units 06:44 POC Glucose (mg/dL) 179 H (75-99) mg/dL
[2021-10-31] MEDS ORDERED: PANTOPRAZOLE 40 MG TABLET PO SCH (07:30)
== END 2021-10-30 15:06 | DRG 521 ==
LOC: EC 13:45 → 4SSUR 17:34
PROVIDERS: ADMIT Orthopaedic Surgery; ATTEND Orthopaedic Surgery
PROC: 0SRR0J9 Replacement of Right Hip Joint, Femoral Surface with Synthetic Substitute, Cemented, Open Approach (ICD-10-PCS; principal; 2021-10-28 07:30)
DX: S72.001A Fracture of unspecified part of neck of right femur, initial encounter for closed fracture (principal); I50.23 Acute on chronic systolic (congestive) heart failure; I48.19 Other persistent atrial fibrillation; E11.9 Type 2 diabetes mellitus without complications; E78.5 Hyperlipidemia, unspecified; F03.90 Unspecified dementia, unspecified severity, without behavioral disturbance, psychotic disturbance, mood disturbance, and anxiety; I11.0 Hypertensive heart disease with heart failure; I25.10 Atherosclerotic heart disease of native coronary artery without angina pectoris; I25.2 Old myocardial infarction; I25.5 Ischemic cardiomyopathy; N36.5 Urethral false passage; N36.8 Other specified disorders of urethra; R29.6 Repeated falls; R31.0 Gross hematuria; R32 Unspecified urinary incontinence; Z20.822 Contact with and (suspected) exposure to COVID-19; R79.1 Abnormal coagulation profile; S00.03XA Contusion of scalp, initial encounter; W01.0XXA Fall on same level from slipping, tripping and stumbling without subsequent striking against object, initial encounter; Z79.01 Long term (current) use of anticoagulants; Z79.84 Long term (current) use of oral hypoglycemic drugs; Z79.899 Other long term (current) drug therapy; Z82.49 Family history of ischemic heart disease and other diseases of the circulatory system; Z82.5 Family history of asthma and other chronic lower respiratory diseases; Z95.1 Presence of aortocoronary bypass graft; Z95.5 Presence of coronary angioplasty implant and graft; M48.00 Spinal stenosis, site unspecified
CPT/HCPCS: 36415; 70450; 71045; 72125; 73501; 73502; 80048; 80053; 81001; 83690; 83880; 84145; 85025; 85027; 85610; 85730; 86850; 86900; 86901; 87636; 88305; 88311; 93005; 96374; 96375; 99285

== ENCOUNTER 2021-11-29 19:19 | Emergency (ER) | payer MEDICARE, BC ==
[2021-11-29 19:28] VITALS: TEMP 99.1
--- NOTE | 2021-11-29 20:53 | ED ---
General Adult HPI - General Chief complaint: Urogenital Stated complaint: catheter issues Time Seen by Provider: 11/29/21 19:21 Source: patient, EMS, RN notes reviewed, old records reviewed Mode of arrival: EMS Limitations: altered mental status - History of Present Illness Initial comments: 86-year-old male presents with dislodged Stark catheter. Patient has dementia and had accidentally pulled his Stark catheter out. There was no reported bleeding. There was concern for possibility of a piece of the balloon remaining within the urinary tract. Patient himself has no complaints. He is at his baseline mental status. - Related Data Home Medications Medication Instructions Recorded Confirmed Docusate Sodium [Stool Softener] 100 mg PO HS 03/02/14 10/26/21 Ascorbic Acid [Vitamin C] 500 mg PO HS 02/12/18 10/26/21 Atorvastatin [Lipitor] 20 mg PO HS 02/12/18 10/26/21 Furosemide [Lasix] 40 mg PO BID@0800,1200 05/28/18 10/26/21 Potassium Chloride [Klor-Con 20] 10 meq PO DAILY 05/28/18 10/26/21 lisinopriL [Zestril] 5 mg PO DAILY 05/28/18 10/26/21 Calcium Carbonate [Calcium] 1,200 mg PO DAILY 12/07/20 10/26/21 Metoprolol Succinate [Toprol XL] 100 mg PO DAILY 12/07/20 10/26/21 metFORMIN HCL [Glucophage] 1,000 mg PO BID 12/07/20 10/26/21 Dabigatran [Pradaxa] 150 mg PO BID 10/26/21 10/26/21 Previous Rx's Medication Instructions Recorded Amoxic-Pot Clav 500-125 mg 1 tab PO Q12HR #8 tab 10/30/21 [Augmentin 500-125 mg] Glimepiride [Amaryl] 2 mg PO AC-BRKFST #0 10/30/21 HYDROcodone/APAP 5-325MG [[place] 1 tab PO Q8HR PRN 7 Days #20 tab 10/30/21 5-325] Mirtazapine [Remeron] 7.5 mg PO HS #30 tab 10/30/21 Tamsulosin [Flomax] 0.4 mg PO BID #0 10/30/21 Allergies Allergy/AdvReac Type Severity Reaction Status Date / Time tramadol AdvReac Unknown confusion, Verified 10/28/21 12:04 "mean" docusate [From Colace] AdvReac Unknown Verified 10/28/21 12:04 morphine AdvReac Confusion, Verified 10/28/21 12:04 "mean" COVID MODERNA VACCINE AdvReac Severe Numbness, Uncoded 10/28/21 12:04 unable to move. Review of Systems ROS Statement: Those systems with pertinent positive or pertinent negative responses have been documented in the HPI. ROS Other: All systems not noted in ROS Statement are negative. Past Medical History Past Medical History: Atrial Fibrillation, Coronary Artery Disease (CAD), Diabetes Mellitus, Hypertension, Myocardial Infarction ([place]) Additional Past Medical History / Comment(s): used to take medication for diabetes, lost 85#, no longer a problem per spouse Last Myocardial Infarction Date:: History of Any Multi-Drug Resistant Organisms: None Reported Past Surgical History: Cholecystectomy, Coronary Bypass/CABG, Heart Catheterization With Stent, Hernia Repair, Pacemaker, Tonsillectomy Additional Past Surgical History / Comment(s): CABG (1 vessel) 11/2017 in [facility], past colonoscopy,rt inguinal hernia repair, rt knee arthroscopy, cardiac stent-LAD Past Anesthesia/Blood Transfusion Reactions: No Reported Reaction Date of Last Stent Placement:: 2013 Type of Cardiac Device: Permanent Pacemaker Device Placement Date:: 02/09/12 Past Psychological History: No Psychological Hx Reported Smoking Status: Never smoker Past Alcohol Use History: None Reported Past Drug Use History: None Reported - Past Family History Father Family Medical History: No Reported History Additional Family Medical History / Comment(s): FROM OLD AGE AT 92 Mother Family Medical History: COPD Additional Family Medical History / Comment(s): EMPHYSEMA - AGE 87 Sister(s) Family Medical History: No Reported History Additional Family Medical History / Comment(s): . Daughter(s) Family Medical History: Cancer (Breast), Hypertension Brother(s) Family Medical History: Coronary Artery Disease (CAD) General Exam Limitations: altered mental status General appearance: alert, in no apparent distress Head exam: Present: atraumatic, normocephalic Eye exam: Present: normal appearance, PERRL ENT exam: Present: normal exam Neck exam: Present: normal inspection. Absent: tenderness Respiratory exam: Present: normal lung sounds bilaterally. Absent: respiratory distress, wheezes Cardiovascular Exam: Present: regular rate, normal rhythm GI/Abdominal exam: Present: soft. Absent: distended, tenderness, guarding exam: Present: normal inspection. Absent: urethral discharge, scrotal swelling Extremities exam: Present: normal inspection, normal capillary refill Neurological exam: Present: alert Skin exam: Present: warm, dry, intact. Absent: cyanosis, diaphoretic Course Vital Signs 11/29/21 19:21 Temperature 99.1 F Pulse Rate 74 Respiratory 18 Rate Blood Pressure 151/83 O2 Sat by Pulse 95 Oximetry Medical Decision Making - Medical Decision Making 86-year-old presenting with dislodged for catheter. This is replaced. There was concern for possible retained Stark catheter balloon fragment. I did disc uss case with Dr. Castro covering for urology. He does recommend CT. This is obtained in the emergency department. Stark balloon in position, no obvious foreign body. Patient will follow-up with urology. Disposition Clinical Impression: Dislodged Stark catheter Disposition: HOME SELF-CARE Condition: Fair Instructions (If sedation given, give patient instructions): Stark Catheter Placement and Care (ED) Is patient prescribed a controlled substance at d/c from ED?: No Referrals: Mauro Souza MD [Primary Care Provider] - 1-2 days Time of Disposition: 20:53
--- NOTE | 2021-11-29 21:08 | CT ---
EXAMINATION TYPE: CT pelvis wo con DATE OF EXAM: 11/29/2021 COMPARISON: None HISTORY: FOREIGN BODY CT DLP: 624.2 mGycm Automated exposure control for dose reduction was used. Images obtained from the level of L3 vertebra to the mid shaft of the femurs without contrast. There is bilateral hip prosthesis. There is Stark catheter in the urinary bladder. Exam limited by me mehreen artifact from the prosthesis. There is small amount of presacral edema. No free fluid in the pelv is. Abdominal aorta is atheromatous. There is no evidence of a bowel obstruction. There is some retai gav[place] fecal material in the rectum that measures 7 cm. There appears to be some air bubbles in the urin rupal bladder. No definite bladder foreign body. No inguinal hernia. IMPRESSION: There is Stark catheter in the bladder with the balloon appearing to be in good position. No definite bladder foreign body. No fracture. Mild constipation. Exam limited by extensive metal artifact.
[2021-11-29 22:49] VITALS: BP 148/67; PULSE 80; RESP 17
== END 2021-11-29 22:49 | disposition home or self-care (01) ==
LOC: EC 19:19
DX: T83.021A Displacement of indwelling urethral catheter, initial encounter (principal); E11.9 Type 2 diabetes mellitus without complications; I10 Essential (primary) hypertension; I25.2 Old myocardial infarction; I25.10 Atherosclerotic heart disease of native coronary artery without angina pectoris; I48.91 Unspecified atrial fibrillation; Z79.84 Long term (current) use of oral hypoglycemic drugs; Z79.899 Other long term (current) drug therapy
CPT/HCPCS: 51702; 72192; 99283

== ENCOUNTER 2021-12-17 11:31 | Emergency (ER) | payer MEDICARE, BC ==
--- NOTE | 2021-12-17 13:07 | ED ---
General Adult HPI - General Chief complaint: Urogenital Stated complaint: catheter issue, vomiting Time Seen by Provider: 12/17/21 12:26 Source: patient, RN notes reviewed, old records reviewed Mode of arrival: wheelchair Limitations: no limitations - History of Present Illness Initial comments: 86 -year-old male presents for evaluation of retained Stark catheter fragment. Patient had a Stark catheter placed about 2 weeks ago at this institution. About one week ago he broke the catheter off by pulling on it he does have history of dementia. He was seen by urology without murmur urinary retention. He was put on antibiotics at that time. He's had no reported fever. He is urinating at this time. [facility] staff at [facility] noticed that the patient had a fragmented Stark catheter at the tip of his penis. This was removed. - Related Data Home Medications Medication Instructions Recorded Confirmed Docusate Sodium [Stool Softener] 100 mg PO HS 03/02/14 10/26/21 Ascorbic Acid [Vitamin C] 500 mg PO HS 02/12/18 10/26/21 Atorvastatin [Lipitor] 20 mg PO HS 02/12/18 10/26/21 Furosemide [Lasix] 40 mg PO BID@0800,1200 05/28/18 10/26/21 Potassium Chloride [Klor-Con 20] 10 meq PO DAILY 05/28/18 10/26/21 lisinopriL [Zestril] 5 mg PO DAILY 05/28/18 10/26/21 Calcium Carbonate [Calcium] 1,200 mg PO DAILY 12/07/20 10/26/21 Metoprolol Succinate [Toprol XL] 100 mg PO DAILY 12/07/20 10/26/21 metFORMIN HCL [Glucophage] 1,000 mg PO BID 12/07/20 10/26/21 Dabigatran [Pradaxa] 150 mg PO BID 10/26/21 10/26/21 Previous Rx's Medication Instructions Recorded Amoxic-Pot Clav 500-125 mg 1 tab PO Q12HR #8 tab 10/30/21 [Augmentin 500-125 mg] Glimepiride [Amaryl] 2 mg PO AC-BRKFST #0 10/30/21 HYDROcodone/APAP 5-325MG [[place] 1 tab PO Q8HR PRN 7 Days #20 tab 10/30/21 5-325] Mirtazapine [Remeron] 7.5 mg PO HS #30 tab 10/30/21 Tamsulosin [Flomax] 0.4 mg PO BID #0 10/30/21 Cephalexin [Keflex] 500 mg PO TID 10 Days #30 cap 12/17/21 Allergies Allergy/AdvReac Type Severity Reaction Status Date / Time tramadol AdvReac Unknown confusion, Verified 12/17/21 11:47 "mean" docusate [From Colace] AdvReac Unknown Verified 12/17/21 11:47 morphine AdvReac Confusion, Verified 12/17/21 11:47 "mean" COVID MODERNA VACCINE AdvReac Severe Numbness, Uncoded 12/17/21 11:47 unable to move. Review of Systems ROS Statement: Those systems with pertinent positive or pertinent negative responses have been documented in the HPI. ROS Other: All systems not noted in ROS Statement are negative. Past Medical History Past Medical History: Atrial Fibrillation, Coronary Artery Disease (CAD), Diabetes Mellitus, Hypertension, Myocardial Infarction ([place]) Additional Past Medical History / Comment(s): used to take medication for diabetes, lost 85#, no longer a problem per spouse Last Myocardial Infarction Date:: History of Any Multi-Drug Resistant Organisms: None Reported Past Surgical History: Cholecystectomy, Coronary Bypass/CABG, Heart Catheterization With Stent, Hernia Repair, Pacemaker, Tonsillectomy Additional Past Surgical History / Comment(s): CABG (1 vessel) 11/2017 in [facility], past colonoscopy,rt inguinal hernia repair, rt knee arthroscopy, cardiac stent-LAD Past Anesthesia/Blood Transfusion Reactions: No Reported Reaction Date of Last Stent Placement:: 2013 Type of Cardiac Device: Permanent Pacemaker Device Placement Date:: 02/09/12 Past Psychological History: No Psychological Hx Reported Smoking Status: Never smoker Past Alcohol Use History: None Reported Past Drug Use History: None Reported - Past Family History Father Family Medical History: No Reported History Additional Family Medical History / Comment(s): FROM OLD AGE AT 92 Mother Family Medical History: COPD Additional Family Medical History / Comment(s): EMPHYSEMA - AGE 87 Sister(s) Family Medical History: No Reported History Additional Family Medical History / Comment(s): . Daughter(s) Family Medical History: Cancer (Breast), Hypertension Brother(s) Family Medical History: Coronary Artery Disease (CAD) General Exam Limitations: no limitations General appearance: alert, in no apparent distress Head exam: Present: atraumatic, normocephalic Eye exam: Present: normal appearance, PERRL ENT exam: Present: normal exam Neck exam: Present: normal inspection. Absent: tenderness, meningismus Respiratory exam: Present: normal lung sounds bilaterally. Absent: respiratory distress, wheezes Cardiovascular Exam: Present: regular rate, normal rhythm GI/Abdominal exam: Present: soft. Absent: distended, tenderness, guarding exam: Present: normal inspection. Absent: testicular tenderness, urethral discharge, scrotal swelling Neurological exam: Present: alert Psychiatric exam: Present: normal affect, normal mood Skin exam: Present: warm, dry, intact. Absent: cyanosis, diaphoretic Course Vital Signs 12/17/21 11:42 Temperature 98 F Pulse Rate 65 Respiratory 18 Rate Blood Pressure 128/90 O2 Sat by Pulse 94 L Oximetry Medical Decision Making - Medical Decision Making The portion of the Stark catheter that was removed is intact. Urinalysis performed shows bacteria, greater than 182 white cells and greater than 182 red cell. He will be started on antibiotics. He will follow-up with urology. - Lab Data Lab Results 12/17/21 Range/Units 13:04 Urine Color Red Urine Appearance Turbid (Clear) Urine pH 5.5 (5.0-8.0) Ur Specific [place] 1.020 (1.001-1.035) Urine Protein 2+ H (Negative) Urine Glucose (UA) Negative (Negative) Urine Ketones 2+ H (Negative) Urine Blood Large H (Negative) Urine Nitrite Negative (Negative) Urine Bilirubin Negative (Negative) Urine Urobilinogen <2.0 (<2.0) mg/dL Ur Leukocyte Esterase Large H (Negative) Urine RBC >182 H (0-5) /hpf Urine WBC >182 H (0-5) /hpf Urine WBC Clumps Rare H (None) /hpf Ur Squamous Epith Cells 1 (0-4) /hpf Urine Bacteria Moderate H (None) /hpf Urine Mucus Many H (None) /hpf Disposition Clinical Impression: Urinary tract infection Disposition: HOME SELF-CARE Condition: Good Instructions (If sedation given, give patient instructions): Urinary Tract Infection in Men (ED) Prescriptions: Cephalexin [Keflex] 500 mg PO TID 10 Days #30 cap Is patient prescribed a controlled substance at d/c from ED?: No Referrals: Mauro Souza MD [Primary Care Provider] - 1-2 days Alexandre Monaco MD [STAFF PHYSICIAN] - 1-2 days Time of Disposition: 13:31
[2021-12-17 13:25] LABS: Appearance,Urine Turbid (Clear); Bacteria,Urine Moderate /hpf; Bilirubin,Urine Negative (Negative); Blood,Urine Large (Negative); Color,Urine Red; Glucose,Urine (UA) Negative (Negative); Ketones,Urine 2+ (Negative); Leukocyte Esterase,Urine Large (Negative); Mucus,Urine Many /hpf; Nitrite,Urine Negative (Negative); PH, Urine 5.5 (5.0-8.0); Protein,Urine 2+ (Negative); RBC,Urine >182 /hpf (0-5); Squamous Epithelial Cell,Urine 1 /hpf (0-4); Urobilinogen,Urine <2.0 mg/dL (<2.0); WBC,Urine >182 /hpf (0-5)
[2021-12-17] MEDS ORDERED: CEPHALEXIN 500 MG CAP PO STA (13:33)
[2021-12-17 13:55] VITALS: BP 124/69; PULSE 67; RESP 16; TEMP 97.8
== END 2021-12-17 13:53 | disposition home or self-care (01) ==
LOC: EC 11:31
DX: N39.0 Urinary tract infection, site not specified (principal); E11.9 Type 2 diabetes mellitus without complications; I10 Essential (primary) hypertension; I25.10 Atherosclerotic heart disease of native coronary artery without angina pectoris; I25.2 Old myocardial infarction; I48.91 Unspecified atrial fibrillation; F03.90 Unspecified dementia, unspecified severity, without behavioral disturbance, psychotic disturbance, mood disturbance, and anxiety; Z79.84 Long term (current) use of oral hypoglycemic drugs; Z79.01 Long term (current) use of anticoagulants; Z95.1 Presence of aortocoronary bypass graft; Z79.899 Other long term (current) drug therapy
CPT/HCPCS: 81001; 87086; 99283